=== PATIENT | male | born 1935 | race Caucasian/White ===

== ENCOUNTER 2016-08-05 16:21 | Emergency (ER) | payer MEDICARE ==
[2016-08-05 16:33] VITALS: BP 166/78; PULSE 92; RESP 16; TEMP 97.6
--- NOTE | 2016-08-05 17:41 | ED ---
Male Urogenital HPI - General Chief complaint: Urogenital Stated complaint: Catheter Problems Time Seen by Provider: 08/05/16 17:23 Source: patient, RN notes reviewed Mode of arrival: ambulatory Limitations: no limitations - History of Present Illness Initial comments: 81-year-old male presents emergency Department chief complaint Chi irritation. Patient states he had a place yesterday and has had irritation since then. Patient states this was replaced at the urologist office. Patient states that they checked her urine which showed no signs of infection. Patient states he had irritation as soon as a fluttering. Patient states it has been draining. Denies fever, chills. Denies any other complaints. - Related Data Home Medications Medication Instructions Recorded Confirmed No Known Home Medications [No 08/05/16 08/05/16 Known Home Medications] Allergies Allergy/AdvReac Type Severity Reaction Status Date / Time No Known Allergies Allergy Verified 08/05/16 17:09 Review of Systems ROS Statement: Those systems with pertinent positive or pertinent negative responses have been documented in the HPI. ROS Other: All systems not noted in ROS Statement are negative. Past Medical History Past Medical History: Cancer, COPD Additional Past Medical History / Comment(s): Prostate Cancer History of Any Multi-Drug Resistant Organisms: None Reported Past Surgical History: Prostate Surgery Past Psychological History: No Psychological Hx Reported Smoking Status: Never smoker Past Alcohol Use History: None Reported Past Drug Use History: None Reported General Exam Limitations: no limitations General appearance: alert, in no apparent distress Head exam: Present: atraumatic, normocephalic, normal inspection Respiratory exam: Present: normal lung sounds bilaterally. Absent: respiratory distress, wheezes, rales, rhonchi, stridor Cardiovascular Exam: Present: regular rate, normal rhythm, normal heart sounds. Absent: systolic murmur, diastolic murmur, rubs, gallop, clicks GI/Abdominal exam: Present: soft, normal bowel sounds. Absent: distended, tenderness, guarding, rebound, rigid exam: Present: other (Chi catheter in place there is no erythema there is no purulent drainage the Chi bag does have some bloody tinged urine in it.) Back exam: Absent: CVA tenderness (R), CVA tenderness (L) Course Vital Signs 08/05/16 16:30 Temperature 97.6 F Pulse Rate 92 Respiratory 16 Rate Blood Pressure 166/78 O2 Sat by Pulse 96 Oximetry Medical Decision Making - Medical Decision Making 9-year-old male presented for irritation was Chi catheter. Patient had a changed by urologist yesterday had his urine checked shortness infection. Patient is complaining that there is no secure attachment is in the past. Patient is fully was checked and secured. Patient will be discharged. Disposition Clinical Impression: Chi catheter problem Disposition: HOME SELF-CARE Condition: Stable Instructions: Chi Catheter Placement and Care (ED) Additional Instructions: Please return to the Emergency Department if symptoms worsen or any other concerns. Time of Disposition: 17:40
== END 2016-08-05 18:06 | disposition home or self-care (01) ==
LOC: EC 16:21
DX: T83.84XA Pain due to genitourinary prosthetic devices, implants and grafts, initial encounter (principal); Z85.46 Personal history of malignant neoplasm of prostate
CPT/HCPCS: 51798; 99283

== ENCOUNTER 2016-08-05 20:08 | Inpatient (IN) | payer MEDICARE ==
--- NOTE | 2016-08-05 21:23 | ED ---
Male Urogenital HPI - General Chief complaint: Urogenital Stated complaint: Recheck visit Time Seen by Provider: 08/05/16 21:04 Source: patient, RN notes reviewed Mode of arrival: ambulatory Limitations: no limitations - History of Present Illness Initial comments: Patient is a 81-year-old male presents to emergency room for evaluation wasserman catheter issues. Patient states he was here earlier today due to Wasserman catheter irritation. Patient states they sent him home without doing anything. Patient states he still having urethra irritation. Patient states he has not following up with his urologist until few weeks from now. Patient states he's had for a catheter in for the past 5 years due to prostate issues. Patient states last time his catheter was replaced was "a while ago". Patient states the catheter is still draining. Patient denies abdominal pain. Patient denies nausea vomiting. Patient denies flank pain. Patient denies any dizziness, chest pain. - Related Data Allergies Allergy/AdvReac Type Severity Reaction Status Date / Time No Known Allergies Allergy Verified 08/05/16 20:58 Review of Systems ROS Statement: Those systems with pertinent positive or pertinent negative responses have been documented in the HPI. ROS Other: All systems not noted in ROS Statement are negative. Past Medical History Past Medical History: Cancer, COPD Additional Past Medical History / Comment(s): Prostate Cancer History of Any Multi-Drug Resistant Organisms: None Reported Past Surgical History: Prostate Surgery Past Psychological History: No Psychological Hx Reported Smoking Status: Never smoker Past Alcohol Use History: None Reported Past Drug Use History: None Reported General Exam - General Exam Comments Initial Comments: Sitting in exam room, no acute distress. Limitations: no limitations General appearance: alert, in no apparent distress Head exam: Present: atraumatic, normocephalic, normal inspection Eye exam: Present: normal appearance ENT exam: Present: normal exam Neck exam: Present: normal inspection Respiratory exam: Present: normal lung sounds bilaterally. Absent: respiratory distress Cardiovascular Exam: Present: regular rate, normal rhythm, normal heart sounds exam: Present: other (wasserman catheter in place, draining. No penile swelling or discharge noted in the urethra. ) Course Vital Signs 08/05/16 08/05/16 08/05/16 20:32 21:57 22:37 Temperature 97.1 F L 98.4 F 97.0 F L Pulse Rate 100 95 94 Respiratory 18 16 18 Rate Blood Pressure 168/83 150/83 160/89 O2 Sat by Pulse 98 98 96 Oximetry 08/05/16 23:42 Temperature 98.0 F Pulse Rate 94 Respiratory 16 Rate Blood Pressure 128/89 O2 Sat by Pulse 97 Oximetry Medical Decision Making - Medical Decision Making Patient is an 81-year-old male presents emergency room for evaluation of Wasserman catheter irritation. Wasserman catheter was replaced. Apparently Wasserman catheter was very old and was due to be replaced. Large amounts of pus noted in urine. Patient's urinalysis suspicious for urinary tract infection. Due to significant amount of pus in urine will admit patient with IV antibiotics and further evaluation. Case discussed with Dr. Block. Dr. Block discussed case with Dr. Mcmahan who agreed to admit patient. - Lab Data Result diagrams: 08/05/16 23:43 08/05/16 23:43 Lab Results 08/05/16 Range/Units 21:57 Urine Color Yellow Urine Appearance Turbid (Clear) Urine pH 8.0 (5.0-8.0) Ur Specific [place] 1.013 (1.001-1.035) Urine Protein 3+ H (Negative) Urine Glucose (UA) Negative (Negative) Urine Ketones Negative (Negative) Urine Blood Small H (Negative) Urine Nitrate Negative (Negative) Urine Bilirubin Negative (Negative) Urine Urobilinogen <2.0 (<2.0) mg/dL Ur Leukocyte Esterase Large H (Negative) Urine RBC 141 H (0-5) /hpf Urine WBC 174 H (0-5) /hpf Urine WBC Clumps Many H (None) /hpf Amorphous Sediment Rare H (None) /hpf Urine Bacteria Rare H (None) /hpf Disposition Clinical Impression: Wasserman catheter problem, Urinary tract infection Disposition: ADMITTED IP TO THIS HOSP Decision Date: 08/05/16
[2016-08-05] MEDS ORDERED: LIDOCAINE URO-JET JELLY 2% 5 ML KIT URETHRAL ONE (21:54)
[2016-08-05 22:10] LABS: Amorphous Sediment,Urine Rare /hpf; Appearance,Urine Turbid (Clear); Bacteria,Urine Rare /hpf; Bilirubin,Urine Negative (Negative); Glucose,Urine (UA) Negative (Negative); Ketones,Urine Negative (Negative); Leukocyte Esterase,Urine Large (Negative); Nitrite,Urine Negative (Negative); Particle Count 215875; Protein,Urine 3+ (Negative); RBC,Urine 141 /hpf (0-5); Specific Gravity,Urine 1.013 (1.001-1.035); UA Billing (MACRO vs. MICRO) MICRO; Urobilinogen,Urine <2.0 mg/dL (<2.0); WBC,Urine 174 /hpf (0-5)
[2016-08-05] MEDS ORDERED: SULFAMETHOX-TMP 800-160MG 1 EACH TAB PO STA (22:16)
[2016-08-05] MEDS ORDERED: NALOXONE 0.4 MG/ML 1 ML VIAL IV PRN (22:53)
[2016-08-05] MEDS ORDERED: ACETAMINOPHEN TAB 325 MG TAB PO PRN (22:53)
[2016-08-05] MEDS ORDERED: LEVOFLOXACIN 500MG-D5W PMX 500 MG in DEXTROSE/WATER 1 100ML.BAG IVPB STA (22:57)
[2016-08-05 23:54] LABS: Basophils % (A) 0 %; CH 30.6; CHCM 33.6; Eosinophils # (A) 0.1 k/uL (0-0.7); Eosinophils % (A) 1 %; HCT 47.4 % (39.0-53.0); HDW 2.57; HGB 15.5 gm/dL (13.0-17.5); Luc # (Auto) 0.07; Luc % (Auto) 1; Lymphocytes # (A) 0.7 k/uL (1.0-4.8); Lymphocytes % (A) 7 %; MCH 29.8 pg (25.0-35.0); MCHC 32.6 g/dL (31.0-37.0); MCV 91.5 fL (80.0-100.0); Mean Platelet Volume 6.9; Monocytes # (A) 0.5 k/uL (0-1.0); Monocytes % (A) 6 %; Neutrophils # (A) 8.3 k/uL (1.3-7.7); Neutrophils % (A) 85 %; RBC 5.18 m/uL (4.30-5.90); RDW 13.4 % (11.5-15.5); WBC 9.7 k/uL (3.8-10.6); WBC (Perox) 9.88
[2016-08-05] MEDS: SODIUM CHLORIDE 0.9% 1,000 ML IV SCH (23:55)
[2016-08-06 00:04] LABS: ALT 27 U/L (21-72); AST 24 U/L (17-59); Alkaline Phosphatase 69 U/L (38-126); Anion Gap 10 mmol/L; Blood Urea Nitrogen 22 mg/dL (9-20); Calcium 9.4 mg/dL (8.4-10.2); Carbon Dioxide 29 mmol/L (22-30); Chloride 105 mmol/L (98-107); Glucose 130 mg/dL (74-99); Non-African American GFR(MDRD) >60 (>60 ml/min/1.73 sqM); Potassium 4.8 mmol/L (3.5-5.1); Sodium 144 mmol/L (137-145); Total Bilirubin 0.6 mg/dL (0.2-1.3); Total Protein 6.4 g/dL (6.3-8.2)
[2016-08-06] MEDS: SODIUM CHLORIDE 0.9% 1,000 ML IV SCH ×2 (09:18→20:23)
[2016-08-06] MEDS: PIPERACILLIN-TAZOBACTAM 3.375 GM in DEXTROSE/WATER 1 50ML.BAG IVPB SCH ×2 (14:09→20:23)
--- NOTE | 2016-08-06 14:23 | HP ---
DATE OF ADMISSION: Patient is an 81-year-old gentleman with a chronic Chi catheter because of possibility of prostate cancer which being managed as an outpatient by Urology. Much of the history is unavailable at this point of time. Patient is unable to provide any history for me. Patient has issues with urethral irritation apparently although he denies it to me. Patient's has issues with Chi catheter, which was replaced in ER with difficulty. During that replacement, patient was found to have significant amount of pus around the urethral area. Because of which patient was admitted for possibility of urinary tract infection, although patient does not have any leukocytosis. Denied any symptoms of suprapubic pain. Does not have any suprapubic tenderness although urine looks significantly abnormal with large leukocyte esterase and 141 RBC, 174 WBC with WBC clumps and urine bacteria. Urine cultures are pending and patient will be started on Zosyn empirically. Patient was given levofloxacin in ER. Patient denied any dizziness, lightheadedness. I am unable to obtain much of the history from the patient. Patient is alert and oriented x2. Appears to have moderate to severe dementia, but his functionality is pretty good and patient is ambulating very well and is strong enough to ambulate by himself. REVIEW OF SYSTEMS: I am unable to obtain due to above-mentioned reasons. The rest of the review of systems were already discussed in the HPI. The significant ones already discussed in the HPI. PAST MEDICAL HISTORY: Significant for prostate cancer, prostatic surgery. SOCIAL HISTORY: Denies smoking, alcohol abuse or any drug abuse. FAMILY HISTORY: Unable to obtain due to above-mentioned reasons. Family is unavailable at this point of time. CODE STATUS to be discussed because of that reason. PHYSICAL EXAMINATION: Temperature 99.1, pulse of 89, respiratory rate of 16, blood pressure is 124/60, saturating at 94% on room air. GENERAL: The patient is alert and oriented x2. HEENT: Pupils are round and equally reacting to light. EOMI. No scleral icterus. No conjunctival pallor. Normocephalic, atraumatic. No pharyngeal erythema. No thyromegaly. CARDIOVASCULAR: S1 and S2 present. No murmurs, rubs, or gallops. PULMONARY: Chest is clear to auscultation, no wheezing or crackles. ABDOMEN: Soft, nontender, nondistended, normoactive bowel sounds. No palpable organomegaly. MUSCULOSKELETAL: No joint swelling or deformity. EXTREMITIES: No cyanosis, clubbing, or pedal edema. NEUROLOGICAL: No focal neurological deficits. Alert and oriented x2. The patient appears to have moderate to severe dementia; either senile dementia or dementia of Alzheimer's type SKIN: No rashes. The rest of the laboratory data as mentioned above. ASSESSMENT AND PLAN: 1. Possibility of urinary tract infection probably related to Chi-related urinary tract infection. Patient will be on Zosyn. Infectious Disease will be consulted because of the pus around the urethral meatus area. Chi catheter was replaced. 2. History of prostate cancer as mentioned. Will need to follow up Urology as an outpatient. 3. Dementia. Patient has moderate dementia. I do not believe patient will benefit from Namenda or Aricept. 4. Patient's primary care physician is unknown at this point of time.
[2016-08-07] MEDS: PIPERACILLIN-TAZOBACTAM 3.375 GM in DEXTROSE/WATER 1 50ML.BAG IVPB SCH ×3 (03:03→19:18)
[2016-08-07] MEDS: SODIUM CHLORIDE 0.9% 1,000 ML IV SCH ×2 (05:51→15:33)
[2016-08-07 09:10] LABS: CH 30.2; CHCM 32.8; HCT 48.6 % (39.0-53.0); HDW 2.55; HGB 15.6 gm/dL (13.0-17.5); MCH 29.8 pg (25.0-35.0); MCHC 32.2 g/dL (31.0-37.0); MCV 92.5 fL (80.0-100.0); Mean Platelet Volume 6.4; RBC 5.25 m/uL (4.30-5.90); RDW 13.4 % (11.5-15.5); WBC 6.3 k/uL (3.8-10.6)
[2016-08-07 09:34] LABS: Anion Gap 11 mmol/L; Blood Urea Nitrogen 16 mg/dL (9-20); Calcium 9.2 mg/dL (8.4-10.2); Carbon Dioxide 27 mmol/L (22-30); Chloride 105 mmol/L (98-107); Glucose 93 mg/dL (74-99); Non-African American GFR(MDRD) 56 (>60 ml/min/1.73 sqM); Potassium 4.1 mmol/L (3.5-5.1); Sodium 143 mmol/L (137-145)
--- NOTE | 2016-08-07 10:11 | CONS ---
DATE OF CONSULTATION: 08/06/2015 REASON FOR CONSULTATION: Catheter associated urinary tract infection. HISTORY OF PRESENT ILLNESS: The patient is an 81-year-old male with a past medical history significant for urinary obstruction secondary to prostate disorder for which the patient did have Chi catheter. Patient came to the ER with chief complaints of irritation in his penile area from his Chi catheter. The patient was not sure exactly when was the last time Chi catheter has been changed. Subsequently, the catheter was changed down in the ER. He did have UA that was significantly positive. He was given one dose of Levaquin and subsequently admitted to the hospital for further work-up and antibiotic was adjusted to Zosyn. I was asked to see the patient for further recommendation. Patient is not a very good historian so most of the information has been extracted from review of the chart and talking to the nursing staff as the patient questions answered. Review of systems could not be reliably obtained. All the positive points have been mentioned in the HPI. PAST MEDICAL HISTORY: Significant for prostate cancer and COPD . PAST SURGICAL HISTORY: Prostatectomy. SOCIAL HISTORY: No history of smoking, drinking or drug use. FAMILY HISTORY: No pertinent findings noticed. ALLERGIES: No known drug allergies. Medications currently include the patient is on: 1. Tylenol. 2. Piptazobactam. 3. IV fluid. On examination, blood pressure is 117/72 with a pulse of 85, temperature 97.6. He is 95% on room air. General description is an elderly male, lying in bed in no distress. No tachypnea or accessory muscles of respiration use. HEENT examination showed no pallor or scleral icterus. Oral mucous membrane is dry. NECK: Trachea central. There is no thyromegaly. LUNGS: Unlabored breathing. Clear to auscultation anteriorly. HEART: S1, S2 with regular rate and rhythm. ABDOMEN: Soft. No tenderness. EXTREMITIES: No edema of the feet. SKIN: No rash or mass palpable. NEUROLOGICAL: The patient is awake, alert, orientation couldnot be determined. Mood and affect normal. LABS: Hemoglobin is 15.5, white count 9.7 with a BUN of 22, creatinine 1.0. electrolytes has been normal. Liver enzymes are normal. Urine has been positive with large leukocyte esterase and many bacteria. DIAGNOSTIC IMPRESSION AND PLAN: Patient with catheter associated urinary tract infection, in a patient who does have underlying prostate cancer status post prostatectomy and depending on chronic indwelling Chi. PLAN: 1. The patient will continue on Zosyn and that should cover broad spectrum for gram-negative pathogen. 2. Aggressive IV fluid. 3. Will follow with clinical condition and cultures to determine his discharge antibiotics. Thank you for this consultation. Will follow this patient along with you. ALVARO
[2016-08-07 15:59] VITALS: RESP 16
--- NOTE | 2016-08-07 17:55 | P.PN ---
Subjective Principal diagnosis: Urinary tract infection related to Chi catheter and irritation. This is a continue present on an 81-year-old white male essentially admitted for infected Chi catheter. The patient probably has superinfection. Infectious diseases consulted. No significant new complaints. However, he seems somewhat confused and agitated. We will try low-dose Ativan to see if this will help him. He had somewhat of a "rough" night. Objective - Vital Signs Vital signs: Vital Signs Temp 96.2 F L 08/07/16 15:00 Pulse 65 08/07/16 15:00 Resp 16 08/07/16 15:00 BP 110/62 08/07/16 15:00 Pulse Ox 96 08/07/16 15:00 Intake & Output 08/06/16 08/07/16 08/07/16 18:59 06:59 18:59 Intake Total 200 300 Output Total 1100 1200 700 Balance -900 -900 -700 Intake: Oral 200 300 Output: Urine 1100 1200 700 Other: Voiding Method Indwelling Catheter Indwelling Catheter Indwelling Catheter - Constitutional General appearance: Present: average body habitus - EENT Eyes: Absent: abnormal pupil - Cardiovascular Rhythm: regular Heart sounds: normal: S1, S2 - Gastrointestinal General gastrointestinal: Present: soft. Absent: tenderness - Integumentary Integumentary: Absent: rash - Labs CBC & Chem 7: 08/07/16 08:24 08/07/16 08:24 Assessment and Plan (1) Chi catheter problem Status: Acute (2) Urinary tract infection Status: Acute Plan: Continue current regimen of antibiotic treatment. Anticipate discharge once cleared by infectious disease and clinical stable. Ativan 0.5 mg IV when necessary for agitation. Dr. Jones will be covering for the weekend. Anticipate discharge in next 24-48 hours. Time with Patient: Less than 30
[2016-08-07] MEDS: LORazepam 2 MG/ML SYRINGE IV PRN (20:13)
[2016-08-08] MEDS: SODIUM CHLORIDE 0.9% 1,000 ML IV SCH ×2 (01:10→12:54)
[2016-08-08] MEDS: LORazepam 2 MG/ML SYRINGE IV PRN (01:13)
[2016-08-08] MEDS: PIPERACILLIN-TAZOBACTAM 3.375 GM in DEXTROSE/WATER 1 50ML.BAG IVPB SCH ×2 (03:44→12:54)
[2016-08-08 08:12] VITALS: BP 140/76; PULSE 81; TEMP 97.7
--- NOTE | 2016-08-08 08:16 | PN ---
DATE OF SERVICE: 08/07/2016 Reason for followup is catheter associated urinary tract infection. INTERVAL HISTORY: The patient is afebrile. He seems to be more awake, alert. He is breathing comfortably. Denies having any chest pain or shortness of breath or cough. No abdominal pain or any diarrhea. On examination, blood pressure is 110/62 with a pulse of 65, temperature 96.2. He is 96% on room air. General description is an elderly male, lying in bed in no distress. RESPIRATORY SYSTEM: Unlabored breathing. Clear to auscultation anteriorly. HEART: S1, S2 with regular rate and rhythm. ABDOMEN: Soft, no tenderness. LABS: Hemoglobin is 15.6, white count 6.3 with a BUN of 15, creatinine 1.24. Urine culture with gram-negative bacilli. DIAGNOSTIC IMPRESSION AND PLAN: Patient with gram-negative urinary tract infection, catheter associated. His Chi has been changed. We are awaiting for the urine culture to finalize to determine his discharge antibiotics. Continue the patient on Zosyn. Family present at the bedside. Their questions were answered.
[2016-08-08 09:27] LABS: CH 30.2; CHCM 32.7; HCT 45.7 % (39.0-53.0); HDW 2.59; HGB 14.9 gm/dL (13.0-17.5); MCH 30.3 pg (25.0-35.0); MCHC 32.7 g/dL (31.0-37.0); MCV 92.8 fL (80.0-100.0); Mean Platelet Volume 6.5; RBC 4.92 m/uL (4.30-5.90); RDW 13.4 % (11.5-15.5); WBC 4.7 k/uL (3.8-10.6)
[2016-08-08 09:40] LABS: ALT 30 U/L (21-72); AST 25 U/L (17-59); Alkaline Phosphatase 52 U/L (38-126); Anion Gap 8 mmol/L; Blood Urea Nitrogen 13 mg/dL (9-20); Calcium 9.1 mg/dL (8.4-10.2); Carbon Dioxide 32 mmol/L (22-30); Chloride 104 mmol/L (98-107); Glucose 128 mg/dL (74-99); Non-African American GFR(MDRD) 58 (>60 ml/min/1.73 sqM); Potassium 4.4 mmol/L (3.5-5.1); Sodium 144 mmol/L (137-145); Total Bilirubin 0.7 mg/dL (0.2-1.3); Total Protein 5.7 g/dL (6.3-8.2)
== END 2016-08-08 14:10 | disposition home or self-care (01) | DRG 700 ==
LOC: EC 20:08 → 4MS4W 22:53
PROVIDERS: ADMIT Family Medicine; ATTEND Family Medicine
DX: T83.511A Infection and inflammatory reaction due to indwelling urethral catheter, initial encounter (principal); C61 Malignant neoplasm of prostate; J44.9 Chronic obstructive pulmonary disease, unspecified; G30.9 Alzheimer's disease, unspecified; N31.9 Neuromuscular dysfunction of bladder, unspecified; B96.89 Other specified bacterial agents as the cause of diseases classified elsewhere; F02.80 Dementia in other diseases classified elsewhere, unspecified severity, without behavioral disturbance, psychotic disturbance, mood disturbance, and anxiety; N39.0 Urinary tract infection, site not specified; E78.5 Hyperlipidemia, unspecified; M19.90 Unspecified osteoarthritis, unspecified site; N35.9 Urethral stricture, unspecified; Z85.828 Personal history of other malignant neoplasm of skin; Z79.82 Long term (current) use of aspirin; Y84.6 Urinary catheterization as the cause of abnormal reaction of the patient, or of later complication, without mention of misadventure at the time of the procedure
CPT/HCPCS: 51798; 80048; 80053; 81001; 85025; 85027; 87077; 87086; 87186; 96365; 99283; 99284

== ENCOUNTER 2016-12-02 06:57 | Inpatient (IN) | payer MEDICARE ==
[2016-12-02] MEDS ORDERED: RX INFO: IV CONTRAST WAS GIVEN 1 EACH MISC MISCELLANE PRN (07:57)
[2016-12-02] MEDS ORDERED: SODIUM CHLORIDE 0.9% 1,000 ML IV STA (07:57)
[2016-12-02] MEDS ORDERED: MORPHINE SULFATE 4 MG/ML SYRINGE IV STA (07:57)
--- NOTE | 2016-12-02 08:03 | ED ---
General Adult HPI - General Chief complaint: Extremity Problem,Nontraumatic Stated complaint: Leg pain Time Seen by Provider: 12/02/16 07:33 Source: patient, RN notes reviewed Mode of arrival: wheelchair Limitations: no limitations - History of Present Illness Initial comments: Patient is a pleasant 81-year-old male presenting to the emergency department for leg pain. Patient is a very poor historian. No family is present. Patient states symptoms have been present for a couple of days. Patient believes symptoms may be getting better. Patient does admit however that he was unable to get out of bed because his legs hurt too much. Patient states this is with raising his legs. Patient states at rest there is no discomfort. Patient denies any weakness. Patient denies back pain. No headache or confusion. Both legs are equally uncomfortable. Patient states the area of discomfort is a suprapubic region upon exam. - Related Data Home Medications Medication Instructions Recorded Confirmed Ibuprofen [Advil] 200 mg PO Q8HR PRN 12/02/16 12/02/16 Allergies Allergy/AdvReac Type Severity Reaction Status Date / Time No Known Allergies Allergy Verified 12/02/16 07:14 Review of Systems ROS Statement: Those systems with pertinent positive or pertinent negative responses have been documented in the HPI. ROS Other: All systems not noted in ROS Statement are negative. Constitutional: Denies: fever Eyes: Denies: eye pain ENT: Denies: ear pain Respiratory: Denies: cough, dyspnea Cardiovascular: Denies: chest pain Endocrine: Denies: fatigue Gastrointestinal: Reports: abdominal pain (Patient admits to having some discomfort in the suprapubic region while lifting his legs) Genitourinary: Reports: other (Chi catheter) Musculoskeletal: Denies: back pain Skin: Denies: rash Neurological: Denies: weakness Past Medical History Past Medical History: Asthma, Cancer, COPD, Dementia, Hyperlipidemia Additional Past Medical History / Comment(s): Prostate Cancer, skin cancer removed from back, chronic urinary retention, urethral stricture, arthritis, History of Any Multi-Drug Resistant Organisms: None Reported Past Surgical History: Prostate Surgery Additional Past Surgical History / Comment(s): urethral stricture with Cystoscopy with DVIU x3 Past Anesthesia/Blood Transfusion Reactions: No Reported Reaction Past Psychological History: No Psychological Hx Reported Smoking Status: Never smoker Past Alcohol Use History: None Reported Past Drug Use History: None Reported General Exam Limitations: no limitations General appearance: alert, in no apparent distress Head exam: Present: atraumatic, other (Right facial lesion which patient is informed he needs to see a primary care physician for) Eye exam: Present: normal appearance, PERRL Neck exam: Present: normal inspection Respiratory exam: Present: normal lung sounds bilaterally Cardiovascular Exam: Present: regular rate, normal rhythm Expanded Peripheral pulses: 2+: Dorsalis Pedis (R), Dorsalis Pedis (L) GI/Abdominal exam: Present: soft, tenderness (Suprapubic tenderness), normal bowel sounds. Absent: distended, guarding, rebound, rigid, pulsatile mass exam: Present: normal inspection, other (Chi catheter in place). Absent: testicular tenderness, urethral discharge, scrotal swelling Extremities exam: Present: normal inspection, other (Patient has severe discomfort with attempt at flexing of the hip. Patient has limited ability to hold each leg off the bed secondary to discomfort). Absent: tenderness Back exam: Present: normal inspection. Absent: tenderness Neurological exam: Present: alert, CN II-XII intact. Absent: motor sensory deficit (Limited by pain) Expanded Speech: Present: fluid speech Cranial nerves: EOM's Intact: Normal, Facial Sensation: Normal Sensory exam: Upper Extremity Light Touch: Normal, Lower Extremity Light Touch: Normal Motor strength exam: RUE: 5, LUE: 5, RLE: 5 (Limited by pain), LLE: 5 (Limited by pain) Psychiatric exam: Present: normal affect, normal mood Skin exam: Absent: rash Course Vital Signs 12/02/16 12/02/16 12/02/16 07:10 10:06 10:38 Temperature 97.1 F L 98.4 F 98.2 F Pulse Rate 114 H 81 89 Respiratory 18 18 16 Rate Blood Pressure 145/75 123/58 131/68 O2 Sat by Pulse 97 94 L 96 Oximetry EKG Findings - EKG Comments: EKG Findings:: Normal sinus rhythm and 95. UT 180. QRS 84. QT 366. QTc 447. Normal axis. Normal QRS. Normal ST-T. Medical Decision Making - Medical Decision Making Patient resting comfortably in bed. Patient still is unable to get up out of bed or ambulate. Patient updated on results and plan. Case discussed with Dr. Huston, who will admit for hospital call. - Lab Data Result diagrams: 12/02/16 08:14 12/02/16 08:14 Lab Results 12/02/16 12/02/16 12/02/16 Range/Units 08:10 08:14 08:14 WBC 8.9 (3.8-10.6) k/uL RBC 4.59 (4.30-5.90) m/uL Hgb 14.0 (13.0-17.5) gm/dL Hct 41.1 (39.0-53.0) % MCV 89.6 (80.0-100.0) fL MCH 30.5 (25.0-35.0) pg MCHC 34.1 (31.0-37.0) g/dL RDW 12.8 (11.5-15.5) % Plt Count 396 (150-450) k/uL Neutrophils % 81 % Lymphocytes % 8 % Monocytes % 8 % Eosinophils % 2 % Basophils % 0 % Neutrophils # 7.2 (1.3-7.7) k/uL Lymphocytes # 0.7 L (1.0-4.8) k/uL Monocytes # 0.7 (0-1.0) k/uL Eosinophils # 0.1 (0-0.7) k/uL Basophils # 0.0 (0-0.2) k/uL PT (9.0-12.0) sec INR (<1.1) APTT (22.0-30.0) sec Sodium 143 (137-145) mmol/L Potassium 4.2 (3.5-5.1) mmol/L Chloride 104 (98-107) mmol/L Carbon Dioxide 28 (22-30) mmol/L Anion Gap 11 mmol/L BUN 17 (9-20) mg/dL Creatinine 0.87 (0.66-1.25) mg/dL Est GFR (MDRD) Af Amer >60 (>60 ml/min/1.73 sqM) Est GFR (MDRD) Non-Af >60 (>60 ml/min/1.73 sqM) Glucose 115 H (74-99) mg/dL Calcium 9.2 (8.4-10.2) mg/dL Total Bilirubin 0.7 (0.2-1.3) mg/dL AST 22 (17-59) U/L ALT 27 (21-72) U/L Alkaline Phosphatase 77 (38-126) U/L Total Creatine Kinase (55-170) U/L CK-MB (CK-2) (0.0-2.4) ng/mL CK-MB (CK-2) Rel Index Troponin I (0.000-0.034) ng/mL Total Protein 6.7 (6.3-8.2) g/dL Albumin 3.3 L (3.5-5.0) g/dL Amylase 73 (30-110) U/L Lipase 101 (23-300) U/L Urine Color Yellow Urine Appearance Turbid (Clear) Urine pH 6.0 (5.0-8.0) Ur Specific Mercer 1.017 (1.001-1.035) Urine Protein 1+ H (Negative) Urine Glucose (UA) Negative (Negative) Urine Ketones Trace H (Negative) Urine Blood Moderate H (Negative) Urine Nitrite Positive (Negative) Urine Bilirubin Negative (Negative) Urine Urobilinogen <2.0 (<2.0) mg/dL Ur Leukocyte Esterase Large H (Negative) Urine RBC 72 H (0-5) /hpf Urine WBC >182 H (0-5) /hpf Urine WBC Clumps Few H (None) /hpf Ur Squamous Epith Cells 2 (0-4) /hpf Urine Bacteria Many H (None) /hpf Hyaline Casts 15 H (0-2) /lpf Urine Mucus Moderate H (None) /hpf 12/02/16 12/02/16 Range/Units 08:14 08:14 WBC (3.8-10.6) k/uL RBC (4.30-5.90) m/uL Hgb (13.0-17.5) gm/dL Hct (39.0-53.0) % MCV (80.0-100.0) fL MCH (25.0-35.0) pg MCHC (31.0-37.0) g/dL RDW (11.5-15.5) % Plt Count (150-450) k/uL Neutrophils % % Lymphocytes % % Monocytes % % Eosinophils % % Basophils % % Neutrophils # (1.3-7.7) k/uL Lymphocytes # (1.0-4.8) k/uL Monocytes # (0-1.0) k/uL Eosinophils # (0-0.7) k/uL Basophils # (0-0.2) k/uL PT 11.3 (9.0-12.0) sec INR 1.1 (<1.1) APTT 22.8 (22.0-30.0) sec Sodium (137-145) mmol/L Potassium (3.5-5.1) mmol/L Chloride (98-107) mmol/L Carbon Dioxide (22-30) mmol/L Anion Gap mmol/L BUN (9-20) mg/dL Creatinine (0.66-1.25) mg/dL Est GFR (MDRD) Af Amer (>60 ml/min/1.73 sqM) Est GFR (MDRD) Non-Af (>60 ml/min/1.73 sqM) Glucose (74-99) mg/dL Calcium (8.4-10.2) mg/dL Total Bilirubin (0.2-1.3) mg/dL AST (17-59) U/L ALT (21-72) U/L Alkaline Phosphatase (38-126) U/L Total Creatine Kinase 33 L (55-170) U/L CK-MB (CK-2) 1.3 (0.0-2.4) ng/mL CK-MB (CK-2) Rel Index 3.9 Troponin I <0.012 (0.000-0.034) ng/mL Total Protein (6.3-8.2) g/dL Albumin (3.5-5.0) g/dL Amylase (30-110) U/L Lipase (23-300) U/L Urine Color Urine Appearance (Clear) Urine pH (5.0-8.0) Ur Specific Mercer (1.001-1.035) Urine Protein (Negative) Urine Glucose (UA) (Negative) Urine Ketones (Negative) Urine Blood (Negative) Urine Nitrite (Negative) Urine Bilirubin (Negative) Urine Urobilinogen (<2.0) mg/dL Ur Leukocyte Esterase (Negative) Urine RBC (0-5) /hpf Urine WBC (0-5) /hpf Urine WBC Clumps (None) /hpf Ur Squamous Epith Cells (0-4) /hpf Urine Bacteria (None) /hpf Hyaline Casts (0-2) /lpf Urine Mucus (None) /hpf - Radiology Data Radiology results: report reviewed (Bilateral lower extremity ultrasound shows no acute DVT. Computed tomography scan of the abdomen pelvis: Correlate for urinary bladder cystitis.), image reviewed (Lumbar x-ray shows grade 1 retrolisthesis L3/L4. Moderate multilevel degenerative changes.) Disposition Clinical Impression: Urinary tract infection, Leg pain Disposition: ADMITTED IP TO THIS HOSP
[2016-12-02 08:34] LABS: Appearance,Urine Turbid (Clear); Bacteria,Urine Many /hpf; Bilirubin,Urine Negative (Negative); Glucose,Urine (UA) Negative (Negative); Ketones,Urine Trace (Negative); Leukocyte Esterase,Urine Large (Negative); Mucus,Urine Moderate /hpf; Nitrite,Urine Positive (Negative); Particle Count 92636; Protein,Urine 1+ (Negative); RBC,Urine 72 /hpf (0-5); Specific Gravity,Urine 1.017 (1.001-1.035); Squamous Epithelial Cell,Urine 2 /hpf (0-4); UA Billing (MACRO vs. MICRO) MICRO; Urobilinogen,Urine <2.0 mg/dL (<2.0); WBC,Urine >182 /hpf (0-5)
[2016-12-02 08:37] LABS: Basophils % (A) 0 %; CH 29.5; CHCM 33.1; Eosinophils # (A) 0.1 k/uL (0-0.7); Eosinophils % (A) 2 %; HCT 41.1 % (39.0-53.0); HDW 2.78; Luc # (Auto) 0.15; Luc % (Auto) 2; Lymphocytes # (A) 0.7 k/uL (1.0-4.8); Lymphocytes % (A) 8 %; MCH 30.5 pg (25.0-35.0); MCHC 34.1 g/dL (31.0-37.0); MCV 89.6 fL (80.0-100.0); Mean Platelet Volume 6.1; Monocytes # (A) 0.7 k/uL (0-1.0); Monocytes % (A) 8 %; Neutrophils # (A) 7.2 k/uL (1.3-7.7); Neutrophils % (A) 81 %; RBC 4.59 m/uL (4.30-5.90); RDW 12.8 % (11.5-15.5); WBC 8.9 k/uL (3.8-10.6); WBC (Perox) 8.47
[2016-12-02 08:42] LABS: INR 1.1 (<1.1); Partial Thromboplastin Time 22.8 sec (22.0-30.0); Prothrombin Time 11.3 sec (9.0-12.0)
[2016-12-02 08:47] LABS: Amylase 73 U/L (30-110); Chloride 104 mmol/L (98-107); Glucose 115 mg/dL (74-99); Potassium 4.2 mmol/L (3.5-5.1); Sodium 143 mmol/L (137-145); Total Protein 6.7 g/dL (6.3-8.2)
[2016-12-02 08:48] LABS: ALT 27 U/L (21-72); AST 22 U/L (17-59); Alkaline Phosphatase 77 U/L (38-126); Anion Gap 11 mmol/L; Blood Urea Nitrogen 17 mg/dL (9-20); Calcium 9.2 mg/dL (8.4-10.2); Carbon Dioxide 28 mmol/L (22-30); Non-African American GFR(MDRD) >60 (>60 ml/min/1.73 sqM); Total Bilirubin 0.7 mg/dL (0.2-1.3)
[2016-12-02 08:53] LABS: Creatine Kinase 33 U/L (55-170)
[2016-12-02 09:06] LABS: Creatine Kinase MB 1.3 ng/mL (0.0-2.4); Troponin I <0.012 ng/mL (0.000-0.034)
--- NOTE | 2016-12-02 09:29 | XR ---
EXAMINATION TYPE: XR lumbar spine 2 or 3V DATE OF EXAM: 12/02/2016 8:56 AM COMPARISON: NONE HISTORY: 81-year-old male with lower pelvic pain and leg weakness. Leg pain. TECHNIQUE: 3 views FINDINGS: There is a degenerated levoconvex curvature of the lumbar spine. Hypertrophic facet arthropathy throu ghout with moderate degenerative disc disease characterized by disc space narrowing and endplate spon dylosis. There is grade 1 retrolisthesis at L3-L4. Vertebral body heights are preserved. IMPRESSION: 1. Marked hypertrophic facet arthropathy throughout with a degenerative grade 1 retrolisthesis at L3- L4. 2. Additional moderate multilevel disc/endplate degenerative changes especially in the mid to lower l umbar spine. 3. Degenerated levoconvex curvature. No vertebral compression collapse.
--- NOTE | 2016-12-02 09:47 | US ---
EXAMINATION TYPE: US venous doppler duplex LE BI DATE OF EXAM: 12/02/2016 9:32 AM COMPARISON: NONE CLINICAL HISTORY: 81-year-old male Pain. Bilateral leg pain and swelling x 3 days SIDE PERFORMED: Bilateral TECHNIQUE: The lower extremity deep venous system is examined utilizing real time linear array sonog jennifer with graded compression, doppler sonography and color-flow sonography. Findings VESSELS IMAGED: External Iliac Vein (EIV) Common Femoral Vein Deep Femoral Vein Greater Saphenous Vein * Femoral Vein Popliteal Vein Small Saphenous Vein * Proximal Calf Veins (* superficial vessels) Right Leg: Appears negative for DVT Left Leg: Appears negative for DVT IMPRESSION: No evidence for DVT within the bilateral lower extremities imaged from the groin to the upper calves.
--- NOTE | 2016-12-02 09:50 | CT ---
EXAMINATION TYPE: CT abdomen pelvis w con DATE OF EXAM: 12/02/2016 9:22 AM COMPARISON: NONE HISTORY: Abdominal pain CT DLP: 734.50 mGycm CONTRAST: CT scan of the abdomen and pelvis is performed without Oral Contrast and with IV Contrast, patient in jected with 100 ml mL of Omnipaque 300. FINDINGS: LUNG BASES-: No visible nodule. No infiltrate. There are coronary artery calcifications. LIVER/GB: No calcified gallstones. No space occupying hepatic lesion. Biliary tree is of normal ca liber. PANCREAS: No inflammation. No distinct mass. SPLEEN: No splenic enlargement. No lesion seen. Splenic granulomas identified. ADRENALS: 1.7 cm lipid rich left adrenal adenoma. KIDNEYS/BLADDER: No hydronephrosis. No nephrolithiasis. No disctinct renal mass. Limited evaluatio n of the urinary bladder given streak artifact from right hip prosthesis.. Urinary bladder does appea r to be of mildly thickened. Correlate clinically. Chi catheter is partially imaged. BOWEL: Normal appendix. Normal bowel caliber. No inflammation. Sigmoid diverticulosis without diver ticulitis. GENITAL ORGANS: No gross abnormality. LYMPH NODES: No greater than 1cm abdominal or pelvic lymph nodes are appreciated. AORTA: No significant abnormality. OSSEOUS STRUCTURES: No significant abnormality is seen. OTHER: No significant additional abnormality is seen. IMPRESSION: 1. Correlate for urinary bladder cystitis. 2. Sigmoid diverticulosis without diverticulitis. 3. Lipid rich left adrenal adenoma.
[2016-12-02] MEDS ORDERED: NALOXONE 0.4 MG/ML 1 ML VIAL IV PRN (11:12)
[2016-12-02] MEDS ORDERED: MORPHINE SULFATE 4 MG/ML SYRINGE IV PRN (11:12)
[2016-12-02] MEDS: SODIUM CHLORIDE 0.9% 1,000 ML IV SCH (12:24)
[2016-12-02] MEDS: HYDROcodone/APAP 5-325MG 1 EACH TAB PO PRN (17:00)
--- NOTE | 2016-12-03 07:05 | HP ---
DATE OF ADMISSION: CHIEF COMPLAINT: Pain in the lower abdomen and groin. HISTORY OF PRESENT ILLNESS: This is the first admission for this 81-year-old white male. He apparently lives with his son. There is nobody to give a history and it is believed that he has dementia. He presented to the emergency room with lower abdominal pain or pain in the groin and no obvious etiology was identified in the emergency room. He has an indwelling Chi and he has a history of cancer of the prostate. He is admitted for further work-up. It did not look like he had a UTI. REVIEW OF SYSTEMS: Unobtainable. Past medical history, family history, and personal and social histories are unobtainable. It is believed that he does not take any medications. Family history, personal and social histories are all unavailable or unknown. PHYSICAL EXAMINATION: VITAL SIGNS: Blood pressure 122/78 with a pulse 101, respirations of 30 and he is afebrile. GENERAL: He appeared to be slender, well-developed, well-nourished in no acute distress. SKIN: Skin color is normal. Skin is warm and dry. Lymph nodes are not enlarged. Head, ears, eyes, nose, mouth, and throat are normal. NECK: Neck veins not distended. Thyroid is not enlarged. CHEST: Clear. CARDIAC: Normal. ABDOMEN: Soft, nontender. No masses or visceromegaly. EXTREMITIES: Normal. ( ) but it was felt that he was confused. He is admitted to the hospital with diagnoses: 1. Lower abdominal and groin pain, etiology unknown. 2. History of coronary artery disease of the prostate. 3. Indwelling Chi catheter. 4. Dementia. PLAN: 1. Bed rest. 2. IV fluids. 3. Bone scan. 4. PSA. 5. CT of the abdomen and pelvis.
[2016-12-03] MEDS: HYDROcodone/APAP 5-325MG 1 EACH TAB PO PRN ×3 (07:34→20:25)
--- NOTE | 2016-12-03 08:25 | P.PN ---
Subjective Principal diagnosis: Leg pain with UTI. This is a continue present 81-year-old white male essentially admitted for UTI and leg pain. He has an underlying history of prostate cancer. We will go ahead and await bone scan results. Continue IV fluid hydration and antibiotics. He does complain of suprapubic pain intermittently. But he is tolerating diet appropriately. Objective - Vital Signs Vital signs: Vital Signs Temp 97.6 F 12/03/16 07:00 Pulse 94 12/03/16 07:00 Resp 16 12/03/16 07:00 BP 144/69 12/03/16 07:00 Pulse Ox 96 12/03/16 07:00 Intake & Output 12/02/16 12/03/16 12/03/16 18:59 06:59 18:59 Intake Total 480 Output Total 120 500 Balance -120 -20 Intake: Oral 480 Output: Urine 120 500 Other: Voiding Method Indwelling Catheter Indwelling Catheter - Constitutional General appearance: Present: average body habitus - EENT Eyes: Absent: abnormal pupil - Respiratory Respiratory: bilateral: CTA - Cardiovascular Heart sounds: normal: S1, S2 - Gastrointestinal General gastrointestinal: Present: soft. Absent: tenderness - Labs CBC & Chem 7: 12/02/16 08:14 12/02/16 08:14 Assessment and Plan (1) Leg pain Status: Acute (2) Urinary tract infection Status: Acute Plan: Continue IV antibiotics and fluid. Await bone scan results. We'll continue to follow. The patient clinically is improved. Anticipate discharge in the a.m. This is assuming his bone scan is normal. Time with Patient: Less than 30
[2016-12-03] MEDS: SODIUM CHLORIDE 0.9% 1,000 ML IV SCH ×2 (11:15→12:51)
--- NOTE | 2016-12-03 17:39 | NM ---
EXAMINATION TYPE: NM bone scan whole body DATE OF EXAM: 12/03/2016 4:56 PM COMPARISON: CT abdomen pelvis 02 Dec 2016 HISTORY: Prostate carcinoma Delayed whole-body scanning was performed following the injection of 25.8 mCi Tc 99m MDP. Images acq uired 3 hours post injection. FINDINGS: Uptake within the knees, wrists, hands, elbows, shoulders and sternoclavicular joints is likely degen erative. Photopenic area present right hip is due to hip prosthesis. Soft tissue uptake is thought to be normal. Uptake in the thoracic and lumbar spine thought to be degenerative. There may be extraren al pelvis involving the left kidney. IMPRESSION: Metastatic disease is not evident.
--- NOTE | 2016-12-03 22:48 | PN ---
CHIEF COMPLAINT: Lower abdominal groin pain with a history of CA of the prostate. HISTORY OF PRESENT ILLNESS: This patient apparently is a patient of Dr. Nicholson's. Dr. Nicholson is willing to take the patient on transfer and this has been arranged.
[2016-12-04] MEDS: HYDROcodone/APAP 5-325MG 1 EACH TAB PO PRN ×2 (04:24→08:04)
--- NOTE | 2016-12-04 07:44 | P.DS ---
Providers Date of admission: 12/02/16 11:12 Attending physician: Tomi Nicholson Primary care physician: Stated None - Discharge Diagnosis(es) (1) Leg pain Current Visit: Yes Status: Acute (2) Urinary tract infection Current Visit: Yes Status: Acute Hospital Course: This is an 81-year-old white male who is essentially admitted for urinary tract infection with significant pain. Because of his lack of mobility and history of prostate cancer, he had bone scan which was normal. He is not tolerating diet without fever. No fall element is noted. He has no previous history of fall in the last 3 months. I know his niece quite well and he has good family support. The patient will be discharged to follow-up in approximately 3 business days. Patient Condition at Discharge: Fair Plan - Discharge Summary New Discharge Prescriptions: Ciprofloxacin HCl [Cipro] 500 mg PO Q12HR #14 tablet Discharge Medication List Ibuprofen [Advil] 200 mg PO Q8HR PRN 12/02/16 [History] Ciprofloxacin HCl [Cipro] 500 mg PO Q12HR #14 tablet 12/04/16 [Rx] Follow up Appointment(s)/Referral(s): None,Stated [Primary Care Provider] - 3 Days Discharge Disposition: HOME SELF-CARE
[2016-12-04 07:46] VITALS: BP 142/74; PULSE 88; RESP 17; TEMP 98
== END 2016-12-04 10:03 | disposition home or self-care (01) | DRG 690 ==
LOC: EC 06:57 → 5MS5E 11:12
PROVIDERS: ADMIT Family Medicine; ATTEND Family Medicine
DX: N39.0 Urinary tract infection, site not specified (principal); J44.9 Chronic obstructive pulmonary disease, unspecified; F03.90 Unspecified dementia, unspecified severity, without behavioral disturbance, psychotic disturbance, mood disturbance, and anxiety; E78.5 Hyperlipidemia, unspecified; M19.90 Unspecified osteoarthritis, unspecified site; J45.909 Unspecified asthma, uncomplicated; M79.606 Pain in leg, unspecified; R33.9 Retention of urine, unspecified; Z85.46 Personal history of malignant neoplasm of prostate; Z85.828 Personal history of other malignant neoplasm of skin
CPT/HCPCS: 36415; 72100; 74177; 78306; 80053; 81001; 82150; 82550; 82553; 83690; 84484; 85025; 85610; 85730; 87077; 87086; 87186; 93005; 93970; 96361; 96374; 96376; 99285

== ENCOUNTER 2016-12-06 22:39 | Inpatient (IN) | payer MEDICARE ==
[2016-12-06] MEDS ORDERED: ACETAMINOPHEN TAB 325 MG TAB PO STA (23:10)
[2016-12-06] MEDS ORDERED: SODIUM CHLORIDE 0.9% 1,000 ML IV ONE (23:11)
[2016-12-06 23:30] LABS: Basophils % (A) 0 %; CHCM 33.5; Eosinophils % (A) 0 %; HCT 36.7 % (39.0-53.0); HDW 2.69; Luc # (Auto) 0.06; Luc % (Auto) 0; Lymphocytes # (A) 0.2 k/uL (1.0-4.8); Lymphocytes % (A) 1 %; MCH 29.2 pg (25.0-35.0); MCHC 32.5 g/dL (31.0-37.0); MCV 89.9 fL (80.0-100.0); Mean Platelet Volume 6.3; Monocytes # (A) 0.5 k/uL (0-1.0); Monocytes % (A) 4 %; Neutrophils # (A) 13.1 k/uL (1.3-7.7); Neutrophils % (A) 94 %; RBC 4.09 m/uL (4.30-5.90); RDW 12.8 % (11.5-15.5); WBC 13.9 k/uL (3.8-10.6); WBC (Perox) 14.39
--- NOTE | 2016-12-06 23:31 | ED ---
Fever HPI - General Chief Complaint: Fever Stated Complaint: fever Time Seen by Provider: 12/06/16 22:51 Source: patient, family, EMS Mode of arrival: EMS Limitations: altered mental status (Patient with history of dementia) - History of Present Illness Initial Comments: This patient is an 81-year-old man who is here to be evaluated for it sounds like generalized weakness and shaking. The patient has underlying dementia, and he is not able to state why he is here. He states that he currently does not have any complaints and wants to go home. The patient lives with his son who is here and states that a couple of hours ago, the patient developed shaking , and he was too weak to get up and walk at home. He also had one episode of vomiting. When things did not improve they decided to have him evaluated here. They state that he does look a little better than he was at home, and that the shaking has stopped. MD Complaint: weakness, other (Chills) -: hour(s) Temperature Source: subjective Associated Symptoms: chills, rigors Treatments Prior to Arrival: none - Related Data Previous Rx's Medication Instructions Recorded Ciprofloxacin HCl [Cipro] 500 mg PO Q12HR #14 tablet 12/04/16 Acetaminophen Tab [Tylenol] 650 mg PO Q6HR PRN #0 tab 12/10/16 Levofloxacin [Levaquin] 750 mg PO DAILY #5 tab 12/10/16 Metoprolol Tartrate [Lopressor] 50 mg PO DAILY tab 12/10/16 Allergies Allergy/AdvReac Type Severity Reaction Status Date / Time No Known Allergies Allergy Verified 12/07/16 08:33 Review of Systems ROS Statement: Those systems with pertinent positive or pertinent negative responses have been documented in the HPI. ROS Other: All systems not noted in ROS Statement are negative. Limitations: ROS unobtainable due to patients medical condition Constitutional: Reports: as per HPI, chills, weakness (Generalized weakness) Respiratory: Denies: cough, dyspnea, wheezes Cardiovascular: Denies: chest pain Gastrointestinal: Reports: vomiting. 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 Pt states he does not have a PCP anymore and is not on daily medications. History of Any Multi-Drug Resistant Organisms: None Reported Past Surgical History: Prostate Surgery Additional Past Surgical History / Comment(s): urethral stricture with Cystoscopy with DVIU x3, colonoscopy/polypectomy, skin cancer removals. Past Anesthesia/Blood Transfusion Reactions: No Reported Reaction Past Psychological History: No Psychological Hx Reported Additional Psychological History / Comment(s): Pt resides with his son. He states he uses no assistive device and is still driving. No home care. Smoking Status: Never smoker Past Alcohol Use History: None Reported Past Drug Use History: None Reported - Past Family History Mother Family Medical History: No Reported History Additional Family Medical History / Comment(s): Mother lived into her 80's. Father History Unknown: Yes Additional Family Medical History / Comment(s): Pt did not know his father. General Exam General appearance: alert, in no apparent distress Head exam: Present: atraumatic, normocephalic Eye exam: Present: normal appearance. Absent: scleral icterus, conjunctival injection ENT exam: Present: mucous membranes dry Neck exam: Present: normal inspection, full ROM. Absent: meningismus Respiratory exam: Present: rales (Right base). Absent: respiratory distress, wheezes, rhonchi, stridor, accessory muscle use, decreased breath sounds, prolonged expiratory Cardiovascular Exam: Present: normal rhythm, tachycardia, normal heart sounds. Absent: systolic murmur, diastolic murmur, rubs, gallop GI/Abdominal exam: Present: soft. Absent: distended, tenderness, guarding, rebound, mass, pulsatile mass, hernia Extremities exam: Present: normal inspection, normal capillary refill. Absent: pedal edema, calf tenderness Back exam: Present: normal inspection. Absent: CVA tenderness (R), CVA tenderness (L) Neurological exam: Present: alert, CN II-XII intact, other (Patient is alert, oriented 2. He is able to follow simple one step commands and does not appear to have any focal weakness or sensory deficit). Absent: oriented X3 (Patient is oriented to person and place does not know the date), motor sensory deficit Skin exam: Present: warm, dry, intact, normal color. Absent: rash Course Vital Signs 12/06/16 12/06/16 12/07/16 22:43 23:44 01:00 Temperature 102.0 F H 97.8 F Pulse Rate 124 H 112 H 100 Respiratory 18 18 18 Rate Blood Pressure 95/49 97/56 99/57 O2 Sat by Pulse 95 96 96 Oximetry 12/07/16 04:00 Temperature 97.7 F Pulse Rate 74 Respiratory 18 Rate Blood Pressure 95/58 O2 Sat by Pulse 96 Oximetry Medical Decision Making - Lab Data Result diagrams: 12/09/16 07:30 12/09/16 07:30 Lab Results 12/06/16 12/06/16 12/06/16 Range/Units 22:55 22:55 22:55 WBC 13.9 H (3.8-10.6) k/uL RBC 4.09 L (4.30-5.90) m/uL Hgb 12.0 L (13.0-17.5) gm/dL Hct 36.7 L (39.0-53.0) % MCV 89.9 (80.0-100.0) fL MCH 29.2 (25.0-35.0) pg MCHC 32.5 (31.0-37.0) g/dL RDW 12.8 (11.5-15.5) % Plt Count 350 (150-450) k/uL Neutrophils % 94 % Lymphocytes % 1 % Monocytes % 4 % Eosinophils % 0 % Basophils % 0 % Neutrophils # 13.1 H (1.3-7.7) k/uL Lymphocytes # 0.2 L (1.0-4.8) k/uL Monocytes # 0.5 (0-1.0) k/uL Eosinophils # 0.0 (0-0.7) k/uL Basophils # 0.0 (0-0.2) k/uL PT (9.0-12.0) sec INR (<1.1) APTT (22.0-30.0) sec Sodium 135 L (137-145) mmol/L Potassium 4.3 (3.5-5.1) mmol/L Chloride 101 (98-107) mmol/L Carbon Dioxide 24 (22-30) mmol/L Anion Gap 10 mmol/L BUN 21 H (9-20) mg/dL Creatinine 1.00 (0.66-1.25) mg/dL Est GFR (MDRD) Af Amer >60 (>60 ml/min/1.73 sqM) Est GFR (MDRD) Non-Af >60 (>60 ml/min/1.73 sqM) Glucose 123 H (74-99) mg/dL Plasma Lactic Acid Georges 2.0 (0.7-2.0) mmol/L Calcium 8.7 (8.4-10.2) mg/dL Total Bilirubin 0.5 (0.2-1.3) mg/dL AST 42 (17-59) U/L ALT 38 (21-72) U/L Alkaline Phosphatase 79 (38-126) U/L Troponin I (0.000-0.034) ng/mL Total Protein 5.8 L (6.3-8.2) g/dL Albumin 2.9 L (3.5-5.0) g/dL TSH (0.465-4.680) mIU/L Urine Color Urine Appearance (Clear) Urine pH (5.0-8.0) Ur Specific [place] (1.001-1.035) Urine Protein (Negative) Urine Glucose (UA) (Negative) Urine Ketones (Negative) Urine Blood (Negative) Urine Nitrite (Negative) Urine Bilirubin (Negative) Urine Urobilinogen (<2.0) mg/dL Ur Leukocyte Esterase (Negative) Urine RBC (0-5) /hpf Urine WBC (0-5) /hpf Ur Squamous Epith Cells (0-4) /hpf Granular Casts (0) /lpf Urine Mucus (None) /hpf 12/06/16 12/06/16 12/06/16 Range/Units 22:55 22:55 22:55 WBC (3.8-10.6) k/uL RBC (4.30-5.90) m/uL Hgb (13.0-17.5) gm/dL Hct (39.0-53.0) % MCV (80.0-100.0) fL MCH (25.0-35.0) pg MCHC (31.0-37.0) g/dL RDW (11.5-15.5) % Plt Count (150-450) k/uL Neutrophils % % Lymphocytes % % Monocytes % % Eosinophils % % Basophils % % Neutrophils # (1.3-7.7) k/uL Lymphocytes # (1.0-4.8) k/uL Monocytes # (0-1.0) k/uL Eosinophils # (0-0.7) k/uL Basophils # (0-0.2) k/uL PT 12.7 H (9.0-12.0) sec INR 1.3 (<1.1) APTT 23.8 (22.0-30.0) sec Sodium (137-145) mmol/L Potassium (3.5-5.1) mmol/L Chloride (98-107) mmol/L Carbon Dioxide (22-30) mmol/L Anion Gap mmol/L BUN (9-20) mg/dL Creatinine (0.66-1.25) mg/dL Est GFR (MDRD) Af Amer (>60 ml/min/1.73 sqM) Est GFR (MDRD) Non-Af (>60 ml/min/1.73 sqM) Glucose (74-99) mg/dL Plasma Lactic Acid Georges (0.7-2.0) mmol/L Calcium (8.4-10.2) mg/dL Total Bilirubin (0.2-1.3) mg/dL AST (17-59) U/L ALT (21-72) U/L Alkaline Phosphatase (38-126) U/L Troponin I 0.106 H* (0.000-0.034) ng/mL Total Protein (6.3-8.2) g/dL Albumin (3.5-5.0) g/dL TSH (0.465-4.680) mIU/L Urine Color Yellow Urine Appearance Cloudy (Clear) Urine pH 5.5 (5.0-8.0) Ur Specific [place] 1.019 (1.001-1.035) Urine Protein 1+ H (Negative) Urine Glucose (UA) Negative (Negative) Urine Ketones Negative (Negative) Urine Blood Moderate H (Negative) Urine Nitrite Negative (Negative) Urine Bilirubin Negative (Negative) Urine Urobilinogen <2.0 (<2.0) mg/dL Ur Leukocyte Esterase Large H (Negative) Urine RBC 23 H (0-5) /hpf Urine WBC >182 H (0-5) /hpf Ur Squamous Epith Cells 4 (0-4) /hpf Granular Casts 5 (0) /lpf Urine Mucus Many H (None) /hpf 12/06/16 Range/Units 23:13 WBC (3.8-10.6) k/uL RBC (4.30-5.90) m/uL Hgb (13.0-17.5) gm/dL Hct (39.0-53.0) % MCV (80.0-100.0) fL MCH (25.0-35.0) pg MCHC (31.0-37.0) g/dL RDW (11.5-15.5) % Plt Count (150-450) k/uL Neutrophils % % Lymphocytes % % Monocytes % % Eosinophils % % Basophils % % Neutrophils # (1.3-7.7) k/uL Lymphocytes # (1.0-4.8) k/uL Monocytes # (0-1.0) k/uL Eosinophils # (0-0.7) k/uL Basophils # (0-0.2) k/uL PT (9.0-12.0) sec INR (<1.1) APTT (22.0-30.0) sec Sodium (137-145) mmol/L Potassium (3.5-5.1) mmol/L Chloride (98-107) mmol/L Carbon Dioxide (22-30) mmol/L Anion Gap mmol/L BUN (9-20) mg/dL Creatinine (0.66-1.25) mg/dL Est GFR (MDRD) Af Amer (>60 ml/min/1.73 sqM) Est GFR (MDRD) Non-Af (>60 ml/min/1.73 sqM) Glucose (74-99) mg/dL Plasma Lactic Acid Georges (0.7-2.0) mmol/L Calcium (8.4-10.2) mg/dL Total Bilirubin (0.2-1.3) mg/dL AST (17-59) U/L ALT (21-72) U/L Alkaline Phosphatase (38-126) U/L Troponin I (0.000-0.034) ng/mL Total Protein (6.3-8.2) g/dL Albumin (3.5-5.0) g/dL TSH 1.330 (0.465-4.680) mIU/L Urine Color Urine Appearance (Clear) Urine pH (5.0-8.0) Ur Specific [place] (1.001-1.035) Urine Protein (Negative) Urine Glucose (UA) (Negative) Urine Ketones (Negative) Urine Blood (Negative) Urine Nitrite (Negative) Urine Bilirubin (Negative) Urine Urobilinogen (<2.0) mg/dL Ur Leukocyte Esterase (Negative) Urine RBC (0-5) /hpf Urine WBC (0-5) /hpf Ur Squamous Epith Cells (0-4) /hpf Granular Casts (0) /lpf Urine Mucus (None) /hpf - EKG Data -: EKG Interpreted by Me EKG shows normal: sinus rhythm, axis (Normal), intervals (Normal), QRS complexes (Normal), ST-T waves (Normal) Rate: tachycardia (Rate 115 bpm) Critical Care Time Critical Care Time: Yes (35 minutes) Disposition Clinical Impression: Urinary tract infection, Sepsis, Elevated troponin I level Disposition: ADMITTED IP TO THIS [facility] Condition: Poor
[2016-12-06 23:37] LABS: Appearance,Urine Cloudy (Clear); Bilirubin,Urine Negative (Negative); Glucose,Urine (UA) Negative (Negative); Granular Casts,Urine 5 /lpf (0); Ketones,Urine Negative (Negative); Leukocyte Esterase,Urine Large (Negative); Mucus,Urine Many /hpf; Nitrite,Urine Negative (Negative); PH, Urine 5.5 (5.0-8.0); Particle Count 18189; Protein,Urine 1+ (Negative); RBC,Urine 23 /hpf (0-5); Specific Gravity,Urine 1.019 (1.001-1.035); Squamous Epithelial Cell,Urine 4 /hpf (0-4); UA Billing (MACRO vs. MICRO) MICRO; Urobilinogen,Urine <2.0 mg/dL (<2.0); WBC,Urine >182 /hpf (0-5)
[2016-12-06 23:40] LABS: ALT 38 U/L (21-72); AST 42 U/L (17-59); Alkaline Phosphatase 79 U/L (38-126); Anion Gap 10 mmol/L; Blood Urea Nitrogen 21 mg/dL (9-20); Calcium 8.7 mg/dL (8.4-10.2); Carbon Dioxide 24 mmol/L (22-30); Chloride 101 mmol/L (98-107); Glucose 123 mg/dL (74-99); Non-African American GFR(MDRD) >60 (>60 ml/min/1.73 sqM); Potassium 4.3 mmol/L (3.5-5.1); Sodium 135 mmol/L (137-145); Total Bilirubin 0.5 mg/dL (0.2-1.3); Total Protein 5.8 g/dL (6.3-8.2)
[2016-12-06 23:41] LABS: INR 1.3 (<1.1); Partial Thromboplastin Time 23.8 sec (22.0-30.0); Prothrombin Time 12.7 sec (9.0-12.0)
--- NOTE | 2016-12-07 00:26 | XR ---
EXAM: XR Chest, 2 Views CLINICAL HISTORY: Reason: Fever TECHNIQUE: Frontal and lateral views of the chest. COMPARISON: No relevant prior studies available. FINDINGS: Lungs: No focal consolidation. Pleural space: Unremarkable. No pneumothorax. Heart: Unremarkable. No cardiomegaly. Mediastinum: Unremarkable. Bones/joints: No acute osseous abnormality. Tubes, lines and devices: Telemetry leads overlie the patient. IMPRESSION: No acute cardiopulmonary process.
[2016-12-07] MEDS ORDERED: NALOXONE 0.4 MG/ML 1 ML VIAL IV PRN (01:04)
[2016-12-07] MEDS ORDERED: ONDANSETRON 4 MG/2 ML VIAL IVP PRN (01:04)
[2016-12-07] MEDS: SODIUM CHLORIDE 0.9% 1,000 ML IV SCH ×2 (01:54→13:24)
[2016-12-07 04:43] VITALS: BMI 36.5
[2016-12-07 05:59] LABS: Glucose,Whole Blood 87 mg/dL (75-99)
[2016-12-07] MEDS: LEVOFLOXACIN 750 MG TAB PO SCH (07:56)
[2016-12-07] MEDS: FAMOTIDINE 20 MG TAB PO SCH ×2 (07:56→20:45)
[2016-12-07] MEDS ORDERED: METOPROLOL TARTRATE 25 MG TAB PO SCH (11:00)
--- NOTE | 2016-12-07 11:53 | ECHOF ---
Referral Reason:elevated troponins MEASUREMENTS -------- HEIGHT: 180.3 cm WEIGHT: 115.2 kg BP: 113/55 IVSd: 1.0 cm (0.6 - 1.1) LVIDd: 4.4 cm (3.9 - 5.3) LVPWd: 1.1 cm (0.6 - 1.1) IVSs: 1.9 cm LVIDs: 2.0 cm LVPWs: 2.1 cm EDV(Teich): 89 ml ESV(Teich): 13 ml EF(Teich): 86 % %FS: 55 % SV(Teich): 77 ml Ao Diam: 3.2 cm (2.0 - 3.7) AV Cusp: 0.9 cm (1.5 - 2.6) LA Diam: 3.6 cm (2.7 - 3.8) AV maxP.56 mmHg AV meanP.01 mmHg RAP: 5.00 mmHg RVSP: 15.50 mmHg FINDINGS -------- Sinus rhythm. This was a technically difficult study with suboptimal views. Very TDS. No apicals,views takin from subcoastals. Overall left ventricular systolic function is low-normal with, an EF between 50 - 55 %. The RV was not well visualized. The left atrium was not well visualized. The right atrium was not well visualized. 1.5mg of Definity was utilized for enhancement of images Aortic valve is trileaflet and is moderately thickened. There is mild aortic stenosis present. Peak/mean gradient across the Aortic Valve is 16.56mmHg / 12.01mmHg. There is trace mitral regurgitation. Trace tricuspid regurgitation present. The right ventricular systolic pressure, as measured by Doppler, is 15.50mmHg. The pulmonic valve was not well visualized. The pericardium is normal. CONCLUSIONS -------- 1. Sinus rhythm. 2. There is mild aortic stenosis present. 3. Peak/mean gradient across the Aortic Valve is 16.56mmHg / 12.01mmHg. 4. There is trace mitral regurgitation. 5. Trace tricuspid regurgitation present. 6. The right ventricular systolic pressure, as measured by Doppler, is 15.50mmHg. 7. The pulmonic valve was not well visualized. 8. The pericardium is normal. 9. This was a technically difficult study with suboptimal views. 10. Very TDS. No apicals,views takin from subcoastals. 11. Overall left ventricular systolic function is low-normal with, an EF between 50 - 55 %. 12. The RV was not well visualized. 13. The left atrium was not well visualized. 14. The right atrium was not well visualized. 15. 1.5mg of Definity was utilized for enhancement of images 16. Aortic valve is trileaflet and is moderately thickened. VICE PRESIDENT FOR PHILANTHROPY: Cindy Grigsby RDCS
[2016-12-07] MEDS: METOPROLOL TARTRATE 25 MG TAB PO SCH ×3 (12:22→20:41)
[2016-12-07] MEDS: ACETAMINOPHEN TAB 325 MG TAB PO PRN (12:32)
[2016-12-07 12:41] LABS: Glucose,Whole Blood 104 mg/dL (75-99)
--- NOTE | 2016-12-07 17:50 | CONS ---
DATE OF CONSULTATION: REASON FOR CONSULTATION: Elevated troponins. Mr. Eleazar Lizarraga is an 81-year-old gentleman who came into the hospital with complaints of not feeling well, tired, exhausted, pain in his legs, and also had some generalized weakness and lack of energy. Patient is not a very good historian, and I cannot pin him down to any specific complaint. He did not have any chest discomfort when he arrived and he has no symptoms of chest pain at this time. He apparently lives with his son, and according to the ER note, his son complained that he was having some shaking and just was feeling weak. No clear-cut specific complaints are voiced. However, after arrival he was found to have a UTI. Antibiotics were initiated. His lactic acid was elevated. Hydration was also performed. Initial troponin was 0.10 and subsequent one was 0.126. He is resting comfortably without symptoms. He is slightly tachycardic. Denies any chest pain. Has no shortness of breath. Appears in no distress. PAST MEDICAL HISTORY: Unable to obtain a meaningful history, but it appears that there is no evidence of any prior myocardial infarction or CVA, or hypertension for that matter. MEDICATIONS: 1. Ibuprofen p.r.n. 2. He apparently was on Cipro for a UTI that was started a couple of days ago. ALLERGIES: NONE. REVIEW OF SYSTEMS: Unable to obtain a meaningful history. Denies any chest pain. Has no palpitations, no syncope. No evidence of any hematemesis or melena or any genitourinary symptoms. On examination, blood pressure is 118/70. Pulse rate is about 104 per minute. HEENT: Unremarkable. Fundus was not examined by me. Neck is supple. There is JVD of maybe 1 cm. No carotid bruit. Heart exam reveals S1, S2. There is a short systolic murmur at the base. Lungs reveal diminished air entry. ABDOMEN: Soft and nontender. Lower extremities reveal palpable pulses. No edema. Central nervous system is normal. Laboratory data reveal that his troponins are equivocal, borderline and somewhat flat. Initial lactic acid was 2.0 at upper limits of normal. He was hydrated. It is 0.9. White count is elevated. There is also evidence of UTI on UA. IMPRESSION: 1. Elevated troponin; probably is not a reflection of myocardial injury or ischemia. Patient does not have any chest pain and the troponin profile does not suggest myocardial injury. 2. Probable urinary tract infection and sepsis. 3. May have some mild underlying dementia. RECOMMENDATIONS: Patient is tachycardic. Agree with hydration. I will increase IV fluids, perform an echocardiogram and also add Lopressor 25 mg t.i.d. and check thyroid function tests. Based on this, I will make further recommendations. No aggressive intervention is necessary. I discussed my thoughts in detail with the patient. Thank you very much for the consult.
[2016-12-08] MEDS: SODIUM CHLORIDE 0.9% 1,000 ML IV SCH ×3 (02:45→18:58)
--- NOTE | 2016-12-08 08:23 | P.HPIM ---
History of Present Illness H&P Date: 12/07/16 Chief Complaint: Fever. This is a history and physical an 81-year-old white male essentially readmitted for urinary tract infection. He has an underlying history dementia and was recently discharged for summer symptoms last week. He has an underlying history of prostate cancer. Bone scan at that time was negative. However, he was readmitted secondary to fever and weakness. I'm questioning whether he was taking his medication. But he is a poor historian secondary to his dementia. He is oriented to person but not to time. 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 Pt states he does not have a PCP anymore and is not on daily medications. History of Any Multi-Drug Resistant Organisms: None Reported Past Surgical History: Orthopedic Surgery, Prostate Surgery Additional Past Surgical History / Comment(s): urethral stricture with Cystoscopy with DVIU x3, colonoscopy/polypectomy, skin cancer removals. Past Anesthesia/Blood Transfusion Reactions: No Reported Reaction Past Psychological History: No Psychological Hx Reported Additional Psychological History / Comment(s): Pt resides with his son. No home care. Smoking Status: Never smoker Past Alcohol Use History: None Reported Past Drug Use History: None Reported - Past Family History Mother Family Medical History: No Reported History Additional Family Medical History / Comment(s): Mother lived into her 80's. Father History Unknown: Yes Family Medical History: Unable to Obtain Additional Family Medical History / Comment(s): Pt did not know his father. Medications and Allergies Home Medications Medication Instructions Recorded Confirmed Type Naproxen Sodium [Aleve] 220 mg PO Q8HR PRN 12/07/16 12/07/16 History Allergies Allergy/AdvReac Type Severity Reaction Status Date / Time No Known Allergies Allergy Verified 12/07/16 08:33 Physical Exam Vitals: Vital Signs Temp Pulse Resp BP Pulse Ox 12/08/16 07:00 98.0 F 87 16 120/62 96 12/07/16 23:00 99.0 F 113 H 18 109/55 91 L 12/07/16 16:00 110 H 20 12/07/16 15:00 97.1 F L 93 20 99/56 94 L 12/07/16 10:06 97.7 F Intake and Output 12/07/16 12/08/16 12/08/16 22:59 06:59 14:59 Intake Total 400 800 Output Total 2200 Balance 400 -1400 Intake: IV 400 800 Sodium Chloride 0.9% 1, 350 800 000 ml @ 100 mls/hr IV . Q10H SHARITA Rx#:[id number] cefTRIAXone 1,000 mg In 50 Sodium Chloride 0.9% 50 ml @ 100 mls/hr IVPB HS SHARITA Rx#:[id number] Output: Urine 2200 Other: Voiding Method Indwelling Catheter Indwelling Catheter # Voids 3 Weight 115.5 kg - Constitutional General appearance: no acute distress - EENT Eyes: EOMI - Neck Neck: no lymphadenopathy - Respiratory Respiratory: bilateral: CTA - Cardiovascular Rhythm: regular - Gastrointestinal General gastrointestinal: soft, tenderness - Integumentary Integumentary: no cellulitis - Neurologic Neurologic: CNII-XII intact - Psychiatric Psychiatric: no A&O x's 3, no intact judgment & insight Results CBC & Chem 7: 12/06/16 22:55 12/06/16 22:55 Labs: Abnormal Lab Results - Last 24 Hours (Table) 12/07/16 12/07/16 Range/Units 12:16 12:28 POC Glucose (mg/dL) 104 H (75-99) mg/dL Troponin I 0.105 H* (0.000-0.034) ng/mL Microbiology - Last 24 Hours (Table) 12/07/16 01:48 Blood Culture - Preliminary Blood No Growth after 24 hours Thrombosis Risk Factor Assmnt - Choose All That Apply Any of the Below Risk Factors Present?: Yes Each Factor Represents 1 point: Obesity (BMI >25) Other Risk Factors: Yes Each Risk Factor Represents 3 Points: Age 75 years or older Other congenital or acquired thrombophilia - If yes, enter type in comment: No Thrombosis Risk Factor Assessment Total Risk Factor Score: 4 Thrombosis Risk Factor Assessment Level: Moderate Risk Assessment and Plan (1) Elevated troponin I level Status: Acute (2) Sepsis Status: Acute (3) Urinary tract infection Status: Acute (4) Urinary retention Status: Acute Plan: Elevated elevated troponin level We'll go ahead and consult cardiology. Continue treatment for urinary tract infection. Question need for discharge planning/social media marketer for home health element upon discharge. Time with Patient: Greater than 30
[2016-12-08 08:38] LABS: Basophils % (A) 0 %; CH 29.6; CHCM 33.4; Eosinophils % (A) 0 %; HDW 2.96; HGB 11.3 gm/dL (13.0-17.5); Luc # (Auto) 0.32; Luc % (Auto) 3; Lymphocytes # (A) 0.5 k/uL (1.0-4.8); Lymphocytes % (A) 5 %; MCH 29.7 pg (25.0-35.0); MCHC 33.3 g/dL (31.0-37.0); MCV 89.1 fL (80.0-100.0); Mean Platelet Volume 6.3; Monocytes # (A) 0.7 k/uL (0-1.0); Monocytes % (A) 7 %; Neutrophils # (A) 7.8 k/uL (1.3-7.7); Neutrophils % (A) 84 %; RBC 3.82 m/uL (4.30-5.90); RDW 12.7 % (11.5-15.5); WBC 9.3 k/uL (3.8-10.6); WBC (Perox) 9.04
[2016-12-08] MEDS: METOPROLOL TARTRATE 25 MG TAB PO SCH ×2 (09:25→17:03)
[2016-12-08] MEDS: LEVOFLOXACIN 750 MG TAB PO SCH (09:31)
[2016-12-08] MEDS: FAMOTIDINE 20 MG TAB PO SCH ×2 (09:31→20:30)
[2016-12-08 09:52] LABS: Anion Gap 7 mmol/L; Blood Urea Nitrogen 21 mg/dL (9-20); Calcium 8.2 mg/dL (8.4-10.2); Carbon Dioxide 26 mmol/L (22-30); Chloride 105 mmol/L (98-107); Glucose 102 mg/dL (74-99); Non-African American GFR(MDRD) >60 (>60 ml/min/1.73 sqM); Potassium 3.6 mmol/L (3.5-5.1); Sodium 138 mmol/L (137-145)
--- NOTE | 2016-12-08 11:29 | PN ---
This is a gentleman admitted yesterday with what seems to be more or less a UTI-type picture. There was a borderline troponin elevation and upon my evaluation, I felt the troponin elevation did not suggest myocardial injury. The patient is not in heart failure. He actually feels very well. His heart rate and blood pressure are excellent. Beta keiry has slowed him down heart rate padilla. He denies chest pain. Has no shortness of breath, resting comfortably. Blood pressure today is 120/70, pulse rate is 86 per minute. There is JVD of 1 cm. No carotid bruit. S1, S2 heard normally. Short systolic murmur at the base. Lungs reveal decent air entry. Abdomen and lower extremity exam is unchanged. From a cardiac standpoint, I have no specific intervention. I recommend that we continue current medications and he can be discharged whenever it is okay with the primary care physician and I will see him as needed from a cardiac standpoint.
--- NOTE | 2016-12-08 23:08 | P.PN ---
Subjective Principal diagnosis: Continuing care. This is a containing impression an 81-year-old white male essentially admitted for UTI and worsening dementia. I had a long discussion with niece who stated that she is concerned that living alone, even though he lives with his son is somewhat suspect. Objective - Vital Signs Vital signs: Vital Signs Temp 98.7 F 12/08/16 15:00 Pulse 94 12/08/16 16:00 Resp 16 12/08/16 16:00 BP 119/65 12/08/16 15:00 Pulse Ox 95 12/08/16 15:00 Intake & Output 12/08/16 12/08/16 12/09/16 06:59 18:59 06:59 Intake Total 1200 700 400 Output Total 2200 3900 Balance -1000 -3200 400 Weight 115.5 kg Intake: IV 1200 700 400 Sodium Chloride 0.9% 1, 1150 600 350 000 ml @ 100 mls/hr IV . Q10H [facility] Rx#:[id number] cefTRIAXone 1,000 mg In 50 100 50 Sodium Chloride 0.9% 50 ml @ 100 mls/hr IVPB HS SHARITA Rx#:[id number] Output: Urine 2200 3900 Coude 900 Other: Voiding Method Indwelling Catheter Indwelling Catheter # Voids 3 - Constitutional General appearance: Present: average body habitus - Neck Thyroid: bilateral: normal size - Respiratory Respiratory: bilateral: CTA - Cardiovascular Rhythm: regular Heart sounds: normal: S1, S2 - Gastrointestinal General gastrointestinal: Present: soft. Absent: tenderness - Musculoskeletal Musculoskeletal: Present: generalized weakness - Psychiatric Psychiatric: Absent: A&O x's 3 - Labs CBC & Chem 7: 12/08/16 08:02 12/08/16 08:02 Labs: Abnormal Lab Results - Last 24 Hours (Table) 12/08/16 12/08/16 Range/Units 08:02 08:02 RBC 3.82 L (4.30-5.90) m/uL Hgb 11.3 L (13.0-17.5) gm/dL Hct 34.0 L (39.0-53.0) % Neutrophils # 7.8 H (1.3-7.7) k/uL Lymphocytes # 0.5 L (1.0-4.8) k/uL BUN 21 H (9-20) mg/dL Glucose 102 H (74-99) mg/dL Calcium 8.2 L (8.4-10.2) mg/dL Microbiology - Last 24 Hours (Table) 12/07/16 01:48 Blood Culture - Preliminary Blood No Growth after 24 hours Assessment and Plan (1) Elevated troponin I level Status: Acute (2) Sepsis Status: Acute (3) Urinary tract infection Status: Acute (4) Urinary retention Status: Acute Plan: Discharge planning for possible placement given worsening dementia. Continue current regimen of antibiotic treatment. See orders otherwise. Time with Patient: Less than 30
[2016-12-09] MEDS: SODIUM CHLORIDE 0.9% 1,000 ML IV SCH ×2 (03:46→17:48)
[2016-12-09 08:38] LABS: ALT 46 U/L (21-72); AST 62 U/L (17-59); Alkaline Phosphatase 77 U/L (38-126); Anion Gap 7 mmol/L; Blood Urea Nitrogen 15 mg/dL (9-20); Calcium 8.1 mg/dL (8.4-10.2); Carbon Dioxide 24 mmol/L (22-30); Chloride 105 mmol/L (98-107); Glucose 96 mg/dL (74-99); Non-African American GFR(MDRD) >60 (>60 ml/min/1.73 sqM); Potassium 3.4 mmol/L (3.5-5.1); Sodium 136 mmol/L (137-145); Total Bilirubin 0.4 mg/dL (0.2-1.3); Total Protein 5.2 g/dL (6.3-8.2)
[2016-12-09 08:39] LABS: CH 29.8; CHCM 33.2; HCT 33.9 % (39.0-53.0); HDW 2.93; HGB 11.2 gm/dL (13.0-17.5); MCH 29.7 pg (25.0-35.0); Mean Platelet Volume 6.3; RBC 3.77 m/uL (4.30-5.90); RDW 12.9 % (11.5-15.5)
[2016-12-09] MEDS: LEVOFLOXACIN 750 MG TAB PO SCH (09:06)
[2016-12-09] MEDS: FAMOTIDINE 20 MG TAB PO SCH ×2 (09:07→21:10)
[2016-12-09] MEDS: METOPROLOL TARTRATE 50 MG TAB PO SCH (09:07)
--- NOTE | 2016-12-09 12:56 | P.PN ---
Subjective Principal diagnosis: Continuing care. This is a continue prednisone 81-year-old white male essentially admitted for UTI but has significant element of dementia. I had a long discussion with the niece who states that the family is somewhat torn his where he should be living. Supposedly the son, who is the power of immigration attorney,, does not get along with his father but they still live together. The patient is somewhat disoriented to place and exact time. There is significant fall risk also. Objective - Vital Signs Vital signs: Vital Signs Temp 98.3 F 12/09/16 07:00 Pulse 87 12/09/16 07:00 Resp 16 12/09/16 07:00 BP 118/58 12/09/16 07:00 Pulse Ox 98 12/09/16 07:00 Intake & Output 12/08/16 12/09/16 12/09/16 18:59 06:59 18:59 Intake Total 700 1790 Output Total 3900 1900 Balance -3200 -110 Weight 115.5 kg Intake: IV 700 1200 Sodium Chloride 0.9% 1, 600 1150 000 ml @ 100 mls/hr IV . Q10H SH[facility] Rx#:[id number] cefTRIAXone 1,000 mg In 100 50 Sodium Chloride 0.9% 50 ml @ 100 mls/hr IVPB HS SHARITA Rx#:[id number] Oral 590 Output: Urine 3900 1900 Coude 900 Other: Voiding Method Indwelling Catheter Indwelling Catheter Indwelling Catheter # Voids 3 - Constitutional General appearance: Present: average body habitus - Respiratory Respiratory: bilateral: CTA - Cardiovascular Rhythm: regular Heart sounds: normal: S1, S2 - Gastrointestinal General gastrointestinal: Present: soft. Absent: tenderness - Neurologic Neurologic: Present: CNII-XII intact - Labs CBC & Chem 7: 12/09/16 07:30 12/09/16 07:30 Labs: Abnormal Lab Results - Last 24 Hours (Table) 12/09/16 12/09/16 Range/Units 07:30 07:30 WBC 11.0 H (3.8-10.6) k/uL RBC 3.77 L (4.30-5.90) m/uL Hgb 11.2 L (13.0-17.5) gm/dL Hct 33.9 L (39.0-53.0) % Sodium 136 L (137-145) mmol/L Potassium 3.4 L (3.5-5.1) mmol/L Calcium 8.1 L (8.4-10.2) mg/dL AST 62 H (17-59) U/L Total Protein 5.2 L (6.3-8.2) g/dL Albumin 2.3 L (3.5-5.0) g/dL Microbiology - Last 24 Hours (Table) 12/07/16 01:48 Blood Culture - Preliminary Blood No Growth after 48 hours Assessment and Plan (1) Elevated troponin I level Status: Acute (2) Sepsis Status: Acute (3) Urinary tract infection Status: Acute (4) Urinary retention Status: Acute Plan: UTI. Sepsis. Dementia. Fall risk element. ECF needs to be entertained as a discharge plan. Discharge planning the consult that. Elevated troponin-await cardiology input. Otherwise, see orders otherwise. Time with Patient: Less than 30
[2016-12-09] MEDS: METOPROLOL TARTRATE 25 MG TAB PO SCH (17:35)
[2016-12-09] MEDS: ACETAMINOPHEN TAB 325 MG TAB PO PRN (17:36)
[2016-12-10] MEDS: SODIUM CHLORIDE 0.9% 1,000 ML IV SCH ×3 (02:03→18:12)
[2016-12-10] MEDS: ACETAMINOPHEN TAB 325 MG TAB PO PRN ×3 (06:55→23:39)
--- NOTE | 2016-12-10 08:20 | P.DS ---
Providers Date of admission: 12/07/16 01:04 Attending physician: Tomi Nicholson Consults: 12/07/16 03:51 Consult Physician Routine Consulting Provider: Balta Brown Consult Reason/Comments: elevated troponin Do you want consulting provider notified?: Yes Primary care physician: Tomi Nicholson - Discharge Diagnosis(es) (1) Elevated troponin I level Current Visit: Yes Status: Acute (2) Sepsis Current Visit: Yes Status: Acute (3) Urinary tract infection Current Visit: Yes Status: Acute (4) Urinary retention Current Visit: No Status: Acute Hospital Course: This is a discharge/transfer summary an 81-year-old white male essentially admitted for recurrent UTI. There was suspicion whether he was given his medication and taking appropriately once discharged from his last hospital cessation last week. He has significant element of dementia which is slowly been progressing over the last 2 years. Because of this and the fact that he does not have complete support for the majority of his care at home, he will be transferred to ECF when bed available. Prognosis is guarded only because of his dementia. But the patient has been treated appropriately for UTI and will be transferred in stable but guarded condition. Patient Condition at Discharge: Poor Plan - Discharge Summary Discharge Medication List Ciprofloxacin HCl [Cipro] 500 mg PO Q12HR #14 tablet 12/04/16 [Rx] Acetaminophen Tab [Tylenol] 650 mg PO Q6HR PRN #0 tab 12/10/16 [Rx] Levofloxacin [Levaquin] 750 mg PO DAILY #5 tab 12/10/16 [Rx] Metoprolol Tartrate [Lopressor] 50 mg PO DAILY tab 12/10/16 [Rx] Follow up Appointment(s)/Referral(s): None,Stated [REFERRING] - 10 Days Tomi Nicholson MD [Primary Care Provider] - 1 Week Discharge Disposition: TRANSFER TO SNF/ECF
[2016-12-10] MEDS: FAMOTIDINE 20 MG TAB PO SCH ×2 (08:32→23:40)
[2016-12-10] MEDS: METOPROLOL TARTRATE 50 MG TAB PO SCH (08:32)
[2016-12-10] MEDS: LEVOFLOXACIN 750 MG TAB PO SCH (08:32)
[2016-12-10] MEDS: METOPROLOL TARTRATE 25 MG TAB PO SCH (18:14)
[2016-12-11] MEDS: SODIUM CHLORIDE 0.9% 1,000 ML IV SCH ×2 (07:08→15:17)
[2016-12-11 07:55] VITALS: RESP 16
[2016-12-11] MEDS: ACETAMINOPHEN TAB 325 MG TAB PO PRN (08:35)
[2016-12-11] MEDS: METOPROLOL TARTRATE 50 MG TAB PO SCH (08:36)
[2016-12-11] MEDS: LEVOFLOXACIN 750 MG TAB PO SCH (08:36)
[2016-12-11] MEDS: FAMOTIDINE 20 MG TAB PO SCH (08:37)
[2016-12-11] MEDS: METOPROLOL TARTRATE 25 MG TAB PO SCH (15:17)
[2016-12-11 17:27] VITALS: BP 145/76; PULSE 90; TEMP 98.2
== END 2016-12-11 18:16 | DRG 872 ==
LOC: EC 22:39 → 5MS5E 12-07 01:04 → UNDODISIN 12-10 15:12
PROVIDERS: ADMIT Family Medicine; ATTEND Family Medicine
DX: A41.9 Sepsis, unspecified organism (principal); N39.0 Urinary tract infection, site not specified; F03.90 Unspecified dementia, unspecified severity, without behavioral disturbance, psychotic disturbance, mood disturbance, and anxiety; J44.9 Chronic obstructive pulmonary disease, unspecified; E78.5 Hyperlipidemia, unspecified; R33.9 Retention of urine, unspecified; N35.9 Urethral stricture, unspecified; J45.909 Unspecified asthma, uncomplicated; M19.91 Primary osteoarthritis, unspecified site; Z91.81 History of falling; Z85.46 Personal history of malignant neoplasm of prostate; Z85.828 Personal history of other malignant neoplasm of skin; Z86.010 Personal history of colon polyps; Z87.440 Personal history of urinary (tract) infections
CPT/HCPCS: 36415; 71020; 80048; 80053; 81001; 83605; 84443; 84484; 85025; 85027; 85610; 85730; 87040; 87086; 93005; 93306; 96365; 99285

== ENCOUNTER 2017-04-05 22:56 | Inpatient (IN) | payer MEDICARE ==
[2017-04-05] MEDS ORDERED: VANCOMYCIN IV PER PHARMACY 1 EACH MISC MISCELLANE PRN (23:01)
[2017-04-05] MEDS ORDERED: ACETAMINOPHEN TAB 325 MG TAB PO STA (23:01)
[2017-04-05] MEDS ORDERED: CEFEPIME 2 GM in SODIUM CHLORIDE 0.9% 50 ML IVPB STA (23:02)
[2017-04-05] MEDS: SODIUM CHLORIDE 0.9% 500 ML IV SCH (23:12)
[2017-04-05 23:17] LABS: Basophils # (A) 0.1 k/uL (0-0.2); Basophils % (A) 0 %; CH 27.7; CHCM 32.2; Eosinophils # (A) 0.2 k/uL (0-0.7); Eosinophils % (A) 1 %; HCT 43.2 % (39.0-53.0); Luc # (Auto) 0.15; Luc % (Auto) 0; Lymphocytes # (A) 0.6 k/uL (1.0-4.8); Lymphocytes % (A) 2 %; MCH 28.4 pg (25.0-35.0); MCHC 32.9 g/dL (31.0-37.0); MCV 86.3 fL (80.0-100.0); Mean Platelet Volume 6.8; Monocytes # (A) 0.8 k/uL (0-1.0); Monocytes % (A) 2 %; Neutrophils # (A) 31.6 k/uL (1.3-7.7); Neutrophils % (A) 95 %; RBC 5.01 m/uL (4.30-5.90); RDW 15.6 % (11.5-15.5); WBC (Perox) 33.22
[2017-04-05 23:21] LABS: HGB 14.2 gm/dL (13.0-17.5)
[2017-04-05 23:29] LABS: Calcium 9.1 mg/dL (8.4-10.2); INR 1.3 (<1.2); Partial Thromboplastin Time 26.2 sec (22.0-30.0); Prothrombin Time 12.7 sec (9.0-12.0); Total Bilirubin 0.5 mg/dL (0.2-1.3); Total Protein 6.6 g/dL (6.3-8.2)
[2017-04-05 23:33] LABS: WBC 33.4 k/uL (3.8-10.6)
[2017-04-05 23:34] LABS: Potassium 6.4 mmol/L (3.5-5.1)
[2017-04-05] MEDS ORDERED: SODIUM CHLORIDE 0.9% 1,000 ML IV ONE (23:36)
[2017-04-05] MEDS ORDERED: SODIUM POLYSTYRENE SULFONATE 15 GM/60 ML BOTTLE PO STA (23:37)
[2017-04-05] MEDS ORDERED: CALCIUM GLUCONATE 1,000 MG in SODIUM CHLORIDE 0.9% 100 ML IVPB ONE (23:37)
[2017-04-05 23:43] LABS: Amorphous Sediment,Urine Occasional /hpf; Appearance,Urine Turbid (Clear); Bacteria,Urine Rare /hpf; Bilirubin,Urine Negative (Negative); Glucose,Urine (UA) Negative (Negative); Ketones,Urine Negative (Negative); Leukocyte Esterase,Urine Large (Negative); Nitrite,Urine Negative (Negative); PH, Urine 8.5 (5.0-8.0); Particle Count 296527; Protein,Urine 4+ (Negative); Specific Gravity,Urine 1.012 (1.001-1.035); UA Billing (MACRO vs. MICRO) MICRO; Urobilinogen,Urine <2.0 mg/dL (<2.0); WBC,Urine 145 /hpf (0-5)
--- NOTE | 2017-04-06 00:17 | ED ---
General Adult HPI - General Chief complaint: Recheck/Abnormal Lab/Rx Stated complaint: poss sepsis Time Seen by Provider: 04/05/17 23:01 Source: patient, EMS, RN notes reviewed, old records reviewed Mode of arrival: EMS Limitations: altered mental status - History of Present Illness Initial comments: 82-year-old male presents from the long term for evaluation of hypoxia and tachycardia. Patient was noted to be hypoxic in the 60s according long term staff. EMS reports and oxygen saturation 95% on room air at the time of their evaluation. Patient was febrile and tachycardic with a heart rate in the 130s. He does have a history of dementia and is alert and oriented 1. Patient is able to answer questions, denies any pain complaints. States he has having chills. No history nausea vomiting or diarrhea. Patient does have history of recurrent urinary tract infections. Patient has indwelling Wasserman catheter. There is no history of cough. No history of rash. Patient's only complaint is chills. - Related Data Home Medications Medication Instructions Recorded Confirmed Acetaminophen Tab [Tylenol] 650 mg PO Q6HR PRN 04/05/17 04/05/17 Bisacodyl [Dulcolax] 10 mg RECTAL DAILY PRN 04/05/17 04/05/17 LORazepam [Ativan] 0.5 mg PO Q8H PRN 04/05/17 04/05/17 Lactose-Reduced Food [Ensure Plus] 1 can PO TID@0800,1200,1700 04/05/17 04/05/17 Magnesium Hydroxide [Milk of 2,400 mg PO DAILY PRN 04/05/17 04/05/17 Magnesia] Na Phos,M-B/Na Phos,Di-Ba [Fleet 133 ml RECTAL ONCE PRN 04/05/17 04/05/17 Adult] traZODone HCL [Desyrel] 100 mg PO HS 04/05/17 04/05/17 Previous Rx's Medication Instructions Recorded Metoprolol Tartrate [Lopressor] 50 mg PO DAILY tab 12/10/16 Allergies Allergy/AdvReac Type Severity Reaction Status Date / Time No Known Allergies Allergy Verified 04/05/17 22:58 Review of Systems ROS Statement: Those systems with pertinent positive or pertinent negative responses have been documented in the HPI. ROS Other: All systems not noted in ROS Statement are negative. 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 Pt states he does not have a PCP anymore and is not on daily medications. History of Any Multi-Drug Resistant Organisms: None Reported Past Surgical History: Orthopedic Surgery, Prostate Surgery Additional Past Surgical History / Comment(s): urethral stricture with Cystoscopy with DVIU x3, colonoscopy/polypectomy, skin cancer removals. Past Anesthesia/Blood Transfusion Reactions: No Reported Reaction Past Psychological History: No Psychological Hx Reported Smoking Status: Never smoker Past Alcohol Use History: None Reported Past Drug Use History: None Reported - Past Family History Mother Family Medical History: No Reported History Additional Family Medical History / Comment(s): Mother lived into her 80's. Father History Unknown: Yes Family Medical History: Unable to Obtain Additional Family Medical History / Comment(s): Pt did not know his father. General Exam Limitations: altered mental status General appearance: alert, in no apparent distress Head exam: Present: atraumatic, normocephalic Eye exam: Present: normal appearance. Absent: conjunctival injection ENT exam: Present: mucous membranes dry Neck exam: Present: normal inspection. Absent: tenderness, meningismus Respiratory exam: Present: normal lung sounds bilaterally. Absent: respiratory distress, wheezes Cardiovascular Exam: Present: normal rhythm, tachycardia GI/Abdominal exam: Present: soft. Absent: distended, tenderness Extremities exam: Present: normal inspection, normal capillary refill, pedal edema. Absent: calf tenderness Neurological exam: Present: alert, other (Oriented 1) Psychiatric exam: Present: normal affect, normal mood Skin exam: Present: warm, dry, intact. Absent: cyanosis, diaphoretic Course Vital Signs 04/05/17 04/06/17 22:59 00:09 Temperature 100.0 F H Pulse Rate 124 H 94 Respiratory 16 16 Rate Blood Pressure 113/63 133/64 O2 Sat by Pulse 94 L 97 Oximetry - Reevaluation(s) Reevaluation #1: 04/06/17 00:14 Patient's pressure remained stable, heart rate improves with IV hydration EKG Findings - EKG Comments: EKG Findings:: EKG shows sinus tachycardia, ventricular rate 126, para 160, QRS duration 78, QTC 422, no signs of ST segment elevation or depression Medical Decision Making - Medical Decision Making 82-year-old male presenting with fever and tachycardia. Patient does have indwelling Wasserman catheter. Urinalysis shows signs of significant infection, and purulence within folic catheter bag. Laboratory studies reveal a blood cell count of 33, lactic acid of 5.8, creatinine of 2.6 with a baseline of 0.79. Patient's potassium is also elevated at 6.4, no current EKG changes. Patient receives 2 L bolus, heart rate improves, blood pressure remains stable. He'll be continued on IV fluids. He is started on vancomycin and cefepime. Previous urine cultures did show organisms susceptible to cefepime. Case is discussed with the admitting doctor as well as the pulmonary tub rider. Patient will be placed in the ICU for close monitoring. Chest x-ray does show some concern for bibasilar atelectasis versus infiltrate. Diagnosis: Severe sepsis, UTI, hyperkalemia, lactic acidosis, acute kidney injury. - Lab Data Result diagrams: 04/05/17 23:09 04/05/17 23:09 Lab Results 04/05/17 04/05/17 04/05/17 Range/Units 23:09 23:09 23:09 WBC 33.4 H* (3.8-10.6) k/uL RBC 5.01 (4.30-5.90) m/uL Hgb 14.2 D (13.0-17.5) gm/dL Hct 43.2 (39.0-53.0) % MCV 86.3 (80.0-100.0) fL MCH 28.4 (25.0-35.0) pg MCHC 32.9 (31.0-37.0) g/dL RDW 15.6 H (11.5-15.5) % Plt Count 436 (150-450) k/uL Neutrophils % 95 % Lymphocytes % 2 % Monocytes % 2 % Eosinophils % 1 % Basophils % 0 % Neutrophils # 31.6 H (1.3-7.7) k/uL Lymphocytes # 0.6 L (1.0-4.8) k/uL Monocytes # 0.8 (0-1.0) k/uL Eosinophils # 0.2 (0-0.7) k/uL Basophils # 0.1 (0-0.2) k/uL PT (9.0-12.0) sec INR (<1.2) APTT (22.0-30.0) sec Sodium 131 L (137-145) mmol/L Potassium 6.4 H* (3.5-5.1) mmol/L Chloride 95 L (98-107) mmol/L Carbon Dioxide 17 L (22-30) mmol/L Anion Gap 19 mmol/L BUN 47 H (9-20) mg/dL Creatinine 2.60 H (0.66-1.25) mg/dL Est GFR (MDRD) Af Amer 29 (>60 ml/min/1.73 sqM) Est GFR (MDRD) Non-Af 24 (>60 ml/min/1.73 sqM) Glucose 144 H (74-99) mg/dL Plasma Lactic Acid Georges 5.8 H* (0.7-2.0) mmol/L Calcium 9.1 (8.4-10.2) mg/dL Total Bilirubin 0.5 (0.2-1.3) mg/dL AST 26 (17-59) U/L ALT 25 (21-72) U/L Alkaline Phosphatase 78 (38-126) U/L Total Protein 6.6 (6.3-8.2) g/dL Albumin 3.2 L (3.5-5.0) g/dL Urine Color Urine Appearance (Clear) Urine pH (5.0-8.0) Ur Specific [place] (1.001-1.035) Urine Protein (Negative) Urine Glucose (UA) (Negative) Urine Ketones (Negative) Urine Blood (Negative) Urine Nitrite (Negative) Urine Bilirubin (Negative) Urine Urobilinogen (<2.0) mg/dL Ur Leukocyte Esterase (Negative) Urine WBC (0-5) /hpf Amorphous Sediment (None) /hpf Urine Bacteria (None) /hpf 04/05/17 04/05/17 Range/Units 23:09 23:29 WBC (3.8-10.6) k/uL RBC (4.30-5.90) m/uL Hgb (13.0-17.5) gm/dL Hct (39.0-53.0) % MCV (80.0-100.0) fL MCH (25.0-35.0) pg MCHC (31.0-37.0) g/dL RDW (11.5-15.5) % Plt Count (150-450) k/uL Neutrophils % % Lymphocytes % % Monocytes % % Eosinophils % % Basophils % % Neutrophils # (1.3-7.7) k/uL Lymphocytes # (1.0-4.8) k/uL Monocytes # (0-1.0) k/uL Eosinophils # (0-0.7) k/uL Basophils # (0-0.2) k/uL PT 12.7 H (9.0-12.0) sec INR 1.3 H (<1.2) APTT 26.2 (22.0-30.0) sec Sodium (137-145) mmol/L Potassium (3.5-5.1) mmol/L Chloride (98-107) mmol/L Carbon Dioxide (22-30) mmol/L Anion Gap mmol/L BUN (9-20) mg/dL Creatinine (0.66-1.25) mg/dL Est GFR (MDRD) Af Amer (>60 ml/min/1.73 sqM) Est GFR (MDRD) Non-Af (>60 ml/min/1.73 sqM) Glucose (74-99) mg/dL Plasma Lactic Acid [place] (0.7-2.0) mmol/L Calcium (8.4-10.2) mg/dL Total Bilirubin (0.2-1.3) mg/dL AST (17-59) U/L ALT (21-72) U/L Alkaline Phosphatase (38-126) U/L Total Protein (6.3-8.2) g/dL Albumin (3.5-5.0) g/dL Urine Color Light Red Urine Appearance Turbid (Clear) Urine pH 8.5 H (5.0-8.0) Ur Specific [place] 1.012 (1.001-1.035) Urine Protein 4+ H (Negative) Urine Glucose (UA) Negative (Negative) Urine Ketones Negative (Negative) Urine Blood Negative (Negative) Urine Nitrite Negative (Negative) Urine Bilirubin Negative (Negative) Urine Urobilinogen <2.0 (<2.0) mg/dL Ur Leukocyte Esterase Large H (Negative) Urine WBC 145 H (0-5) /hpf Amorphous Sediment Occasional H (None) /hpf Urine Bacteria Rare H (None) /hpf Critical Care Time Critical Care Time: Yes Total Critical Care Time: 35 Disposition Clinical Impression: Hyperkalemia, Lactic acidosis, UTI (urinary tract infection), Severe sepsis Disposition: ADMITTED IP TO THIS [facility] Condition: Serious Referrals: Balbina Bautista MD [Primary Care Provider] - 1-2 days Decision to Admit Reason: Admit from EC Decision Date: 04/06/17 Decision Time: 00:17
--- NOTE | 2017-04-06 00:24 | XR ---
EXAM: XR Chest, 2 Views CLINICAL HISTORY: Reason: Fever TECHNIQUE: Frontal and lateral views of the chest. COMPARISON: 12/06/2016 FINDINGS: Lungs: Bibasilar atelectatic changes and/or infiltrates, left greater than right, particularly in the retrocardiac region. Pleural space: Unremarkable. No pneumothorax. Heart: Unremarkable. No cardiomegaly. Mediastinum: Unchanged allowing for difference in technique. Bones/joints: Unchanged osseous degenerative changes. Vasculature: Atherosclerotic vascular calcification involving the aortic arch and descending aorta. IMPRESSION: Bibasilar atelectasis and/or infiltrates, left greater than right, particularly in the retrocardiac region.
[2017-04-06] MEDS ORDERED: INSULIN REGULAR 100 UNIT/ML VIAL IV ONE (00:36)
[2017-04-06] MEDS ORDERED: DEXTROSE 50%-WATER 50 ML SYRINGE IVP ONE (00:36)
[2017-04-06] MEDS ORDERED: ALBUTEROL NEB (CONC) 2.5 MG/0.5 ML INHALATION ONE (00:36)
[2017-04-06] MEDS ORDERED: NALOXONE 0.4 MG/ML 1 ML VIAL IV PRN (00:38)
[2017-04-06] MEDS: SODIUM CHLORIDE 0.9% 1,000 ML IV SCH ×3 (01:28→21:55)
[2017-04-06 01:57] LABS: Glucose,Whole Blood 174 mg/dL (75-99)
[2017-04-06] MEDS ORDERED: SODIUM CHLORIDE 0.9% 1,000 ML IV ONE ×4 (03:30→20:37)
[2017-04-06 04:08] LABS: Anisocytosis Slight; CH 28.6; CHCM 31.8; HCT 40.4 % (39.0-53.0); HDW 2.31; HGB 12.7 gm/dL (13.0-17.5); Immature Gran Flag Marked; MCH 28.4 pg (25.0-35.0); MCHC 31.5 g/dL (31.0-37.0); MCV 90.3 fL (80.0-100.0); Mean Platelet Volume 7.4; RBC 4.48 m/uL (4.30-5.90); RDW 16.5 % (11.5-15.5); WBC (Perox) 28.03
[2017-04-06 04:14] LABS: Calcium 8.4 mg/dL (8.4-10.2); Magnesium 1.9 mg/dL (1.6-2.3); Phosphorus 5.9 mg/dL (2.5-4.5)
[2017-04-06 04:25] LABS: WBC 26.6 k/uL (3.8-10.6)
[2017-04-06 04:48] LABS: Add Differential Manual Differential
[2017-04-06] MEDS: ACETAMINOPHEN TAB 325 MG TAB PO PRN ×2 (04:50→13:29)
[2017-04-06 04:51] LABS: Band Neutrophils % 10 %; Manual Review Performed; Nucleated Red Blood Cells 0 /100 WBC (0-0); Total Cells Counted 200; Toxic Vacuolation Present
--- NOTE | 2017-04-06 07:43 | XR ---
EXAMINATION TYPE: XR chest 1V DATE OF EXAM: 04/06/2017 COMPARISON: Prior chest x-ray 04/05/2017 HISTORY: Sepsis, abnormal chest x-ray TECHNIQUE: Single frontal view of the chest is obtained. FINDINGS: The patient is rotated. There are overlying cardiac leads. Lung volumes are low. Patchy ba silar density persists. No evident pneumothorax or pleural effusion. Cardiomediastinal silhouette, pu lmonary vascularity and johanna are stable. IMPRESSION: Expiratory rotated exam. There may be basilar atelectasis, correlate to exclude pneumoni a, follow-up is suggested.
[2017-04-06] MEDS: HEPARIN SODIUM,PORCINE 5,000 UNIT/ML 1 ML VIAL SQ SCH ×2 (08:01→15:51)
[2017-04-06] MEDS ORDERED: NOREPINEPHRIN 4 MG-0.9% NS PMX 4 MG/250 ML ML IV ONE (08:31)
[2017-04-06] MEDS: NOREPINEPHRIN 4 MG-0.9% NS PMX 4 MG/250 ML ML IV SCH (08:45)
[2017-04-06] MEDS: PANTOPRAZOLE 40 MG/10 ML VIAL IV SCH (09:00)
[2017-04-06] MEDS ORDERED: METOPROLOL TARTRATE 50 MG TAB PO SCH (09:00)
[2017-04-06 09:30] LABS: Glucose,Whole Blood 132 mg/dL (75-99)
[2017-04-06] MEDS: CEFEPIME 2 GM in SODIUM CHLORIDE 0.9% 50 ML IVPB SCH ×2 (10:06→15:52)
--- NOTE | 2017-04-06 12:18 | P.HPIM ---
History of Present Illness H&P Date: 04/06/17 Chief Complaint: Mental status This is a 82-year-old gentleman with complex past medical history who is a long- term resident at [facility] who presented to the hospital with altered mental status. Patient is known to have underlying history of prostate cancer with chronic obstructive uropathy and chronic indwelling Wasserman catheter. Patient has been having problems with recurrent UTIs with significant pus draining from around the catheter for several months. He has been treated with different courses of antibiotic both oral and IV. He had numerous resistant bacteria growing in the urine culture. He had a problem that each time antibiotic was discontinued patient started having cloudy urine all over again. He was seen by urology twice in the office previously with a concern about a possible anatomic problems or fistula causing his persistent pus draining at the evaluation was negative. Yesterday patient was found to be more lethargic at the group home. He was found to have a high-grade fever and was rushed to the emergency room and was found to be septic with septic shock and was treated with aggressive IV fluid hydration and broad-spectrum antibiotic And is currently admitted to the intensive care unit for further treatment Review of Systems Review of system: 14 points review of systems were obtained and were negative except to what were mentioned in the HPI. 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 Pt poor historian. History of Any Multi-Drug Resistant Organisms: None Reported Past Surgical History: Orthopedic Surgery, Prostate Surgery Additional Past Surgical History / Comment(s): urethral stricture with Cystoscopy with DVIU x3, colonoscopy/polypectomy, skin cancer removals. Past Anesthesia/Blood Transfusion Reactions: No Reported Reaction Past Psychological History: No Psychological Hx Reported Smoking Status: Never smoker Past Alcohol Use History: None Reported Past Drug Use History: None Reported - Past Family History Mother Family Medical History: No Reported History Additional Family Medical History / Comment(s): Mother lived into her 80's. Father History Unknown: Yes Family Medical History: Unable to Obtain Additional Family Medical History / Comment(s): Pt did not know his father. Medications and Allergies Home Medications Medication Instructions Recorded Confirmed Type Metoprolol Tartrate [Lopressor] 50 mg PO DAILY tab 12/10/16 04/05/17 Rx Acetaminophen Tab [Tylenol] 650 mg PO Q6HR PRN 04/05/17 04/05/17 History Bisacodyl [Dulcolax] 10 mg RECTAL DAILY PRN 04/05/17 04/05/17 History LORazepam [Ativan] 0.5 mg PO Q8H PRN 04/05/17 04/05/17 History Lactose-Reduced Food [Ensure Plus] 1 can PO TID@0800,1200,1700 04/05/17 History Magnesium Hydroxide [Milk of 2,400 mg PO DAILY PRN 04/05/17 04/05/17 History Magnesia] Na Phos,M-B/Na Phos,Di-Ba [Fleet 133 ml RECTAL ONCE PRN 04/05/17 04/05/17 History Adult] traZODone HCL [Desyrel] 100 mg PO HS 04/05/17 04/05/17 History Allergies Allergy/AdvReac Type Severity Reaction Status Date / Time No Known Allergies Allergy Verified 04/05/17 22:58 Physical Exam Vitals: Vital Signs Temp Pulse Resp BP Pulse Ox 04/06/17 12:00 98.5 F 122 H 34 H 114/60 97 04/06/17 11:30 118 H 35 H 89/55 96 04/06/17 11:00 118 H 40 H 94/49 94 L 04/06/17 10:30 116 H 28 H 103/53 95 04/06/17 10:00 97.8 F 112 H 28 H 101/55 95 04/06/17 09:30 116 H 30 H 91/50 95 04/06/17 09:00 117 H 30 H 85/53 95 04/06/17 08:30 123 H 32 H 80/50 95 04/06/17 08:00 98.5 F 119 H 29 H 94/52 95 04/06/17 07:30 122 H 32 H 94/61 95 04/06/17 07:00 123 H 32 H 94/56 96 04/06/17 06:30 127 H 30 H 85/55 95 04/06/17 06:00 98.5 F 124 H 33 H 95/48 96 04/06/17 05:30 124 H 32 H 97/55 94 L 04/06/17 05:00 124 H 28 H 105/61 95 04/06/17 04:30 100.6 F H 130 H 27 H 117/87 97 04/06/17 04:00 127 H 30 H 111/55 97 04/06/17 03:30 131 H 32 H 109/58 91 L 04/06/17 03:00 126 H 34 H 102/57 92 L 04/06/17 02:30 126 H 32 H 92/70 98 04/06/17 02:00 98.9 F 128 H 34 H 110/69 96 04/06/17 01:59 100.0 F H 115 H 16 136/60 98 04/06/17 01:56 131 H 32 H 04/06/17 01:35 125 H 04/06/17 01:29 123 H 04/06/17 01:07 100.8 F H 120 H 18 136/60 94 L 04/06/17 00:09 94 16 133/64 97 04/05/17 22:59 100.0 F H 124 H 16 113/63 94 L Intake and Output 04/05/17 04/06/17 04/06/17 22:59 06:59 14:59 Intake Total 1620 1700 Output Total 185 220 Balance 1435 1480 Intake: IV 1500 1700 Cefepime 2 gm In Sodium 0 100 Chloride 0.9% 50 ml @ 100 mls/hr IVPB Q8H [facility] Rx#: [id number] Sodium Chloride 0.9% 1, 500 600 000 ml @ 100 mls/hr IV . Q10H [facility] Rx#:[id number] Sodium Chloride 0.9% 1, 1000 1000 000 ml @ 999 mls/hr IV . Q1H1M ONE Rx#:[id number] Oral 120 Output: Urine 185 220 Other: Voiding Method Indwelling Catheter Indwelling Catheter Weight 90.718 kg 86.7 kg 89 kg Patient Weight 04/07/17 06:59 Weight 89 kg General: The patient is awake and alert, in no distress Eye: there is normal conjunctiva bilaterally. Neck: The neck is supple, there is no JVD. Cardiovascular: Normal S1-S2, no S3-S4, no murmurs. Respiratory: Lungs clear to auscultation bilaterally Gastrointestinal: Abdomen is soft, nontender Musculoskeletal: There is no pedal edema. Neurological:. Speech is normal. Skin: Skin is warm and dry Results CBC & Chem 7: 04/06/17 02:45 04/06/17 06:26 Labs: Abnormal Lab Results - Last 24 Hours (Table) 04/05/17 04/05/17 04/05/17 Range/Units 23:09 23:09 23:09 WBC 33.4 H* (3.8-10.6) k/uL Hgb (13.0-17.5) gm/dL RDW 15.6 H (11.5-15.5) % Neutrophils # 31.6 H (1.3-7.7) k/uL Neutrophils # (Manual) (1.3-7.7) k/uL Lymphocytes # 0.6 L (1.0-4.8) k/uL Lymphocytes # (Manual) (1.0-4.8) k/uL Monocytes # (Manual) (0-1.0) k/uL PT (9.0-12.0) sec INR (<1.2) Sodium 131 L (137-145) mmol/L Potassium 6.4 H* (3.5-5.1) mmol/L Chloride 95 L (98-107) mmol/L Carbon Dioxide 17 L (22-30) mmol/L BUN 47 H (9-20) mg/dL Creatinine 2.60 H (0.66-1.25) mg/dL Glucose 144 H (74-99) mg/dL POC Glucose (mg/dL) (75-99) mg/dL Plasma Lactic Acid Georges 5.8 H* (0.7-2.0) mmol/L Phosphorus (2.5-4.5) mg/dL Albumin 3.2 L (3.5-5.0) g/dL Urine pH (5.0-8.0) Urine Protein (Negative) Ur Leukocyte Esterase (Negative) Urine WBC (0-5) /hpf Amorphous Sediment (None) /hpf Urine Bacteria (None) /hpf 04/05/17 04/05/17 04/06/17 Range/Units 23:09 23:29 01:55 WBC (3.8-10.6) k/uL Hgb (13.0-17.5) gm/dL RDW (11.5-15.5) % Neutrophils # (1.3-7.7) k/uL Neutrophils # (Manual) (1.3-7.7) k/uL Lymphocytes # (1.0-4.8) k/uL Lymphocytes # (Manual) (1.0-4.8) k/uL Monocytes # (Manual) (0-1.0) k/uL PT 12.7 H (9.0-12.0) sec INR 1.3 H (<1.2) Sodium (137-145) mmol/L Potassium (3.5-5.1) mmol/L Chloride (98-107) mmol/L Carbon Dioxide (22-30) mmol/L BUN (9-20) mg/dL Creatinine (0.66-1.25) mg/dL Glucose (74-99) mg/dL POC Glucose (mg/dL) 174 H (75-99) mg/dL Plasma Lactic Acid Georges (0.7-2.0) mmol/L Phosphorus (2.5-4.5) mg/dL Albumin (3.5-5.0) g/dL Urine pH 8.5 H (5.0-8.0) Urine Protein 4+ H (Negative) Ur Leukocyte Esterase Large H (Negative) Urine WBC 145 H (0-5) /hpf Amorphous Sediment Occasional H (None) /hpf Urine Bacteria Rare H (None) /hpf 04/06/17 04/06/17 04/06/17 Range/Units 02:38 02:38 02:45 WBC 26.6 H* (3.8-10.6) k/uL Hgb 12.7 L (13.0-17.5) gm/dL RDW 16.5 H (11.5-15.5) % Neutrophils # (1.3-7.7) k/uL Neutrophils # (Manual) 24.70 H (1.3-7.7) k/uL Lymphocytes # (1.0-4.8) k/uL Lymphocytes # (Manual) 0.53 L (1.0-4.8) k/uL Monocytes # (Manual) 1.60 H (0-1.0) k/uL PT (9.0-12.0) sec INR (<1.2) Sodium 132 L (137-145) mmol/L Potassium (3.5-5.1) mmol/L Chloride (98-107) mmol/L Carbon Dioxide 15 L (22-30) mmol/L BUN 45 H (9-20) mg/dL Creatinine 2.40 H (0.66-1.25) mg/dL Glucose 130 H (74-99) mg/dL POC Glucose (mg/dL) (75-99) mg/dL Plasma Lactic Acid Georges 6.4 H* (0.7-2.0) mmol/L Phosphorus 5.9 H (2.5-4.5) mg/dL Albumin (3.5-5.0) g/dL Urine pH (5.0-8.0) Urine Protein (Negative) Ur Leukocyte Esterase (Negative) Urine WBC (0-5) /hpf Amorphous Sediment (None) /hpf Urine Bacteria (None) /hpf 04/06/17 04/06/17 04/06/17 Range/Units 06:26 06:26 09:28 WBC (3.8-10.6) k/uL Hgb (13.0-17.5) gm/dL RDW (11.5-15.5) % Neutrophils # (1.3-7.7) k/uL Neutrophils # (Manual) (1.3-7.7) k/uL Lymphocytes # (1.0-4.8) k/uL Lymphocytes # (Manual) (1.0-4.8) k/uL Monocytes # (Manual) (0-1.0) k/uL PT (9.0-12.0) sec INR (<1.2) Sodium (137-145) mmol/L Potassium 5.2 H (3.5-5.1) mmol/L Chloride (98-107) mmol/L Carbon Dioxide (22-30) mmol/L BUN (9-20) mg/dL Creatinine (0.66-1.25) mg/dL Glucose (74-99) mg/dL POC Glucose (mg/dL) 132 H (75-99) mg/dL Plasma Lactic Acid Georges 4.9 H* (0.7-2.0) mmol/L Phosphorus (2.5-4.5) mg/dL Albumin (3.5-5.0) g/dL Urine pH (5.0-8.0) Urine Protein (Negative) Ur Leukocyte Esterase (Negative) Urine WBC (0-5) /hpf Amorphous Sediment (None) /hpf Urine Bacteria (None) /hpf 04/06/17 Range/Units 10:15 WBC (3.8-10.6) k/uL Hgb (13.0-17.5) gm/dL RDW (11.5-15.5) % Neutrophils # (1.3-7.7) k/uL Neutrophils # (Manual) (1.3-7.7) k/uL Lymphocytes # (1.0-4.8) k/uL Lymphocytes # (Manual) (1.0-4.8) k/uL Monocytes # (Manual) (0-1.0) k/uL PT (9.0-12.0) sec INR (<1.2) Sodium (137-145) mmol/L Potassium (3.5-5.1) mmol/L Chloride (98-107) mmol/L Carbon Dioxide (22-30) mmol/L BUN (9-20) mg/dL Creatinine (0.66-1.25) mg/dL Glucose (74-99) mg/dL POC Glucose (mg/dL) (75-99) mg/dL Plasma Lactic Acid Georges 3.8 H* (0.7-2.0) mmol/L Phosphorus (2.5-4.5) mg/dL Albumin (3.5-5.0) g/dL Urine pH (5.0-8.0) Urine Protein (Negative) Ur Leukocyte Esterase (Negative) Urine WBC (0-5) /hpf Amorphous Sediment (None) /hpf Urine Bacteria (None) /hpf Microbiology - Last 24 Hours (Table) 04/05/17 23:29 Urine Culture - Preliminary Urine,Voided Thrombosis Risk Factor Assmnt - Choose All That Apply Any of the Below Risk Factors Present?: Yes Each Factor Represents 1 point: Abnormal pulmonary function (COPD), Sepsis (< 1month), Swollen legs (current) Other Risk Factors: Yes Each Risk Factor Represents 3 Points: Age 75 years or older Thrombosis Risk Factor Assessment Total Risk Factor Score: 6 Thrombosis Risk Factor Assessment Level: High Risk Assessment and Plan Plan: 1. Catheter associated urinary tract infection, present on admission, recurrent 2. Severe sepsis with septic shock requiring vasopressors 3. Chronic obstructive uropathy 4. History of prostate cancer with no evidence of metastasis on bone scan in December 04. Underlying cognitive impairment/dementia 6. Right lower extremity swelling Today, I reviewed his medication list and lab work results. Continue aggressive IV fluid hydration. Vasopressors to be weaned as tolerated for mean arterial pressure above 60. Appreciate call center consultant's recommendations. I will consult urology and infectious disease for further evaluation and this recurrent problem. We will await culture results. Continue ICU care. Repeat lab work in the morning. DVT prophylaxis with subcu heparin. No family members at bedside to be updated.
--- NOTE | 2017-04-06 12:18 | P.CNPUL ---
History of Present Illness Consult date: 04/06/17 Requesting physician: Balbina Bautista Chief complaint: Hypoxia and tachycardia as per prison staff. History of present illness: This is an 82-year-old white male who is a prison resident, has chronic indwelling Wasserman catheter, has history of chronic dementia, patient was noted by the prison staff to drop his O2 saturations, and he was also noted to be tachycardic. However when EMS arrived, his O2 saturation was 95% on room air. Patient was noted to be febrile and tachycardic with heart rate in the 130 range. Patient is not the greatest historian because of his underlying dementia. But workup in the ER pointed to urinary tract infection and possible sepsis. His urinalysis showed evidence of pyuria and bacteriuria. His lactic acid was elevated, and his blood pressure was marginal. Patient was also noted to have leukocytosis with WBC count of 26.6. There was also evidence of anion gap metabolic acidosis, hyperkalemia, renal failure with a BUN of 47 and creatinine of 2.60. Lactic acid on admission was 5.8. Repeat uric acid was 3.8 after fluid boluses. Patient received a total of 5 L of fluid boluses since admission. Considering his presentation of urinary tract infection and sepsis presentation, patient was admitted to the ICU, and we were asked to see him on consultation. Again the patient is a very poor historian. Chest x-ray showed mostly by basilar atelectasis, no clear-cut evidence of pneumonia or congestive heart failure. 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 Pt poor historian. History of Any Multi-Drug Resistant Organisms: None Reported Past Surgical History: Orthopedic Surgery, Prostate Surgery Additional Past Surgical History / Comment(s): urethral stricture with Cystoscopy with DVIU x3, colonoscopy/polypectomy, skin cancer removals. Past Anesthesia/Blood Transfusion Reactions: No Reported Reaction Past Psychological History: No Psychological Hx Reported Smoking Status: Never smoker Past Alcohol Use History: None Reported Past Drug Use History: None Reported - Past Family History Mother Family Medical History: No Reported History Additional Family Medical History / Comment(s): Mother lived into her 80's. Father History Unknown: Yes Family Medical History: Unable to Obtain Additional Family Medical History / Comment(s): Pt did not know his father. Medications and Allergies Home Medications Medication Instructions Recorded Confirmed Type Metoprolol Tartrate [Lopressor] 50 mg PO DAILY tab 12/10/16 04/05/17 Rx Acetaminophen Tab [Tylenol] 650 mg PO Q6HR PRN 04/05/17 04/05/17 History Bisacodyl [Dulcolax] 10 mg RECTAL DAILY PRN 04/05/17 04/05/17 History LORazepam [Ativan] 0.5 mg PO Q8H PRN 04/05/17 04/05/17 History Lactose-Reduced Food [Ensure Plus] 1 can PO TID@0800,1200,1700 04/05/17 History Magnesium Hydroxide [Milk of 2,400 mg PO DAILY PRN 04/05/17 04/05/17 History Magnesia] Na Phos,M-B/Na Phos,Di-Ba [Fleet 133 ml RECTAL ONCE PRN 04/05/17 04/05/17 History Adult] traZODone HCL [Desyrel] 100 mg PO HS 04/05/17 04/05/17 History Allergies Allergy/AdvReac Type Severity Reaction Status Date / Time No Known Allergies Allergy Verified 04/05/17 22:58 Physical Exam Vitals: Vital Signs Temp Pulse Resp BP Pulse Ox 04/06/17 12:00 98.5 F 122 H 34 H 114/60 97 04/06/17 11:30 118 H 35 H 89/55 96 04/06/17 11:00 118 H 40 H 94/49 94 L 04/06/17 10:30 116 H 28 H 103/53 95 04/06/17 10:00 97.8 F 112 H 28 H 101/55 95 04/06/17 09:30 116 H 30 H 91/50 95 04/06/17 09:00 117 H 30 H 85/53 95 04/06/17 08:30 123 H 32 H 80/50 95 04/06/17 08:00 98.5 F 119 H 29 H 94/52 95 04/06/17 07:30 122 H 32 H 94/61 95 04/06/17 07:00 123 H 32 H 94/56 96 04/06/17 06:30 127 H 30 H 85/55 95 04/06/17 06:00 98.5 F 124 H 33 H 95/48 96 04/06/17 05:30 124 H 32 H 97/55 94 L 04/06/17 05:00 124 H 28 H 105/61 95 04/06/17 04:30 100.6 F H 130 H 27 H 117/87 97 04/06/17 04:00 127 H 30 H 111/55 97 04/06/17 03:30 131 H 32 H 109/58 91 L 04/06/17 03:00 126 H 34 H 102/57 92 L 04/06/17 02:30 126 H 32 H 92/70 98 04/06/17 02:00 98.9 F 128 H 34 H 110/69 96 04/06/17 01:59 100.0 F H 115 H 16 136/60 98 04/06/17 01:56 131 H 32 H 04/06/17 01:35 125 H 04/06/17 01:29 123 H 04/06/17 01:07 100.8 F H 120 H 18 136/60 94 L 04/06/17 00:09 94 16 133/64 97 04/05/17 22:59 100.0 F H 124 H 16 113/63 94 L Intake and Output 04/05/17 04/06/17 04/06/17 22:59 06:59 14:59 Intake Total 1620 1700 Output Total 185 220 Balance 1435 1480 Intake: IV 1500 1700 Cefepime 2 gm In Sodium 0 100 Chloride 0.9% 50 ml @ 100 mls/hr IVPB Q8H [facility] Rx#: [id number] Sodium Chloride 0.9% 1, 500 600 000 ml @ 100 mls/hr IV . Q10H [facility] Rx#:[id number] Sodium Chloride 0.9% 1, 1000 1000 000 ml @ 999 mls/hr IV . Q1H1M [facility] Rx#:[id number] Oral 120 Output: Urine 185 220 Other: Voiding Method Indwelling Catheter Indwelling Catheter Weight 90.718 kg 86.7 kg 89 kg Patient Weight 04/07/17 06:59 Weight 89 kg Physical Exam: Revealed an 82-year-old, lethargic, in no form of respiratory distress. Tachycardic. HEENT:[Neck is supple.] [No neck masses.] [No thyromegaly.] [No JVD.] Chest: [Diminished breath sounds and crackles at the bases..] Cardiac Exam: [Tachycardic, Normal S1 and S2, no S3 gallop, no murmur.] Abdomen: [Soft, nontender, no megaly, no rebound, no guarding, normal bowel sounds.] Extremities: [No clubbing, 1+ bipedal edema, no cyanosis.] Neurological Exam: Confused, lethargic, otherwise no gross focal neurologic deficit. Results - Laboratory Findings CBC and BMP: 04/06/17 02:45 04/06/17 06:26 PT/INR, D-dimer PT 12.7 sec (9.0-12.0) H 04/05/17 23:09 INR 1.3 (<1.2) H 04/05/17 23:09 Abnormal lab findings: Abnormal Labs 04/05/17 04/05/17 04/05/17 23:09 23:09 23:09 WBC 33.4 H* Hgb RDW 15.6 H Neutrophils # 31.6 H Neutrophils # (Manual) Lymphocytes # 0.6 L Lymphocytes # (Manual) Monocytes # (Manual) PT INR Sodium 131 L Potassium 6.4 H* Chloride 95 L Carbon Dioxide 17 L BUN 47 H Creatinine 2.60 H Glucose 144 H POC Glucose (mg/dL) Plasma Lactic Acid Georges 5.8 H* Phosphorus Albumin 3.2 L Urine pH Urine Protein Ur Leukocyte Esterase Urine WBC Amorphous Sediment Urine Bacteria 04/05/17 04/05/17 04/06/17 23:09 23:29 01:55 WBC Hgb RDW Neutrophils # Neutrophils # (Manual) Lymphocytes # Lymphocytes # (Manual) Monocytes # (Manual) PT 12.7 H INR 1.3 H Sodium Potassium Chloride Carbon Dioxide BUN Creatinine Glucose POC Glucose (mg/dL) 174 H Plasma Lactic Acid Georges Phosphorus Albumin Urine pH 8.5 H Urine Protein 4+ H Ur Leukocyte Esterase Large H Urine WBC 145 H Amorphous Sediment Occasional H Urine Bacteria Rare H 04/06/17 04/06/17 04/06/17 02:38 02:38 02:45 WBC 26.6 H* Hgb 12.7 L RDW 16.5 H Neutrophils # Neutrophils # (Manual) 24.70 H Lymphocytes # Lymphocytes # (Manual) 0.53 L Monocytes # (Manual) 1.60 H PT INR Sodium 132 L Potassium Chloride Carbon Dioxide 15 L BUN 45 H Creatinine 2.40 H Glucose 130 H POC Glucose (mg/dL) Plasma Lactic Acid Georges 6.4 H* Phosphorus 5.9 H Albumin Urine pH Urine Protein Ur Leukocyte Esterase Urine WBC Amorphous Sediment Urine Bacteria 04/06/17 04/06/17 04/06/17 06:26 06:26 09:28 WBC Hgb RDW Neutrophils # Neutrophils # (Manual) Lymphocytes # Lymphocytes # (Manual) Monocytes # (Manual) PT INR Sodium Potassium 5.2 H Chloride Carbon Dioxide BUN Creatinine Glucose POC Glucose (mg/dL) 132 H Plasma Lactic Acid Georges 4.9 H* Phosphorus Albumin Urine pH Urine Protein Ur Leukocyte Esterase Urine WBC Amorphous Sediment Urine Bacteria 04/06/17 10:15 WBC Hgb RDW Neutrophils # Neutrophils # (Manual) Lymphocytes # Lymphocytes # (Manual) Monocytes # (Manual) PT INR Sodium Potassium Chloride Carbon Dioxide BUN Creatinine Glucose POC Glucose (mg/dL) Plasma Lactic Acid Georges 3.8 H* Phosphorus Albumin Urine pH Urine Protein Ur Leukocyte Esterase Urine WBC Amorphous Sediment Urine Bacteria Assessment and Plan Plan: Impression: 1 acute urinary tract infection and sepsis. Considering the patient is requiring norepinephrine in spite of multiple fluid boluses, patient received at least 5 L of fluid boluses, this is clearly a picture of septic shock. 2 history of multiple comorbidities including COPD, dementia, hyperlipidemia, osteoarthritis, history of chronic urinary retention and urethral strictures, history of prostate cancer with surgery and radiation, Recommendation: Continue present treatment plan including antibiotics, fluid boluses, norepinephrine and titrate to a mean arterial pressure of 65, monitor for possible fluid overload considering the fluid boluses venous Doppler of the lower extremities was ordered. Rule out DVT. Overall prognosis is definitely guarded, we'll continue to follow, patient is critically ill, and he will remain in the ICU. Time with Patient: Greater than 30
--- NOTE | 2017-04-06 12:47 | US ---
EXAMINATION TYPE: US venous doppler duplex LE DATE OF EXAM: 04/06/2017 11:44 AM COMPARISON: Prior in PACS CLINICAL HISTORY: LLE larger than right, bedridden. Exam done portable in the ICU. Extremely limited and difficult exam due to swelling and patient resistance- patient did not want pressure put on his l egs SIDE PERFORMED: Bilateral TECHNIQUE: The lower extremity deep venous system is examined utilizing real time linear array sonog jennifer with graded compression, doppler sonography and color-flow sonography. VESSELS IMAGED: External Iliac Vein (EIV) Common Femoral Vein Deep Femoral Vein Greater Saphenous Vein * Femoral Vein Popliteal Vein Small Saphenous Vein * Proximal Calf Veins (* superficial vessels) Right Leg: Spontaneous flow waveforms are visualized, however unable to fully compress mid- distal f emoral veins. Within the right groin, there is a hypoechoic area visualized measuring 5.5 x 2.9 x 4.5 cm, there is some vascularity within this area Left Leg: Unable to fully compress from the left EIV to the left distal femoral vein. Thready flow i s visualized within the left EIV to the left proximal femoral vein, and no flow is visualized in the distal femoral vein. Thready flow visualized in the left upper/mid popliteal vein, and no flow is vi sualized in the distal popliteal vein to the proximal calf vein. IMPRESSION: Exam is limited. Findings suggest deep venous thrombosis within the popliteal vein and p eripheral femoral vein on the left. Indeterminate focus in the right groin could possibly represent a denopathy
[2017-04-06 15:50] LABS: Glucose,Whole Blood 118 mg/dL (75-99)
--- NOTE | 2017-04-06 16:04 | US ---
EXAMINATION TYPE: US kidneys/renal and bladder DATE OF EXAM: 04/06/2017 COMPARISON: CT in PACS CLINICAL HISTORY: uti. Difficult and limited exam- exam is done portably in the ICU, patient cannot r oll or take a deep breath in and hold it EXAM MEASUREMENTS: Right Kidney: 10.7 x 6.0 x 5.9 cm Left Kidney: 10.7 x 6.6 x 6.4 cm Right Kidney: Mild hydronephrosis visualized Left Kidney: Mild/moderate hydronephrosis visualized Bladder: Debris visualized Bilateral Jets seen: Yes Cortical medullary differentiation is maintained on the right. No evident mass bilaterally. There is no pathologic calcification evident. Left kidney is not as well visualized. IMPRESSION: Bilateral hydronephrosis. Limited exam.
[2017-04-06] MEDS ORDERED: FUROSEMIDE 10 MG/ML 4 ML VIAL IV STA (17:30)
[2017-04-06] MEDS ORDERED: HEPARIN SODIUM,PORCINE 10,000 UNIT/ML 1 ML VIAL IV ONE (20:37)
[2017-04-06] MEDS ORDERED: VANCOMYCIN 1,500 MG in SODIUM CHLORIDE 0.9% 250 ML IVPB ONE ×3 (21:00)
[2017-04-06] MEDS ORDERED: METOPROLOL TARTRATE 25 MG TAB PO SCH (21:00)
[2017-04-06] MEDS ORDERED: QUEtiapine 25 MG TAB PO SCH (21:00)
--- NOTE | 2017-04-06 21:43 | P.GSCN ---
History of Present Illness Consult date: 04/06/17 Reason for Consult: UTI, chronic urinary retention Requesting physician: Balbina Bautista History of present illness: The patient is an 82 year-old WM followed by Dr. Gustafson since 2000. 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 He was diagnosed with prostate cancer in 2001 and treated with radiation therapy. His last PSA level was 0.3 in 2014. 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 He has been treated for recurrent UTI's and is now admitted with sepsis. Review of Systems - Constitutional Reports fever, Reports lethargy - Neurological Reports confusion Past Medical History Past Medical History: Asthma, Cancer, COPD, Dementia, Hyperlipidemia, Osteoarthritis (OA) Additional Past Medical History / Comment(s): Chronic urinary retention/ urethral stricture with chronic wasserman x 4 yrs, prostate cancer with surgery and radiation, skin cancer removed from back, R leg numbness, diverticular dx, benign colon polyp. Pt poor historian. History of Any Multi-Drug Resistant Organisms: None Reported Past Surgical History: Orthopedic Surgery, Prostate Surgery Additional Past Surgical History / Comment(s): urethral stricture with Cystoscopy with DVIU x3, colonoscopy/polypectomy, skin cancer removals. Past Anesthesia/Blood Transfusion Reactions: No Reported Reaction Past Psychological History: No Psychological Hx Reported Smoking Status: Never smoker Past Alcohol Use History: None Reported Past Drug Use History: None Reported - Past Family History Mother Family Medical History: No Reported History Additional Family Medical History / Comment(s): Mother lived into her 80's. Father History Unknown: Yes Family Medical History: Unable to Obtain Additional Family Medical History / Comment(s): Pt did not know his father. Medications and Allergies Home Medications Medication Instructions Recorded Confirmed Type Metoprolol Tartrate [Lopressor] 50 mg PO DAILY tab 12/10/16 04/05/17 Rx Acetaminophen Tab [Tylenol] 650 mg PO Q6HR PRN 04/05/17 04/05/17 History Bisacodyl [Dulcolax] 10 mg RECTAL DAILY PRN 04/05/17 04/05/17 History LORazepam [Ativan] 0.5 mg PO Q8H PRN 04/05/17 04/05/17 History Lactose-Reduced Food [Ensure Plus] 1 can PO TID@0800,1200,1700 04/05/17 History Magnesium Hydroxide [Milk of 2,400 mg PO DAILY PRN 04/05/17 04/05/17 History Magnesia] Na Phos,M-B/Na Phos,Di-Ba [Fleet 133 ml RECTAL ONCE PRN 04/05/17 04/05/17 History Adult] traZODone HCL [Desyrel] 100 mg PO HS 04/05/17 04/05/17 History Allergies Allergy/AdvReac Type Severity Reaction Status Date / Time No Known Allergies Allergy Verified 04/05/17 22:58 Surgical - Exam Vital Signs Temp Pulse Resp BP Pulse Ox 100.0 F H 124 H 16 113/63 94 L 04/05/17 22:59 04/05/17 22:59 04/05/17 22:59 04/05/17 22:59 04/05/17 22:59 - General well developed, well nourished, no distress - Abdomen Abdomen: soft, non tender, no distended - Genitourinary Uncircumcised phallus with paraphimosis. Significant scrotal edema. The testes are non-tender. A Wasserman catheter is in place, draining cloudy urine. Results - Labs 04/06/17 02:45 04/06/17 06:26 Abnormal Lab Results - Last 24 Hours (Table) 04/05/17 04/05/17 04/05/17 Range/Units 23:09 23:09 23:09 WBC 33.4 H* (3.8-10.6) k/uL Hgb (13.0-17.5) gm/dL RDW 15.6 H (11.5-15.5) % Neutrophils # 31.6 H (1.3-7.7) k/uL Neutrophils # (Manual) (1.3-7.7) k/uL Lymphocytes # 0.6 L (1.0-4.8) k/uL Lymphocytes # (Manual) (1.0-4.8) k/uL Monocytes # (Manual) (0-1.0) k/uL PT (9.0-12.0) sec INR (<1.2) Sodium 131 L (137-145) mmol/L Potassium 6.4 H* (3.5-5.1) mmol/L Chloride 95 L (98-107) mmol/L Carbon Dioxide 17 L (22-30) mmol/L BUN 47 H (9-20) mg/dL Creatinine 2.60 H (0.66-1.25) mg/dL Glucose 144 H (74-99) mg/dL POC Glucose (mg/dL) (75-99) mg/dL Plasma Lactic Acid Georges 5.8 H* (0.7-2.0) mmol/L Phosphorus (2.5-4.5) mg/dL Albumin 3.2 L (3.5-5.0) g/dL Urine pH (5.0-8.0) Urine Protein (Negative) Ur Leukocyte Esterase (Negative) Urine WBC (0-5) /hpf Amorphous Sediment (None) /hpf Urine Bacteria (None) /hpf 04/05/17 04/05/17 04/06/17 Range/Units 23:09 23:29 01:55 WBC (3.8-10.6) k/uL Hgb (13.0-17.5) gm/dL RDW (11.5-15.5) % Neutrophils # (1.3-7.7) k/uL Neutrophils # (Manual) (1.3-7.7) k/uL Lymphocytes # (1.0-4.8) k/uL Lymphocytes # (Manual) (1.0-4.8) k/uL Monocytes # (Manual) (0-1.0) k/uL PT 12.7 H (9.0-12.0) sec INR 1.3 H (<1.2) Sodium (137-145) mmol/L Potassium (3.5-5.1) mmol/L Chloride (98-107) mmol/L Carbon Dioxide (22-30) mmol/L BUN (9-20) mg/dL Creatinine (0.66-1.25) mg/dL Glucose (74-99) mg/dL POC Glucose (mg/dL) 174 H (75-99) mg/dL Plasma Lactic Acid Georges (0.7-2.0) mmol/L Phosphorus (2.5-4.5) mg/dL Albumin (3.5-5.0) g/dL Urine pH 8.5 H (5.0-8.0) Urine Protein 4+ H (Negative) Ur Leukocyte Esterase Large H (Negative) Urine WBC 145 H (0-5) /hpf Amorphous Sediment Occasional H (None) /hpf Urine Bacteria Rare H (None) /hpf 04/06/17 04/06/17 04/06/17 Range/Units 02:38 02:38 02:45 WBC 26.6 H* (3.8-10.6) k/uL Hgb 12.7 L (13.0-17.5) gm/dL RDW 16.5 H (11.5-15.5) % Neutrophils # (1.3-7.7) k/uL Neutrophils # (Manual) 24.70 H (1.3-7.7) k/uL Lymphocytes # (1.0-4.8) k/uL Lymphocytes # (Manual) 0.53 L (1.0-4.8) k/uL Monocytes # (Manual) 1.60 H (0-1.0) k/uL PT (9.0-12.0) sec INR (<1.2) Sodium 132 L (137-145) mmol/L Potassium (3.5-5.1) mmol/L Chloride (98-107) mmol/L Carbon Dioxide 15 L (22-30) mmol/L BUN 45 H (9-20) mg/dL Creatinine 2.40 H (0.66-1.25) mg/dL Glucose 130 H (74-99) mg/dL POC Glucose (mg/dL) (75-99) mg/dL Plasma Lactic Acid Georges 6.4 H* (0.7-2.0) mmol/L Phosphorus 5.9 H (2.5-4.5) mg/dL Albumin (3.5-5.0) g/dL Urine pH (5.0-8.0) Urine Protein (Negative) Ur Leukocyte Esterase (Negative) Urine WBC (0-5) /hpf Amorphous Sediment (None) /hpf Urine Bacteria (None) /hpf 04/06/17 04/06/17 04/06/17 Range/Units 06:26 06:26 09:28 WBC (3.8-10.6) k/uL Hgb (13.0-17.5) gm/dL RDW (11.5-15.5) % Neutrophils # (1.3-7.7) k/uL Neutrophils # (Manual) (1.3-7.7) k/uL Lymphocytes # (1.0-4.8) k/uL Lymphocytes # (Manual) (1.0-4.8) k/uL Monocytes # (Manual) (0-1.0) k/uL PT (9.0-12.0) sec INR (<1.2) Sodium (137-145) mmol/L Potassium 5.2 H (3.5-5.1) mmol/L Chloride (98-107) mmol/L Carbon Dioxide (22-30) mmol/L BUN (9-20) mg/dL Creatinine (0.66-1.25) mg/dL Glucose (74-99) mg/dL POC Glucose (mg/dL) 132 H (75-99) mg/dL Plasma Lactic Acid Georges 4.9 H* (0.7-2.0) mmol/L Phosphorus (2.5-4.5) mg/dL Albumin (3.5-5.0) g/dL Urine pH (5.0-8.0) Urine Protein (Negative) Ur Leukocyte Esterase (Negative) Urine WBC (0-5) /hpf Amorphous Sediment (None) /hpf Urine Bacteria (None) /hpf 04/06/17 04/06/17 04/06/17 Range/Units 10:15 14:49 15:48 WBC (3.8-10.6) k/uL Hgb (13.0-17.5) gm/dL RDW (11.5-15.5) % Neutrophils # (1.3-7.7) k/uL Neutrophils # (Manual) (1.3-7.7) k/uL Lymphocytes # (1.0-4.8) k/uL Lymphocytes # (Manual) (1.0-4.8) k/uL Monocytes # (Manual) (0-1.0) k/uL PT (9.0-12.0) sec INR (<1.2) Sodium (137-145) mmol/L Potassium (3.5-5.1) mmol/L Chloride (98-107) mmol/L Carbon Dioxide (22-30) mmol/L BUN (9-20) mg/dL Creatinine (0.66-1.25) mg/dL Glucose (74-99) mg/dL POC Glucose (mg/dL) 118 H (75-99) mg/dL Plasma Lactic Acid Georges 3.8 H* 3.8 H* (0.7-2.0) mmol/L Phosphorus (2.5-4.5) mg/dL Albumin (3.5-5.0) g/dL Urine pH (5.0-8.0) Urine Protein (Negative) Ur Leukocyte Esterase (Negative) Urine WBC (0-5) /hpf Amorphous Sediment (None) /hpf Urine Bacteria (None) /hpf Microbiology - Last 24 Hours (Table) 04/05/17 23:09 Blood Culture - Final Blood 04/05/17 23:29 Urine Culture - Preliminary Urine,Voided Diabetes panel 04/05/17 04/06/17 04/06/17 Range/Units 23:09 02:38 02:38 Sodium 131 L 132 L (137-145) mmol/L Potassium 6.4 H* 4.9 5.0 (3.5-5.1) mmol/L Chloride 95 L 101 (98-107) mmol/L Carbon Dioxide 17 L 15 L (22-30) mmol/L BUN 47 H 45 H (9-20) mg/dL Creatinine 2.60 H 2.40 H (0.66-1.25) mg/dL Glucose 144 H 130 H (74-99) mg/dL Calcium 9.1 8.4 (8.4-10.2) mg/dL AST 26 (17-59) U/L ALT 25 (21-72) U/L Alkaline Phosphatase 78 (38-126) U/L Total Protein 6.6 (6.3-8.2) g/dL Albumin 3.2 L (3.5-5.0) g/dL 04/06/17 Range/Units 06:26 Sodium (137-145) mmol/L Potassium 5.2 H (3.5-5.1) mmol/L Chloride (98-107) mmol/L Carbon Dioxide (22-30) mmol/L BUN (9-20) mg/dL Creatinine (0.66-1.25) mg/dL Glucose (74-99) mg/dL Calcium (8.4-10.2) mg/dL AST (17-59) U/L ALT (21-72) U/L Alkaline Phosphatase (38-126) U/L Total Protein (6.3-8.2) g/dL Albumin (3.5-5.0) g/dL Calcium panel 04/05/17 04/06/17 Range/Units 23: 02:38 Calcium 9.1 8.4 (8.4-10.2) mg/dL Phosphorus 5.9 H (2.5-4.5) mg/dL Albumin 3.2 L (3.5-5.0) g/dL Pituitary panel 04/05/17 04/06/17 04/06/17 Range/Units 23: 02:38 02:38 Sodium 131 L 132 L (137-145) mmol/L Potassium 6.4 H* 4.9 5.0 (3.5-5.1) mmol/L Chloride 95 L 101 (98-107) mmol/L Carbon Dioxide 17 L 15 L (22-30) mmol/L BUN 47 H 45 H (9-20) mg/dL Creatinine 2.60 H 2.40 H (0.66-1.25) mg/dL Glucose 144 H 130 H (74-99) mg/dL Calcium 9.1 8.4 (8.4-10.2) mg/dL 04/06/17 Range/Units 06:26 Sodium (137-145) mmol/L Potassium 5.2 H (3.5-5.1) mmol/L Chloride (98-107) mmol/L Carbon Dioxide (22-30) mmol/L BUN (9-20) mg/dL Creatinine (0.66-1.25) mg/dL Glucose (74-99) mg/dL Calcium (8.4-10.2) mg/dL Adrenal panel 04/05/17 04/06/17 04/06/17 Range/Units 23: 02:38 02:38 Sodium 131 L 132 L (137-145) mmol/L Potassium 6.4 H* 4.9 5.0 (3.5-5.1) mmol/L Chloride 95 L 101 (98-107) mmol/L Carbon Dioxide 17 L 15 L (22-30) mmol/L BUN 47 H 45 H (9-20) mg/dL Creatinine 2.60 H 2.40 H (0.66-1.25) mg/dL Glucose 144 H 130 H (74-99) mg/dL Calcium 9.1 8.4 (8.4-10.2) mg/dL Total Bilirubin 0.5 (0.2-1.3) mg/dL AST 26 (17-59) U/L ALT 25 (21-72) U/L Alkaline Phosphatase 78 (38-126) U/L Total Protein 6.6 (6.3-8.2) g/dL Albumin 3.2 L (3.5-5.0) g/dL 04/06/17 Range/Units 06:26 Sodium (137-145) mmol/L Potassium 5.2 H (3.5-5.1) mmol/L Chloride (98-107) mmol/L Carbon Dioxide (22-30) mmol/L BUN (9-20) mg/dL Creatinine (0.66-1.25) mg/dL Glucose (74-99) mg/dL Calcium (8.4-10.2) mg/dL Total Bilirubin (0.2-1.3) mg/dL AST (17-59) U/L ALT (21-72) U/L Alkaline Phosphatase (38-126) U/L Total Protein (6.3-8.2) g/dL Albumin (3.5-5.0) g/dL - Imaging US - kidney/bladder: report reviewed Assessment and Plan (1) UTI (urinary tract infection) Status: Acute Plan: The patient appears to have UTI with sepsis. He has had recurrent UTIs related to a chronic indwelling Wasserman catheter. Bladder scan earlier this evening showed a bladder volume of 1 L. The Wasserman catheter was removed, and the patient voided a large amount of urine. The catheter was replaced and is now draining well. Paraphimosis was reduced at the bedside. Blood cultures have shown gram-negative bacilli, and a urine culture is pending. A renal ultrasound shows evidence of bilateral hydronephrosis, perhaps due to bladder distention resulting from an occluded Wasserman catheter. I would recommend continued treatment with broad-spectrum IV antibiotics pending the final culture results. I will notify Dr. Gustafson of Mr. Lizarraga' admission. Time with Patient: Greater than 30
[2017-04-06] MEDS: HEPARIN SODIUM,PORCINE/D5W PMX 25,000 UNIT in DEXTROSE/WATER 1 500ML.BAG IV SCH (21:55)
[2017-04-06] MEDS: traZODone HCL 100 MG TAB PO SCH (21:57)
[2017-04-06] MEDS: METOPROLOL TARTRATE 50 MG TAB PO SCH (21:57)
--- NOTE | 2017-04-06 22:19 | P.CONS ---
History of Present Illness - Reason for Consult Consult date: 04/06/17 - Chief Complaint sepsis - History of Present Illness 82-year-old male presents to the emergency center from the extended care facility. Is limited that at his residence the patient was doing poorly. He had a drop in his pulse oximetry. Seemed to be not well. EMS was called. Upon their arrival his saturations were adequate. However the patient was tachycardic and hypotensive. They also believe that he was febrile. He was then transported to the Emergency Ctr[facility] where he was found to have evidence of hypotension. He was given fluid resuscitation. Despite that he remained hypotensive and required vasopressor therapy with Levophed. The patient was transferred to the intensive care unit received further resuscitation. With further fluids is little elevated lactic acid improved. Patient was continued to have somewhat of a poor mentation just part of his difficulties at transfer also known dementia. Because of his gram-negative sepsis the infectious diseases consultation was requested. The patient is a poor historian and most information is coming from the chart and the current nursing staff. The patient does seem to be a bit more uncomfortable he was earlier in the day as per the nursing staff. It is noted that urine output has been poor despite his extensive fluid resuscitation. Urine is very cloudy and thick. Renal ultrasound has been performed several hours ago. Evidence of bilateral hydronephrosis and sludge in his bladder. 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 Pt poor historian. History of Any Multi-Drug Resistant Organisms: None Reported Past Surgical History: Orthopedic Surgery, Prostate Surgery Additional Past Surgical History / Comment(s): urethral stricture with Cystoscopy with DVIU x3, colonoscopy/polypectomy, skin cancer removals. Past Anesthesia/Blood Transfusion Reactions: No Reported Reaction Past Psychological History: No Psychological Hx Reported Additional Psychological History / Comment(s): Resident of [facility]. Unknown what his work experience are. No current tobacco use Smoking Status: Never smoker Past Alcohol Use History: None Reported Past Drug Use History: None Reported - Past Family History Mother Family Medical History: No Reported History Additional Family Medical History / Comment(s): Mother lived into her 80's. Father History Unknown: Yes Family Medical History: Unable to Obtain Additional Family Medical History / Comment(s): Pt did not know his father. Medications and Allergies Home Medications and Allergies Comment(s): Current Medications Acetaminophen (Tylenol Tab) 650 mg PO Q4HR PRN PRN Reason: Fever and/or Mild Pain Last Admin: 04/06/17 13:29 Dose: 650 mg Heparin Sodium (Porcine) (Heparin) 0 unit IV PER PROTOCOL PRN; Protocol PRN Reason: Low PTT Sodium Chloride (Saline 0.9%) 1,000 mls @ 100 mls/hr IV .Q10H SHARITA Last Admin: 04/06/17 11:00 Dose: 100 mls/hr Norepinephrine Bitartrate (Levophed-0.9% Nacl 4 Mg/250ml Pmx) 4 mg in 250 mls @ 0 mls/hr IV .Q0M SHARITA; Titrate PRN Reason: Protocol Last Titration: 04/06/17 15:44 Dose: 0.53 mcg/min, 2 mls/hr Vancomycin HCl 1,500 mg/ (Sodium Chloride) 250 mls @ 125 mls/hr IVPB ONCE ONE Stop: 04/06/17 22:59 Cefepime HCl 1 gm/ Sodium (Chloride) 50 mls @ 100 mls/hr IVPB DAILY [facility] Heparin Sodium/Dextrose 25,000 (unit/ IV Solution) 500 mls @ 32.04 mls/hr IV .[id number] SHARITA; 18 UNITS/KG/HR PRN Reason: Protocol Lorazepam (Ativan) 0.5 mg PO Q8HR PRN PRN Reason: Agitation or Acute Anxiety Metoprolol Tartrate (Lopressor) 50 mg PO BID [facility] Miscellaneous Information (Pharmacy To Dose Iv Vancomycin) 1 each MISCELLANE DIRECTED PRN PRN Reason: Per Protocol Naloxone HCl (Narcan) 0.2 mg IV Q2M PRN PRN Reason: Opioid Reversal Pantoprazole Sodium (Protonix) 40 mg IV DAILY [facility] Last Admin: 04/06/17 09:00 Dose: 40 mg Quetiapine Fumarate (Seroquel) 25 mg PO BID PRN PRN Reason: Agitation Trazodone HCl (Desyrel) 100 mg PO HS [facility] Home Medications Medication Instructions Recorded Confirmed Type Metoprolol Tartrate [Lopressor] 50 mg PO DAILY tab 12/10/16 04/05/17 Rx Acetaminophen Tab [Tylenol] 650 mg PO Q6HR PRN 04/05/17 04/05/17 History Bisacodyl [Dulcolax] 10 mg RECTAL DAILY PRN 04/05/17 04/05/17 History LORazepam [Ativan] 0.5 mg PO Q8H PRN 04/05/17 04/05/17 History Lactose-Reduced Food [Ensure Plus] 1 can PO TID@0800,1200,1700 04/05/17 History Magnesium Hydroxide [Milk of 2,400 mg PO DAILY PRN 04/05/17 04/05/17 History Magnesia] Na Phos,M-B/Na Phos,Di-Ba [Fleet 133 ml RECTAL ONCE PRN 04/05/17 04/05/17 History Adult] traZODone HCL [Desyrel] 100 mg PO HS 04/05/17 04/05/17 History Allergies Allergy/AdvReac Type Severity Reaction Status Date / Time No Known Allergies Allergy Verified 04/05/17 22:58 Physical Exam Vitals: Vital Signs Temp Pulse Resp BP Pulse Ox 04/06/17 19:00 140 H 29 H 114/56 80 L 04/06/17 18:30 98.6 F 135 H 30 H 117/63 90 L 04/06/17 18:00 130 H 37 H 100/58 96 04/06/17 17:30 136 H 30 H 116/62 04/06/17 17:00 137 H 33 H 105/47 94 L 04/06/17 16:30 129 H 33 H 111/60 95 04/06/17 16:00 131 H 32 H 110/60 97 04/06/17 15:30 126 H 36 H 133/62 97 04/06/17 15:00 99.5 F 126 H 46 H 109/54 90 L 04/06/17 14:30 119 H 32 H 107/55 98 04/06/17 14:00 122 H 35 H 110/64 96 04/06/17 13:30 122 H 25 H 90/61 96 04/06/17 13:00 123 H 41 H 100/51 96 04/06/17 12:30 124 H 36 H 97/53 95 04/06/17 12:00 98.5 F 122 H 34 H 114/60 97 04/06/17 11:30 118 H 35 H 89/55 96 04/06/17 11:00 118 H 40 H 94/49 94 L 04/06/17 10:30 116 H 28 H 103/53 95 04/06/17 10:00 97.8 F 112 H 28 H 101/55 95 04/06/17 09:30 116 H 30 H 91/50 95 04/06/17 09:00 117 H 30 H 85/53 95 04/06/17 08:30 123 H 32 H 80/50 95 04/06/17 08:00 98.5 F 119 H 29 H 94/52 95 04/06/17 07:30 122 H 32 H 94/61 95 04/06/17 07:00 123 H 32 H 94/56 96 04/06/17 06:30 127 H 30 H 85/55 95 04/06/17 06:00 98.5 F 124 H 33 H 95/48 96 04/06/17 05:30 124 H 32 H 97/55 94 L 04/06/17 05:00 124 H 28 H 105/61 95 04/06/17 04:30 100.6 F H 130 H 27 H 117/87 97 04/06/17 04:00 127 H 30 H 111/55 97 04/06/17 03:30 131 H 32 H 109/58 91 L 04/06/17 03:00 126 H 34 H 102/57 92 L 04/06/17 02:30 126 H 32 H 92/70 98 04/06/17 02:00 98.9 F 128 H 34 H 110/69 96 04/06/17 01:59 100.0 F H 115 H 16 136/60 98 04/06/17 01:56 131 H 32 H 04/06/17 01:35 125 H 04/06/17 01:29 123 H 04/06/17 01:07 100.8 F H 120 H 18 136/60 94 L 04/06/17 00:09 94 16 133/64 97 04/05/17 22:59 100.0 F H 124 H 16 113/63 94 L Intake and Output 04/06/17 04/06/17 04/06/17 06:59 14:59 22:59 Intake Total 1620 3000 867.933 Output Total 185 280 935 Balance 1435 2720 -67.067 Intake: IV 1500 2900 500 Cefepime 2 gm In Sodium 0 100 Chloride 0.9% 50 ml @ 100 mls/hr IVPB Q8H [facility] Rx#: [id number] Sodium Chloride 0.9% 1, 500 800 400 000 ml @ 100 mls/hr IV . Q10H [facility] Rx#:[id number] Sodium Chloride 0.9% 1, 1000 2000 100 000 ml @ 999 mls/hr IV . Q1H1M [facility] Rx#:[id number] Intake, IV Titration 127.933 Amount Cefepime 1 gm In Sodium 100 Chloride 0.9% 50 ml @ 100 mls/hr IVPB DAILY [facility] Rx #:[id number] Norepinephrin 4 mg-0.9% 27.933 Ns Pmx 4 mg In 250 ml @ Titrate IV .Q0M [facility] Rx#: [id number] Oral 120 100 240 Output: Urine 185 280 935 Other: Voiding Method Indwelling Catheter Indwelling Catheter Indwelling Catheter Weight 86.7 kg 89 kg Patient Weight 04/07/17 06:59 Weight 89 kg HEENT: Anicteric conjunctiva are pink and moist nasal mucosa grossly intact without significant lesions, there is no thrush. Oral cavity is dry with generalized poor long-term hygiene Neck: The neck is supple without significant lymphadenopathy or thyromegaly. Lungs: Good bilateral air entry without significant crackles or wheezing. There is no significant bronchial sounds. There is no egophony or dullness. Heart: Regular rate and rhythm with an audible S1-S2, no S3 no S4. There is no significant murmur click or rub, PMI was nondisplaced. Abdomen: Positive bowel sounds soft and tender without palpable masses or organomegaly. Lower abdomen appears to be quite distended. Extremities: The upper extremities have excellent pulses they are symmetric, no significant petechiae or telangiectasia. No splinter hemorrhages were noted. The lower extremities are free from significant edema. The peripheral pulses were 2+ and symmetric. Neuro: Arousable did open eyes on command. Open his mouth a little on command. And then felt no further commands. Over spontaneously moves arms and legs while being examined. Skin: Minimal erythema to buttocks with no open ulcers being seen. No ulcers to heals. Results CBC & Chem 7: 04/06/17 02:45 04/06/17 06:26 Labs: Abnormal Lab Results - Last 24 Hours (Table) 04/05/17 04/05/17 04/05/17 Range/Units 23:09 23:09 23:09 WBC 33.4 H* (3.8-10.6) k/uL Hgb (13.0-17.5) gm/dL RDW 15.6 H (11.5-15.5) % Neutrophils # 31.6 H (1.3-7.7) k/uL Neutrophils # (Manual) (1.3-7.7) k/uL Lymphocytes # 0.6 L (1.0-4.8) k/uL Lymphocytes # (Manual) (1.0-4.8) k/uL Monocytes # (Manual) (0-1.0) k/uL PT (9.0-12.0) sec INR (<1.2) Sodium 131 L (137-145) mmol/L Potassium 6.4 H* (3.5-5.1) mmol/L Chloride 95 L (98-107) mmol/L Carbon Dioxide 17 L (22-30) mmol/L BUN 47 H (9-20) mg/dL Creatinine 2.60 H (0.66-1.25) mg/dL Glucose 144 H (74-99) mg/dL POC Glucose (mg/dL) (75-99) mg/dL Plasma Lactic Acid Georges 5.8 H* (0.7-2.0) mmol/L Phosphorus (2.5-4.5) mg/dL Albumin 3.2 L (3.5-5.0) g/dL Urine pH (5.0-8.0) Urine Protein (Negative) Ur Leukocyte Esterase (Negative) Urine WBC (0-5) /hpf Amorphous Sediment (None) /hpf Urine Bacteria (None) /hpf 04/05/17 04/05/17 04/06/17 Range/Units 23:09 23:29 01:55 WBC (3.8-10.6) k/uL Hgb (13.0-17.5) gm/dL RDW (11.5-15.5) % Neutrophils # (1.3-7.7) k/uL Neutrophils # (Manual) (1.3-7.7) k/uL Lymphocytes # (1.0-4.8) k/uL Lymphocytes # (Manual) (1.0-4.8) k/uL Monocytes # (Manual) (0-1.0) k/uL PT 12.7 H (9.0-12.0) sec INR 1.3 H (<1.2) Sodium (137-145) mmol/L Potassium (3.5-5.1) mmol/L Chloride (98-107) mmol/L Carbon Dioxide (22-30) mmol/L BUN (9-20) mg/dL Creatinine (0.66-1.25) mg/dL Glucose (74-99) mg/dL POC Glucose (mg/dL) 174 H (75-99) mg/dL Plasma Lactic Acid Georges (0.7-2.0) mmol/L Phosphorus (2.5-4.5) mg/dL Albumin (3.5-5.0) g/dL Urine pH 8.5 H (5.0-8.0) Urine Protein 4+ H (Negative) Ur Leukocyte Esterase Large H (Negative) Urine WBC 145 H (0-5) /hpf Amorphous Sediment Occasional H (None) /hpf Urine Bacteria Rare H (None) /hpf 04/06/17 04/06/17 04/06/17 Range/Units 02:38 02:38 02:45 WBC 26.6 H* (3.8-10.6) k/uL Hgb 12.7 L (13.0-17.5) gm/dL RDW 16.5 H (11.5-15.5) % Neutrophils # (1.3-7.7) k/uL Neutrophils # (Manual) 24.70 H (1.3-7.7) k/uL Lymphocytes # (1.0-4.8) k/uL Lymphocytes # (Manual) 0.53 L (1.0-4.8) k/uL Monocytes # (Manual) 1.60 H (0-1.0) k/uL PT (9.0-12.0) sec INR (<1.2) Sodium 132 L (137-145) mmol/L Potassium (3.5-5.1) mmol/L Chloride (98-107) mmol/L Carbon Dioxide 15 L (22-30) mmol/L BUN 45 H (9-20) mg/dL Creatinine 2.40 H (0.66-1.25) mg/dL Glucose 130 H (74-99) mg/dL POC Glucose (mg/dL) (75-99) mg/dL Plasma Lactic Acid Georges 6.4 H* (0.7-2.0) mmol/L Phosphorus 5.9 H (2.5-4.5) mg/dL Albumin (3.5-5.0) g/dL Urine pH (5.0-8.0) Urine Protein (Negative) Ur Leukocyte Esterase (Negative) Urine WBC (0-5) /hpf Amorphous Sediment (None) /hpf Urine Bacteria (None) /hpf 04/06/17 04/06/17 04/06/17 Range/Units 06:26 06:26 09:28 WBC (3.8-10.6) k/uL Hgb (13.0-17.5) gm/dL RDW (11.5-15.5) % Neutrophils # (1.3-7.7) k/uL Neutrophils # (Manual) (1.3-7.7) k/uL Lymphocytes # (1.0-4.8) k/uL Lymphocytes # (Manual) (1.0-4.8) k/uL Monocytes # (Manual) (0-1.0) k/uL PT (9.0-12.0) sec INR (<1.2) Sodium (137-145) mmol/L Potassium 5.2 H (3.5-5.1) mmol/L Chloride (98-107) mmol/L Carbon Dioxide (22-30) mmol/L BUN (9-20) mg/dL Creatinine (0.66-1.25) mg/dL Glucose (74-99) mg/dL POC Glucose (mg/dL) 132 H (75-99) mg/dL Plasma Lactic Acid Georges 4.9 H* (0.7-2.0) mmol/L Phosphorus (2.5-4.5) mg/dL Albumin (3.5-5.0) g/dL Urine pH (5.0-8.0) Urine Protein (Negative) Ur Leukocyte Esterase (Negative) Urine WBC (0-5) /hpf Amorphous Sediment (None) /hpf Urine Bacteria (None) /hpf 04/06/17 04/06/17 04/06/17 Range/Units 10:15 14:49 15:48 WBC (3.8-10.6) k/uL Hgb (13.0-17.5) gm/dL RDW (11.5-15.5) % Neutrophils # (1.3-7.7) k/uL Neutrophils # (Manual) (1.3-7.7) k/uL Lymphocytes # (1.0-4.8) k/uL Lymphocytes # (Manual) (1.0-4.8) k/uL Monocytes # (Manual) (0-1.0) k/uL PT (9.0-12.0) sec INR (<1.2) Sodium (137-145) mmol/L Potassium (3.5-5.1) mmol/L Chloride (98-107) mmol/L Carbon Dioxide (22-30) mmol/L BUN (9-20) mg/dL Creatinine (0.66-1.25) mg/dL Glucose (74-99) mg/dL POC Glucose (mg/dL) 118 H (75-99) mg/dL Plasma Lactic Acid Georges 3.8 H* 3.8 H* (0.7-2.0) mmol/L Phosphorus (2.5-4.5) mg/dL Albumin (3.5-5.0) g/dL Urine pH (5.0-8.0) Urine Protein (Negative) Ur Leukocyte Esterase (Negative) Urine WBC (0-5) /hpf Amorphous Sediment (None) /hpf Urine Bacteria (None) /hpf 04/06/17 Range/Units 19:06 WBC (3.8-10.6) k/uL Hgb (13.0-17.5) gm/dL RDW (11.5-15.5) % Neutrophils # (1.3-7.7) k/uL Neutrophils # (Manual) (1.3-7.7) k/uL Lymphocytes # (1.0-4.8) k/uL Lymphocytes # (Manual) (1.0-4.8) k/uL Monocytes # (Manual) (0-1.0) k/uL PT (9.0-12.0) sec INR (<1.2) Sodium (137-145) mmol/L Potassium (3.5-5.1) mmol/L Chloride (98-107) mmol/L Carbon Dioxide (22-30) mmol/L BUN (9-20) mg/dL Creatinine (0.66-1.25) mg/dL Glucose (74-99) mg/dL POC Glucose (mg/dL) (75-99) mg/dL Plasma Lactic Acid Georges 4.9 H* (0.7-2.0) mmol/L Phosphorus (2.5-4.5) mg/dL Albumin (3.5-5.0) g/dL Urine pH (5.0-8.0) Urine Protein (Negative) Ur Leukocyte Esterase (Negative) Urine WBC (0-5) /hpf Amorphous Sediment (None) /hpf Urine Bacteria (None) /hpf Microbiology - Last 24 Hours (Table) 04/05/17 23:09 Blood Culture Gram Stain - Preliminary Blood Blood Culture - Preliminary Gram Neg Bacilli 04/05/17 23:09 Blood Culture - Final Blood 04/05/17 23:29 Urine Culture - Preliminary Urine,Voided Laboratory Results WBC 26.6 k/uL (3.8-10.6) H* 04/06/17 02:45 RBC 4.48 m/uL (4.30-5.90) 04/06/17 02:45 Hgb 12.7 gm/dL (13.0-17.5) L 04/06/17 02:45 Hct 40.4 % (39.0-53.0) 04/06/17 02:45 MCV 90.3 fL (80.0-100.0) 04/06/17 02:45 MCH 28.4 pg (25.0-35.0) 04/06/17 02:45 MCHC 31.5 g/dL (31.0-37.0) 04/06/17 02:45 RDW 16.5 % (11.5-15.5) H 04/06/17 02:45 Plt Count 337 k/uL (150-450) 04/06/17 02:45 Neutrophils % 95 % 04/05/17 23:09 Neutrophils % (Manual) 83 % 04/06/17 02:45 Band Neutrophils % 10 % 04/06/17 02:45 Lymphocytes % 2 % 04/05/17 23:09 Lymphocytes % (Manual) 2 % 04/06/17 02:45 Monocytes % 2 % 04/05/17 23:09 Monocytes % (Manual) 6 % 04/06/17 02:45 Eosinophils % 1 % 04/05/17 23:09 Basophils % 0 % 04/05/17 23:09 Neutrophils # 31.6 k/uL (1.3-7.7) H 04/05/17 23:09 Neutrophils # (Manual) 24.70 k/uL (1.3-7.7) H 04/06/17 02:45 Lymphocytes # 0.6 k/uL (1.0-4.8) L 04/05/17 23:09 Lymphocytes # (Manual) 0.53 k/uL (1.0-4.8) L 04/06/17 02:45 Monocytes # 0.8 k/uL (0-1.0) 04/05/17 23:09 Monocytes # (Manual) 1.60 k/uL (0-1.0) H 04/06/17 02:45 Eosinophils # 0.2 k/uL (0-0.7) 04/05/17 23:09 Basophils # 0.1 k/uL (0-0.2) 04/05/17 23:09 Nucleated RBCs 0 /100 WBC (0-0) 04/06/17 02:45 Manual Slide Review Performed 04/06/17 02:45 Toxic Vacuolation Present 04/06/17 02:45 Anisocytosis Slight 04/06/17 02:45 PT 12.7 sec (9.0-12.0) H 04/05/17 23:09 INR 1.3 (<1.2) H 04/05/17 23:09 APTT 26.2 sec (22.0-30.0) 04/05/17 23:09 Sodium 132 mmol/L (137-145) L 04/06/17 02:38 Potassium 5.2 mmol/L (3.5-5.1) H 04/06/17 06:26 Chloride 101 mmol/L (98-107) 04/06/17 02:38 Carbon Dioxide 15 mmol/L (22-30) L 04/06/17 02:38 Anion Gap 16 mmol/L 04/06/17 02:38 BUN 45 mg/dL (9-20) H 04/06/17 02:38 Creatinine 2.40 mg/dL (0.66-1.25) H 04/06/17 02:38 Est GFR (MDRD) Af Amer 32 (>60 ml/min/1.73 sqM) 04/06/17 02:38 Est GFR (MDRD) Non-Af 26 (>60 ml/min/1.73 sqM) 04/06/17 02:38 Glucose 130 mg/dL (74-99) H 04/06/17 02:38 POC Glucose (mg/dL) 118 mg/dL (75-99) H 04/06/17 15:48 POC Glu Brand Activation Manager ID Jonny Almaraz, Carri 04/06/17 15:48 Lactic Ac Sepsis Rflx Y 04/06/17 15:19 Plasma Lactic Acid Georges 4.9 mmol/L (0.7-2.0) H* 04/06/17 19:06 Calcium 8.4 mg/dL (8.4-10.2) 04/06/17 02:38 Phosphorus 5.9 mg/dL (2.5-4.5) H 04/06/17 02:38 Magnesium 1.9 mg/dL (1.6-2.3) 04/06/17 02:38 Total Bilirubin 0.5 mg/dL (0.2-1.3) 04/05/17 23:09 AST 26 U/L (17-59) 04/05/17 23:09 ALT 25 U/L (21-72) 04/05/17 23:09 Alkaline Phosphatase 78 U/L (38-126) 04/05/17 23:09 Total Protein 6.6 g/dL (6.3-8.2) 04/05/17 23:09 Albumin 3.2 g/dL (3.5-5.0) L 04/05/17 23:09 Urine Color Light Red 04/05/17 23:29 Urine Appearance Turbid (Clear) 04/05/17 23:29 Urine pH 8.5 (5.0-8.0) H 04/05/17 23:29 Ur Specific [place] 1.012 (1.001-1.035) 04/05/17 23:29 Urine Protein 4+ (Negative) H 04/05/17 23:29 Urine Glucose (UA) Negative (Negative) 04/05/17 23:29 Urine Ketones Negative (Negative) 04/05/17 23: Urine Blood Negative (Negative) 04/05/17 23: Urine Nitrite Negative (Negative) 04/05/17 23:29 Urine Bilirubin Negative (Negative) 04/05/17 23: Urine Urobilinogen <2.0 mg/dL (<2.0) 04/05/17 23: Ur Leukocyte Esterase Large (Negative) H 04/05/17 23: Urine WBC 145 /hpf (0-5) H 04/05/17: Amorphous Sediment Occasional /hpf (None) H 04/05/17 23: Urine Bacteria Rare /hpf (None) H 04/05/17 23: Microbiology 04/05/17 23: Blood Blood Culture Gram Stain - Preliminary 04/05/17 23: Blood Blood Culture - Preliminary Gram Neg Bacilli 04/05/17 23: Blood Blood Culture - Final 04/05/17 23: Urine,Voided Urine Culture - Preliminary Assessment and Plan (1) Septic shock Narrative/Plan: 82-year-old male presents from the extended care facility with alteration of his status. Concerns to hypoxemia which corrected upon arrival of EMS. However the patient was hypotensive and tachycardic and febrile. Upon arrival the patient had evidence of sepsis and shock requiring fluid resuscitation and then vasopressor therapy. With adequate resuscitation he has now improved and is off vasopressor therapy. However continues to have a poor mental status. His fever is improved. On exam the patient had a poor urinary output had evidence of distention to his lower abdomen that was tender. Recent ultrasound showed evidence of bilateral hydronephrosis and sludge in his bladder. A bladder scan was requested and a liter of fluid was noted in his latter. The catheter was blocked and a new Wasserman was placed and the patient had resolution of his distention. He has been seen by urology in his phimosis was cared for at the bedside. His other the patient has gram-negative sepsis with the final cultures recent cultures have shown evidence of pseudomonas aeruginosa that is susceptible to cefepime. This will remain at this point in time pending further culture results. For the blood cultures are requested to ensure his bacteremia has cleared. He has a profound leukocytosis due to his current sepsis and obstructive process. Altered mentation on the basis of sepsis Acute failure on the basis of an obstructive process and hopefully will improve rapidly as his sepsis and obstruction have been improved Status: Acute (2) Gram-negative sepsis with organ dysfunction Status: Acute (3) UTI (urinary tract infection) Status: Acute (4) Leukocytosis Status: Acute
[2017-04-06 22:21] LABS: Basophils # (A) 0.1 k/uL (0-0.2); Basophils % (A) 0 %; CH 27.2; CHCM 30.4; Eosinophils # (A) 0.1 k/uL (0-0.7); Eosinophils % (A) 0 %; HDW 2.32; HGB 11.4 gm/dL (13.0-17.5); Hypochromasia Slight; Immature Gran Flag Marked; Luc # (Auto) 0.07; Luc % (Auto) 1; Lymphocytes # (A) 0.3 k/uL (1.0-4.8); Lymphocytes % (A) 2 %; MCH 28.5 pg (25.0-35.0); MCHC 31.7 g/dL (31.0-37.0); MCV 89.8 fL (80.0-100.0); Mean Platelet Volume 6.8; Monocytes # (A) 0.4 k/uL (0-1.0); Monocytes % (A) 2 %; Neutrophils # (A) 14.5 k/uL (1.3-7.7); Neutrophils % (A) 95 %; RBC 4.01 m/uL (4.30-5.90); RDW 15.6 % (11.5-15.5); WBC 15.3 k/uL (3.8-10.6); WBC (Perox) 16.54
[2017-04-06 22:24] LABS: INR 1.3 (<1.2); Partial Thromboplastin Time 27.8 sec (22.0-30.0); Prothrombin Time 13.1 sec (9.0-12.0)
[2017-04-07 02:54] LABS: Anisocytosis Slight; CH 27.8; CHCM 29.5; HCT 36.6 % (39.0-53.0); HDW 2.36; HGB 10.9 gm/dL (13.0-17.5); Hypochromasia Marked; Immature Gran Flag Marked; MCH 28.2 pg (25.0-35.0); MCHC 29.8 g/dL (31.0-37.0); MCV 94.6 fL (80.0-100.0); Mean Platelet Volume 7.5; RBC 3.87 m/uL (4.30-5.90); RDW 16.3 % (11.5-15.5); WBC 17.8 k/uL (3.8-10.6); WBC (Perox) 19.24
[2017-04-07 02:59] LABS: Calcium 7.3 mg/dL (8.4-10.2); Magnesium 1.8 mg/dL (1.6-2.3); Phosphorus 5.4 mg/dL (2.5-4.5); Potassium 4.2 mmol/L (3.5-5.1); Total Bilirubin 0.4 mg/dL (0.2-1.3); Total Protein 4.5 g/dL (6.3-8.2)
[2017-04-07 04:17] LABS: Add Differential Manual Differential
[2017-04-07 04:24] LABS: Band Neutrophils % 37 %; Nucleated Red Blood Cells 0 /100 WBC (0-0); Total Cells Counted 200
[2017-04-07 04:25] LABS: Crenated RBC Present; Polychromasia Present
[2017-04-07 04:26] LABS: Toxic Vacuolation Present
[2017-04-07] MEDS: SODIUM CHLORIDE 0.9% 1,000 ML IV SCH ×3 (08:22→21:23)
[2017-04-07] MEDS: METOPROLOL TARTRATE 50 MG TAB PO SCH (08:22)
[2017-04-07] MEDS: PANTOPRAZOLE 40 MG/10 ML VIAL IV SCH (08:22)
[2017-04-07] MEDS: CEFEPIME 1 GM in SODIUM CHLORIDE 0.9% 50 ML IVPB SCH (08:23)
--- NOTE | 2017-04-07 09:18 | XR ---
EXAMINATION TYPE: XR chest 1V DATE OF EXAM: 04/07/2017 COMPARISON: NONE INDICATION: Sepsis TECHNIQUE: Single frontal view of the chest is obtained. FINDINGS: The heart size is normal. The pulmonary vasculature is normal. Mild infiltrates in the right infrahilar region. Correlate for atelectasis or pneumonia. IMPRESSION: 1. Right infrahilar infiltrate may be present. Correlate for atelectasis or pneumonia.
[2017-04-07] MEDS ORDERED: SODIUM CHLORIDE 0.9% 1,000 ML IV ONE (09:46)
--- NOTE | 2017-04-07 10:31 | P.PN ---
Subjective Patient is resting comfortably. He is sitting on vasopressors. Lactate is still elevating and patient is currently getting another IV bolus of 0.9 normal saline. Objective - Vital Signs Vital signs: Vital Signs Temp 98.3 F 04/07/17 08:00 Pulse 120 H 04/07/17 09:30 Resp 44 H 04/07/17 09:30 BP 94/56 04/07/17 09:30 Pulse Ox 96 04/07/17 09:30 Intake & Output 04/06/17 04/07/17 04/07/17 18:59 06:59 18:59 Intake Total 3767.933 2360.483 300 Output Total 1015 1955 430 Balance 2752.933 405.483 -130 Weight 89 kg 92 kg 91.8 kg Intake: IV 3300 1200 300 Cefepime 2 gm In Sodium 100 Chloride 0.9% 50 ml @ 100 mls/hr IVPB Q8H [facility] Rx#: [id number] Sodium Chloride 0.9% 1, 1200 1100 300 000 ml @ 100 mls/hr IV . Q10H [facility] Rx#:[id number] Sodium Chloride 0.9% 1, 2000 100 000 ml @ 999 mls/hr IV . Q1H1M [facility] Rx#:[id number] Intake, IV Titration 660.168 9515.483 Amount Cefepime 1 gm In Sodium 100 Chloride 0.9% 50 ml @ 100 mls/hr IVPB DAILY [facility] Rx #:[id number] Heparin Sodium,Porcine/ 146.85 D5w Pmx 25,000 unit In Dextrose/Water 1 500ml. bag @ 18 UNITS/KG/HR 32. 04 mls/hr IV .[id number] [facility] Rx#:[id number] Norepinephrin 4 mg-0.9% 27.933 13.633 Ns Pmx 4 mg In 250 ml @ Titrate IV .Q0M [facility] Rx#: [id number] Sodium Chloride 0.9% 1, 1000 000 ml @ 999 mls/hr IV . Q1H1M [facility] Rx#:[id number] Oral 340 Output: Urine 1015 1955 430 Other: Voiding Method Indwelling Catheter Indwelling Catheter Indwelling Catheter - Exam General: The patient is sleepy but easily arousable Eye: there is normal conjunctiva bilaterally. Neck: The neck is supple, there is no JVD. Cardiovascular: Normal S1-S2, no S3-S4, no murmurs. Respiratory: Lungs clear to auscultation bilaterally Gastrointestinal: Abdomen is soft, nontender Musculoskeletal: There is no pedal edema. Neurological:. Speech is normal. Skin: Skin is warm and dry - Labs CBC & Chem 7: 04/07/17 02:06 04/07/17 02:06 Labs: Abnormal Lab Results - Last 24 Hours (Table) 04/06/17 04/06/17 04/06/17 Range/Units 10:15 14:49 15:48 WBC (3.8-10.6) k/uL RBC (4.30-5.90) m/uL Hgb (13.0-17.5) gm/dL Hct (39.0-53.0) % MCHC (31.0-37.0) g/dL RDW (11.5-15.5) % Neutrophils # (1.3-7.7) k/uL Neutrophils # (Manual) (1.3-7.7) k/uL Lymphocytes # (1.0-4.8) k/uL Lymphocytes # (Manual) (1.0-4.8) k/uL PT (9.0-12.0) sec INR (<1.2) APTT (22.0-30.0) sec Sodium (137-145) mmol/L Chloride (98-107) mmol/L Carbon Dioxide (22-30) mmol/L BUN (9-20) mg/dL Creatinine (0.66-1.25) mg/dL Glucose (74-99) mg/dL POC Glucose (mg/dL) 118 H (75-99) mg/dL Plasma Lactic Acid Georges 3.8 H* 3.8 H* (0.7-2.0) mmol/L Calcium (8.4-10.2) mg/dL Phosphorus (2.5-4.5) mg/dL Total Protein (6.3-8.2) g/dL Albumin (3.5-5.0) g/dL 04/06/17 04/06/17 04/06/17 Range/Units 19:06 21:54 21:54 WBC 15.3 H (3.8-10.6) k/uL RBC 4.01 L (4.30-5.90) m/uL Hgb 11.4 L (13.0-17.5) gm/dL Hct 36.0 L (39.0-53.0) % MCHC (31.0-37.0) g/dL RDW 15.6 H (11.5-15.5) % Neutrophils # 14.5 H (1.3-7.7) k/uL Neutrophils # (Manual) (1.3-7.7) k/uL Lymphocytes # 0.3 L (1.0-4.8) k/uL Lymphocytes # (Manual) (1.0-4.8) k/uL PT 13.1 H (9.0-12.0) sec INR 1.3 H (<1.2) APTT (22.0-30.0) sec Sodium (137-145) mmol/L Chloride (98-107) mmol/L Carbon Dioxide (22-30) mmol/L BUN (9-20) mg/dL Creatinine (0.66-1.25) mg/dL Glucose (74-99) mg/dL POC Glucose (mg/dL) (75-99) mg/dL Plasma Lactic Acid Georges 4.9 H* (0.7-2.0) mmol/L Calcium (8.4-10.2) mg/dL Phosphorus (2.5-4.5) mg/dL Total Protein (6.3-8.2) g/dL Albumin (3.5-5.0) g/dL 04/07/17 04/07/17 04/07/17 Range/Units 02:06 02:06 02:06 WBC 17.8 H (3.8-10.6) k/uL RBC 3.87 L (4.30-5.90) m/uL Hgb 10.9 L (13.0-17.5) gm/dL Hct 36.6 L (39.0-53.0) % MCHC 29.8 L (31.0-37.0) g/dL RDW 16.3 H (11.5-15.5) % Neutrophils # (1.3-7.7) k/uL Neutrophils # (Manual) 17.20 H (1.3-7.7) k/uL Lymphocytes # (1.0-4.8) k/uL Lymphocytes # (Manual) 0.36 L (1.0-4.8) k/uL PT (9.0-12.0) sec INR (<1.2) APTT 85.5 H (22.0-30.0) sec Sodium 133 L (137-145) mmol/L Chloride 110 H (98-107) mmol/L Carbon Dioxide 12 L (22-30) mmol/L BUN 49 H (9-20) mg/dL Creatinine 1.60 H (0.66-1.25) mg/dL Glucose 104 H (74-99) mg/dL POC Glucose (mg/dL) (75-99) mg/dL Plasma Lactic Acid Georges (0.7-2.0) mmol/L Calcium 7.3 L (8.4-10.2) mg/dL Phosphorus 5.4 H (2.5-4.5) mg/dL Total Protein 4.5 L (6.3-8.2) g/dL Albumin 2.0 L (3.5-5.0) g/dL 04/07/17 Range/Units 08:51 WBC (3.8-10.6) k/uL RBC (4.30-5.90) m/uL Hgb (13.0-17.5) gm/dL Hct (39.0-53.0) % MCHC (31.0-37.0) g/dL RDW (11.5-15.5) % Neutrophils # (1.3-7.7) k/uL Neutrophils # (Manual) (1.3-7.7) k/uL Lymphocytes # (1.0-4.8) k/uL Lymphocytes # (Manual) (1.0-4.8) k/uL PT (9.0-12.0) sec INR (<1.2) APTT 66.5 H (22.0-30.0) sec Sodium (137-145) mmol/L Chloride (98-107) mmol/L Carbon Dioxide (22-30) mmol/L BUN (9-20) mg/dL Creatinine (0.66-1.25) mg/dL Glucose (74-99) mg/dL POC Glucose (mg/dL) (75-99) mg/dL Plasma Lactic Acid Georges (0.7-2.0) mmol/L Calcium (8.4-10.2) mg/dL Phosphorus (2.5-4.5) mg/dL Total Protein (6.3-8.2) g/dL Albumin (3.5-5.0) g/dL Microbiology - Last 24 Hours (Table) 04/05/17 23:09 Blood Culture Gram Stain - Preliminary Blood Blood Culture - Preliminary Gram Neg Bacilli 04/05/17 23:09 Blood Culture - Final Blood 04/05/17 23:29 Urine Culture - Preliminary Urine,Voided Assessment and Plan Plan: 1. Catheter associated urinary tract infection, present on admission, recurrent 2. Severe sepsis with septic shock requiring vasopressors 3. Chronic obstructive uropathy, seen and evaluated by urology 4. History of prostate cancer with no evidence of metastasis on bone scan in November 5. Underlying cognitive impairment/dementia 6. Acute DVT of the left lower extremities on IV heparin 7. Right groin mass noted on ultrasound of unclear etiology would obtain computed tomography scan for further evaluation, may represent an abscess versus malignancy? 8. Bacteremia, repeat blood culture ordered today. Infectious disease following. Today, I reviewed his medication list and lab work results. Continue aggressive IV fluid hydration. Vasopressors to be weaned as tolerated for mean arterial pressure above 60. Appreciate diet consultant's recommendations. We will await culture results. Continue ICU care. Repeat lab work in the morning. DVT prophylaxis with subcu heparin. No family members at bedside to be updated. Nursing staff attempted calling his son multiple times with no answers.
--- NOTE | 2017-04-07 12:15 | P.PN ---
Subjective Principal diagnosis: Acute septic shock secondary to urinary tract infection This is an 82-year-old white male who is a correction resident, has chronic indwelling Chi catheter, has history of chronic dementia, patient was noted by the correction staff to drop his O2 saturations, and he was also noted to be tachycardic. However when EMS arrived, his O2 saturation was 95% on room air. Patient was noted to be febrile and tachycardic with heart rate in the 130 range. Patient is not the greatest historian because of his underlying dementia. But workup in the ER pointed to urinary tract infection and possible sepsis. His urinalysis showed evidence of pyuria and bacteriuria. His lactic acid was elevated, and his blood pressure was marginal. Patient was also noted to have leukocytosis with WBC count of 26.6. There was also evidence of anion gap metabolic acidosis, hyperkalemia, renal failure with a BUN of 47 and creatinine of 2.60. Lactic acid on admission was 5.8. Repeat uric acid was 3.8 after fluid boluses. Patient received a total of 5 L of fluid boluses since admission. Considering his presentation of urinary tract infection and sepsis presentation, patient was admitted to the ICU, and we were asked to see him on consultation. Again the patient is a very poor historian. Chest x-ray showed mostly by basilar atelectasis, no clear-cut evidence of pneumonia or congestive heart failure. Patient was reevaluated today on 04/07/2017, doing much better today compared to yesterday. However he remains on norepinephrine at 2 mcg/m, blood pressure is marginal. He remains tachycardic, remains acidotic with lactic acid is still elevated, hence I have recommended more fluid boluses today, and we'll continue with the same antibiotics for his positive cultures in the blood showing gram- negative bacilli. His antibiotics were not changed. Infectious disease on the case. Labs were reviewed, leukocytosis seems to be improving. Initial WBC count on presentation was 33.4, today it is 17.8. Hemoglobin is 10.9. Patient is on heparin for what seems to be a deep vein thromboses in the left popliteal vein. Renal profile is improving BUN is 49 creatinine is 1.60. Basic metabolic profile is relatively unremarkable otherwise. Bicarb remains low at 12, but this is mostly a picture of hyperchloremic non-anion gap metabolic acidosis. Patient seems to be in no form of distress at this point. Objective - Vital Signs Vital signs: Vital Signs Temp 98.3 F 04/07/17 08:00 Pulse 115 H 04/07/17 10:00 Resp 28 H 04/07/17 10:00 BP 108/59 04/07/17 10:30 Pulse Ox 91 L 04/07/17 10:30 Intake & Output 04/06/17 04/07/17 04/07/17 18:59 06:59 18:59 Intake Total 3767.933 2360.483 1400 Output Total 1015 1955 530 Balance 2752.933 405.483 870 Weight 89 kg 92 kg 91.8 kg Intake: IV 3300 1200 400 Cefepime 2 gm In Sodium 100 Chloride 0.9% 50 ml @ 100 mls/hr IVPB Q8H [facility] Rx#: [id number] Sodium Chloride 0.9% 1, 1200 1100 400 000 ml @ 100 mls/hr IV . Q10H [facility] Rx#:[id number] Sodium Chloride 0.9% 1, 2000 100 000 ml @ 999 mls/hr IV . Q1H1M [facility] Rx#:[id number] Intake, IV Titration 136.410 6962.483 1000 Amount Cefepime 1 gm In Sodium 100 Chloride 0.9% 50 ml @ 100 mls/hr IVPB DAILY [facility] Rx #:[id number] Heparin Sodium,Porcine/ 146.85 D5w Pmx 25,000 unit In Dextrose/Water 1 500ml. bag @ 18 UNITS/KG/HR 32. 04 mls/hr IV .[id number] [facility] Rx#:[id number] Norepinephrin 4 mg-0.9% 27.933 13.633 Ns Pmx 4 mg In 250 ml @ Titrate IV .Q0M [facility] Rx#: [id number] Sodium Chloride 0.9% 1, 1000 000 ml @ 100 mls/hr IV . Q10H [facility] Rx#:[id number] Sodium Chloride 0.9% 1, 1000 000 ml @ 999 mls/hr IV . Q1H1M [facility] Rx#:[id number] Oral 340 Output: Urine 1015 1955 530 Other: Voiding Method Indwelling Catheter Indwelling Catheter Indwelling Catheter - Exam Physical Exam: Revealed an 82-year-old, lethargic, in no form of respiratory distress. Tachycardic. HEENT:[Neck is supple.] [No neck masses.] [No thyromegaly.] [No JVD.] Chest: [Diminished breath sounds and crackles at the bases..] Cardiac Exam: [Tachycardic, Normal S1 and S2, no S3 gallop, no murmur.] Abdomen: [Soft, nontender, no megaly, no rebound, no guarding, normal bowel sounds.] Extremities: [No clubbing, 1+ bipedal edema, left lower extremity seems to be a bit more edematous than the right lower extremity. No cyanosis.] Neurological Exam: Confused, lethargic, otherwise no gross focal neurologic deficit. - Labs CBC & Chem 7: 04/07/17 02:06 04/07/17 02:06 Labs: Abnormal Lab Results - Last 24 Hours (Table) 04/06/17 04/06/17 04/06/17 Range/Units 14:49 15:48 19:06 WBC (3.8-10.6) k/uL RBC (4.30-5.90) m/uL Hgb (13.0-17.5) gm/dL Hct (39.0-53.0) % MCHC (31.0-37.0) g/dL RDW (11.5-15.5) % Neutrophils # (1.3-7.7) k/uL Neutrophils # (Manual) (1.3-7.7) k/uL Lymphocytes # (1.0-4.8) k/uL Lymphocytes # (Manual) (1.0-4.8) k/uL PT (9.0-12.0) sec INR (<1.2) APTT (22.0-30.0) sec Sodium (137-145) mmol/L Chloride (98-107) mmol/L Carbon Dioxide (22-30) mmol/L BUN (9-20) mg/dL Creatinine (0.66-1.25) mg/dL Glucose (74-99) mg/dL POC Glucose (mg/dL) 118 H (75-99) mg/dL Plasma Lactic Acid Georges 3.8 H* 4.9 H* (0.7-2.0) mmol/L Calcium (8.4-10.2) mg/dL Phosphorus (2.5-4.5) mg/dL Total Protein (6.3-8.2) g/dL Albumin (3.5-5.0) g/dL 04/06/17 04/06/17 04/07/17 Range/Units 21:54 21:54 02:06 WBC 15.3 H 17.8 H (3.8-10.6) k/uL RBC 4.01 L 3.87 L (4.30-5.90) m/uL Hgb 11.4 L 10.9 L (13.0-17.5) gm/dL Hct 36.0 L 36.6 L (39.0-53.0) % MCHC 29.8 L (31.0-37.0) g/dL RDW 15.6 H 16.3 H (11.5-15.5) % Neutrophils # 14.5 H (1.3-7.7) k/uL Neutrophils # (Manual) 17.20 H (1.3-7.7) k/uL Lymphocytes # 0.3 L (1.0-4.8) k/uL Lymphocytes # (Manual) 0.36 L (1.0-4.8) k/uL PT 13.1 H (9.0-12.0) sec INR 1.3 H (<1.2) APTT (22.0-30.0) sec Sodium (137-145) mmol/L Chloride (98-107) mmol/L Carbon Dioxide (22-30) mmol/L BUN (9-20) mg/dL Creatinine (0.66-1.25) mg/dL Glucose (74-99) mg/dL POC Glucose (mg/dL) (75-99) mg/dL Plasma Lactic Acid Georges (0.7-2.0) mmol/L Calcium (8.4-10.2) mg/dL Phosphorus (2.5-4.5) mg/dL Total Protein (6.3-8.2) g/dL Albumin (3.5-5.0) g/dL 04/07/17 04/07/17 04/07/17 Range/Units 02:06 02:06 08:51 WBC (3.8-10.6) k/uL RBC (4.30-5.90) m/uL Hgb (13.0-17.5) gm/dL Hct (39.0-53.0) % MCHC (31.0-37.0) g/dL RDW (11.5-15.5) % Neutrophils # (1.3-7.7) k/uL Neutrophils # (Manual) (1.3-7.7) k/uL Lymphocytes # (1.0-4.8) k/uL Lymphocytes # (Manual) (1.0-4.8) k/uL PT (9.0-12.0) sec INR (<1.2) APTT 85.5 H 66.5 H (22.0-30.0) sec Sodium 133 L (137-145) mmol/L Chloride 110 H (98-107) mmol/L Carbon Dioxide 12 L (22-30) mmol/L BUN 49 H (9-20) mg/dL Creatinine 1.60 H (0.66-1.25) mg/dL Glucose 104 H (74-99) mg/dL POC Glucose (mg/dL) (75-99) mg/dL Plasma Lactic Acid Georges (0.7-2.0) mmol/L Calcium 7.3 L (8.4-10.2) mg/dL Phosphorus 5.4 H (2.5-4.5) mg/dL Total Protein 4.5 L (6.3-8.2) g/dL Albumin 2.0 L (3.5-5.0) g/dL Microbiology - Last 24 Hours (Table) 04/05/17 23:09 Blood Culture Gram Stain - Preliminary Blood Blood Culture - Preliminary Gram Neg Bacilli 04/05/17 23:09 Blood Culture - Final Blood 04/05/17 23:29 Urine Culture - Preliminary Urine,Voided Assessment and Plan Plan: Impression: 1 acute urinary tract infection and septic shock. Considering the patient is requiring norepinephrine in spite of multiple fluid boluses, patient received at least 5 L of fluid boluses, this is clearly a picture of septic shock. 2 acute left lower extremity DVT, patient is presently on heparin. 3 history of multiple comorbidities including COPD, dementia, hyperlipidemia, osteoarthritis, history of chronic urinary retention and urethral strictures, history of prostate cancer with surgery and radiation, Recommendation: Continue present treatment plan including antibiotics, fluid boluses, norepinephrine and titrate to a mean arterial pressure of 65, monitor for possible fluid overload considering the fluid boluses venous Doppler of the lower extremities was audited for left popliteal deep vein thrombosis, hence heparin was started. Overall prognosis is definitely guarded, we'll continue to follow, patient is critically ill, and he will remain in the ICU. Critical care time is 34 minutes. Time with Patient: Greater than 30
--- NOTE | 2017-04-07 12:16 | CT ---
EXAMINATION TYPE: CT abdomen pelvis wo con DATE OF EXAM: 04/07/2017 COMPARISON: Prior CT abdomen pelvis 12/02/2016 HISTORY: Rt groin mass CT DLP: 1201.2 mGycm Automated exposure control for dose reduction was used. TECHNIQUE: Helical acquisition of images from the lung bases through the pelvis. FINDINGS: Lack of intravenous contrast may compromise sensitivity. LUNG BASES: There is a calcified granuloma in the left lower lobe. There are bilateral lower lobe ate lectatic changes, correlate to exclude pneumonia. May be minimal pleural fluid. Coronary artery calci fications are present. Minimal pericardial fluid. AORTA: Atheromatous changes are present without evident aneurysm. LIVER/GB: No evident mass. Gallbladder is not distended. PANCREAS: No significant abnormality is seen. SPLEEN: Calcifications are present within the spleen. Findings suggest old granulomatous disease. ADRENALS: Probable adrenal hyperplasia present similar to previous exam. KIDNEYS: Bilateral hydronephrosis is present. Hydroureter is also present, no definite stone although distal ureters are obscured within the pelvis. REPRODUCTIVE ORGANS: No significant abnormality is seen. URINARY BLADDER: Markedly distended. Surgical clips are suspected within the pelvis, some metallic d ensities may be present within the dependent portion of the bladder, some air suspected in the nondep endent portion of the bladder. Bladder wall is thickened. Fernandes catheter likely inflated within the u rethra. There may be urethral injury at the level of the pubic symphysis with tract extending into th e subcutaneous tissues anterior to the pubic symphysis. BOWEL: Extensive fluid-filled loops of small and large bowel are present.. FREE AIR: There is abnormal air collection anterior to the pubic symphysis level with associated sof t tissue density suggestive of a abscess measuring approximately 5 to 6 cm in transverse dimension by 2 cm in cephalad to caudal dimension by 3 to 4 cm AP. ASCITES: None visible. PELVIC ADENOPATHY: None visualized. RETROPERITONEAL ADENOPATHY: No Retroperitoneal Adenopathy visible. OSSEOUS STRUCTURES: Degenerative disc changes are present in the visualized spine. IMPRESSION: SOFT TISSUE ABSCESS OR POSSIBLY SINUS TRACT ANTERIOR TO THE PUBIC SYMPHYSIS IS SUSPECTED, FERNANDES JIM TER THOUGHT LIKELY WITHIN THE URETHRA, DIFFICULT TO EXCLUDE URETHRAL INJURY. THERE IS A DISTENDED URI NARY BLADDER, BILATERAL HYDRONEPHROSIS. NONCONTRAST EXAM. CORRELATE FOR POSSIBLE UNDERLYING ENTERITIS , COLITIS. ADDITIONAL FINDINGS ABOVE.
--- NOTE | 2017-04-07 12:49 | P.PN ---
Subjective This 82-year-old gentleman is well known to me for many years for prostate cancer, urethral stricture disease secondary to radiation therapy for his prostate cancer and a hypotonic neurogenic bladder. With the last several years patient has developed dementia now require penitentiary care. He used to self catheterizes but it became evident that he could no longer do that. He had a chronic indwelling catheter I suspect the catheter became occluded or dislodged and he went into retention and developed secondary urinary tract infection with sepsis. The catheter seems to be draining appropriately so from a urologic standpoint nothing further needs to be done. Objective - Vital Signs Vital signs: Vital Signs Temp 98.3 F 04/07/17 08:00 Pulse 115 H 04/07/17 10:00 Resp 28 H 04/07/17 10:00 BP 108/59 04/07/17 10:30 Pulse Ox 91 L 04/07/17 10:30 Intake & Output 04/06/17 04/07/17 04/07/17 18:59 06:59 18:59 Intake Total 3767.933 2360.483 1400 Output Total 1015 1955 530 Balance 2752.933 405.483 870 Weight 89 kg 92 kg 91.8 kg Intake: IV 3300 1200 400 Cefepime 2 gm In Sodium 100 Chloride 0.9% 50 ml @ 100 mls/hr IVPB Q8H [facility] Rx#: [id number] Sodium Chloride 0.9% 1, 1200 1100 400 000 ml @ 100 mls/hr IV . Q10H [facility] Rx#:[id number] Sodium Chloride 0.9% 1, 2000 100 000 ml @ 999 mls/hr IV . Q1H1M [facility] Rx#:[id number] Intake, IV Titration 876.929 8666.483 1000 Amount Cefepime 1 gm In Sodium 100 Chloride 0.9% 50 ml @ 100 mls/hr IVPB DAILY [facility] Rx #:[id number] Heparin Sodium,Porcine/ 146.85 D5w Pmx 25,000 unit In Dextrose/Water 1 500ml. bag @ 18 UNITS/KG/HR 32. 04 mls/hr IV .[id number] [facility] Rx#:[id number] Norepinephrin 4 mg-0.9% 27.933 13.633 Ns Pmx 4 mg In 250 ml @ Titrate IV .Q0M [facility] Rx#: [id number] Sodium Chloride 0.9% 1, 1000 000 ml @ 100 mls/hr IV . Q10H [facility] Rx#:[id number] Sodium Chloride 0.9% 1, 1000 000 ml @ 999 mls/hr IV . Q1H1M [facility] Rx#:[id number] Oral 340 Output: Urine 0323 6013 530 Other: Voiding Method Indwelling Catheter Indwelling Catheter Indwelling Catheter - Labs CBC & Chem 7: 04/07/17 02:06 04/07/17 02:06 Labs: Abnormal Lab Results - Last 24 Hours (Table) 04/06/17 04/06/17 04/06/17 Range/Units 14:49 15:48 19:06 WBC (3.8-10.6) k/uL RBC (4.30-5.90) m/uL Hgb (13.0-17.5) gm/dL Hct (39.0-53.0) % MCHC (31.0-37.0) g/dL RDW (11.5-15.5) % Neutrophils # (1.3-7.7) k/uL Neutrophils # (Manual) (1.3-7.7) k/uL Lymphocytes # (1.0-4.8) k/uL Lymphocytes # (Manual) (1.0-4.8) k/uL PT (9.0-12.0) sec INR (<1.2) APTT (22.0-30.0) sec Sodium (137-145) mmol/L Chloride (98-107) mmol/L Carbon Dioxide (22-30) mmol/L BUN (9-20) mg/dL Creatinine (0.66-1.25) mg/dL Glucose (74-99) mg/dL POC Glucose (mg/dL) 118 H (75-99) mg/dL Plasma Lactic Acid Georges 3.8 H* 4.9 H* (0.7-2.0) mmol/L Calcium (8.4-10.2) mg/dL Phosphorus (2.5-4.5) mg/dL Total Protein (6.3-8.2) g/dL Albumin (3.5-5.0) g/dL 04/06/17 04/06/17 04/07/17 Range/Units 21:54 21:54 02:06 WBC 15.3 H 17.8 H (3.8-10.6) k/uL RBC 4.01 L 3.87 L (4.30-5.90) m/uL Hgb 11.4 L 10.9 L (13.0-17.5) gm/dL Hct 36.0 L 36.6 L (39.0-53.0) % MCHC 29.8 L (31.0-37.0) g/dL RDW 15.6 H 16.3 H (11.5-15.5) % Neutrophils # 14.5 H (1.3-7.7) k/uL Neutrophils # (Manual) 17.20 H (1.3-7.7) k/uL Lymphocytes # 0.3 L (1.0-4.8) k/uL Lymphocytes # (Manual) 0.36 L (1.0-4.8) k/uL PT 13.1 H (9.0-12.0) sec INR 1.3 H (<1.2) APTT (22.0-30.0) sec Sodium (137-145) mmol/L Chloride (98-107) mmol/L Carbon Dioxide (22-30) mmol/L BUN (9-20) mg/dL Creatinine (0.66-1.25) mg/dL Glucose (74-99) mg/dL POC Glucose (mg/dL) (75-99) mg/dL Plasma Lactic Acid Georges (0.7-2.0) mmol/L Calcium (8.4-10.2) mg/dL Phosphorus (2.5-4.5) mg/dL Total Protein (6.3-8.2) g/dL Albumin (3.5-5.0) g/dL 04/07/17 04/07/17 04/07/17 Range/Units 02:06 02:06 08:51 WBC (3.8-10.6) k/uL RBC (4.30-5.90) m/uL Hgb (13.0-17.5) gm/dL Hct (39.0-53.0) % MCHC (31.0-37.0) g/dL RDW (11.5-15.5) % Neutrophils # (1.3-7.7) k/uL Neutrophils # (Manual) (1.3-7.7) k/uL Lymphocytes # (1.0-4.8) k/uL Lymphocytes # (Manual) (1.0-4.8) k/uL PT (9.0-12.0) sec INR (<1.2) APTT 85.5 H 66.5 H (22.0-30.0) sec Sodium 133 L (137-145) mmol/L Chloride 110 H (98-107) mmol/L Carbon Dioxide 12 L (22-30) mmol/L BUN 49 H (9-20) mg/dL Creatinine 1.60 H (0.66-1.25) mg/dL Glucose 104 H (74-99) mg/dL POC Glucose (mg/dL) (75-99) mg/dL Plasma Lactic Acid Georges (0.7-2.0) mmol/L Calcium 7.3 L (8.4-10.2) mg/dL Phosphorus 5.4 H (2.5-4.5) mg/dL Total Protein 4.5 L (6.3-8.2) g/dL Albumin 2.0 L (3.5-5.0) g/dL Microbiology - Last 24 Hours (Table) 04/05/17 23:09 Blood Culture Gram Stain - Preliminary Blood Blood Culture - Preliminary Gram Neg Bacilli 04/05/17 23:09 Blood Culture - Final Blood 04/05/17 23:29 Urine Culture - Preliminary Urine,Voided
--- NOTE | 2017-04-07 13:33 | P.PN ---
Subjective I was called that the catheter was not draining. On arrival the catheter appeared to be in the distal urethra. I attempted to replace the catheter but there is an obvious false passage. I created a coud-tip catheter but failed to advance it into the bladder. He required cystoscopy and placement of a wire through the catheter in order to place a catheter in the bladder. The catheter should not be removed unless instructed the nursing staff to do so. Objective - Vital Signs Vital signs: Vital Signs Temp 98.3 F 04/07/17 08:00 Pulse 115 H 04/07/17 10:00 Resp 28 H 04/07/17 10:00 BP 108/59 04/07/17 10:30 Pulse Ox 91 L 04/07/17 10:30 Intake & Output 04/06/17 04/07/17 04/07/17 18:59 06:59 18:59 Intake Total 3767.933 2360.483 1400 Output Total 1015 1955 530 Balance 2752.933 405.483 870 Weight 89 kg 92 kg 91.8 kg Intake: IV 3300 1200 400 Cefepime 2 gm In Sodium 100 Chloride 0.9% 50 ml @ 100 mls/hr IVPB Q8H [facility] Rx#: [id number] Sodium Chloride 0.9% 1, 1200 1100 400 000 ml @ 100 mls/hr IV . Q10H [facility] Rx#:[id number] Sodium Chloride 0.9% 1, 2000 100 000 ml @ 999 mls/hr IV . Q1H1M [facility] Rx#:[id number] Intake, IV Titration 934.303 0191.483 1000 Amount Cefepime 1 gm In Sodium 100 Chloride 0.9% 50 ml @ 100 mls/hr IVPB DAILY [facility] Rx #:[id number] Heparin Sodium,Porcine/ 146.85 D5w Pmx 25,000 unit In Dextrose/Water 1 500ml. bag @ 18 UNITS/KG/HR 32. 04 mls/hr IV .[id number] [facility] Rx#:[id number] Norepinephrin 4 mg-0.9% 27.933 13.633 Ns Pmx 4 mg In 250 ml @ Titrate IV .Q0M [facility] Rx#: [id number] Sodium Chloride 0.9% 1, 1000 000 ml @ 100 mls/hr IV . Q10H [facility] Rx#:[id number] Sodium Chloride 0.9% 1, 1000 000 ml @ 999 mls/hr IV . Q1H1M [facility] Rx#:[id number] Oral 340 Output: Urine 1015 1955 530 Other: Voiding Method Indwelling Catheter Indwelling Catheter Indwelling Catheter - Labs CBC & Chem 7: 04/07/17 02:06 04/07/17 02:06 Labs: Abnormal Lab Results - Last 24 Hours (Table) 04/06/17 04/06/17 04/06/17 Range/Units 14:49 15:48 19:06 WBC (3.8-10.6) k/uL RBC (4.30-5.90) m/uL Hgb (13.0-17.5) gm/dL Hct (39.0-53.0) % MCHC (31.0-37.0) g/dL RDW (11.5-15.5) % Neutrophils # (1.3-7.7) k/uL Neutrophils # (Manual) (1.3-7.7) k/uL Lymphocytes # (1.0-4.8) k/uL Lymphocytes # (Manual) (1.0-4.8) k/uL PT (9.0-12.0) sec INR (<1.2) APTT (22.0-30.0) sec Sodium (137-145) mmol/L Chloride (98-107) mmol/L Carbon Dioxide (22-30) mmol/L BUN (9-20) mg/dL Creatinine (0.66-1.25) mg/dL Glucose (74-99) mg/dL POC Glucose (mg/dL) 118 H (75-99) mg/dL Plasma Lactic Acid Georges 3.8 H* 4.9 H* (0.7-2.0) mmol/L Calcium (8.4-10.2) mg/dL Phosphorus (2.5-4.5) mg/dL Total Protein (6.3-8.2) g/dL Albumin (3.5-5.0) g/dL 04/06/17 04/06/17 04/07/17 Range/Units 21:54 21:54 02:06 WBC 15.3 H 17.8 H (3.8-10.6) k/uL RBC 4.01 L 3.87 L (4.30-5.90) m/uL Hgb 11.4 L 10.9 L (13.0-17.5) gm/dL Hct 36.0 L 36.6 L (39.0-53.0) % MCHC 29.8 L (31.0-37.0) g/dL RDW 15.6 H 16.3 H (11.5-15.5) % Neutrophils # 14.5 H (1.3-7.7) k/uL Neutrophils # (Manual) 17.20 H (1.3-7.7) k/uL Lymphocytes # 0.3 L (1.0-4.8) k/uL Lymphocytes # (Manual) 0.36 L (1.0-4.8) k/uL PT 13.1 H (9.0-12.0) sec INR 1.3 H (<1.2) APTT (22.0-30.0) sec Sodium (137-145) mmol/L Chloride (98-107) mmol/L Carbon Dioxide (22-30) mmol/L BUN (9-20) mg/dL Creatinine (0.66-1.25) mg/dL Glucose (74-99) mg/dL POC Glucose (mg/dL) (75-99) mg/dL Plasma Lactic Acid Georges (0.7-2.0) mmol/L Calcium (8.4-10.2) mg/dL Phosphorus (2.5-4.5) mg/dL Total Protein (6.3-8.2) g/dL Albumin (3.5-5.0) g/dL 04/07/17 04/07/17 04/07/17 Range/Units 02:06 02:06 08:51 WBC (3.8-10.6) k/uL RBC (4.30-5.90) m/uL Hgb (13.0-17.5) gm/dL Hct (39.0-53.0) % MCHC (31.0-37.0) g/dL RDW (11.5-15.5) % Neutrophils # (1.3-7.7) k/uL Neutrophils # (Manual) (1.3-7.7) k/uL Lymphocytes # (1.0-4.8) k/uL Lymphocytes # (Manual) (1.0-4.8) k/uL PT (9.0-12.0) sec INR (<1.2) APTT 85.5 H 66.5 H (22.0-30.0) sec Sodium 133 L (137-145) mmol/L Chloride 110 H (98-107) mmol/L Carbon Dioxide 12 L (22-30) mmol/L BUN 49 H (9-20) mg/dL Creatinine 1.60 H (0.66-1.25) mg/dL Glucose 104 H (74-99) mg/dL POC Glucose (mg/dL) (75-99) mg/dL Plasma Lactic Acid Georges (0.7-2.0) mmol/L Calcium 7.3 L (8.4-10.2) mg/dL Phosphorus 5.4 H (2.5-4.5) mg/dL Total Protein 4.5 L (6.3-8.2) g/dL Albumin 2.0 L (3.5-5.0) g/dL Microbiology - Last 24 Hours (Table) 04/05/17 23:29 Urine Culture - Preliminary Urine,Voided Gram Neg Bacilli 04/05/17 23:09 Blood Culture Gram Stain - Preliminary Blood Blood Culture - Preliminary Gram Neg Bacilli 04/05/17 23:09 Blood Culture - Final Blood
--- NOTE | 2017-04-07 13:37 | P.PCN ---
Date of Procedure: 04/07/17 Preoperative Diagnosis: Urine retention, urethral false passage Postoperative Diagnosis: Same Procedure(s) Performed: Cystoscopy with difficult catheter placement Implants: Anesthesia: local Surgeon: Junior Gustafson Pathology: none sent Condition: critical Disposition: ICU Indications for Procedure: Operative Findings: Description of Procedure: Patient is prepped and draped sterilely. The flexible ureteroscope was introduced in the urethra as there are no available cystoscope . With some difficulty the ureteroscope was advanced through the bulbar urethral false passage into the bladder. 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 I passed the ureteroscope and the the bladder. Through the ureteroscope and 035 wires passed into the bladder. I removed the ureteroscope. Over the wire I then pass a 16-Irish coud-tip catheter with the tip cut off into the bladder. Urine is drained. The balloon is insufflated and the catheter is properly positioned in the bladder. Hopefully this will aid in improvement of his urinary tract infection with sepsis. The catheter should not be removed unless we approve this.
[2017-04-07] MEDS: HEPARIN SODIUM,PORCINE/D5W PMX 25,000 UNIT in DEXTROSE/WATER 1 500ML.BAG IV SCH (14:20)
[2017-04-07 15:25] LABS: Glucose,Whole Blood 92 mg/dL (75-99)
[2017-04-07] MEDS: NOREPINEPHRIN 4 MG-0.9% NS PMX 4 MG/250 ML ML IV SCH (17:28)
[2017-04-07] MEDS ORDERED: VANCOMYCIN 1,500 MG in SODIUM CHLORIDE 0.9% 250 ML IVPB SCH (21:00)
[2017-04-07] MEDS: QUEtiapine 25 MG TAB PO PRN (21:18)
[2017-04-07] MEDS: traZODone HCL 100 MG TAB PO SCH (21:20)
--- NOTE | 2017-04-07 22:30 | P.PN ---
Subjective Principal diagnosis: septic shock 82-year-old male presents to the emergency center from the extended care facility. Is limited that at his residence the patient was doing poorly. He had a drop in his pulse oximetry. Seemed to be not well. EMS was called. Upon their arrival his saturations were adequate. However the patient was tachycardic and hypotensive. They also believe that he was febrile. He was then transported to the Emergency Ctr[facility] where he was found to have evidence of hypotension. He was given fluid resuscitation. Despite that he remained hypotensive and required vasopressor therapy with Levophed. The patient was transferred to the intensive care unit received further resuscitation. With further fluids is little elevated lactic acid improved. Patient was continued to have somewhat of a poor mentation just part of his difficulties at transfer also known dementia. Because of his gram-negative sepsis the infectious diseases consultation was requested. The patient is a poor historian and most information is coming from the chart and the current nursing staff. The patient does seem to be a bit more uncomfortable he was earlier in the day as per the nursing staff. It is noted that urine output has been poor despite his extensive fluid resuscitation. Urine is very cloudy and thick. Renal ultrasound has been performed several hours ago. Evidence of bilateral hydronephrosis and sludge in his bladder. Today the patient is showing some improvement. He is arousable. He seems to be comfortable. The patient has been seen by urology. It is now had a coud catheter placed with the ureteroscope, because of a difficulty with a false passage. Patient is draining adequate amounts of the ongoing purulent urine. However patient's fever, hypotension, leukocytosis or [place] show improvement. Objective - Vital Signs Vital signs: Vital Signs Temp 98.2 F 04/07/17 17:30 Pulse 108 H 04/07/17 19:00 Resp 26 H 04/07/17 19:00 BP 93/55 04/07/17 19:00 Pulse Ox 99 04/07/17 19:00 Intake & Output 04/07/17 04/07/17 04/08/17 06:59 18:59 06:59 Intake Total 2360.483 2814.846 Output Total 1955 3565 Balance 405.483 -750.154 Weight 92 kg 91.8 kg Intake: IV 1200 1200 Sodium Chloride 0.9% 1, 1100 1200 000 ml @ 100 mls/hr IV . Q10H [facility] Rx#:[id number] Sodium Chloride 0.9% 1, 100 000 ml @ 999 mls/hr IV . Q1H1M [facility] Rx#:[id number] Intake, IV Titration 4400.910 5338.846 Amount Heparin Sodium,Porcine/ 146.85 337.013 D5w Pmx 25,000 unit In Dextrose/Water 1 500ml. bag @ 18 UNITS/KG/HR 32. 04 mls/hr IV .[id number] [facility] Rx#:[id number] Norepinephrin 4 mg-0.9% 13.633 37.833 Ns Pmx 4 mg In 250 ml @ Titrate IV .Q0M [facility] Rx#: [id number] Sodium Chloride 0.9% 1, 1000 000 ml @ 100 mls/hr IV . Q10H [facility] Rx#:[id number] Sodium Chloride 0.9% 1, 1000 000 ml @ 999 mls/hr IV . Q1H1M [facility] Rx#:[id number] Oral 240 Output: Urine 1955 3565 Other: Voiding Method Indwelling Catheter Indwelling Catheter - Exam HEENT: Anicteric conjunctiva are pink and moist nasal mucosa grossly intact without significant lesions, there is no thrush. Oral cavity is dry with generalized poor long-term hygiene Neck: The neck is supple without significant lymphadenopathy or thyromegaly. Lungs: Good bilateral air entry without significant crackles or wheezing. There is no significant bronchial sounds. There is no egophony or dullness. Heart: Regular rate and rhythm with an audible S1-S2, no S3 no S4. There is no significant murmur click or rub, PMI was nondisplaced. Abdomen: Positive bowel sounds soft and tender without palpable masses or organomegaly. Lower abdomen appears to be quite distended. Extremities: The upper extremities have excellent pulses they are symmetric, no significant petechiae or telangiectasia. No splinter hemorrhages were noted. The lower extremities are free from significant edema. The peripheral pulses were 2+ and symmetric. Neuro: Arousable and follows a few commands today slightly brighter and affect Skin: Minimal erythema to buttocks with no open ulcers being seen. No ulcers to heals. - Labs CBC & Chem 7: 04/07/17 02:06 04/07/17 02:06 Labs: Abnormal Lab Results - Last 24 Hours (Table) 04/06/17 04/06/17 04/07/17 Range/Units 21:54 21:54 02:06 WBC 15.3 H 17.8 H (3.8-10.6) k/uL RBC 4.01 L 3.87 L (4.30-5.90) m/uL Hgb 11.4 L 10.9 L (13.0-17.5) gm/dL Hct 36.0 L 36.6 L (39.0-53.0) % MCHC 29.8 L (31.0-37.0) g/dL RDW 15.6 H 16.3 H (11.5-15.5) % Neutrophils # 14.5 H (1.3-7.7) k/uL Neutrophils # (Manual) 17.20 H (1.3-7.7) k/uL Lymphocytes # 0.3 L (1.0-4.8) k/uL Lymphocytes # (Manual) 0.36 L (1.0-4.8) k/uL PT 13.1 H (9.0-12.0) sec INR 1.3 H (<1.2) APTT (22.0-30.0) sec Sodium (137-145) mmol/L Chloride (98-107) mmol/L Carbon Dioxide (22-30) mmol/L BUN (9-20) mg/dL Creatinine (0.66-1.25) mg/dL Glucose (74-99) mg/dL Plasma Lactic Acid Georges (0.7-2.0) mmol/L Calcium (8.4-10.2) mg/dL Phosphorus (2.5-4.5) mg/dL Total Protein (6.3-8.2) g/dL Albumin (3.5-5.0) g/dL 04/07/17 04/07/17 04/07/17 Range/Units 02:06 02:06 08:51 WBC (3.8-10.6) k/uL RBC (4.30-5.90) m/uL Hgb (13.0-17.5) gm/dL Hct (39.0-53.0) % MCHC (31.0-37.0) g/dL RDW (11.5-15.5) % Neutrophils # (1.3-7.7) k/uL Neutrophils # (Manual) (1.3-7.7) k/uL Lymphocytes # (1.0-4.8) k/uL Lymphocytes # (Manual) (1.0-4.8) k/uL PT (9.0-12.0) sec INR (<1.2) APTT 85.5 H 66.5 H (22.0-30.0) sec Sodium 133 L (137-145) mmol/L Chloride 110 H (98-107) mmol/L Carbon Dioxide 12 L (22-30) mmol/L BUN 49 H (9-20) mg/dL Creatinine 1.60 H (0.66-1.25) mg/dL Glucose 104 H (74-99) mg/dL Plasma Lactic Acid Georges (0.7-2.0) mmol/L Calcium 7.3 L (8.4-10.2) mg/dL Phosphorus 5.4 H (2.5-4.5) mg/dL Total Protein 4.5 L (6.3-8.2) g/dL Albumin 2.0 L (3.5-5.0) g/dL 04/07/17 04/07/17 Range/Units 15:21 19:17 WBC (3.8-10.6) k/uL RBC (4.30-5.90) m/uL Hgb (13.0-17.5) gm/dL Hct (39.0-53.0) % MCHC (31.0-37.0) g/dL RDW (11.5-15.5) % Neutrophils # (1.3-7.7) k/uL Neutrophils # (Manual) (1.3-7.7) k/uL Lymphocytes # (1.0-4.8) k/uL Lymphocytes # (Manual) (1.0-4.8) k/uL PT (9.0-12.0) sec INR (<1.2) APTT (22.0-30.0) sec Sodium (137-145) mmol/L Chloride (98-107) mmol/L Carbon Dioxide (22-30) mmol/L BUN (9-20) mg/dL Creatinine (0.66-1.25) mg/dL Glucose (74-99) mg/dL Plasma Lactic Acid Georges 2.1 H* 2.9 H* (0.7-2.0) mmol/L Calcium (8.4-10.2) mg/dL Phosphorus (2.5-4.5) mg/dL Total Protein (6.3-8.2) g/dL Albumin (3.5-5.0) g/dL Microbiology - Last 24 Hours (Table) 04/05/17 23:29 Urine Culture - Preliminary Urine,Voided Gram Neg Bacilli 04/05/17 23:09 Blood Culture Gram Stain - Preliminary Blood Blood Culture - Preliminary Gram Neg Bacilli Laboratory Results WBC 17.8 k/uL (3.8-10.6) H 04/07/17 02:06 RBC 3.87 m/uL (4.30-5.90) L 04/07/17 02:06 Hgb 10.9 gm/dL (13.0-17.5) L 04/07/17 02:06 Hct 36.6 % (39.0-53.0) L 04/07/17 02:06 MCV 94.6 fL (80.0-100.0) 04/07/17 02:06 MCH 28.2 pg (25.0-35.0) 04/07/17 02:06 MCHC 29.8 g/dL (31.0-37.0) L 04/07/17 02:06 RDW 16.3 % (11.5-15.5) H 04/07/17 02:06 Plt Count 254 k/uL (150-450) 04/07/17 02:06 Neutrophils % 95 % 04/06/17 21:54 Neutrophils % (Manual) 60 % 04/07/17 02:06 Band Neutrophils % 37 % 04/07/17 02:06 Lymphocytes % 2 % 04/06/17 21:54 Lymphocytes % (Manual) 2 % 04/07/17 02:06 Monocytes % 2 % 04/06/17 21:54 Monocytes % (Manual) 2 % 04/07/17 02:06 Eosinophils % 0 % 04/06/17 21:54 Basophils % 0 % 04/06/17 21:54 Neutrophils # 14.5 k/uL (1.3-7.7) H 04/06/17 21:54 Neutrophils # (Manual) 17.20 k/uL (1.3-7.7) H 04/07/17 02:06 Lymphocytes # 0.3 k/uL (1.0-4.8) L 04/06/17 21:54 Lymphocytes # (Manual) 0.36 k/uL (1.0-4.8) L 04/07/17 02:06 Monocytes # 0.4 k/uL (0-1.0) 04/06/17 21:54 Monocytes # (Manual) 0.36 k/uL (0-1.0) 04/07/17 02:06 Eosinophils # 0.1 k/uL (0-0.7) 04/06/17 21:54 Basophils # 0.1 k/uL (0-0.2) 04/06/17 21:54 Nucleated RBCs 0 /100 WBC (0-0) 04/07/17 02:06 Manual Slide Review Performed 04/06/17 02:45 Toxic Vacuolation Present 04/07/17 02:06 Polychromasia Present 04/07/17 02:06 Hypochromasia Marked 04/07/17 02:06 Anisocytosis Slight 04/07/17 02:06 Crenated Cell Present 04/07/17 02:06 PT 13.1 sec (9.0-12.0) H 04/06/17 21:54 INR 1.3 (<1.2) H 04/06/17 21:54 APTT 66.5 sec (22.0-30.0) H 04/07/17 08:51 Sodium 133 mmol/L (137-145) L 04/07/17 02:06 Potassium 4.2 mmol/L (3.5-5.1) 04/07/17 02:06 Chloride 110 mmol/L (98-107) H 04/07/17 02:06 Carbon Dioxide 12 mmol/L (22-30) L 04/07/17 02:06 Anion Gap 11 mmol/L 04/07/17 02:06 BUN 49 mg/dL (9-20) H 04/07/17 02:06 Creatinine 1.60 mg/dL (0.66-1.25) H 04/07/17 02:06 Est GFR (MDRD) Af Amer 51 (>60 ml/min/1.73 sqM) 04/07/17 02:06 Est GFR (MDRD) Non-Af 42 (>60 ml/min/1.73 sqM) 04/07/17 02:06 Glucose 104 mg/dL (74-99) H 04/07/17 02:06 POC Glucose (mg/dL) 92 mg/dL (75-99) 04/07/17 15:23 POC Glu Leader Tier ID Jonny Almaraz A 04/07/17 15:23 Lactic Ac Sepsis Rflx Y 04/07/17 16:05 Plasma Lactic Acid Georges 2.9 mmol/L (0.7-2.0) H* 04/07/17 19:17 Calcium 7.3 mg/dL (8.4-10.2) L 04/07/17 02:06 Phosphorus 5.4 mg/dL (2.5-4.5) H 04/07/17 02:06 Magnesium 1.8 mg/dL (1.6-2.3) 04/07/17 02:06 Total Bilirubin 0.4 mg/dL (0.2-1.3) 04/07/17 02:06 AST 34 U/L (17-59) 04/07/17 02:06 ALT 37 U/L (21-72) 04/07/17 02:06 Alkaline Phosphatase 65 U/L (38-126) 04/07/17 02:06 Total Protein 4.5 g/dL (6.3-8.2) L 04/07/17 02:06 Albumin 2.0 g/dL (3.5-5.0) L 04/07/17 02:06 Urine Color Light Red 04/05/17 23:29 Urine Appearance Turbid (Clear) 04/05/17 23:29 Urine pH 8.5 (5.0-8.0) H 04/05/17 23:29 Ur Specific [place] 1.012 (1.001-1.035) 04/05/17 23:29 Urine Protein 4+ (Negative) H 04/05/17 23:29 Urine Glucose (UA) Negative (Negative) 04/05/17 23:29 Urine Ketones Negative (Negative) 04/05/17 23:29 Urine Blood Negative (Negative) 04/05/17 23:29 Urine Nitrite Negative (Negative) 04/05/17 23:29 Urine Bilirubin Negative (Negative) 04/05/17 23:29 Urine Urobilinogen <2.0 mg/dL (<2.0) 04/05/17 23:29 Ur Leukocyte Esterase Large (Negative) H 04/05/17 23:29 Urine WBC 145 /hpf (0-5) H 04/05/17 23:29 Amorphous Sediment Occasional /hpf (None) H 04/05/17 23:29 Urine Bacteria Rare /hpf (None) H 04/05/17 23:29 Random Vancomycin 13.1 ug/mL 04/07/17 08:51 Microbiology 04/05/17 23:29 Urine,Voided Urine Culture - Preliminary Gram Neg Bacilli 04/05/17 23:09 Blood Blood Culture Gram Stain - Preliminary 04/05/17 23:09 Blood Blood Culture - Preliminary Gram Neg Bacilli 04/05/17 23:09 Blood Blood Culture - Final Assessment and Plan (1) Septic shock Narrative/Plan: 82-year-old male presents from the extended care facility with alteration of his status. Concerns to hypoxemia which corrected upon arrival of EMS. However the patient was hypotensive and tachycardic and febrile. Upon arrival the patient had evidence of sepsis and shock requiring fluid resuscitation and then vasopressor therapy. With adequate resuscitation he has now improved and is off vasopressor therapy. However continues to have a poor mental status. His fever is improved. On exam the patient had a poor urinary output had evidence of distention to his lower abdomen that was tender. Recent ultrasound showed evidence of bilateral hydronephrosis and sludge in his bladder. A bladder scan was requested and a liter of fluid was noted in his latter. The catheter was blocked and a new Chi was placed and the patient had resolution of his distention. He has been seen by urology in his phimosis was cared for at the bedside. His other the patient has gram-negative sepsis with the final cultures recent cultures have shown evidence of pseudomonas aeruginosa that is susceptible to cefepime. This will remain at this point in time pending further culture results. Follow up blood cultures are requested to ensure his bacteremia has cleared. He has a profound leukocytosis due to his current sepsis and obstructive process. Altered mentation on the basis of sepsis Acute renal failure on the basis of an obstructive process and hopefully will improve rapidly as his sepsis and obstruction has been resolved by the urologist in the placement of the coud catheter. Status: Acute (2) Gram-negative sepsis with organ dysfunction Status: Acute (3) UTI (urinary tract infection) Status: Acute (4) Leukocytosis Status: Acute
[2017-04-08 05:06] LABS: Basophils % (A) 0 %; CH 27.3; CHCM 30.9; Eosinophils % (A) 0 %; HCT 30.9 % (39.0-53.0); HDW 2.53; HGB 9.7 gm/dL (13.0-17.5); Hypochromasia Slight; Luc # (Auto) 0.12; Luc % (Auto) 1; Lymphocytes # (A) 0.4 k/uL (1.0-4.8); Lymphocytes % (A) 4 %; MCH 27.9 pg (25.0-35.0); MCHC 31.4 g/dL (31.0-37.0); Mean Platelet Volume 6.6; Monocytes # (A) 0.3 k/uL (0-1.0); Monocytes % (A) 3 %; Neutrophils # (A) 9.8 k/uL (1.3-7.7); Neutrophils % (A) 93 %; RBC 3.47 m/uL (4.30-5.90); RDW 15.9 % (11.5-15.5); WBC 10.6 k/uL (3.8-10.6); WBC (Perox) 11.55
[2017-04-08 05:18] LABS: Anion Gap 8 mmol/L; Blood Urea Nitrogen 40 mg/dL (9-20); Calcium 7.1 mg/dL (8.4-10.2); Carbon Dioxide 16 mmol/L (22-30); Chloride 114 mmol/L (98-107); Glucose 89 mg/dL (74-99); Non-African American GFR(MDRD) 59 (>60 ml/min/1.73 sqM); Phosphorus 3.6 mg/dL (2.5-4.5); Sodium 138 mmol/L (137-145)
[2017-04-08 05:32] LABS: Potassium 2.8 mmol/L (3.5-5.1)
[2017-04-08 05:38] LABS: MCV 88.9 fL (80.0-100.0)
[2017-04-08] MEDS: HEPARIN SODIUM,PORCINE 5,000 UNIT/ML 1 ML VIAL IV PRN (06:03)
[2017-04-08] MEDS: HEPARIN SODIUM,PORCINE/D5W PMX 25,000 UNIT in DEXTROSE/WATER 1 500ML.BAG IV SCH ×2 (06:09→21:20)
--- NOTE | 2017-04-08 07:29 | XR ---
EXAMINATION TYPE: XR chest 1V DATE OF EXAM: 04/08/2017 HISTORY: Shortness of breath. COMPARISON: 04/07/2017 TECHNIQUE: Single view of the chest is submitted. FINDINGS: Demonstrated are scattered senescent parenchymal change. Improving aeration at the lung bases with mild residual infiltrate or atelectasis. The heart is stable. Hilar and mediastinal structures are within normal limits. Degenerative changes are seen of the dorsal spine. IMPRESSION: 1. Improving aeration at the lung bases with mild residual infiltrate or atelectasis.
[2017-04-08] MEDS ORDERED: Potassium Replacement Protocol 1 EACH MISC MISCELLANE PRN (07:55)
[2017-04-08] MEDS: PANTOPRAZOLE 40 MG TABLET PO SCH (08:46)
[2017-04-08] MEDS: POTASSIUM CHLORIDE ER 20 MEQ TAB.ER PO SCH ×2 (08:48→10:02)
[2017-04-08] MEDS: CEFEPIME 1 GM in SODIUM CHLORIDE 0.9% 50 ML IVPB SCH (08:49)
[2017-04-08] MEDS: SODIUM CHLORIDE 0.9% 1,000 ML IV SCH ×2 (09:02→21:20)
[2017-04-08] MEDS ORDERED: SODIUM CHLORIDE 0.9% 1,000 ML IV ONE (10:00)
--- NOTE | 2017-04-08 11:19 | P.PN ---
Subjective Principal diagnosis: Acute septic shock secondary to urinary tract infection This is an 82-year-old white male who is a senior living resident, has chronic indwelling Chi catheter, has history of chronic dementia, patient was noted by the senior living staff to drop his O2 saturations, and he was also noted to be tachycardic. However when EMS arrived, his O2 saturation was 95% on room air. Patient was noted to be febrile and tachycardic with heart rate in the 130 range. Patient is not the greatest historian because of his underlying dementia. But workup in the ER pointed to urinary tract infection and possible sepsis. His urinalysis showed evidence of pyuria and bacteriuria. His lactic acid was elevated, and his blood pressure was marginal. Patient was also noted to have leukocytosis with WBC count of 26.6. There was also evidence of anion gap metabolic acidosis, hyperkalemia, renal failure with a BUN of 47 and creatinine of 2.60. Lactic acid on admission was 5.8. Repeat uric acid was 3.8 after fluid boluses. Patient received a total of 5 L of fluid boluses since admission. Considering his presentation of urinary tract infection and sepsis presentation, patient was admitted to the ICU, and we were asked to see him on consultation. Again the patient is a very poor historian. Chest x-ray showed mostly by basilar atelectasis, no clear-cut evidence of pneumonia or congestive heart failure. Patient was reevaluated today on 04/07/2017, doing much better today compared to yesterday. However he remains on norepinephrine at 2 mcg/m, blood pressure is marginal. He remains tachycardic, remains acidotic with lactic acid is still elevated, hence I have recommended more fluid boluses today, and we'll continue with the same antibiotics for his positive cultures in the blood showing gram- negative bacilli. His antibiotics were not changed. Infectious disease on the case. Labs were reviewed, leukocytosis seems to be improving. Initial WBC count on presentation was 33.4, today it is 17.8. Hemoglobin is 10.9. Patient is on heparin for what seems to be a deep vein thromboses in the left popliteal vein. Renal profile is improving BUN is 49 creatinine is 1.60. Basic metabolic profile is relatively unremarkable otherwise. Bicarb remains low at 12, but this is mostly a picture of hyperchloremic non-anion gap metabolic acidosis. Patient seems to be in no form of distress at this point. Patient was reevaluated today on 04/08/2017, continues to do relatively well, but he remains on 2 g of levo fed. We plan to hopefully discontinue the norepinephrine today, and possibly transferred to a monitor bed in the next 12 hours. Assuming the patient couldn't tolerate coming off levo fed. His cultures including blood and urine came back positive for E. coli, sensitive to cefepime which is presently on. CBC was reviewed relatively unremarkable hemoglobin is 9.7 potassium is 3.0 being corrected as per protocol. Patient continues to have a hyperchloremic non-anion gap metabolic acidosis. Renal profile is significantly improved BUN is 40 and creatinine is 1.18. Chest x- ray no evidence of congestive heart failure. Actually his chest x-ray is showing improved aeration at the lung bases. Minimal atelectasis persists. Objective - Vital Signs Vital signs: Vital Signs Temp 98.1 F 04/08/17 04:00 Pulse 122 H 04/08/17 09:00 Resp 23 04/08/17 09:00 BP 111/48 04/08/17 09:00 Pulse Ox 97 04/08/17 09:00 Intake & Output 04/07/17 04/08/17 04/08/17 18:59 06:59 18:59 Intake Total 2814.846 1551.527 Output Total 3565 1320 264 Balance -750.154 231.527 -264 Weight 91.8 kg 86.6 kg Intake: IV 1200 1100 Sodium Chloride 0.9% 1, 1200 1100 000 ml @ 100 mls/hr IV . Q10H [facility] Rx#:[id number] Intake, IV Titration 1374.846 451.527 Amount Heparin Sodium,Porcine/ 337.013 451.527 D5w Pmx 25,000 unit In Dextrose/Water 1 500ml. bag @ 18 UNITS/KG/HR 32. 04 mls/hr IV .[id number] [facility] Rx#:[id number] Norepinephrin 4 mg-0.9% 37.833 Ns Pmx 4 mg In 250 ml @ Titrate IV .Q0M [facility] Rx#: [id number] Sodium Chloride 0.9% 1, 1000 000 ml @ 100 mls/hr IV . Q10H [facility] Rx#:[id number] Oral 240 Output: Urine 3565 1320 264 Other: Voiding Method Indwelling Catheter Indwelling Catheter - Exam Physical Exam: Revealed an 82-year-old, lethargic, in no form of respiratory distress. Tachycardic. HEENT:[Neck is supple.] [No neck masses.] [No thyromegaly.] [No JVD.] Chest: [Diminished breath no crackles, no rhonchi, no wheezes.] Cardiac Exam: [Tachycardic, Normal S1 and S2, no S3 gallop, no murmur.] Abdomen: [Soft, nontender, no megaly, no rebound, no guarding, normal bowel sounds.] Extremities: [No clubbing, 1+ bipedal edema, left lower extremity seems to be a bit more edematous than the right lower extremity. No cyanosis.] Neurological Exam: Confused, lethargic, otherwise no gross focal neurologic deficit. - Labs CBC & Chem 7: 04/08/17 04:26 04/08/17 07:22 Labs: Abnormal Lab Results - Last 24 Hours (Table) 04/07/17 04/07/17 04/08/17 Range/Units 15:21 19:17 04:26 RBC 3.47 L (4.30-5.90) m/uL Hgb 9.7 L (13.0-17.5) gm/dL Hct 30.9 L (39.0-53.0) % RDW 15.9 H (11.5-15.5) % Neutrophils # 9.8 H (1.3-7.7) k/uL Lymphocytes # 0.4 L (1.0-4.8) k/uL APTT (22.0-30.0) sec Potassium (3.5-5.1) mmol/L Chloride (98-107) mmol/L Carbon Dioxide (22-30) mmol/L BUN (9-20) mg/dL Plasma Lactic Acid Georges 2.1 H* 2.9 H* (0.7-2.0) mmol/L Calcium (8.4-10.2) mg/dL 04/08/17 04/08/17 04/08/17 Range/Units 04:26 04:26 07:22 RBC (4.30-5.90) m/uL Hgb (13.0-17.5) gm/dL Hct (39.0-53.0) % RDW (11.5-15.5) % Neutrophils # (1.3-7.7) k/uL Lymphocytes # (1.0-4.8) k/uL APTT 42.6 H (22.0-30.0) sec Potassium 2.8 L* 3.0 L* (3.5-5.1) mmol/L Chloride 114 H (98-107) mmol/L Carbon Dioxide 16 L (22-30) mmol/L BUN 40 H (9-20) mg/dL Plasma Lactic Acid Georges (0.7-2.0) mmol/L Calcium 7.1 L (8.4-10.2) mg/dL Microbiology - Last 24 Hours (Table) 04/05/17 23:09 Blood Culture Gram Stain - Final Blood Blood Culture - Final Escherichia coli 04/05/17 23:29 Urine Culture - Preliminary Urine,Voided Gram Neg Bacilli Assessment and Plan Plan: Impression: 1 acute urinary tract infection and gram-negative/E. coli septic shock. Patient seems to be on appropriate antibiotics for now, E. coli in the blood is sensitive to cefepime. I will leave it up to the infectious disease on the case to decide whether patient can be switched to Rocephin. 2 acute left lower extremity DVT, patient is presently on heparin. Continue to monitor coagulation profile. 3 history of multiple comorbidities including COPD, dementia, hyperlipidemia, osteoarthritis, history of chronic urinary retention and urethral strictures, history of prostate cancer with surgery and radiation, Recommendation: Continue present treatment plan including antibiotics, fluid boluses, norepinephrine and titrate to a mean arterial pressure of 65, monitor for possible fluid overload considering the fluid boluses venous Doppler of the lower extremities was positive for left popliteal deep vein thrombosis, hence heparin will be continued. Overall prognosis is definitely guarded, we'll continue to follow, if norepinephrine could be discontinued today, patient could be transferred to a monitor bed on selective. We'll continue to follow. Time with Patient: Less than 30
[2017-04-08] MEDS: cefTRIAXone 2,000 MG in SODIUM CHLORIDE 0.9% 100 ML IVPB SCH (15:54)
--- NOTE | 2017-04-08 17:58 | P.PN ---
Subjective This is a 82-year-old gentleman with complex past medical history who is a long- term resident at [facility] who presented to the hospital with altered mental status. Patient is known to have underlying history of prostate cancer with chronic obstructive uropathy and chronic indwelling Chi catheter. Patient has been having problems with recurrent UTIs with significant pus draining from around the catheter for several months. He has been treated with different courses of antibiotic both oral and IV. He had numerous resistant bacteria growing in the urine culture. He had a problem that each time antibiotic was discontinued patient started having cloudy urine all over again. He was seen by urology twice in the office previously with a concern about a possible anatomic problems or fistula causing his persistent pus draining at the evaluation was negative. On 04/08/2017 patient is alert and responsive in no apparent distress lungs pressure has a Kizzy eyes he has been off levophed for several hours he will be transferred out of intensive care unit today Objective - Vital Signs Vital signs: Vital Signs Temp 98.4 F 04/08/17 16:00 Pulse 112 H 04/08/17 16:00 Resp 22 04/08/17 16:00 BP 119/59 04/08/17 16:00 Pulse Ox 97 04/08/17 16:00 Intake & Output 04/07/17 04/08/17 04/08/17 18:59 06:59 18:59 Intake Total 2814.846 9174.579 3145 Output Total 3565 1320 1378 Balance -750.154 231.527 -78 Weight 91.8 kg 86.6 kg 90.3 kg Intake: IV 1200 1100 400 Sodium Chloride 0.9% 1, 1200 1100 300 000 ml @ 100 mls/hr IV . Q10H [facility] Rx#:[id number] cefTRIAXone 2,000 mg In 100 Sodium Chloride 0.9% 100 ml @ 100 mls/hr IVPB Q24H [facility] Rx#:[id number] Intake, IV Titration 1374.846 451.527 900 Amount Heparin Sodium,Porcine/ 337.013 451.527 D5w Pmx 25,000 unit In Dextrose/Water 1 500ml. bag @ 18 UNITS/KG/HR 32. 04 mls/hr IV .[id number] [facility] Rx#:[id number] Norepinephrin 4 mg-0.9% 37.833 Ns Pmx 4 mg In 250 ml @ Titrate IV .Q0M [facility] Rx#: [id number] Sodium Chloride 0.9% 1, 1000 900 000 ml @ 100 mls/hr IV . Q10H [facility] Rx#:[id number] Oral 240 Output: Urine 3565 1320 1378 Other: Voiding Method Indwelling Catheter Indwelling Catheter Indwelling Catheter - Exam General: The patient is awake and alert, in no distress Eye: there is normal conjunctiva bilaterally. Neck: The neck is supple, there is no JVD. Cardiovascular: Normal S1-S2, no S3-S4, no murmurs. Respiratory: Lungs clear to auscultation bilaterally Gastrointestinal: Abdomen is soft, nontender Musculoskeletal: There is no pedal edema. Neurological:. Speech is normal. - Labs CBC & Chem 7: 04/08/17 04:26 04/08/17 13:53 Labs: Abnormal Lab Results - Last 24 Hours (Table) 04/07/17 04/08/17 04/08/17 Range/Units 19:17 04:26 04:26 RBC 3.47 L (4.30-5.90) m/uL Hgb 9.7 L (13.0-17.5) gm/dL Hct 30.9 L (39.0-53.0) % RDW 15.9 H (11.5-15.5) % Neutrophils # 9.8 H (1.3-7.7) k/uL Lymphocytes # 0.4 L (1.0-4.8) k/uL APTT (22.0-30.0) sec Potassium 2.8 L* (3.5-5.1) mmol/L Chloride 114 H (98-107) mmol/L Carbon Dioxide 16 L (22-30) mmol/L BUN 40 H (9-20) mg/dL Plasma Lactic Acid Georges 2.9 H* (0.7-2.0) mmol/L Calcium 7.1 L (8.4-10.2) mg/dL 04/08/17 04/08/17 04/08/17 Range/Units 04:26 07:22 11:39 RBC (4.30-5.90) m/uL Hgb (13.0-17.5) gm/dL Hct (39.0-53.0) % RDW (11.5-15.5) % Neutrophils # (1.3-7.7) k/uL Lymphocytes # (1.0-4.8) k/uL APTT 42.6 H 63.5 H (22.0-30.0) sec Potassium 3.0 L* (3.5-5.1) mmol/L Chloride (98-107) mmol/L Carbon Dioxide (22-30) mmol/L BUN (9-20) mg/dL Plasma Lactic Acid Georges (0.7-2.0) mmol/L Calcium (8.4-10.2) mg/dL 04/08/17 Range/Units 13:53 RBC (4.30-5.90) m/uL Hgb (13.0-17.5) gm/dL Hct (39.0-53.0) % RDW (11.5-15.5) % Neutrophils # (1.3-7.7) k/uL Lymphocytes # (1.0-4.8) k/uL APTT (22.0-30.0) sec Potassium 3.1 L (3.5-5.1) mmol/L Chloride (98-107) mmol/L Carbon Dioxide (22-30) mmol/L BUN (9-20) mg/dL Plasma Lactic Acid Georges (0.7-2.0) mmol/L Calcium (8.4-10.2) mg/dL Microbiology - Last 24 Hours (Table) 04/07/17 10:44 Blood Culture - Preliminary Blood No Growth after 24 hours 04/05/17 23:29 Urine Culture - Final Urine,Voided Escherichia coli 04/05/17 23:09 Blood Culture Gram Stain - Final Blood Blood Culture - Final Escherichia coli Assessment and Plan Plan: 1. Catheter associated urinary tract infection, present on admission, recurrent 2. Severe sepsis with septic shock requiring vasopressors 3. Chronic obstructive uropathy 4. History of prostate cancer with no evidence of metastasis on bone scan in November 5. Underlying cognitive impairment/dementia 6. Right lower extremity swelling Today patient is improving he is being transferred out of intensive care unit he has been off levophed and is tolerating well Follow closely on telemetry
[2017-04-08] MEDS ORDERED: VANCOMYCIN TROUGH DUE 1 EACH MISC MISCELLANE ONE (20:00)
--- NOTE | 2017-04-08 20:12 | P.PN ---
Subjective Principal diagnosis: septic shock 82-year-old male presents to the emergency center from the extended care facility. Is limited that at his residence the patient was doing poorly. He had a drop in his pulse oximetry. Seemed to be not well. EMS was called. Upon their arrival his saturations were adequate. However the patient was tachycardic and hypotensive. They also believe that he was febrile. He was then transported to the Emergency Ctr[facility] where he was found to have evidence of hypotension. He was given fluid resuscitation. Despite that he remained hypotensive and required vasopressor therapy with Levophed. The patient was transferred to the intensive care unit received further resuscitation. With further fluids is little elevated lactic acid improved. Patient was continued to have somewhat of a poor mentation just part of his difficulties at transfer also known dementia. Because of his gram-negative sepsis the infectious diseases consultation was requested. The patient is a poor historian and most information is coming from the chart and the current nursing staff. The patient does seem to be a bit more uncomfortable he was earlier in the day as per the nursing staff. It is noted that urine output has been poor despite his extensive fluid resuscitation. Urine is very cloudy and thick. Renal ultrasound has been performed several hours ago. Evidence of bilateral hydronephrosis and sludge in his bladder. Today the patient is showing some improvement. He is arousable. He seems to be comfortable. The patient has been seen by urology. He had a coud catheter placed with the ureteroscope, because of a difficulty with a false passage. Patient is draining adequate amounts of the ongoing purulent urine. However patient's fever, hypotension, leukocytosis are all improved. Objective - Vital Signs Vital signs: Vital Signs Temp 98.4 F 04/08/17 16:00 Pulse 120 H 04/08/17 19:00 Resp 23 04/08/17 19:00 BP 102/70 04/08/17 19:00 Pulse Ox 98 04/08/17 19:00 Intake & Output 04/08/17 04/08/17 04/09/17 06:59 18:59 06:59 Intake Total 1974.195 2070 Output Total 1320 1378 Balance 231.527 922 Weight 86.6 kg 90.3 kg Intake: IV 1100 1400 Sodium Chloride 0.9% 1, 1100 1300 000 ml @ 100 mls/hr IV . Q10H [facility] Rx#:[id number] cefTRIAXone 2,000 mg In 100 Sodium Chloride 0.9% 100 ml @ 100 mls/hr IVPB Q24H [facility] Rx#:[id number] Intake, IV Titration 451.527 900 Amount Heparin Sodium,Porcine/ 451.527 D5w Pmx 25,000 unit In Dextrose/Water 1 500ml. bag @ 18 UNITS/KG/HR 32. 04 mls/hr IV .[id number] [facility] Rx#:[id number] Sodium Chloride 0.9% 1, 900 000 ml @ 100 mls/hr IV . Q10H [facility] Rx#:[id number] Output: Urine 1320 1378 Other: Voiding Method Indwelling Catheter Indwelling Catheter - Exam HEENT: Anicteric conjunctiva are pink and moist nasal mucosa grossly intact without significant lesions, there is no thrush. Oral cavity is dry with generalized poor long-term hygiene Neck: The neck is supple without significant lymphadenopathy or thyromegaly. Lungs: Good bilateral air entry without significant crackles or wheezing. There is no significant bronchial sounds. There is no egophony or dullness. Heart: Regular rate and rhythm with an audible S1-S2, no S3 no S4. There is no significant murmur click or rub, PMI was nondisplaced. Abdomen: Positive bowel sounds soft and tender without palpable masses or organomegaly. Lower abdomen appears to be quite distended. Extremities: The upper extremities have excellent pulses they are symmetric, no significant petechiae or telangiectasia. No splinter hemorrhages were noted. The lower extremities are free from significant edema. The peripheral pulses were 2+ and symmetric. Neuro: Arousable and follows a few commands today slightly brighter and affect Skin: Minimal erythema to buttocks with no open ulcers being seen. No ulcers to heals. - Labs CBC & Chem 7: 04/08/17 04:26 04/08/17 13:53 Labs: Abnormal Lab Results - Last 24 Hours (Table) 04/08/17 04/08/17 04/08/17 Range/Units 04:26 04:26 04:26 RBC 3.47 L (4.30-5.90) m/uL Hgb 9.7 L (13.0-17.5) gm/dL Hct 30.9 L (39.0-53.0) % RDW 15.9 H (11.5-15.5) % Neutrophils # 9.8 H (1.3-7.7) k/uL Lymphocytes # 0.4 L (1.0-4.8) k/uL APTT 42.6 H (22.0-30.0) sec Potassium 2.8 L* (3.5-5.1) mmol/L Chloride 114 H (98-107) mmol/L Carbon Dioxide 16 L (22-30) mmol/L BUN 40 H (9-20) mg/dL Calcium 7.1 L (8.4-10.2) mg/dL 04/08/17 04/08/17 04/08/17 Range/Units 07:22 11:39 13:53 RBC (4.30-5.90) m/uL Hgb (13.0-17.5) gm/dL Hct (39.0-53.0) % RDW (11.5-15.5) % Neutrophils # (1.3-7.7) k/uL Lymphocytes # (1.0-4.8) k/uL APTT 63.5 H (22.0-30.0) sec Potassium 3.0 L* 3.1 L (3.5-5.1) mmol/L Chloride (98-107) mmol/L Carbon Dioxide (22-30) mmol/L BUN (9-20) mg/dL Calcium (8.4-10.2) mg/dL Microbiology - Last 24 Hours (Table) 04/07/17 10:44 Blood Culture - Preliminary Blood No Growth after 24 hours 04/05/17 23:29 Urine Culture - Final Urine,Voided Escherichia coli 04/05/17 23:09 Blood Culture Gram Stain - Final Blood Blood Culture - Final Escherichia coli Laboratory Results WBC 10.6 k/uL (3.8-10.6) 04/08/17 04:26 RBC 3.47 m/uL (4.30-5.90) L 04/08/17 04:26 Hgb 9.7 gm/dL (13.0-17.5) L 04/08/17 04:26 Hct 30.9 % (39.0-53.0) L 04/08/17 04:26 MCV 88.9 fL (80.0-100.0) D 04/08/17 04:26 MCH 27.9 pg (25.0-35.0) 04/08/17 04:26 MCHC 31.4 g/dL (31.0-37.0) 04/08/17 04:26 RDW 15.9 % (11.5-15.5) H 04/08/17 04:26 Plt Count 209 k/uL (150-450) 04/08/17 04:26 Neutrophils % 93 % 04/08/17 04:26 Neutrophils % (Manual) 60 % 04/07/17 02:06 Band Neutrophils % 37 % 04/07/17 02:06 Lymphocytes % 4 % 04/08/17 04:26 Lymphocytes % (Manual) 2 % 04/07/17 02:06 Monocytes % 3 % 04/08/17 04:26 Monocytes % (Manual) 2 % 04/07/17 02:06 Eosinophils % 0 % 04/08/17 04:26 Basophils % 0 % 04/08/17 04:26 Neutrophils # 9.8 k/uL (1.3-7.7) H 04/08/17 04:26 Neutrophils # (Manual) 17.20 k/uL (1.3-7.7) H 04/07/17 02:06 Lymphocytes # 0.4 k/uL (1.0-4.8) L 04/08/17 04:26 Lymphocytes # (Manual) 0.36 k/uL (1.0-4.8) L 04/07/17 02:06 Monocytes # 0.3 k/uL (0-1.0) 04/08/17 04:26 Monocytes # (Manual) 0.36 k/uL (0-1.0) 04/07/17 02:06 Eosinophils # 0.0 k/uL (0-0.7) 04/08/17 04:26 Basophils # 0.0 k/uL (0-0.2) 04/08/17 04:26 Nucleated RBCs 0 /100 WBC (0-0) 04/07/17 02:06 Manual Slide Review Performed 04/06/17 02:45 Toxic Vacuolation Present 04/07/17 02:06 Polychromasia Present 04/07/17 02:06 Hypochromasia Slight 04/08/17 04:26 Anisocytosis Slight 04/07/17 02:06 Crenated Cell Present 04/07/17 02:06 PT 13.1 sec (9.0-12.0) H 04/06/17 21:54 INR 1.3 (<1.2) H 04/06/17 21:54 APTT 63.5 sec (22.0-30.0) H 04/08/17 11:39 Sodium 138 mmol/L (137-145) 04/08/17 04:26 Potassium 3.1 mmol/L (3.5-5.1) L 04/08/17 13:53 Chloride 114 mmol/L (98-107) H 04/08/17 04:26 Carbon Dioxide 16 mmol/L (22-30) L 04/08/17 04:26 Anion Gap 8 mmol/L 04/08/17 04:26 BUN 40 mg/dL (9-20) H 04/08/17 04:26 Creatinine 1.18 mg/dL (0.66-1.25) 04/08/17 04:26 Est GFR (MDRD) Af Amer >60 (>60 ml/min/1.73 sqM) 04/08/17 04:26 Est GFR (MDRD) Non-Af 59 (>60 ml/min/1.73 sqM) 04/08/17 04:26 Glucose 89 mg/dL (74-99) 04/08/17 04:26 POC Glucose (mg/dL) 92 mg/dL (75-99) 04/07/17 15:23 POC Glu [employer] Jonny Almaraz, Carri 04/07/17 15:23 Lactic Ac Sepsis Rflx Y 04/07/17 16:05 Plasma Lactic Acid Georges 2.9 mmol/L (0.7-2.0) H* 04/07/17 19:17 Calcium 7.1 mg/dL (8.4-10.2) L 04/08/17 04:26 Phosphorus 3.6 mg/dL (2.5-4.5) 04/08/17 04:26 Magnesium 2.0 mg/dL (1.6-2.3) 04/08/17 04:26 Total Bilirubin 0.4 mg/dL (0.2-1.3) 04/07/17 02:06 AST 34 U/L (17-59) 04/07/17 02:06 ALT 37 U/L (21-72) 04/07/17 02:06 Alkaline Phosphatase 65 U/L (38-126) 04/07/17 02:06 Total Protein 4.5 g/dL (6.3-8.2) L 04/07/17 02:06 Albumin 2.0 g/dL (3.5-5.0) L 04/07/17 02:06 Urine Color Light Red 04/05/17 23:29 Urine Appearance Turbid (Clear) 04/05/17 23:29 Urine pH 8.5 (5.0-8.0) H 04/05/17 23:29 Ur Specific [place] 1.012 (1.001-1.035) 04/05/17 23:29 Urine Protein 4+ (Negative) H 04/05/17 23:29 Urine Glucose (UA) Negative (Negative) 04/05/17 23:29 Urine Ketones Negative (Negative) 04/05/17 23:29 Urine Blood Negative (Negative) 04/05/17 23:29 Urine Nitrite Negative (Negative) 04/05/17 23:29 Urine Bilirubin Negative (Negative) 04/05/17 23:29 Urine Urobilinogen <2.0 mg/dL (<2.0) 04/05/17 23:29 Ur Leukocyte Esterase Large (Negative) H 04/05/17 23:29 Urine WBC 145 /hpf (0-5) H 04/05/17 23:29 Amorphous Sediment Occasional /hpf (None) H 04/05/17 23:29 Urine Bacteria Rare /hpf (None) H 04/05/17 23:29 Random Vancomycin 13.1 ug/mL 04/07/17 08:51 Microbiology 04/07/17 10:44 Blood Blood Culture - Preliminary No Growth after 24 hours 04/05/17 23:29 Urine,Voided Urine Culture - Final Escherichia coli 04/05/17 23:09 Blood Blood Culture Gram Stain - Final 04/05/17 23:09 Blood Blood Culture - Final Escherichia coli 04/05/17 23:09 Blood Blood Culture - Final Assessment and Plan (1) Septic shock Narrative/Plan: 82-year-old male presents from the extended care facility with alteration of his status. Concerns to hypoxemia which corrected upon arrival of EMS. However the patient was hypotensive and tachycardic and febrile. Upon arrival the patient had evidence of sepsis and shock requiring fluid resuscitation and then vasopressor therapy. With adequate resuscitation he has now improved and is off vasopressor therapy. However continues to have a poor mental status. His fever is improved. On exam the patient had a poor urinary output had evidence of distention to his lower abdomen that was tender. Recent ultrasound showed evidence of bilateral hydronephrosis and sludge in his bladder. A bladder scan was requested and a liter of fluid was noted in his latter. The catheter was blocked and a new Chi was placed and the patient had resolution of his distention. He has been seen by urology in his phimosis was cared for at the bedside. His other the patient has gram-negative sepsis with the final cultures recent cultures have shown evidence of pseudomonas aeruginosa that is susceptible to cefepime. This will remain at this point in time pending further culture results. Follow up blood cultures are requested to ensure his bacteremia has cleared. He has a profound leukocytosis due to his current sepsis and obstructive process. Altered mentation on the basis of sepsis Acute renal failure on the basis of an obstructive process and is resolved as his sepsis and obstruction has been resolved by the urologist in the placement of the coud catheter. Hypokalemia is occurring on the basis of his postobstructive diuresis. Is being supplemented. Patient is improving will likely be moved out of the intensive care unit today. Status: Acute (2) Gram-negative sepsis with organ dysfunction Status: Acute (3) UTI (urinary tract infection) Status: Acute (4) Leukocytosis Status: Acute
[2017-04-08] MEDS: traZODone HCL 100 MG TAB PO SCH (21:20)
[2017-04-09] MEDS: PANTOPRAZOLE 40 MG TABLET PO SCH (06:35)
[2017-04-09] MEDS: SODIUM CHLORIDE 0.9% 1,000 ML IV SCH ×3 (06:35→21:15)
[2017-04-09] MEDS: HEPARIN SODIUM,PORCINE 5,000 UNIT/ML 1 ML VIAL IV PRN (07:17)
[2017-04-09 07:18] LABS: Anion Gap 6 mmol/L; Blood Urea Nitrogen 31 mg/dL (9-20); Calcium 7.1 mg/dL (8.4-10.2); Carbon Dioxide 17 mmol/L (22-30); Chloride 115 mmol/L (98-107); Glucose 88 mg/dL (74-99); Non-African American GFR(MDRD) >60 (>60 ml/min/1.73 sqM); Phosphorus 2.6 mg/dL (2.5-4.5); Sodium 138 mmol/L (137-145)
[2017-04-09 07:25] LABS: Potassium 2.7 mmol/L (3.5-5.1)
[2017-04-09 07:29] LABS: Basophils % (A) 0 %; CH 27.1; CHCM 30.8; Eosinophils # (A) 0.1 k/uL (0-0.7); Eosinophils % (A) 1 %; HCT 29.1 % (39.0-53.0); HDW 2.63; HGB 9.2 gm/dL (13.0-17.5); Hypochromasia Slight; Luc # (Auto) 0.17; Luc % (Auto) 2; Lymphocytes # (A) 0.5 k/uL (1.0-4.8); Lymphocytes % (A) 5 %; MCH 27.9 pg (25.0-35.0); MCHC 31.6 g/dL (31.0-37.0); MCV 88.4 fL (80.0-100.0); Monocytes # (A) 0.3 k/uL (0-1.0); Monocytes % (A) 3 %; Neutrophils # (A) 9.3 k/uL (1.3-7.7); Neutrophils % (A) 89 %; RBC 3.29 m/uL (4.30-5.90); RDW 15.7 % (11.5-15.5); WBC 10.4 k/uL (3.8-10.6); WBC (Perox) 10.91
--- NOTE | 2017-04-09 07:49 | XR ---
EXAMINATION TYPE: XR chest 1V DATE OF EXAM: 04/09/2017 CLINICAL HISTORY: Difficulty breathing progress study. UTI and sepsis. TECHNIQUE: Single AP portable upright view of the chest is obtained. COMPARISON: Chest x-ray from one day earlier FINDINGS: There is worsening medial bibasilar opacities on current study. Low lung volumes are redem onstrated. No large pleural effusion or pneumothorax is seen bilaterally. Cardiac silhouette size is stable and within normal limits with atherosclerotic thoracic aorta. Degenerative change left glenohu meral joint is redemonstrated. IMPRESSION: Low lung volumes redemonstrated, there is slight worsening in medial bibasilar infiltrate s and/or atelectasis.
[2017-04-09] MEDS ORDERED: Potassium Replacement Protocol 1 EACH MISC MISCELLANE PRN (07:52)
[2017-04-09] MEDS: POTASSIUM CHLORIDE 10 MEQ, LIDOCAINE 2% INJ 10 MG in SODIUM CHLORIDE 0.9% 100 ML IV SCH ×3 (09:15→11:57)
[2017-04-09] MEDS: LORazepam 1 MG TAB PO PRN ×2 (09:16→15:59)
[2017-04-09] MEDS ORDERED: POTASSIUM CHLORIDE ORAL LIQUID 40 MEQ/30 ML CUP PO ONE (10:45)
[2017-04-09] MEDS ORDERED: FUROSEMIDE 10 MG/ML 2 ML VIAL IV ONE (11:00)
--- NOTE | 2017-04-09 13:38 | P.PN ---
Subjective this is a 82-year-old gentleman with complex past medical history who is a long- term resident at [facility] who presented to the hospital with altered mental status. Patient is known to have underlying history of prostate cancer with chronic obstructive uropathy and chronic indwelling Chi catheter. Patient has been having problems with recurrent UTIs with significant pus draining from around the catheter for several months. He has been treated with different courses of antibiotic both oral and IV. He had numerous resistant bacteria growing in the urine culture. He had a problem that each time antibiotic was discontinued patient started having cloudy urine all over again. He was seen by urology twice in the office previously with a concern about a possible anatomic problems or fistula causing his persistent pus draining at the evaluation was negative. 04/09/2017 patient was transferred out of the ICU yesterday. Currently on the sixth floor. Patient did receive Ativan is currently sleeping. Per nursing staff patient was getting restless and agitated. Patient appears comfortable sleeping no evidence of distress. Patient was given extra dose of IV Lasix today by pulmonary service Objective - Vital Signs Vital signs: Vital Signs Temp 99.9 F H 04/09/17 03:38 Pulse 118 H 04/09/17 08:00 Resp 18 04/09/17 08:00 BP 121/61 04/09/17 03:38 Pulse Ox 96 04/09/17 03:38 Intake & Output 04/08/17 04/09/17 04/09/17 18:59 06:59 18:59 Intake Total 2300 2848.474 319.332 Output Total 1378 1725 Balance 922 1123.474 319.332 Weight 90.3 kg 95 kg Intake: IV 1400 2112 Heparin Sodium,Porcine/ 512 D5w Pmx 25,000 unit In Dextrose/Water 1 500ml. bag @ 18 UNITS/KG/HR 32. 04 mls/hr IV .[id number] [facility] Rx#:[id number] Sodium Chloride 0.9% 1, 1300 1600 000 ml @ 100 mls/hr IV . Q10H [facility] Rx#:[id number] cefTRIAXone 2,000 mg In 100 Sodium Chloride 0.9% 100 ml @ 100 mls/hr IVPB Q24H [facility] Rx#:[id number] Intake, IV Titration 900 736.474 319.332 Amount Heparin Sodium,Porcine/ 486.474 319.332 D5w Pmx 25,000 unit In Dextrose/Water 1 500ml. bag @ 18 UNITS/KG/HR 32. 04 mls/hr IV .[id number] [facility] Rx#:[id number] Sodium Chloride 0.9% 1, 900 000 ml @ 100 mls/hr IV . Q10H [facility] Rx#:[id number] Vancomycin 1,500 mg In 250 Sodium Chloride 0.9% 250 ml @ 125 mls/hr IVPB Q24H [facility] Rx#:[id number] Oral 0 Output: Urine 1378 1725 Other: Voiding Method Indwelling Catheter Indwelling Catheter Indwelling Catheter - Exam Head normocephalic Neck supple Lungs clear to auscultation bilaterally no wheezing or crackles Heart regular rate and rhythm S1-S2, no rub or gallop Abdomen is soft nontender nondistended positive bowel sounds no hepatosplenomegaly Extremities edema of bilateral lower extremities with evidence of scrotal edema Neuro resting comfortably - Labs CBC & Chem 7: 04/09/17 06:25 04/09/17 06:25 Labs: Abnormal Lab Results - Last 24 Hours (Table) 04/08/17 04/09/17 04/09/17 Range/Units 13:53 06:25 06:25 RBC 3.29 L (4.30-5.90) m/uL Hgb 9.2 L (13.0-17.5) gm/dL Hct 29.1 L (39.0-53.0) % RDW 15.7 H (11.5-15.5) % Neutrophils # 9.3 H (1.3-7.7) k/uL Lymphocytes # 0.5 L (1.0-4.8) k/uL APTT (22.0-30.0) sec Potassium 3.1 L 2.7 L* (3.5-5.1) mmol/L Chloride 115 H (98-107) mmol/L Carbon Dioxide 17 L (22-30) mmol/L BUN 31 H (9-20) mg/dL Calcium 7.1 L (8.4-10.2) mg/dL 04/09/17 04/09/17 Range/Units 06:25 11:55 RBC (4.30-5.90) m/uL Hgb (13.0-17.5) gm/dL Hct (39.0-53.0) % RDW (11.5-15.5) % Neutrophils # (1.3-7.7) k/uL Lymphocytes # (1.0-4.8) k/uL APTT 42.8 H 57.1 H (22.0-30.0) sec Potassium (3.5-5.1) mmol/L Chloride (98-107) mmol/L Carbon Dioxide (22-30) mmol/L BUN (9-20) mg/dL Calcium (8.4-10.2) mg/dL Microbiology - Last 24 Hours (Table) 04/07/17 10:44 Blood Culture - Preliminary Blood No Growth after 48 hours 04/05/17 23:29 Urine Culture - Final Urine,Voided Escherichia coli Assessment and Plan Plan: 1. Catheter associated urinary tract infection, present on admission, recurrent. Urine culture growing E. coli. Currently on Rocephin 2. Severe sepsis with septic shock requiring vasopressors 3. Chronic obstructive uropathy with chronic urinary retention: Patient underwent cystoscopy with catheter placement by urology 4. History of prostate cancer with no evidence of metastasis on bone scan in November 5. Underlying cognitive impairment/dementia 6. Acute left lower extremity DVT currently on IV heparin 7. Hypokalemia. Patient receiving potassium supplement. Repeat labs in a.m. I performed an examination of the patient and discussed their management with the physician Door Frame Assembler Machine. I have reviewed the Physician Door Frame Assembler Machine's notes and agree with the documented findings and plan of care
--- NOTE | 2017-04-09 13:54 | P.PN ---
Subjective Principal diagnosis: Acute septic shock secondary to urinary tract infection This is an 82-year-old white male who is a alf resident, has chronic indwelling Chi catheter, has history of chronic dementia, patient was noted by the alf staff to drop his O2 saturations, and he was also noted to be tachycardic. However when EMS arrived, his O2 saturation was 95% on room air. Patient was noted to be febrile and tachycardic with heart rate in the 130 range. Patient is not the greatest historian because of his underlying dementia. But workup in the ER pointed to urinary tract infection and possible sepsis. His urinalysis showed evidence of pyuria and bacteriuria. His lactic acid was elevated, and his blood pressure was marginal. Patient was also noted to have leukocytosis with WBC count of 26.6. There was also evidence of anion gap metabolic acidosis, hyperkalemia, renal failure with a BUN of 47 and creatinine of 2.60. Lactic acid on admission was 5.8. Repeat uric acid was 3.8 after fluid boluses. Patient received a total of 5 L of fluid boluses since admission. Considering his presentation of urinary tract infection and sepsis presentation, patient was admitted to the ICU, and we were asked to see him on consultation. Again the patient is a very poor historian. Chest x-ray showed mostly by basilar atelectasis, no clear-cut evidence of pneumonia or congestive heart failure. Patient was reevaluated today on 04/07/2017, doing much better today compared to yesterday. However he remains on norepinephrine at 2 mcg/m, blood pressure is marginal. He remains tachycardic, remains acidotic with lactic acid is still elevated, hence I have recommended more fluid boluses today, and we'll continue with the same antibiotics for his positive cultures in the blood showing gram- negative bacilli. His antibiotics were not changed. Infectious disease on the case. Labs were reviewed, leukocytosis seems to be improving. Initial WBC count on presentation was 33.4, today it is 17.8. Hemoglobin is 10.9. Patient is on heparin for what seems to be a deep vein thromboses in the left popliteal vein. Renal profile is improving BUN is 49 creatinine is 1.60. Basic metabolic profile is relatively unremarkable otherwise. Bicarb remains low at 12, but this is mostly a picture of hyperchloremic non-anion gap metabolic acidosis. Patient seems to be in no form of distress at this point. Patient was reevaluated today on 04/08/2017, continues to do relatively well, but he remains on 2 g of levo fed. We plan to hopefully discontinue the norepinephrine today, and possibly transferred to a monitor bed in the next 12 hours. Assuming the patient couldn't tolerate coming off levo fed. His cultures including blood and urine came back positive for E. coli, sensitive to cefepime which is presently on. CBC was reviewed relatively unremarkable hemoglobin is 9.7 potassium is 3.0 being corrected as per protocol. Patient continues to have a hyperchloremic non-anion gap metabolic acidosis. Renal profile is significantly improved BUN is 40 and creatinine is 1.18. Chest x- ray no evidence of congestive heart failure. Actually his chest x-ray is showing improved aeration at the lung bases. Minimal atelectasis persists. Patient was reevaluated today on 04/09/2017, remains hemodynamically stable, off levo fed, lethargic but arousable this is basically his baseline not verbal, I believe he has underlying dementia. Seems to be draining good amount of urine, his leukocytosis fever and hypotension have resolved. WBC count is 10.4 today, hemoglobin is 9.2, potassium is low hence I will give him 40 mEq of potassium orally, patient remains significantly swollen and edematous especially in the left lower extremity. And I recommended giving him 1 dose of Lasix today. Patient was switched to Rocephin from cefepime. Objective - Vital Signs Vital signs: Vital Signs Temp 99.9 F H 04/09/17 03:38 Pulse 118 H 04/09/17 08:00 Resp 18 04/09/17 08:00 BP 121/61 04/09/17 03:38 Pulse Ox 96 04/09/17 03:38 Intake & Output 04/08/17 04/09/17 04/09/17 18:59 06:59 18:59 Intake Total 2300 2848.474 319.332 Output Total 1378 1725 Balance 922 1123.474 319.332 Weight 90.3 kg 95 kg Intake: IV 1400 2112 Heparin Sodium,Porcine/ 512 D5w Pmx 25,000 unit In Dextrose/Water 1 500ml. bag @ 18 UNITS/KG/HR 32. 04 mls/hr IV .[id number] [facility] Rx#:[id number] Sodium Chloride 0.9% 1, 1300 1600 000 ml @ 100 mls/hr IV . Q10H [facility] Rx#:[id number] cefTRIAXone 2,000 mg In 100 Sodium Chloride 0.9% 100 ml @ 100 mls/hr IVPB Q24H [facility] Rx#:[id number] Intake, IV Titration 900 736.474 319.332 Amount Heparin Sodium,Porcine/ 486.474 319.332 D5w Pmx 25,000 unit In Dextrose/Water 1 500ml. bag @ 18 UNITS/KG/HR 32. 04 mls/hr IV .[id number] [facility] Rx#:[id number] Sodium Chloride 0.9% 1, 900 000 ml @ 100 mls/hr IV . Q10H [facility] Rx#:[id number] Vancomycin 1,500 mg In 250 Sodium Chloride 0.9% 250 ml @ 125 mls/hr IVPB Q24H [facility] Rx#:[id number] Oral 0 Output: Urine 1378 1725 Other: Voiding Method Indwelling Catheter Indwelling Catheter Indwelling Catheter - Exam Physical Exam: Revealed an 82-year-old, lethargic, in no form of respiratory distress. Lethargic but arousable HEENT:[Neck is supple.] [No neck masses.] [No thyromegaly.] [No JVD.] Chest: [Diminished breath no crackles, no rhonchi, no wheezes.] Cardiac Exam: [Tachycardic, Normal S1 and S2, no S3 gallop, no murmur.] Abdomen: [Soft, nontender, no megaly, no rebound, no guarding, normal bowel sounds.] Extremities: [No clubbing, 2+ bipedal edema, left lower extremity seems to be a bit more edematous than the right lower extremity. No cyanosis.] Neurological Exam: Confused, lethargic, arousable, but not verbal, otherwise no gross focal neurologic deficit. - Labs CBC & Chem 7: 04/09/17 06:25 04/09/17 06:25 Labs: Abnormal Lab Results - Last 24 Hours (Table) 04/08/17 04/09/17 04/09/17 Range/Units 13:53 06:25 06:25 RBC 3.29 L (4.30-5.90) m/uL Hgb 9.2 L (13.0-17.5) gm/dL Hct 29.1 L (39.0-53.0) % RDW 15.7 H (11.5-15.5) % Neutrophils # 9.3 H (1.3-7.7) k/uL Lymphocytes # 0.5 L (1.0-4.8) k/uL APTT (22.0-30.0) sec Potassium 3.1 L 2.7 L* (3.5-5.1) mmol/L Chloride 115 H (98-107) mmol/L Carbon Dioxide 17 L (22-30) mmol/L BUN 31 H (9-20) mg/dL Calcium 7.1 L (8.4-10.2) mg/dL 04/09/17 04/09/17 Range/Units 06:25 11:55 RBC (4.30-5.90) m/uL Hgb (13.0-17.5) gm/dL Hct (39.0-53.0) % RDW (11.5-15.5) % Neutrophils # (1.3-7.7) k/uL Lymphocytes # (1.0-4.8) k/uL APTT 42.8 H 57.1 H (22.0-30.0) sec Potassium (3.5-5.1) mmol/L Chloride (98-107) mmol/L Carbon Dioxide (22-30) mmol/L BUN (9-20) mg/dL Calcium (8.4-10.2) mg/dL Microbiology - Last 24 Hours (Table) 04/07/17 10:44 Blood Culture - Preliminary Blood No Growth after 48 hours 04/05/17 23:29 Urine Culture - Final Urine,Voided Escherichia coli Assessment and Plan Plan: Impression: 1 acute urinary tract infection and gram-negative/E. coli septic shock. Patient seems to be on appropriate antibiotics for now, E. coli in the blood is sensitive to cefepime. Patient is now on ceftriaxone 2 acute left lower extremity DVT, patient is presently on heparin. Continue to monitor coagulation profile. 3 history of multiple comorbidities including COPD, dementia, hyperlipidemia, osteoarthritis, history of chronic urinary retention and urethral strictures, history of prostate cancer with surgery and radiation, Recommendation: Continue present treatment plan including antibiotics, will be given a dose of Lasix today for his eye pedal edema, continue to monitor potassium and correct as per protocol. Oral potassium was ordered 1 dose only and we'll continue the protocol. Not quite ready for quitting discharge planning Time with Patient: Less than 30
[2017-04-09] MEDS: HEPARIN SODIUM,PORCINE/D5W PMX 25,000 UNIT in DEXTROSE/WATER 1 500ML.BAG IV SCH (14:28)
[2017-04-09] MEDS: cefTRIAXone 2,000 MG in SODIUM CHLORIDE 0.9% 100 ML IVPB SCH (15:54)
--- NOTE | 2017-04-09 17:57 | P.PN ---
Subjective Principal diagnosis: septic shock 82-year-old male presents to the emergency center from the extended care facility. Is limited that at his residence the patient was doing poorly. He had a drop in his pulse oximetry. Seemed to be not well. EMS was called. Upon their arrival his saturations were adequate. However the patient was tachycardic and hypotensive. They also believe that he was febrile. He was then transported to the Emergency Ctr[facility] where he was found to have evidence of hypotension. He was given fluid resuscitation. Despite that he remained hypotensive and required vasopressor therapy with Levophed. The patient was transferred to the intensive care unit received further resuscitation. With further fluids is little elevated lactic acid improved. Patient was continued to have somewhat of a poor mentation just part of his difficulties at transfer also known dementia. Because of his gram-negative sepsis the infectious diseases consultation was requested. The patient is a poor historian and most information is coming from the chart and the current nursing staff. The patient does seem to be a bit more uncomfortable he was earlier in the day as per the nursing staff. It is noted that urine output has been poor despite his extensive fluid resuscitation. Urine is very cloudy and thick. Renal ultrasound has been performed several hours ago. Evidence of bilateral hydronephrosis and sludge in his bladder. Today the patient is showing some improvement. He is arousable. He seems to be comfortable. The patient has been seen by urology. He had a coud catheter placed with the ureteroscope, because of a difficulty with a false passage. Patient is draining adequate amounts of urine. However patient's fever, hypotension, leukocytosis are all improved. Objective - Vital Signs Vital signs: Vital Signs Temp 97.0 F L 04/09/17 16:00 Pulse 118 H 04/09/17 16:00 Resp 18 04/09/17 16:00 BP 119/60 04/09/17 16:00 Pulse Ox 98 04/09/17 16:00 Intake & Output 04/08/17 04/09/17 04/09/17 18:59 06:59 18:59 Intake Total 2300 2848.474 600.000 Output Total 1378 1725 2600 Balance 922 1123.474 -2000.000 Weight 90.3 kg 95 kg Intake: IV 1400 2112 Heparin Sodium,Porcine/ 512 D5w Pmx 25,000 unit In Dextrose/Water 1 500ml. bag @ 18 UNITS/KG/HR 32. 04 mls/hr IV .[id number] [facility] Rx#:[id number] Sodium Chloride 0.9% 1, 1300 1600 000 ml @ 30 mls/hr IV . Q24H [facility] Rx#:[id number] cefTRIAXone 2,000 mg In 100 Sodium Chloride 0.9% 100 ml @ 100 mls/hr IVPB Q24H [facility] Rx#:[id number] Intake, IV Titration 900 736.474 500.000 Amount Heparin Sodium,Porcine/ 486.474 500.000 D5w Pmx 25,000 unit In Dextrose/Water 1 500ml. bag @ 18 UNITS/KG/HR 32. 04 mls/hr IV .[id number] [facility] Rx#:[id number] Sodium Chloride 0.9% 1, 900 000 ml @ 30 mls/hr IV . Q24H [facility] Rx#:[id number] Vancomycin 1,500 mg In 250 Sodium Chloride 0.9% 250 ml @ 125 mls/hr IVPB Q24H [facility] Rx#:[id number] Oral 100 Output: Urine 1378 1725 2600 Other: Voiding Method Indwelling Catheter Indwelling Catheter Indwelling Catheter - Exam HEENT: Anicteric conjunctiva are pink and moist nasal mucosa grossly intact without significant lesions, there is no thrush. Oral cavity is dry with generalized poor long-term hygiene Neck: The neck is supple without significant lymphadenopathy or thyromegaly. Lungs: Good bilateral air entry without significant crackles or wheezing. There is no significant bronchial sounds. There is no egophony or dullness. Heart: Regular rate and rhythm with an audible S1-S2, no S3 no S4. There is no significant murmur click or rub, PMI was nondisplaced. Abdomen: Positive bowel sounds soft and tender without palpable masses or organomegaly. Lower abdomen appears to be quite distended. Extremities: The upper extremities have excellent pulses they are symmetric, no significant petechiae or telangiectasia. No splinter hemorrhages were noted. The lower extremities are free from significant edema. The peripheral pulses were 2+ and symmetric. Neuro: Arousable and follows a few commands today slightly brighter and affect Skin: Minimal erythema to buttocks with no open ulcers being seen. No ulcers to heals. - Labs CBC & Chem 7: 04/09/17 06:25 04/09/17 06:25 Labs: Abnormal Lab Results - Last 24 Hours (Table) 04/09/17 04/09/17 04/09/17 Range/Units 06:25 06:25 06:25 RBC 3.29 L (4.30-5.90) m/uL Hgb 9.2 L (13.0-17.5) gm/dL Hct 29.1 L (39.0-53.0) % RDW 15.7 H (11.5-15.5) % Neutrophils # 9.3 H (1.3-7.7) k/uL Lymphocytes # 0.5 L (1.0-4.8) k/uL APTT 42.8 H (22.0-30.0) sec Potassium 2.7 L* (3.5-5.1) mmol/L Chloride 115 H (98-107) mmol/L Carbon Dioxide 17 L (22-30) mmol/L BUN 31 H (9-20) mg/dL Calcium 7.1 L (8.4-10.2) mg/dL 04/09/17 Range/Units 11:55 RBC (4.30-5.90) m/uL Hgb (13.0-17.5) gm/dL Hct (39.0-53.0) % RDW (11.5-15.5) % Neutrophils # (1.3-7.7) k/uL Lymphocytes # (1.0-4.8) k/uL APTT 57.1 H (22.0-30.0) sec Potassium (3.5-5.1) mmol/L Chloride (98-107) mmol/L Carbon Dioxide (22-30) mmol/L BUN (9-20) mg/dL Calcium (8.4-10.2) mg/dL Microbiology - Last 24 Hours (Table) 04/07/17 10:44 Blood Culture - Preliminary Blood No Growth after 48 hours Laboratory Results WBC 10.4 k/uL (3.8-10.6) 04/09/17 06:25 RBC 3.29 m/uL (4.30-5.90) L 04/09/17 06:25 Hgb 9.2 gm/dL (13.0-17.5) L 04/09/17 06:25 Hct 29.1 % (39.0-53.0) L 04/09/17 06:25 MCV 88.4 fL (80.0-100.0) 04/09/17 06:25 MCH 27.9 pg (25.0-35.0) 04/09/17 06:25 MCHC 31.6 g/dL (31.0-37.0) 04/09/17 06:25 RDW 15.7 % (11.5-15.5) H 04/09/17 06:25 Plt Count 213 k/uL (150-450) 04/09/17 06:25 Neutrophils % 89 % 04/09/17 06:25 Neutrophils % (Manual) 60 % 04/07/17 02:06 Band Neutrophils % 37 % 04/07/17 02:06 Lymphocytes % 5 % 04/09/17 06:25 Lymphocytes % (Manual) 2 % 04/07/17 02:06 Monocytes % 3 % 04/09/17 06:25 Monocytes % (Manual) 2 % 04/07/17 02:06 Eosinophils % 1 % 04/09/17 06:25 Basophils % 0 % 04/09/17 06:25 Neutrophils # 9.3 k/uL (1.3-7.7) H 04/09/17 06:25 Neutrophils # (Manual) 17.20 k/uL (1.3-7.7) H 04/07/17 02:06 Lymphocytes # 0.5 k/uL (1.0-4.8) L 04/09/17 06:25 Lymphocytes # (Manual) 0.36 k/uL (1.0-4.8) L 04/07/17 02:06 Monocytes # 0.3 k/uL (0-1.0) 04/09/17 06:25 Monocytes # (Manual) 0.36 k/uL (0-1.0) 04/07/17 02:06 Eosinophils # 0.1 k/uL (0-0.7) 04/09/17 06:25 Basophils # 0.0 k/uL (0-0.2) 04/09/17 06:25 Nucleated RBCs 0 /100 WBC (0-0) 04/07/17 02:06 Manual Slide Review Performed 04/06/17 02:45 Toxic Vacuolation Present 04/07/17 02:06 Polychromasia Present 04/07/17 02:06 Hypochromasia Slight 04/09/17 06:25 Anisocytosis Slight 04/07/17 02:06 Crenated Cell Present 04/07/17 02:06 PT 13.1 sec (9.0-12.0) H 04/06/17 21:54 INR 1.3 (<1.2) H 04/06/17 21:54 APTT 57.1 sec (22.0-30.0) H 04/09/17 11:55 Sodium 138 mmol/L (137-145) 04/09/17 06:25 Potassium 2.7 mmol/L (3.5-5.1) L* 04/09/17 06:25 Chloride 115 mmol/L (98-107) H 04/09/17 06:25 Carbon Dioxide 17 mmol/L (22-30) L 04/09/17 06:25 Anion Gap 6 mmol/L 04/09/17 06:25 BUN 31 mg/dL (9-20) H 04/09/17 06:25 Creatinine 0.95 mg/dL (0.66-1.25) 04/09/17 06:25 Est GFR (MDRD) Af Amer >60 (>60 ml/min/1.73 sqM) 04/09/17 06:25 Est GFR (MDRD) Non-Af >60 (>60 ml/min/1.73 sqM) 04/09/17 06:25 Glucose 88 mg/dL (74-99) 04/09/17 06:25 POC Glucose (mg/dL) 92 mg/dL (75-99) 04/07/17 15:23 POC Glu Newspaper Delivery Driver ID Jonny Almaraz Carri 04/07/17 15:23 Lactic Ac Sepsis Rflx Y 04/07/17 16:05 Plasma Lactic Acid Georges 2.9 mmol/L (0.7-2.0) H* 04/07/17 19:17 Calcium 7.1 mg/dL (8.4-10.2) L 04/09/17 06:25 Phosphorus 2.6 mg/dL (2.5-4.5) 04/09/17 06:25 Magnesium 2.0 mg/dL (1.6-2.3) 04/09/17 06:25 Total Bilirubin 0.4 mg/dL (0.2-1.3) 04/07/17 02:06 AST 34 U/L (17-59) 04/07/17 02:06 ALT 37 U/L (21-72) 04/07/17 02:06 Alkaline Phosphatase 65 U/L (38-126) 04/07/17 02:06 Total Protein 4.5 g/dL (6.3-8.2) L 04/07/17 02:06 Albumin 2.0 g/dL (3.5-5.0) L 04/07/17 02:06 Urine Color Light Red 04/05/17 23:29 Urine Appearance Turbid (Clear) 04/05/17 23:29 Urine pH 8.5 (5.0-8.0) H 04/05/17 23:29 Ur Specific Nicholls 1.012 (1.001-1.035) 04/05/17 23:29 Urine Protein 4+ (Negative) H 04/05/17 23:29 Urine Glucose (UA) Negative (Negative) 04/05/17 23:29 Urine Ketones Negative (Negative) 04/05/17 23:29 Urine Blood Negative (Negative) 04/05/17 23:29 Urine Nitrite Negative (Negative) 04/05/17 23:29 Urine Bilirubin Negative (Negative) 04/05/17 23:29 Urine Urobilinogen <2.0 mg/dL (<2.0) 04/05/17 23:29 Ur Leukocyte Esterase Large (Negative) H 04/05/17 23:29 Urine WBC 145 /hpf (0-5) H 04/05/17 23:29 Amorphous Sediment Occasional /hpf (None) H 04/05/17 23:29 Urine Bacteria Rare /hpf (None) H 04/05/17 23:29 Vancomycin Trough 11.7 ug/mL 04/08/17 20:33 Random Vancomycin 13.1 ug/mL 04/07/17 08:51 Microbiology 04/07/17 10:44 Blood Blood Culture - Preliminary No Growth after 48 hours 04/05/17 23:29 Urine,Voided Urine Culture - Final Escherichia coli 04/05/17 23:09 Blood Blood Culture Gram Stain - Final 04/05/17 23:09 Blood Blood Culture - Final Escherichia coli 04/05/17 23:09 Blood Blood Culture - Final Assessment and Plan (1) Septic shock Narrative/Plan: 82-year-old male presents from the extended care facility with alteration of his status. Concerns to hypoxemia which corrected upon arrival of EMS. However the patient was hypotensive and tachycardic and febrile. Upon arrival the patient had evidence of sepsis and shock requiring fluid resuscitation and then vasopressor therapy. With adequate resuscitation he has now improved and is off vasopressor therapy. However continues to have a poor mental status. His fever is improved. On exam the patient had a poor urinary output had evidence of distention to his lower abdomen that was tender. Recent ultrasound showed evidence of bilateral hydronephrosis and sludge in his bladder. A bladder scan was requested and a liter of fluid was noted in his latter. The catheter was blocked and a new Chi was placed and the patient had resolution of his distention. He has been seen by urology in his phimosis was cared for at the bedside. His other the patient has gram-negative sepsis with the final cultures recent cultures have shown evidence of pseudomonas aeruginosa that is susceptible to cefepime. This will remain at this point in time pending further culture results. Follow up blood cultures are requested to ensure his bacteremia has cleared. He has a profound leukocytosis due to his current sepsis and obstructive process. Altered mentation on the basis of sepsis Acute renal failure on the basis of an obstructive process and is resolved as his sepsis and obstruction has been resolved by the urologist in the placement of the coud catheter. Hypokalemia has resolved. Patient is improving will likely be moved out of the intensive care unit today. Status: Acute (2) Gram-negative sepsis with organ dysfunction Status: Acute (3) UTI (urinary tract infection) Status: Acute (4) Leukocytosis Status: Acute
[2017-04-09] MEDS: QUEtiapine 25 MG TAB PO PRN (21:14)
[2017-04-09] MEDS: traZODone HCL 100 MG TAB PO SCH (21:15)
[2017-04-09] MEDS: ACETAMINOPHEN TAB 325 MG TAB PO PRN (23:33)
[2017-04-10] MEDS: HEPARIN SODIUM,PORCINE/D5W PMX 25,000 UNIT in DEXTROSE/WATER 1 500ML.BAG IV SCH ×2 (03:40→17:00)
[2017-04-10] MEDS: PANTOPRAZOLE 40 MG TABLET PO SCH (06:25)
[2017-04-10 06:31] LABS: Basophils % (A) 0 %; CH 26.9; CHCM 29.3; Eosinophils # (A) 0.1 k/uL (0-0.7); Eosinophils % (A) 2 %; HCT 29.3 % (39.0-53.0); HDW 2.52; HGB 8.9 gm/dL (13.0-17.5); Hypochromasia Marked; Luc % (Auto) 4; Lymphocytes # (A) 0.6 k/uL (1.0-4.8); Lymphocytes % (A) 8 %; MCHC 30.4 g/dL (31.0-37.0); MCV 92.1 fL (80.0-100.0); Mean Platelet Volume 6.5; Monocytes # (A) 0.3 k/uL (0-1.0); Monocytes % (A) 4 %; Neutrophils # (A) 6.7 k/uL (1.3-7.7); Neutrophils % (A) 83 %; RBC 3.18 m/uL (4.30-5.90); RDW 15.6 % (11.5-15.5); WBC 8.1 k/uL (3.8-10.6); WBC (Perox) 8.46
[2017-04-10 06:51] LABS: ALT 31 U/L (21-72); AST 22 U/L (17-59); Alkaline Phosphatase 114 U/L (38-126); Anion Gap 8 mmol/L; Blood Urea Nitrogen 29 mg/dL (9-20); Calcium 7.3 mg/dL (8.4-10.2); Carbon Dioxide 17 mmol/L (22-30); Chloride 116 mmol/L (98-107); Glucose 115 mg/dL (74-99); Non-African American GFR(MDRD) >60 (>60 ml/min/1.73 sqM); Sodium 141 mmol/L (137-145); Total Bilirubin 0.3 mg/dL (0.2-1.3); Total Protein 4.3 g/dL (6.3-8.2)
[2017-04-10 06:58] LABS: Potassium 2.8 mmol/L (3.5-5.1)
[2017-04-10] MEDS ORDERED: POTASSIUM CHLORIDE ER 20 MEQ TAB.ER PO SCH (08:00)
[2017-04-10] MEDS: SODIUM CHLORIDE 0.9% 1,000 ML IV SCH ×3 (08:04→23:34)
[2017-04-10] MEDS: POTASSIUM CHLORIDE 10 MEQ, LIDOCAINE 2% INJ 10 MG in SODIUM CHLORIDE 0.9% 100 ML IV SCH ×2 (08:36→09:40)
[2017-04-10] MEDS ORDERED: Potassium Replacement Protocol 1 EACH MISC MISCELLANE PRN (09:44)
--- NOTE | 2017-04-10 09:51 | P.PN ---
Subjective This is a 82-year-old gentleman with complex past medical history who is a long- term resident at [facility] who presented to the hospital with altered mental status. Patient is known to have underlying history of prostate cancer with chronic obstructive uropathy and chronic indwelling Chi catheter. Patient has been having problems with recurrent UTIs with significant pus draining from around the catheter for several months. He has been treated with different courses of antibiotic both oral and IV. He had numerous resistant bacteria growing in the urine culture. He had a problem that each time antibiotic was discontinued patient started having cloudy urine all over again. He was seen by urology twice in the office previously with a concern about a possible anatomic problems or fistula causing his persistent pus draining at the evaluation was negative. On 04/09/17 patient is somnolent and confused otherwise in no apparent distress Denies any pain or discomfort at this time denies any shortness of breath Objective - Vital Signs Vital signs: Vital Signs Temp 96.3 F L 04/10/17 08:00 Pulse 109 H 04/10/17 08:00 Resp 19 04/10/17 08:00 BP 130/72 04/10/17 08:00 Pulse Ox 95 04/10/17 08:00 Intake & Output 04/09/17 04/10/17 04/10/17 18:59 06:59 18:59 Intake Total 600.000 469.92 0 Output Total 2600 1500 Balance -2000.000 469.92 -1500 Weight 94.5 kg Intake: Intake, IV Titration 500.000 469.92 Amount Heparin Sodium,Porcine/ 500.000 469.92 D5w Pmx 25,000 unit In Dextrose/Water 1 500ml. bag @ 18 UNITS/KG/HR 32. 04 mls/hr IV .[id number] [facility] Rx#:[id number] Oral 100 0 Output: Urine 2600 1500 Other: Voiding Method Indwelling Catheter Indwelling Catheter Indwelling Catheter - Exam General: The patient is awake and alert, in no distress Eye: there is normal conjunctiva bilaterally. Neck: The neck is supple, there is no JVD. Cardiovascular: Normal S1-S2, no S3-S4, no murmurs. Respiratory: Lungs clear to auscultation bilaterally Gastrointestinal: Abdomen is soft, nontender Musculoskeletal: There is no pedal edema. Neurological:. Speech is normal. - Labs CBC & Chem 7: 09/09/17 06:09 04/10/17 06:09 Labs: Abnormal Lab Results - Last 24 Hours (Table) 04/09/17 04/10/17 04/10/17 Range/Units 11:55 06:09 06:09 RBC 3.18 L (4.30-5.90) m/uL Hgb 8.9 L (13.0-17.5) gm/dL Hct 29.3 L (39.0-53.0) % MCHC 30.4 L (31.0-37.0) g/dL RDW 15.6 H (11.5-15.5) % Lymphocytes # 0.6 L (1.0-4.8) k/uL APTT 57.1 H (22.0-30.0) sec Potassium 2.8 L* (3.5-5.1) mmol/L Chloride 116 H (98-107) mmol/L Carbon Dioxide 17 L (22-30) mmol/L BUN 29 H (9-20) mg/dL Glucose 115 H (74-99) mg/dL Calcium 7.3 L (8.4-10.2) mg/dL Total Protein 4.3 L (6.3-8.2) g/dL Albumin 1.9 L (3.5-5.0) g/dL 04/10/17 Range/Units 06:09 RBC (4.30-5.90) m/uL Hgb (13.0-17.5) gm/dL Hct (39.0-53.0) % MCHC (31.0-37.0) g/dL RDW (11.5-15.5) % Lymphocytes # (1.0-4.8) k/uL APTT 49.5 H (22.0-30.0) sec Potassium (3.5-5.1) mmol/L Chloride (98-107) mmol/L Carbon Dioxide (22-30) mmol/L BUN (9-20) mg/dL Glucose (74-99) mg/dL Calcium (8.4-10.2) mg/dL Total Protein (6.3-8.2) g/dL Albumin (3.5-5.0) g/dL Microbiology - Last 24 Hours (Table) 04/07/17 10:44 Blood Culture - Preliminary Blood No Growth after 48 hours Assessment and Plan Plan: 1. Catheter associated urinary tract infection, present on admission, recurrent 2. Severe sepsis with septic shock requiring vasopressors 3. Chronic obstructive uropathy 4. History of prostate cancer with no evidence of metastasis on bone scan in November 5. Underlying cognitive impairment/dementia 6. Right lower extremity swelling 7. Severe hypokalemia correcting per protocol 8. Acute left lower extremity DVT maintained on IV heparin Today patient remains on telemetry floor, blood pressure stable mental status changes without any improvement Maintained on IV Rocephin 2 g every [address] Sanders following Follow closely on telemetry
[2017-04-10] MEDS: POTASSIUM CHLORIDE ORAL LIQUID 40 MEQ/30 ML CUP PO SCH ×3 (11:19→20:57)
[2017-04-10 11:38] LABS: % Iron Saturation 13.3 % (20-50)
--- NOTE | 2017-04-10 11:42 | P.PN ---
Subjective Principal diagnosis: Acute septic shock secondary to urinary tract infection This is an 82-year-old white male who is a [facility] resident, has chronic indwelling Chi catheter, has history of chronic dementia, patient was noted by the [facility] staff to drop his O2 saturations, and he was also noted to be tachycardic. However when EMS arrived, his O2 saturation was 95% on room air. Patient was noted to be febrile and tachycardic with heart rate in the 130 range. Patient is not the greatest historian because of his underlying dementia. But workup in the ER pointed to urinary tract infection and possible sepsis. His urinalysis showed evidence of pyuria and bacteriuria. His lactic acid was elevated, and his blood pressure was marginal. Patient was also noted to have leukocytosis with WBC count of 26.6. There was also evidence of anion gap metabolic acidosis, hyperkalemia, renal failure with a BUN of 47 and creatinine of 2.60. Lactic acid on admission was 5.8. Repeat uric acid was 3.8 after fluid boluses. Patient received a total of 5 L of fluid boluses since admission. Considering his presentation of urinary tract infection and sepsis presentation, patient was admitted to the ICU, and we were asked to see him on consultation. Again the patient is a very poor historian. Chest x-ray showed mostly by basilar atelectasis, no clear-cut evidence of pneumonia or congestive heart failure. Patient was reevaluated today on 04/07/2017, doing much better today compared to yesterday. However he remains on norepinephrine at 2 mcg/m, blood pressure is marginal. He remains tachycardic, remains acidotic with lactic acid is still elevated, hence I have recommended more fluid boluses today, and we'll continue with the same antibiotics for his positive cultures in the blood showing gram- negative bacilli. His antibiotics were not changed. Infectious disease on the case. Labs were reviewed, leukocytosis seems to be improving. Initial WBC count on presentation was 33.4, today it is 17.8. Hemoglobin is 10.9. Patient is on heparin for what seems to be a deep vein thromboses in the left popliteal vein. Renal profile is improving BUN is 49 creatinine is 1.60. Basic metabolic profile is relatively unremarkable otherwise. Bicarb remains low at 12, but this is mostly a picture of hyperchloremic non-anion gap metabolic acidosis. Patient seems to be in no form of distress at this point. Patient was reevaluated today on 04/08/2017, continues to do relatively well, but he remains on 2 g of levo fed. We plan to hopefully discontinue the norepinephrine today, and possibly transferred to a monitor bed in the next 12 hours. Assuming the patient couldn't tolerate coming off levo fed. His cultures including blood and urine came back positive for E. coli, sensitive to cefepime which is presently on. CBC was reviewed relatively unremarkable hemoglobin is 9.7 potassium is 3.0 being corrected as per protocol. Patient continues to have a hyperchloremic non-anion gap metabolic acidosis. Renal profile is significantly improved BUN is 40 and creatinine is 1.18. Chest x- ray no evidence of congestive heart failure. Actually his chest x-ray is showing improved aeration at the lung bases. Minimal atelectasis persists. Patient was reevaluated today on 04/09/2017, remains hemodynamically stable, off levo fed, lethargic but arousable this is basically his baseline not verbal, I believe he has underlying dementia. Seems to be draining good amount of urine, his leukocytosis fever and hypotension have resolved. WBC count is 10.4 today, hemoglobin is 9.2, potassium is low hence I will give him 40 mEq of potassium orally, patient remains significantly swollen and edematous especially in the left lower extremity. And I recommended giving him 1 dose of Lasix today. Patient was switched to Rocephin from cefepime. Patient was reevaluated today on 04/10/2017, continues to do relatively well, patient remains confused, his potassium remains quite low hence I recommended a maintenance dose of oral potassium for the next 24 hours and that will be 20 mEq 4 times a day. Potassium will be readdressed tomorrow and the dose will be readdressed after 24 hours. Patient remains puffy and swollen, I am planning more Lasix to be given but I would like to have the potassium corrected at least to above 3.5 before Lasix could be given. Patient remains on heparin for DVT of the left popliteal vein. His labs from today were reviewed, PTT is therapeutic, CBC is relatively unremarkable WBC count of 8.1 hemoglobin is 8.9 potassium is 2.8 BUN is down to 29 creatinine is 0.94. Both were improved. Objective - Vital Signs Vital signs: Vital Signs Temp 96.3 F L 09/09/17 08:00 Pulse 109 H 04/10/17 08:00 Resp 19 04/10/17 08:00 BP 130/72 04/10/17 08:00 Pulse Ox 95 04/10/17 08:00 Intake & Output 04/09/17 04/10/17 04/10/17 18:59 06:59 18:59 Intake Total 600.000 469.92 0 Output Total 2600 1500 Balance -2000.000 469.92 -1500 Weight 94.5 kg Intake: Intake, IV Titration 500.000 469.92 Amount Heparin Sodium,Porcine/ 500.000 469.92 D5w Pmx 25,000 unit In Dextrose/Water 1 500ml. bag @ 18 UNITS/KG/HR 32. 04 mls/hr IV .[id number] [facility] Rx#:[id number] Oral 100 0 Output: Urine 2600 1500 Other: Voiding Method Indwelling Catheter Indwelling Catheter Indwelling Catheter - Exam Physical Exam: Revealed an 82-year-old, lethargic, in no form of respiratory distress. Lethargic but arousable HEENT:[Neck is supple.] [No neck masses.] [No thyromegaly.] [No JVD.] Chest: [Diminished breath no crackles, no rhonchi, no wheezes.] Cardiac Exam: [Tachycardic, Normal S1 and S2, no S3 gallop, no murmur.] Abdomen: [Soft, nontender, no megaly, no rebound, no guarding, normal bowel sounds.] Extremities: [No clubbing, 2+ bipedal edema, left lower extremity seems to be a bit more edematous than the right lower extremity. No cyanosis.] Right upper extremity seems to be also a bit swollen. Neurological Exam: Confused, lethargic, arousable, but not verbal, otherwise no gross focal neurologic deficit. - Labs CBC & Chem 7: 04/10/17 06:09 04/10/17 06:09 Labs: Abnormal Lab Results - Last 24 Hours (Table) 04/09/17 04/10/17 04/10/17 Range/Units 11:55 06:09 06:09 RBC 3.18 L (4.30-5.90) m/uL Hgb 8.9 L (13.0-17.5) gm/dL Hct 29.3 L (39.0-53.0) % MCHC 30.4 L (31.0-37.0) g/dL RDW 15.6 H (11.5-15.5) % Lymphocytes # 0.6 L (1.0-4.8) k/uL APTT 57.1 H (22.0-30.0) sec Potassium 2.8 L* (3.5-5.1) mmol/L Chloride 116 H (98-107) mmol/L Carbon Dioxide 17 L (22-30) mmol/L BUN 29 H (9-20) mg/dL Glucose 115 H (74-99) mg/dL Calcium 7.3 L (8.4-10.2) mg/dL Total Protein 4.3 L (6.3-8.2) g/dL Albumin 1.9 L (3.5-5.0) g/dL 04/10/17 Range/Units 06:09 RBC (4.30-5.90) m/uL Hgb (13.0-17.5) gm/dL Hct (39.0-53.0) % MCHC (31.0-37.0) g/dL RDW (11.5-15.5) % Lymphocytes # (1.0-4.8) k/uL APTT 49.5 H (22.0-30.0) sec Potassium (3.5-5.1) mmol/L Chloride (98-107) mmol/L Carbon Dioxide (22-30) mmol/L BUN (9-20) mg/dL Glucose (74-99) mg/dL Calcium (8.4-10.2) mg/dL Total Protein (6.3-8.2) g/dL Albumin (3.5-5.0) g/dL Microbiology - Last 24 Hours (Table) 04/07/17 10:44 Blood Culture - Preliminary Blood No Growth after 48 hours Assessment and Plan Plan: Impression: 1 acute urinary tract infection and gram-negative/E. coli septic shock. Patient seems to be on appropriate antibiotics for now, E. coli in the blood is sensitive to cefepime. Patient is now on ceftriaxone, also sensitive to ceftriaxone. 2 acute left lower extremity DVT, patient is presently on heparin. Continue to monitor coagulation profile. Eventually the patient will likely need to be switched to Xarelto when time comes close to discharge planning. 3 history of multiple comorbidities including COPD, dementia, hyperlipidemia, osteoarthritis, history of chronic urinary retention and urethral strictures, history of prostate cancer with surgery and radiation, Recommendation: Continue present treatment plan including antibiotics, monitor potassium and correct accordingly. Consider gentle diuresis once the potassium is corrected. We'll continue to follow. Time with Patient: Less than 30
[2017-04-10] MEDS: cefTRIAXone 2,000 MG in SODIUM CHLORIDE 0.9% 100 ML IVPB SCH (14:03)
--- NOTE | 2017-04-10 19:41 | P.PN ---
Subjective Principal diagnosis: septic shock 82-year-old male presents to the emergency center from the extended care facility. Is limited that at his residence the patient was doing poorly. He had a drop in his pulse oximetry. Seemed to be not well. EMS was called. Upon their arrival his saturations were adequate. However the patient was tachycardic and hypotensive. They also believe that he was febrile. He was then transported to the Emergency Ctr[facility] where he was found to have evidence of hypotension. He was given fluid resuscitation. Despite that he remained hypotensive and required vasopressor therapy with Levophed. The patient was transferred to the intensive care unit received further resuscitation. With further fluids is little elevated lactic acid improved. Patient was continued to have somewhat of a poor mentation just part of his difficulties at transfer also known dementia. Because of his gram-negative sepsis the infectious diseases consultation was requested. The patient is a poor historian and most information is coming from the chart and the current nursing staff. The patient does seem to be a bit more uncomfortable he was earlier in the day as per the nursing staff. It is noted that urine output has been poor despite his extensive fluid resuscitation. Urine is very cloudy and thick. Renal ultrasound has been performed several hours ago. Evidence of bilateral hydronephrosis and sludge in his bladder. Today the patient is showing some improvement. He is arousable. He seems to be comfortable. The patient has been seen by urology. He had a coud catheter placed with the ureteroscope, because of a difficulty with a false passage. Patient is draining adequate amounts of urine. However patient's fever, hypotension, leukocytosis are all improved. Objective - Vital Signs Vital signs: Vital Signs Temp 98.7 F 04/10/17 15:25 Pulse 117 H 04/10/17 15:25 Resp 19 04/10/17 15:25 BP 110/75 04/10/17 15:25 Pulse Ox 95 04/10/17 15:25 Intake & Output 04/10/17 04/10/17 04/11/17 06:59 18:59 06:59 Intake Total 469.92 824.667 Output Total 1500 Balance 469.92 -675.333 Weight 94.5 kg Intake: Intake, IV Titration 469.92 474.667 Amount Heparin Sodium,Porcine/ 469.92 474.667 D5w Pmx 25,000 unit In Dextrose/Water 1 500ml. bag @ 18 UNITS/KG/HR 32. 04 mls/hr IV .[id number] [facility] Rx#:[id number] Oral 350 Output: Urine 1500 Other: Voiding Method Indwelling Catheter Indwelling Catheter - Exam HEENT: Anicteric conjunctiva are pink and moist nasal mucosa grossly intact without significant lesions, there is no thrush. Oral cavity is dry with generalized poor long-term hygiene Neck: The neck is supple without significant lymphadenopathy or thyromegaly. Lungs: Good bilateral air entry without significant crackles or wheezing. There is no significant bronchial sounds. There is no egophony or dullness. Heart: Regular rate and rhythm with an audible S1-S2, no S3 no S4. There is no significant murmur click or rub, PMI was nondisplaced. Abdomen: Positive bowel sounds soft and tender without palpable masses or organomegaly. Lower abdomen appears to be quite distended. Extremities: The upper extremities have excellent pulses they are symmetric, no significant petechiae or telangiectasia. No splinter hemorrhages were noted. The lower extremities are free from significant edema. The peripheral pulses were 2+ and symmetric. Neuro: Arousable and follows a few commands today slightly brighter and affect Skin: Minimal erythema to buttocks with no open ulcers being seen. No ulcers to heals. - Labs CBC & Chem 7: 04/10/17 06:09 04/10/17 06:09 Labs: Abnormal Lab Results - Last 24 Hours (Table) 04/10/17 04/10/17 04/10/17 Range/Units 06:09 06:09 06:09 RBC 3.18 L (4.30-5.90) m/uL Hgb 8.9 L (13.0-17.5) gm/dL Hct 29.3 L (39.0-53.0) % MCHC 30.4 L (31.0-37.0) g/dL RDW 15.6 H (11.5-15.5) % Lymphocytes # 0.6 L (1.0-4.8) k/uL APTT 49.5 H (22.0-30.0) sec Potassium 2.8 L* (3.5-5.1) mmol/L Chloride 116 H (98-107) mmol/L Carbon Dioxide 17 L (22-30) mmol/L BUN 29 H (9-20) mg/dL Glucose 115 H (74-99) mg/dL Calcium 7.3 L (8.4-10.2) mg/dL Iron (49-181) ug/dL TIBC (261-462) ug/dL % Saturation (20-50) % Total Protein 4.3 L (6.3-8.2) g/dL Albumin 1.9 L (3.5-5.0) g/dL 04/10/17 Range/Units 06:09 RBC (4.30-5.90) m/uL Hgb (13.0-17.5) gm/dL Hct (39.0-53.0) % MCHC (31.0-37.0) g/dL RDW (11.5-15.5) % Lymphocytes # (1.0-4.8) k/uL APTT (22.0-30.0) sec Potassium (3.5-5.1) mmol/L Chloride (98-107) mmol/L Carbon Dioxide (22-30) mmol/L BUN (9-20) mg/dL Glucose (74-99) mg/dL Calcium (8.4-10.2) mg/dL Iron 20 L (49-181) ug/dL TIBC 150 L (261-462) ug/dL % Saturation 13.3 L (20-50) % Total Protein (6.3-8.2) g/dL Albumin (3.5-5.0) g/dL Microbiology - Last 24 Hours (Table) 04/07/17 10:44 Blood Culture - Preliminary Blood No Growth after 72 hours Laboratory Results WBC 8.1 k/uL (3.8-10.6) 04/10/17 06:09 RBC 3.18 m/uL (4.30-5.90) L 04/10/17 06:09 Hgb 8.9 gm/dL (13.0-17.5) L 04/10/17 06:09 Hct 29.3 % (39.0-53.0) L 04/10/17 06:09 MCV 92.1 fL (80.0-100.0) 04/10/17 06:09 MCH 28.0 pg (25.0-35.0) 04/10/17 06:09 MCHC 30.4 g/dL (31.0-37.0) L 04/10/17 06:09 RDW 15.6 % (11.5-15.5) H 04/10/17 06:09 Plt Count 236 k/uL (150-450) 04/10/17 06:09 Neutrophils % 83 % 04/10/17 06:09 Neutrophils % (Manual) 60 % 04/07/17 02:06 Band Neutrophils % 37 % 04/07/17 02:06 Lymphocytes % 8 % 04/10/17 06:09 Lymphocytes % (Manual) 2 % 04/07/17 02:06 Monocytes % 4 % 04/10/17 06:09 Monocytes % (Manual) 2 % 04/07/17 02:06 Eosinophils % 2 % 04/10/17 06:09 Basophils % 0 % 04/10/17 06:09 Neutrophils # 6.7 k/uL (1.3-7.7) 04/10/17 06:09 Neutrophils # (Manual) 17.20 k/uL (1.3-7.7) H 04/07/17 02:06 Lymphocytes # 0.6 k/uL (1.0-4.8) L 04/10/17 06:09 Lymphocytes # (Manual) 0.36 k/uL (1.0-4.8) L 04/07/17 02:06 Monocytes # 0.3 k/uL (0-1.0) 04/10/17 06:09 Monocytes # (Manual) 0.36 k/uL (0-1.0) 04/07/17 02:06 Eosinophils # 0.1 k/uL (0-0.7) 04/10/17 06:09 Basophils # 0.0 k/uL (0-0.2) 04/10/17 06:09 Nucleated RBCs 0 /100 WBC (0-0) 04/07/17 02:06 Manual Slide Review Performed 04/06/17 02:45 Toxic Vacuolation Present 04/07/17 02:06 Polychromasia Present 04/07/17 02:06 Hypochromasia Marked 04/10/17 06:09 Anisocytosis Slight 04/07/17 02:06 Crenated Cell Present 04/07/17 02:06 PT 13.1 sec (9.0-12.0) H 04/06/17 21:54 INR 1.3 (<1.2) H 04/06/17 21:54 APTT 49.5 sec (22.0-30.0) H 04/10/17 06:09 Sodium 141 mmol/L (137-145) 04/10/17 06:09 Potassium 2.8 mmol/L (3.5-5.1) L* 04/10/17 06:09 Chloride 116 mmol/L (98-107) H 04/10/17 06:09 Carbon Dioxide 17 mmol/L (22-30) L 04/10/17 06:09 Anion Gap 8 mmol/L 04/10/17 06:09 BUN 29 mg/dL (9-20) H 04/10/17 06:09 Creatinine 0.94 mg/dL (0.66-1.25) 04/10/17 06:09 Est GFR (MDRD) Af Amer >60 (>60 ml/min/1.73 sqM) 04/10/17 06:09 Est GFR (MDRD) Non-Af >60 (>60 ml/min/1.73 sqM) 04/10/17 06:09 Glucose 115 mg/dL (74-99) H 04/10/17 06:09 POC Glucose (mg/dL) 92 mg/dL (75-99) 04/07/17 15:23 POC Glu Refinery Operator Reforming Unit ID Sung [email or web address] 04/07/17 15:23 Lactic Ac Sepsis Rflx Y 04/07/17 16:05 Plasma Lactic Acid Georges 2.9 mmol/L (0.7-2.0) H* 04/07/17 19:17 Calcium 7.3 mg/dL (8.4-10.2) L 04/10/17 06:09 Phosphorus 2.6 mg/dL (2.5-4.5) 04/09/17 06:25 Magnesium 2.0 mg/dL (1.6-2.3) 04/09/17 06:25 Iron 20 ug/dL (49-181) L 04/10/17 06:09 TIBC 150 ug/dL (261-462) L 04/10/17 06:09 % Saturation 13.3 % (20-50) L 04/10/17 06:09 Total Bilirubin 0.3 mg/dL (0.2-1.3) 04/10/17 06:09 AST 22 U/L (17-59) 04/10/17 06:09 ALT 31 U/L (21-72) 04/10/17 06:09 Alkaline Phosphatase 114 U/L (38-126) 04/10/17 06:09 Total Protein 4.3 g/dL (6.3-8.2) L 04/10/17 06:09 Albumin 1.9 g/dL (3.5-5.0) L 04/10/17 06:09 Vitamin B12 971 pg/mL 04/10/17 06:09 Urine Color Light Red 04/05/17 23:29 Urine Appearance Turbid (Clear) 04/05/17 23:29 Urine pH 8.5 (5.0-8.0) H 04/05/17 23:29 Ur Specific [place] 1.012 (1.001-1.035) 04/05/17 23:29 Urine Protein 4+ (Negative) H 04/05/17 23:29 Urine Glucose (UA) Negative (Negative) 04/05/17 23:29 Urine Ketones Negative (Negative) 04/05/17 23:29 Urine Blood Negative (Negative) 04/05/17 23:29 Urine Nitrite Negative (Negative) 04/05/17 23:29 Urine Bilirubin Negative (Negative) 04/05/17 23:29 Urine Urobilinogen <2.0 mg/dL (<2.0) 04/05/17 23:29 Ur Leukocyte Esterase Large (Negative) H 04/05/17 23:29 Urine WBC 145 /hpf (0-5) H 04/05/17 23:29 Amorphous Sediment Occasional /hpf (None) H 04/05/17 23:29 Urine Bacteria Rare /hpf (None) H 04/05/17 23:29 Vancomycin Trough 11.7 ug/mL 04/08/17 20:33 Random Vancomycin 13.1 ug/mL 04/07/17 08:51 Microbiology 04/07/17 10:44 Blood Blood Culture - Preliminary No Growth after 72 hours 04/05/17 23:29 Urine,Voided Urine Culture - Final Escherichia coli 04/05/17 23:09 Blood Blood Culture Gram Stain - Final 04/05/17 23:09 Blood Blood Culture - Final Escherichia coli 04/05/17 23:09 Blood Blood Culture - Final Assessment and Plan (1) Septic shock Narrative/Plan: 82-year-old male presents from the extended care facility with alteration of his status. Concerns to hypoxemia which corrected upon arrival of EMS. However the patient was hypotensive and tachycardic and febrile. Upon arrival the patient had evidence of sepsis and shock requiring fluid resuscitation and then vasopressor therapy. With adequate resuscitation he has now improved and is off vasopressor therapy. However continues to have a poor mental status. His fever is improved. On exam the patient had a poor urinary output had evidence of distention to his lower abdomen that was tender. Recent ultrasound showed evidence of bilateral hydronephrosis and sludge in his bladder. A bladder scan was requested and a liter of fluid was noted in his latter. The catheter was blocked and a new Chi was placed and the patient had resolution of his distention. He has been seen by urology in his phimosis was cared for at the bedside. His other the patient has gram-negative sepsis with the final cultures recent cultures have shown evidence of Escherichia coli that is susceptible to cefepime as well as ceftriaxone. Antibiotic therapy was descalated to ceftriaxone and will require completion of a 2 week course This will remain at this point in time pending further culture results. Follow up blood cultures are requested to ensure his bacteremia has cleared. He has a profound leukocytosis due to his current sepsis and obstructive process. Altered mentation on the basis of sepsis Acute renal failure on the basis of an obstructive process and is resolved as his sepsis and obstruction has been resolved by the urologist in the placement of the coud catheter. Hypokalemia has resolved. Patient is in the medical floor showing improvement. Status: Acute (2) Gram-negative sepsis with organ dysfunction Status: Acute (3) UTI (urinary tract infection) Status: Acute (4) Leukocytosis Status: Acute
[2017-04-10] MEDS: traZODone HCL 100 MG TAB PO SCH (20:57)
[2017-04-10] MEDS: QUEtiapine 25 MG TAB PO PRN (23:48)
[2017-04-11] MEDS: HEPARIN SODIUM,PORCINE/D5W PMX 25,000 UNIT in DEXTROSE/WATER 1 500ML.BAG IV SCH (04:32)
[2017-04-11 06:22] LABS: Anisocytosis Slight; Basophils % (A) 0 %; CH 27.9; CHCM 31.5; Eosinophils # (A) 0.2 k/uL (0-0.7); Eosinophils % (A) 2 %; HCT 30.1 % (39.0-53.0); HDW 2.59; HGB 9.2 gm/dL (13.0-17.5); Luc # (Auto) 0.26; Luc % (Auto) 3; Lymphocytes # (A) 0.7 k/uL (1.0-4.8); Lymphocytes % (A) 7 %; MCH 27.2 pg (25.0-35.0); MCHC 30.6 g/dL (31.0-37.0); MCV 88.9 fL (80.0-100.0); Mean Platelet Volume 6.9; Monocytes # (A) 0.3 k/uL (0-1.0); Monocytes % (A) 4 %; Neutrophils # (A) 7.7 k/uL (1.3-7.7); Neutrophils % (A) 84 %; RBC 3.39 m/uL (4.30-5.90); RDW 16.3 % (11.5-15.5); WBC 9.1 k/uL (3.8-10.6); WBC (Perox) 9.68
[2017-04-11] MEDS: PANTOPRAZOLE 40 MG TABLET PO SCH (06:35)
[2017-04-11 06:39] LABS: ALT 28 U/L (21-72); AST 13 U/L (17-59); Alkaline Phosphatase 113 U/L (38-126); Anion Gap 5 mmol/L; Blood Urea Nitrogen 25 mg/dL (9-20); Calcium 7.4 mg/dL (8.4-10.2); Carbon Dioxide 19 mmol/L (22-30); Chloride 114 mmol/L (98-107); Glucose 110 mg/dL (74-99); Non-African American GFR(MDRD) >60 (>60 ml/min/1.73 sqM); Potassium 3.1 mmol/L (3.5-5.1); Sodium 138 mmol/L (137-145); Total Bilirubin 0.3 mg/dL (0.2-1.3); Total Protein 4.3 g/dL (6.3-8.2)
[2017-04-11] MEDS: POTASSIUM CHLORIDE ORAL LIQUID 40 MEQ/30 ML CUP PO SCH ×4 (08:28→21:54)
--- NOTE | 2017-04-11 12:08 | P.PN ---
Subjective Principal diagnosis: Acute septic shock secondary to urinary tract infection This is an 82-year-old white male who is a [facility] resident, has chronic indwelling Chi catheter, has history of chronic dementia, patient was noted by the [facility] staff to drop his O2 saturations, and he was also noted to be tachycardic. However when EMS arrived, his O2 saturation was 95% on room air. Patient was noted to be febrile and tachycardic with heart rate in the 130 range. Patient is not the greatest historian because of his underlying dementia. But workup in the ER pointed to urinary tract infection and possible sepsis. His urinalysis showed evidence of pyuria and bacteriuria. His lactic acid was elevated, and his blood pressure was marginal. Patient was also noted to have leukocytosis with WBC count of 26.6. There was also evidence of anion gap metabolic acidosis, hyperkalemia, renal failure with a BUN of 47 and creatinine of 2.60. Lactic acid on admission was 5.8. Repeat uric acid was 3.8 after fluid boluses. Patient received a total of 5 L of fluid boluses since admission. Considering his presentation of urinary tract infection and sepsis presentation, patient was admitted to the ICU, and we were asked to see him on consultation. Again the patient is a very poor historian. Chest x-ray showed mostly by basilar atelectasis, no clear-cut evidence of pneumonia or congestive heart failure. Patient was reevaluated today on 04/07/2017, doing much better today compared to yesterday. However he remains on norepinephrine at 2 mcg/m, blood pressure is marginal. He remains tachycardic, remains acidotic with lactic acid is still elevated, hence I have recommended more fluid boluses today, and we'll continue with the same antibiotics for his positive cultures in the blood showing gram- negative bacilli. His antibiotics were not changed. Infectious disease on the case. Labs were reviewed, leukocytosis seems to be improving. Initial WBC count on presentation was 33.4, today it is 17.8. Hemoglobin is 10.9. Patient is on heparin for what seems to be a deep vein thromboses in the left popliteal vein. Renal profile is improving BUN is 49 creatinine is 1.60. Basic metabolic profile is relatively unremarkable otherwise. Bicarb remains low at 12, but this is mostly a picture of hyperchloremic non-anion gap metabolic acidosis. Patient seems to be in no form of distress at this point. Patient was reevaluated today on 04/08/2017, continues to do relatively well, but he remains on 2 g of levo fed. We plan to hopefully discontinue the norepinephrine today, and possibly transferred to a monitor bed in the next 12 hours. Assuming the patient couldn't tolerate coming off levo fed. His cultures including blood and urine came back positive for E. coli, sensitive to cefepime which is presently on. CBC was reviewed relatively unremarkable hemoglobin is 9.7 potassium is 3.0 being corrected as per protocol. Patient continues to have a hyperchloremic non-anion gap metabolic acidosis. Renal profile is significantly improved BUN is 40 and creatinine is 1.18. Chest x- ray no evidence of congestive heart failure. Actually his chest x-ray is showing improved aeration at the lung bases. Minimal atelectasis persists. Patient was reevaluated today on 04/09/2017, remains hemodynamically stable, off levo fed, lethargic but arousable this is basically his baseline not verbal, I believe he has underlying dementia. Seems to be draining good amount of urine, his leukocytosis fever and hypotension have resolved. WBC count is 10.4 today, hemoglobin is 9.2, potassium is low hence I will give him 40 mEq of potassium orally, patient remains significantly swollen and edematous especially in the left lower extremity. And I recommended giving him 1 dose of Lasix today. Patient was switched to Rocephin from cefepime. Patient was reevaluated today on 04/10/2017, continues to do relatively well, patient remains confused, his potassium remains quite low hence I recommended a maintenance dose of oral potassium for the next 24 hours and that will be 20 mEq 4 times a day. Potassium will be readdressed tomorrow and the dose will be readdressed after 24 hours. Patient remains puffy and swollen, I am planning more Lasix to be given but I would like to have the potassium corrected at least to above 3.5 before Lasix could be given. Patient remains on heparin for DVT of the left popliteal vein. His labs from today were reviewed, PTT is therapeutic, CBC is relatively unremarkable WBC count of 8.1 hemoglobin is 8.9 potassium is 2.8 BUN is down to 29 creatinine is 0.94. Both were improved. Reevaluated today on 04/11/2017, patient seems to be a bit more arousable today compared to the last few days. Continues to have good urine output, today I recommended adding Lasix 20 mg by mouth twice a day. Potassium seems to be improving with maintenance dose of potassium given orally. PTT is remains therapeutic at 45.6. Hemoglobin is 9.2 WBC count is 9.1. Potassium is 3.1 today. Still receiving potassium orally 20 mEq 4 times a day. Objective - Vital Signs Vital signs: Vital Signs Temp 97.2 F L 04/11/17 11:18 Pulse 102 H 04/11/17 11:18 Resp 17 04/11/17 11:18 BP 143/84 04/11/17 11:18 Pulse Ox 95 04/11/17 11:18 Intake & Output 04/10/17 04/11/17 04/11/17 18:59 06:59 18:59 Intake Total 824.667 410.587 259.213 Output Total 1500 2024 Balance -675.333 -1614.413 259.213 Weight 94 kg Intake: Intake, IV Titration 474.667 410.587 141.213 Amount Heparin Sodium,Porcine/ 474.667 410.587 141.213 D5w Pmx 25,000 unit In Dextrose/Water 1 500ml. bag @ 18 UNITS/KG/HR 32. 04 mls/hr IV .[id number] [facility] Rx#:[id number] Oral 350 118 Output: Urine 1500 2024 Other: Voiding Method Indwelling Catheter Indwelling Catheter Indwelling Catheter # Bowel Movements 1 - Exam Physical Exam: Revealed an 82-year-old, lethargic, in no form of respiratory distress. Lethargic but arousable HEENT:[Neck is supple.] [No neck masses.] [No thyromegaly.] [No JVD.] Chest: [Diminished breath no crackles, no rhonchi, no wheezes.] Cardiac Exam: [ Normal S1 and S2, no S3 gallop, no murmur.] Abdomen: [Soft, nontender, no megaly, no rebound, no guarding, normal bowel sounds.] Extremities: [No clubbing, 2+ bipedal edema, left lower extremity seems to be a bit more edematous than the right lower extremity. No cyanosis.] Right upper extremity seems to be also a bit swollen. Neurological Exam: Confused, lethargic, arousable, but not verbal, otherwise no gross focal neurologic deficit. - Labs CBC & Chem 7: 04/11/17 05:46 04/11/17 05:43 Labs: Abnormal Lab Results - Last 24 Hours (Table) 04/10/17 04/11/17 04/11/17 Range/Units 06:09 05:43 05:46 RBC 3.39 L (4.30-5.90) m/uL Hgb 9.2 L (13.0-17.5) gm/dL Hct 30.1 L (39.0-53.0) % MCHC 30.6 L (31.0-37.0) g/dL RDW 16.3 H (11.5-15.5) % Lymphocytes # 0.7 L (1.0-4.8) k/uL APTT (22.0-30.0) sec Potassium 3.1 L (3.5-5.1) mmol/L Chloride 114 H (98-107) mmol/L Carbon Dioxide 19 L (22-30) mmol/L BUN 25 H (9-20) mg/dL Glucose 110 H (74-99) mg/dL Calcium 7.4 L (8.4-10.2) mg/dL Iron 20 L (49-181) ug/dL TIBC 150 L (261-462) ug/dL % Saturation 13.3 L (20-50) % AST 13 L (17-59) U/L Total Protein 4.3 L (6.3-8.2) g/dL Albumin 1.8 L (3.5-5.0) g/dL 04/11/17 Range/Units 07:17 RBC (4.30-5.90) m/uL Hgb (13.0-17.5) gm/dL Hct (39.0-53.0) % MCHC (31.0-37.0) g/dL RDW (11.5-15.5) % Lymphocytes # (1.0-4.8) k/uL APTT 45.6 H (22.0-30.0) sec Potassium (3.5-5.1) mmol/L Chloride (98-107) mmol/L Carbon Dioxide (22-30) mmol/L BUN (9-20) mg/dL Glucose (74-99) mg/dL Calcium (8.4-10.2) mg/dL Iron (49-181) ug/dL TIBC (261-462) ug/dL % Saturation (20-50) % AST (17-59) U/L Total Protein (6.3-8.2) g/dL Albumin (3.5-5.0) g/dL Microbiology - Last 24 Hours (Table) 04/07/17 10:44 Blood Culture - Preliminary Blood No Growth after 72 hours Assessment and Plan Plan: Impression: 1 acute urinary tract infection and gram-negative/E. coli septic shock. Patient seems to be on appropriate antibiotics for now, E. coli in the blood is sensitive to cefepime. Patient is now on ceftriaxone, also sensitive to ceftriaxone. 2 acute left lower extremity DVT, patient is presently on heparin. Continue to monitor coagulation profile. Eventually the patient will likely need to be switched to Xarelto when time comes close to discharge planning. 3 history of multiple comorbidities including COPD, dementia, hyperlipidemia, osteoarthritis, history of chronic urinary retention and urethral strictures, history of prostate cancer with surgery and radiation, Recommendation: Continue present treatment plan including antibiotics, monitor potassium and correct accordingly. Lasix 20 mg by mouth twice a day was added today. We'll continue to follow. Discharge planning likely early next week. Time with Patient: Less than 30
--- NOTE | 2017-04-11 14:05 | P.PN ---
Subjective This is a 82-year-old gentleman with complex past medical history who is a long- term resident at [facility] who presented to the hospital with altered mental status. Patient is known to have underlying history of prostate cancer with chronic obstructive uropathy and chronic indwelling Chi catheter. Patient has been having problems with recurrent UTIs with significant pus draining from around the catheter for several months. He has been treated with different courses of antibiotic both oral and IV. He had numerous resistant bacteria growing in the urine culture. He had a problem that each time antibiotic was discontinued patient started having cloudy urine all over again. He was seen by urology twice in the office previously with a concern about a possible anatomic problems or fistula causing his persistent pus draining at the evaluation was negative. On 04/09/17 patient is somnolent and confused otherwise in no apparent distress Denies any pain or discomfort at this time denies any shortness of breath Objective - Vital Signs Vital signs: Vital Signs Temp 97.2 F L 04/11/17 11:18 Pulse 102 H 04/11/17 11:18 Resp 17 04/11/17 11:18 BP 143/84 04/11/17 11:18 Pulse Ox 95 04/11/17 11:18 Intake & Output 04/10/17 04/11/17 04/11/17 18:59 06:59 18:59 Intake Total 824.667 410.587 259.213 Output Total 1500 2025 Balance -675.333 -1614.413 259.213 Weight 94 kg Intake: Intake, IV Titration 474.667 410.587 141.213 Amount Heparin Sodium,Porcine/ 474.667 410.587 141.213 D5w Pmx 25,000 unit In Dextrose/Water 1 500ml. bag @ 18 UNITS/KG/HR 32. 04 mls/hr IV .[id number] [facility] Rx#:[id number] Oral 350 118 Output: Urine 1500 2024 Other: Voiding Method Indwelling Catheter Indwelling Catheter Indwelling Catheter # Bowel Movements 1 - Exam General: The patient is awake and alert, in no distress Eye: there is normal conjunctiva bilaterally. Neck: The neck is supple, there is no JVD. Cardiovascular: Normal S1-S2, no S3-S4, no murmurs. Respiratory: Lungs clear to auscultation bilaterally Gastrointestinal: Abdomen is soft, nontender Musculoskeletal: There is no pedal edema. Neurological:. Speech is normal. - Labs CBC & Chem 7: 04/11/17 05:46 04/11/17 05:43 Labs: Abnormal Lab Results - Last 24 Hours (Table) 04/11/17 04/11/17 04/11/17 Range/Units 05:43 05:46 07:17 RBC 3.39 L (4.30-5.90) m/uL Hgb 9.2 L (13.0-17.5) gm/dL Hct 30.1 L (39.0-53.0) % MCHC 30.6 L (31.0-37.0) g/dL RDW 16.3 H (11.5-15.5) % Lymphocytes # 0.7 L (1.0-4.8) k/uL APTT 45.6 H (22.0-30.0) sec Potassium 3.1 L (3.5-5.1) mmol/L Chloride 114 H (98-107) mmol/L Carbon Dioxide 19 L (22-30) mmol/L BUN 25 H (9-20) mg/dL Glucose 110 H (74-99) mg/dL Calcium 7.4 L (8.4-10.2) mg/dL AST 13 L (17-59) U/L Total Protein 4.3 L (6.3-8.2) g/dL Albumin 1.8 L (3.5-5.0) g/dL C. difficile (EIA) Intrp (Negative) 04/11/17 Range/Units 09:52 RBC (4.30-5.90) m/uL Hgb (13.0-17.5) gm/dL Hct (39.0-53.0) % MCHC (31.0-37.0) g/dL RDW (11.5-15.5) % Lymphocytes # (1.0-4.8) k/uL APTT (22.0-30.0) sec Potassium (3.5-5.1) mmol/L Chloride (98-107) mmol/L Carbon Dioxide (22-30) mmol/L BUN (9-20) mg/dL Glucose (74-99) mg/dL Calcium (8.4-10.2) mg/dL AST (17-59) U/L Total Protein (6.3-8.2) g/dL Albumin (3.5-5.0) g/dL C. difficile (EIA) Intrp Positive A (Negative) Microbiology - Last 24 Hours (Table) 04/07/17 10:44 Blood Culture - Preliminary Blood No Growth after 96 hours Assessment and Plan Plan: 1. Catheter associated urinary tract infection, present on admission, recurrent 2. Severe sepsis with septic shock requiring vasopressors 3. Chronic obstructive uropathy 4. History of prostate cancer with no evidence of metastasis on bone scan in November 5. Underlying cognitive impairment/dementia 6. Right lower extremity swelling 7. Severe hypokalemia correcting per protocol 8. Acute left lower extremity DVT maintained on IV heparin 9. Today patient has positive stools for C. diff will start vancomycin 250 mg oral every 6 hours, notify Dr. Sanders Today patient remains on telemetry floor, blood pressure stable mental status changes without any improvement Maintained on IV Rocephin 2 g every [address] Sanders following Follow closely on telemetry
[2017-04-11] MEDS: VANCOMYCIN ORAL SOLUTION 250 MG/5 ML BOTTLE PO SCH ×3 (15:32→23:00)
[2017-04-11] MEDS: FUROSEMIDE 20 MG TAB PO SCH (15:32)
[2017-04-11] MEDS: cefTRIAXone 2,000 MG in SODIUM CHLORIDE 0.9% 100 ML IVPB SCH (15:36)
[2017-04-11] MEDS: traZODone HCL 100 MG TAB PO SCH (20:01)
[2017-04-11] MEDS: LORazepam 1 MG TAB PO PRN (22:04)
[2017-04-11] MEDS: CHERRY FLAVOR 60 ML BOTTLE PO PRN (23:00)
[2017-04-11] MEDS: SODIUM CHLORIDE 0.9% 1,000 ML IV SCH (23:00)
[2017-04-12] MEDS: HEPARIN SODIUM,PORCINE/D5W PMX 25,000 UNIT in DEXTROSE/WATER 1 500ML.BAG IV SCH ×2 (04:11→21:20)
[2017-04-12 05:55] LABS: Anisocytosis Slight; Basophils % (A) 0 %; CHCM 31.6; Eosinophils # (A) 0.2 k/uL (0-0.7); Eosinophils % (A) 2 %; HCT 30.5 % (39.0-53.0); HGB 9.5 gm/dL (13.0-17.5); Luc % (Auto) 3; Lymphocytes # (A) 0.8 k/uL (1.0-4.8); Lymphocytes % (A) 8 %; MCH 27.7 pg (25.0-35.0); MCHC 31.2 g/dL (31.0-37.0); MCV 88.9 fL (80.0-100.0); Mean Platelet Volume 7.2; Monocytes # (A) 0.4 k/uL (0-1.0); Monocytes % (A) 4 %; Neutrophils # (A) 8.8 k/uL (1.3-7.7); Neutrophils % (A) 83 %; RBC 3.43 m/uL (4.30-5.90); RDW 16.4 % (11.5-15.5); WBC 10.6 k/uL (3.8-10.6); WBC (Perox) 10.65
[2017-04-12 06:27] LABS: ALT 24 U/L (21-72); AST 13 U/L (17-59); Alkaline Phosphatase 101 U/L (38-126); Anion Gap 6 mmol/L; Blood Urea Nitrogen 20 mg/dL (9-20); Calcium 7.4 mg/dL (8.4-10.2); Carbon Dioxide 21 mmol/L (22-30); Chloride 111 mmol/L (98-107); Glucose 113 mg/dL (74-99); Non-African American GFR(MDRD) >60 (>60 ml/min/1.73 sqM); Potassium 3.5 mmol/L (3.5-5.1); Sodium 138 mmol/L (137-145); Total Bilirubin 0.2 mg/dL (0.2-1.3); Total Protein 4.4 g/dL (6.3-8.2)
[2017-04-12] MEDS: VANCOMYCIN ORAL SOLUTION 250 MG/5 ML BOTTLE PO SCH ×4 (06:48→22:59)
[2017-04-12] MEDS: PANTOPRAZOLE 40 MG TABLET PO SCH (06:48)
[2017-04-12] MEDS: POTASSIUM CHLORIDE ORAL LIQUID 40 MEQ/30 ML CUP PO SCH (08:18)
[2017-04-12] MEDS: FUROSEMIDE 20 MG TAB PO SCH ×2 (08:18→15:29)
[2017-04-12] MEDS: ACETAMINOPHEN TAB 325 MG TAB PO PRN (10:10)
[2017-04-12] MEDS: LORazepam 1 MG TAB PO PRN (10:10)
[2017-04-12] MEDS: CHERRY FLAVOR 60 ML BOTTLE PO PRN ×2 (11:18→17:01)
--- NOTE | 2017-04-12 12:15 | P.PN ---
Subjective Progress note dated 04/12/2017 This is an 82-year-old male with a history of acute urinary tract infection secondary to gram-negative bacteria, E. coli, with septic shock. The patient seemed be doing relatively well. A bit more awake and alert. Has a history of acute left lower extremity DVT. The patient also has history of multiple medical problems including COPD dementia hyperlipidemia DJD chronic urinary retention urethral stricture prostate cancer status post surgery with radiation. Again the patient seemed be doing relatively well and is being readied for discharge. The patient is still a little bit lethargic. Does arouse. Seem to be much for awake and alert. Respiratory status and hemodynamic status seemed to be stable. Objective - Vital Signs Vital signs: Vital Signs Temp 98.1 F 04/12/17 08:00 Pulse 102 H 04/12/17 08:00 Resp 18 04/12/17 08:00 BP 129/59 04/12/17 08:00 Pulse Ox 93 L 04/12/17 08:00 Intake & Output 04/11/17 04/12/17 04/12/17 18:59 06:59 18:59 Intake Total 1491.291 480 118 Output Total 3800 800 Balance 1491.291 -3320 -682 Weight 96 kg Intake: IV 720 380 Heparin Sodium,Porcine/ 320 320 D5w Pmx 25,000 unit In Dextrose/Water 1 500ml. bag @ 18 UNITS/KG/HR 32. 04 mls/hr IV .[id number] [facility] Rx#:[id number] Sodium Chloride 0.9% 1, 300 60 000 ml @ 30 mls/hr IV . Q24H [facility] Rx#:[id number] cefTRIAXone 2,000 mg In 100 Sodium Chloride 0.9% 100 ml @ 100 mls/hr IVPB Q24H [facility] Rx#:[id number] Intake, IV Titration 417.291 Amount Heparin Sodium,Porcine/ 417.291 D5w Pmx 25,000 unit In Dextrose/Water 1 500ml. bag @ 18 UNITS/KG/HR 32. 04 mls/hr IV .[id number] [facility] Rx#:[id number] Oral 354 100 118 Output: Urine 3800 800 Coude 600 Other: Voiding Method Indwelling Catheter Indwelling Catheter Indwelling Catheter - Exam No acute distress, oriented 3. HEENT examination is grossly unremarkable. Mucous membranes are moist. No oral lesions. Neck supple. Full range of motion. No adenopathy or thyromegaly. Cardiovascular examination reveals regular rhythm rate. S1-S2 normal. No S3- S4 or murmur. Lungs reveal few scattered rhonchi. No wheezes. No crackles. Breath sounds are equal. Abdomen soft bowel sounds are heard. No masses or tenderness. Extremities are intact. No cyanosis clubbing or edema. Skin without rash. Neurologic examination is nonfocal. - Labs CBC & Chem 7: 04/12/17 05:16 04/12/17 05:16 Labs: Abnormal Lab Results - Last 24 Hours (Table) 04/11/17 04/11/17 04/11/17 Range/Units 09:52 14:29 21:32 RBC (4.30-5.90) m/uL Hgb (13.0-17.5) gm/dL Hct (39.0-53.0) % RDW (11.5-15.5) % Neutrophils # (1.3-7.7) k/uL Lymphocytes # (1.0-4.8) k/uL APTT 44.7 H 48.3 H (22.0-30.0) sec Chloride (98-107) mmol/L Carbon Dioxide (22-30) mmol/L Glucose (74-99) mg/dL Calcium (8.4-10.2) mg/dL AST (17-59) U/L Total Protein (6.3-8.2) g/dL Albumin (3.5-5.0) g/dL C. difficile (EIA) Intrp Positive A (Negative) 04/12/17 04/12/17 04/12/17 Range/Units 05:16 05:16 08:49 RBC 3.43 L (4.30-5.90) m/uL Hgb 9.5 L (13.0-17.5) gm/dL Hct 30.5 L (39.0-53.0) % RDW 16.4 H (11.5-15.5) % Neutrophils # 8.8 H (1.3-7.7) k/uL Lymphocytes # 0.8 L (1.0-4.8) k/uL APTT 71.6 H (22.0-30.0) sec Chloride 111 H (98-107) mmol/L Carbon Dioxide 21 L (22-30) mmol/L Glucose 113 H (74-99) mg/dL Calcium 7.4 L (8.4-10.2) mg/dL AST 13 L (17-59) U/L Total Protein 4.4 L (6.3-8.2) g/dL Albumin 1.7 L (3.5-5.0) g/dL C. difficile (EIA) Intrp (Negative) Microbiology - Last 24 Hours (Table) 04/07/17 10:44 Blood Culture - Preliminary Blood No Growth after 96 hours Assessment and Plan (1) Gram-negative sepsis with organ dysfunction Status: Acute (2) Lactic acidosis Status: Acute (3) Septic shock Status: Acute (4) Severe sepsis Status: Acute (5) UTI (urinary tract infection) Status: Acute (6) Elevated troponin I level Status: Acute (7) Sepsis Status: Acute (8) Urinary retention Status: Acute (9) Urinary tract infection Status: Acute Plan: Plan dated 04/12/2017 The patient seemed be doing relatively well. We'll continue to follow. Labs x- rays a medications are all reviewed. The patient seemed a bit more awake today compared to yesterday based on 's note. We'll continue to follow. Discharge planning underway. Time with Patient: Less than 30
[2017-04-12] MEDS ORDERED: FUROSEMIDE 10 MG/ML 2 ML VIAL IV ONE (12:34)
--- NOTE | 2017-04-12 12:40 | P.PN ---
Subjective Patient is lethargic today but easily arousable. His urine remains dark with sediment. No acute events overnight. Objective - Vital Signs Vital signs: Vital Signs Temp 98.1 F 04/12/17 08:00 Pulse 102 H 04/12/17 08:00 Resp 18 04/12/17 08:00 BP 129/59 04/12/17 08:00 Pulse Ox 93 L 04/12/17 08:00 Intake & Output 04/11/17 04/12/17 04/12/17 18:59 06:59 18:59 Intake Total 1491.291 480 118 Output Total 3800 800 Balance 1491.291 -3320 -682 Weight 96 kg Intake: IV 720 380 Heparin Sodium,Porcine/ 320 320 D5w Pmx 25,000 unit In Dextrose/Water 1 500ml. bag @ 18 UNITS/KG/HR 32. 04 mls/hr IV .[id number] [facility] Rx#:[id number] Sodium Chloride 0.9% 1, 300 60 000 ml @ 30 mls/hr IV . Q24H [facility] Rx#:[id number] cefTRIAXone 2,000 mg In 100 Sodium Chloride 0.9% 100 ml @ 100 mls/hr IVPB Q24H [facility] Rx#:[id number] Intake, IV Titration 417.291 Amount Heparin Sodium,Porcine/ 417.291 D5w Pmx 25,000 unit In Dextrose/Water 1 500ml. bag @ 18 UNITS/KG/HR 32. 04 mls/hr IV .[id number] [facility] Rx#:[id number] Oral 354 100 118 Output: Urine 3800 800 Coude 600 Other: Voiding Method Indwelling Catheter Indwelling Catheter Indwelling Catheter - Exam General: The patient is sleepy but easily arousable Eye: there is normal conjunctiva bilaterally. Neck: The neck is supple, there is no JVD. Cardiovascular: Normal S1-S2, no S3-S4, no murmurs. Respiratory: Lungs with scattered rhonchi Gastrointestinal: Abdomen is soft, nontender Musculoskeletal: There is +2-3 pedal edema. Neurological:. Speech is normal. Skin: Skin is warm and dry - Labs CBC & Chem 7: 04/12/17 05:16 04/12/17 05:16 Labs: Abnormal Lab Results - Last 24 Hours (Table) 04/11/17 04/11/17 04/12/17 Range/Units 14:29 21:32 05:16 RBC 3.43 L (4.30-5.90) m/uL Hgb 9.5 L (13.0-17.5) gm/dL Hct 30.5 L (39.0-53.0) % RDW 16.4 H (11.5-15.5) % Neutrophils # 8.8 H (1.3-7.7) k/uL Lymphocytes # 0.8 L (1.0-4.8) k/uL APTT 44.7 H 48.3 H (22.0-30.0) sec Chloride (98-107) mmol/L Carbon Dioxide (22-30) mmol/L Glucose (74-99) mg/dL Calcium (8.4-10.2) mg/dL AST (17-59) U/L Total Protein (6.3-8.2) g/dL Albumin (3.5-5.0) g/dL 04/12/17 04/12/17 Range/Units 05:16 08:49 RBC (4.30-5.90) m/uL Hgb (13.0-17.5) gm/dL Hct (39.0-53.0) % RDW (11.5-15.5) % Neutrophils # (1.3-7.7) k/uL Lymphocytes # (1.0-4.8) k/uL APTT 71.6 H (22.0-30.0) sec Chloride 111 H (98-107) mmol/L Carbon Dioxide 21 L (22-30) mmol/L Glucose 113 H (74-99) mg/dL Calcium 7.4 L (8.4-10.2) mg/dL AST 13 L (17-59) U/L Total Protein 4.4 L (6.3-8.2) g/dL Albumin 1.7 L (3.5-5.0) g/dL Microbiology - Last 24 Hours (Table) 04/07/17 10:44 Blood Culture - Preliminary Blood No Growth after 96 hours Assessment and Plan Plan: 1. Catheter associated urinary tract infection, present on admission, recurrent 2. Severe sepsis with septic shock requiring vasopressors presentation now resolved 3. Chronic obstructive uropathy, seen and evaluated by urology 4. History of prostate cancer with no evidence of metastasis on bone scan in November 5. Underlying cognitive impairment/dementia 6. Acute DVT of the left lower extremities on IV heparin 7. Right groin mass noted on ultrasound of unclear etiology would obtain computed tomography scan for further evaluation, may represent an abscess versus malignancy? 8. Bacteremia, repeat blood culture negative on 04/07 9. Acute C. diff colitis on oral vancomycin 10. Severe protein/calorie malnutrition: I did ensure 3 times a day. Dietitian consultation requested Today, I reviewed his medication list and lab work results. Appreciate managing consultant clinical professor's recommendations. Repeat lab work in the morning. No family members at bedside to be updated.
[2017-04-12] MEDS: cefTRIAXone 2,000 MG in SODIUM CHLORIDE 0.9% 100 ML IVPB SCH (15:28)
--- NOTE | 2017-04-12 20:40 | P.PN ---
Subjective Principal diagnosis: septic shock 82-year-old male presents to the emergency center from the extended care facility. Is limited that at his residence the patient was doing poorly. He had a drop in his pulse oximetry. Seemed to be not well. EMS was called. Upon their arrival his saturations were adequate. However the patient was tachycardic and hypotensive. They also believe that he was febrile. He was then transported to the Emergency Ctr[facility] where he was found to have evidence of hypotension. He was given fluid resuscitation. Despite that he remained hypotensive and required vasopressor therapy with Levophed. The patient was transferred to the intensive care unit received further resuscitation. With further fluids is little elevated lactic acid improved. Patient was continued to have somewhat of a poor mentation just part of his difficulties at transfer also known dementia. Because of his gram-negative sepsis the infectious diseases consultation was requested. The patient is a poor historian and most information is coming from the chart and the current nursing staff. The patient does seem to be a bit more uncomfortable he was earlier in the day as per the nursing staff. It is noted that urine output has been poor despite his extensive fluid resuscitation. Urine is very cloudy and thick. Renal ultrasound has been performed several hours ago. Evidence of bilateral hydronephrosis and sludge in his bladder. Today the patient is showing some improvement. He is arousable. He seems to be comfortable. The patient has been seen by urology. He had a coud catheter placed with the ureteroscope, because of a difficulty with a false passage. Patient is draining adequate amounts of urine. However patient's fever, hypotension, leukocytosis are all improved. Objective - Vital Signs Vital signs: Vital Signs Temp 97.7 F 04/12/17 20:00 Pulse 118 H 04/12/17 20:00 Resp 18 04/12/17 20:00 BP 131/70 04/12/17 20:00 Pulse Ox 96 04/12/17 20:00 Intake & Output 04/12/17 04/12/17 04/13/17 06:59 18:59 06:59 Intake Total 480 440.709 52 Output Total 3800 1600 Balance -3320 -1159.291 52 Weight 96 kg 96 kg Intake: IV 380 150 52 Heparin Sodium,Porcine/ 320 150 42 D5w Pmx 25,000 unit In Dextrose/Water 1 500ml. bag @ 18 UNITS/KG/HR 32. 04 mls/hr IV .[id number] [facility] Rx#:[id number] Sodium Chloride 0.9% 1, 60 10 000 ml @ 30 mls/hr IV . Q24H [facility] Rx#:[id number] Intake, IV Titration 172.709 Amount Heparin Sodium,Porcine/ 82.709 D5w Pmx 25,000 unit In Dextrose/Water 1 500ml. bag @ 18 UNITS/KG/HR 32. 04 mls/hr IV .[id number] [facility] Rx#:[id number] Sodium Chloride 0.9% 1, 90 000 ml @ 30 mls/hr IV . Q24H [facility] Rx#:[id number] Oral 100 118 Output: Urine 3800 1600 Coude 600 Other: Voiding Method Indwelling Catheter Indwelling Catheter Indwelling Catheter # Bowel Movements 1 - Exam HEENT: Anicteric conjunctiva are pink and moist nasal mucosa grossly intact without significant lesions, there is no thrush. Oral cavity is dry with generalized poor long-term hygiene Neck: The neck is supple without significant lymphadenopathy or thyromegaly. Lungs: Good bilateral air entry without significant crackles or wheezing. There is no significant bronchial sounds. There is no egophony or dullness. Heart: Regular rate and rhythm with an audible S1-S2, no S3 no S4. There is no significant murmur click or rub, PMI was nondisplaced. Abdomen: Positive bowel sounds soft and tender without palpable masses or organomegaly. Lower abdomen appears to be quite distended. Extremities: The upper extremities have excellent pulses they are symmetric, no significant petechiae or telangiectasia. No splinter hemorrhages were noted. The lower extremities are free from significant edema. The peripheral pulses were 2+ and symmetric. Neuro: Arousable and follows a few commands today slightly brighter affect Skin: Minimal erythema to buttocks with no open ulcers being seen. No ulcers to heals. - Labs CBC & Chem 7: 04/12/17 05:16 04/12/17 05:16 Labs: Abnormal Lab Results - Last 24 Hours (Table) 04/11/17 04/12/17 04/12/17 Range/Units 21:32 05:16 05:16 RBC 3.43 L (4.30-5.90) m/uL Hgb 9.5 L (13.0-17.5) gm/dL Hct 30.5 L (39.0-53.0) % RDW 16.4 H (11.5-15.5) % Neutrophils # 8.8 H (1.3-7.7) k/uL Lymphocytes # 0.8 L (1.0-4.8) k/uL APTT 48.3 H (22.0-30.0) sec Chloride 111 H (98-107) mmol/L Carbon Dioxide 21 L (22-30) mmol/L Glucose 113 H (74-99) mg/dL Calcium 7.4 L (8.4-10.2) mg/dL AST 13 L (17-59) U/L Total Protein 4.4 L (6.3-8.2) g/dL Albumin 1.7 L (3.5-5.0) g/dL 04/12/17 Range/Units 08:49 RBC (4.30-5.90) m/uL Hgb (13.0-17.5) gm/dL Hct (39.0-53.0) % RDW (11.5-15.5) % Neutrophils # (1.3-7.7) k/uL Lymphocytes # (1.0-4.8) k/uL APTT 71.6 H (22.0-30.0) sec Chloride (98-107) mmol/L Carbon Dioxide (22-30) mmol/L Glucose (74-99) mg/dL Calcium (8.4-10.2) mg/dL AST (17-59) U/L Total Protein (6.3-8.2) g/dL Albumin (3.5-5.0) g/dL Microbiology - Last 24 Hours (Table) 04/07/17 10:44 Blood Culture - Preliminary Blood No Growth after 120 hours Laboratory Results WBC 10.6 k/uL (3.8-10.6) 04/12/17 05:16 RBC 3.43 m/uL (4.30-5.90) L 04/12/17 05:16 Hgb 9.5 gm/dL (13.0-17.5) L 04/12/17 05:16 Hct 30.5 % (39.0-53.0) L 04/12/17 05:16 MCV 88.9 fL (80.0-100.0) 04/12/17 05:16 MCH 27.7 pg (25.0-35.0) 04/12/17 05:16 MCHC 31.2 g/dL (31.0-37.0) 04/12/17 05:16 RDW 16.4 % (11.5-15.5) H 04/12/17 05:16 Plt Count 365 k/uL (150-450) 04/12/17 05:16 Neutrophils % 83 % 04/12/17 05:16 Neutrophils % (Manual) 60 % 04/07/17 02:06 Band Neutrophils % 37 % 04/07/17 02:06 Lymphocytes % 8 % 04/12/17 05:16 Lymphocytes % (Manual) 2 % 04/07/17 02:06 Monocytes % 4 % 04/12/17 05:16 Monocytes % (Manual) 2 % 04/07/17 02:06 Eosinophils % 2 % 04/12/17 05:16 Basophils % 0 % 04/12/17 05:16 Neutrophils # 8.8 k/uL (1.3-7.7) H 04/12/17 05:16 Neutrophils # (Manual) 17.20 k/uL (1.3-7.7) H 04/07/17 02:06 Lymphocytes # 0.8 k/uL (1.0-4.8) L 04/12/17 05:16 Lymphocytes # (Manual) 0.36 k/uL (1.0-4.8) L 04/07/17 02:06 Monocytes # 0.4 k/uL (0-1.0) 04/12/17 05:16 Monocytes # (Manual) 0.36 k/uL (0-1.0) 04/07/17 02:06 Eosinophils # 0.2 k/uL (0-0.7) 04/12/17 05:16 Basophils # 0.0 k/uL (0-0.2) 04/12/17 05:16 Nucleated RBCs 0 /100 WBC (0-0) 04/07/17 02:06 Manual Slide Review Performed 04/06/17 02:45 Toxic Vacuolation Present 04/07/17 02:06 Polychromasia Present 04/07/17 02:06 Hypochromasia Marked 04/10/17 06:09 Anisocytosis Slight 04/12/17 05:16 Crenated Cell Present 04/07/17 02:06 PT 13.1 sec (9.0-12.0) H 04/06/17 21:54 INR 1.3 (<1.2) H 04/06/17 21:54 APTT 71.6 sec (22.0-30.0) H 04/12/17 08:49 Sodium 138 mmol/L (137-145) 04/12/17 05:16 Potassium 3.5 mmol/L (3.5-5.1) 04/12/17 05:16 Chloride 111 mmol/L (98-107) H 04/12/17 05:16 Carbon Dioxide 21 mmol/L (22-30) L 04/12/17 05:16 Anion Gap 6 mmol/L 04/12/17 05:16 BUN 20 mg/dL (9-20) 04/12/17 05:16 Creatinine 1.00 mg/dL (0.66-1.25) 04/12/17 05:16 Est GFR (MDRD) Af Amer >60 (>60 ml/min/1.73 sqM) 04/12/17 05:16 Est GFR (MDRD) Non-Af >60 (>60 ml/min/1.73 sqM) 04/12/17 05:16 Glucose 113 mg/dL (74-99) H 04/12/17 05:16 POC Glucose (mg/dL) 92 mg/dL (75-99) 04/07/17 15:23 POC Glu Wardrobe Coordinator ID Jonny AlmarazCarri 04/07/17 15:23 Lactic Ac Sepsis Rflx Y 04/07/17 16:05 Plasma Lactic Acid Georges 2.9 mmol/L (0.7-2.0) H* 04/07/17 19:17 Calcium 7.4 mg/dL (8.4-10.2) L 04/12/17 05:16 Phosphorus 2.6 mg/dL (2.5-4.5) 04/09/17 06:25 Magnesium 2.0 mg/dL (1.6-2.3) 04/09/17 06:25 Iron 20 ug/dL (49-181) L 04/10/17 06:09 TIBC 150 ug/dL (261-462) L 04/10/17 06:09 % Saturation 13.3 % (20-50) L 04/10/17 06:09 Total Bilirubin 0.2 mg/dL (0.2-1.3) 04/12/17 05:16 AST 13 U/L (17-59) L 04/12/17 05:16 ALT 24 U/L (21-72) 04/12/17 05:16 Alkaline Phosphatase 101 U/L (38-126) 04/12/17 05:16 Total Protein 4.4 g/dL (6.3-8.2) L 04/12/17 05:16 Albumin 1.7 g/dL (3.5-5.0) L 04/12/17 05:16 Vitamin B12 971 pg/mL 04/10/17 06:09 Folate 9.7 ng/mL 04/10/17 06:09 Urine Color Light Red 04/05/17 23:29 Urine Appearance Turbid (Clear) 04/05/17 23:29 Urine pH 8.5 (5.0-8.0) H 04/05/17 23:29 Ur Specific [place] 1.012 (1.001-1.035) 04/05/17 23:29 Urine Protein 4+ (Negative) H 04/05/17 23:29 Urine Glucose (UA) Negative (Negative) 04/05/17 23:29 Urine Ketones Negative (Negative) 04/05/17 23:29 Urine Blood Negative (Negative) 04/05/17 23:29 Urine Nitrite Negative (Negative) 04/05/17 23:29 Urine Bilirubin Negative (Negative) 04/05/17 23:29 Urine Urobilinogen <2.0 mg/dL (<2.0) 04/05/17 23:29 Ur Leukocyte Esterase Large (Negative) H 04/05/17 23:29 Urine WBC 145 /hpf (0-5) H 04/05/17 23:29 Amorphous Sediment Occasional /hpf (None) H 04/05/17 23:29 Urine Bacteria Rare /hpf (None) H 04/05/17 23:29 Vancomycin Trough 11.7 ug/mL 04/08/17 20:33 Random Vancomycin 13.1 ug/mL 04/07/17 08:51 C. difficile (EIA) Intrp Positive (Negative) A 04/11/17 09:52 Microbiology 04/07/17 10:44 Blood Blood Culture - Preliminary No Growth after 120 hours 04/05/17 23:29 Urine,Voided Urine Culture - Final Escherichia coli 04/05/17 23:09 Blood Blood Culture Gram Stain - Final 04/05/17 23:09 Blood Blood Culture - Final Escherichia coli 04/05/17 23:09 Blood Blood Culture - Final Assessment and Plan (1) Septic shock Narrative/Plan: 82-year-old male presents from the extended care facility with alteration of his status. Concerns to hypoxemia which corrected upon arrival of EMS. However the patient was hypotensive and tachycardic and febrile. Upon arrival the patient had evidence of sepsis and shock requiring fluid resuscitation and then vasopressor therapy. With adequate resuscitation he has now improved and is off vasopressor therapy. However continues to have a poor mental status. His fever is improved. On exam the patient had a poor urinary output had evidence of distention to his lower abdomen that was tender. Recent ultrasound showed evidence of bilateral hydronephrosis and sludge in his bladder. A bladder scan was requested and a liter of fluid was noted in his latter. The catheter was blocked and a new Chi was placed and the patient had resolution of his distention. He has been seen by urology in his phimosis was cared for at the bedside. His other the patient has gram-negative sepsis with the final cultures recent cultures have shown evidence of Escherichia coli that is susceptible to cefepime as well as ceftriaxone. Antibiotic therapy was descalated to ceftriaxone and will require completion of a 2 week course This will remain at this point in time pending further culture results. Follow up blood cultures are requested to ensure his bacteremia has cleared. He had a profound leukocytosis due to his sepsis and obstructive process which is now improved. Altered mentation on the basis of sepsis Acute renal failure on the basis of an obstructive process and is resolved as his sepsis and obstruction has been resolved by the urologist in the placement of the coud catheter. Hypokalemia has resolved. Patient is in the medical floor showing improvement. Patient developed diarrhea. Stool testing for C. diff has come back as positive. Oral vancomycin 250 mg per every 6 hours as requested. He will need longer than 10 days of therapy because he is currently in the midst of his 2 week course of antibiotic therapy for his gram-negative sepsis. Status: Acute (2) Gram-negative sepsis with organ dysfunction Status: Acute (3) UTI (urinary tract infection) Status: Acute (4) Leukocytosis Status: Acute
[2017-04-12] MEDS: traZODone HCL 100 MG TAB PO SCH (22:59)
[2017-04-13] MEDS: SODIUM CHLORIDE 0.9% 1,000 ML IV SCH (02:06)
[2017-04-13] MEDS: VANCOMYCIN ORAL SOLUTION 250 MG/5 ML BOTTLE PO SCH ×3 (05:46→18:18)
[2017-04-13] MEDS: CHERRY FLAVOR 60 ML BOTTLE PO PRN ×3 (05:46→18:18)
[2017-04-13 08:07] LABS: Anisocytosis Slight; Basophils % (A) 0 %; CHCM 31.5; Eosinophils # (A) 0.2 k/uL (0-0.7); Eosinophils % (A) 2 %; HCT 29.5 % (39.0-53.0); HGB 9.4 gm/dL (13.0-17.5); Luc % (Auto) 3; Lymphocytes % (A) 9 %; MCH 28.4 pg (25.0-35.0); MCHC 31.8 g/dL (31.0-37.0); MCV 89.2 fL (80.0-100.0); Mean Platelet Volume 7.1; Monocytes # (A) 0.4 k/uL (0-1.0); Monocytes % (A) 4 %; Neutrophils # (A) 9.1 k/uL (1.3-7.7); Neutrophils % (A) 83 %; RBC 3.31 m/uL (4.30-5.90); RDW 16.4 % (11.5-15.5); WBC 10.9 k/uL (3.8-10.6); WBC (Perox) 12.01
[2017-04-13] MEDS: PANTOPRAZOLE 40 MG TABLET PO SCH (08:09)
[2017-04-13] MEDS: FUROSEMIDE 20 MG TAB PO SCH ×2 (08:09→18:18)
[2017-04-13 08:39] LABS: ALT 23 U/L (21-72); AST 12 U/L (17-59); Alkaline Phosphatase 89 U/L (38-126); Anion Gap 9 mmol/L; Blood Urea Nitrogen 16 mg/dL (9-20); Calcium 7.3 mg/dL (8.4-10.2); Carbon Dioxide 20 mmol/L (22-30); Chloride 111 mmol/L (98-107); Glucose 133 mg/dL (74-99); Non-African American GFR(MDRD) >60 (>60 ml/min/1.73 sqM); Potassium 3.1 mmol/L (3.5-5.1); Sodium 140 mmol/L (137-145); Total Bilirubin 0.1 mg/dL (0.2-1.3); Total Protein 4.6 g/dL (6.3-8.2)
[2017-04-13] MEDS: HEPARIN SODIUM,PORCINE/D5W PMX 25,000 UNIT in DEXTROSE/WATER 1 500ML.BAG IV SCH ×2 (08:50→20:16)
--- NOTE | 2017-04-13 14:19 | PN ---
PROGRESS NOTE An 82-year-old male with a history of acute urinary tract infection. The infection was secondary to gram-negative bacteria, E coli with septic shock. The patient seems to be doing about the same. Still sleepy and lethargic. Has history of acute left lower extremity DVT. Also has history of multiple medical problems including, but not limited to, COPD, dementia, hyperlipidemia, DJD, chronic urinary retention, urethral stricture, prostate cancer status post surgery with radiation. The patient again is about the same as he was yesterday. Respiratory status is reasonable. Hemodynamic status is reasonable. Temperature 91, heart rate 90, respiratory rate 18, blood pressure 117/67, mean 83, room air saturation is 94%. Appears in no acute distress. HEENT examination is grossly unremarkable. Mucous membranes are moist. No oral lesions. NECK: Supple. Full range of motion. No adenopathy or thyromegaly. Neck veins are flat. Cardiovascular examination reveals regular rhythm and rate. Heart sounds are distant. S1, S2 normal. No murmur. Lungs reveal a few scattered rhonchi. No wheezes or crackles. Breath sounds equal. Abdomen is soft. Bowel sounds are heard. Extremities are intact. No cyanosis or clubbing. Mild edema. Skin without rash. A few areas of ecchymoses. Neurologic examination is nonfocal. LABS: Labs are reviewed. White count 10.9, hemoglobin 9.4, hematocrit 29.5, platelet count 422,000. PTT 72.8. Sodium 140, potassium 3.1, chloride 111, CO2 is 20. BUN and creatinine were 16 and 0.9. Glucose 133. The rest of the labs are reviewed. No new x-rays to review. ASSESSMENT: 1. Gram-negative sepsis secondary to Escherichia coli with organ dysfunction. 2. Lactic acidosis. 3. Septic shock. 4. Severe sepsis. 5. Urinary tract infection. 6. Elevated troponin level. 7. Urinary retention. 8. Urinary tract infection. 9. Degenerative joint disease. 10.Hyperlipidemia. 11.Dementia. 12.Chronic obstructive pulmonary disease. 13.Prostate cancer, status post surgery and radiation. PLAN: We will continue to follow. No additional recommendations are made. Prognosis is guarded. Respiratory and hemodynamic status are stable at this time. MMODL / IJN: [id number] /
[2017-04-13] MEDS ORDERED: RX INFO: IV CONTRAST WAS GIVEN 1 EACH MISC MISCELLANE PRN (14:37)
--- NOTE | 2017-04-13 15:37 | P.PN ---
Subjective Patient continues to have michael pus through the Chi catheter. Objective - Vital Signs Vital signs: Vital Signs Temp 97.1 F L 04/13/17 15:00 Pulse 116 H 04/13/17 15:00 Resp 16 04/13/17 15:00 BP 123/66 04/13/17 15:00 Pulse Ox 97 04/13/17 15:00 Intake & Output 04/12/17 04/13/17 04/13/17 18:59 06:59 18:59 Intake Total 440.709 434 720 Output Total 1600 750 400 Balance -1159.291 -316 320 Weight 96 kg 93 kg Intake: IV 150 434 Heparin Sodium,Porcine/ 150 384 D5w Pmx 25,000 unit In Dextrose/Water 1 500ml. bag @ 18 UNITS/KG/HR 32. 04 mls/hr IV .[id number] [facility] Rx#:[id number] Sodium Chloride 0.9% 1, 50 000 ml @ 30 mls/hr IV . Q24H [facility] Rx#:[id number] Intake, IV Titration 172.709 Amount Heparin Sodium,Porcine/ 82.709 D5w Pmx 25,000 unit In Dextrose/Water 1 500ml. bag @ 18 UNITS/KG/HR 32. 04 mls/hr IV .[id number] [facility] Rx#:[id number] Sodium Chloride 0.9% 1, 90 000 ml @ 30 mls/hr IV . Q24H [facility] Rx#:[id number] Oral 118 720 Output: Urine 1600 750 400 Other: Voiding Method Indwelling Catheter Indwelling Catheter Indwelling Catheter # Bowel Movements 1 2 - Exam General: The patient is awake and alert Eye: there is normal conjunctiva bilaterally. Neck: The neck is supple, there is no JVD. Cardiovascular: Normal S1-S2, no S3-S4, no murmurs. Respiratory: Lungs with scattered rhonchi Gastrointestinal: Abdomen is soft, nontender Musculoskeletal: There is +2-3 pedal edema. Neurological:. Speech is normal. Skin: Skin is warm and dry - Labs CBC & Chem 7: 04/13/17 07:41 04/13/17 07:41 Labs: Abnormal Lab Results - Last 24 Hours (Table) 04/13/17 04/13/17 04/13/17 Range/Units 07:41 07:41 07:41 WBC 10.9 H (3.8-10.6) k/uL RBC 3.31 L (4.30-5.90) m/uL Hgb 9.4 L (13.0-17.5) gm/dL Hct 29.5 L (39.0-53.0) % RDW 16.4 H (11.5-15.5) % Neutrophils # 9.1 H (1.3-7.7) k/uL APTT 72.8 H (22.0-30.0) sec Potassium 3.1 L (3.5-5.1) mmol/L Chloride 111 H (98-107) mmol/L Carbon Dioxide 20 L (22-30) mmol/L Glucose 133 H (74-99) mg/dL Calcium 7.3 L (8.4-10.2) mg/dL Total Bilirubin 0.1 L (0.2-1.3) mg/dL AST 12 L (17-59) U/L Total Protein 4.6 L (6.3-8.2) g/dL Albumin 1.8 L (3.5-5.0) g/dL Microbiology - Last 24 Hours (Table) 04/07/17 10:44 Blood Culture - Final Blood No Growth after 144 hours Assessment and Plan Plan: 1. Catheter associated urinary tract infection, present on admission, recurrent 2. Severe sepsis with septic shock requiring vasopressors presentation now resolved 3. Chronic obstructive uropathy, seen and evaluated by urology 4. History of prostate cancer with no evidence of metastasis on bone scan in November 5. Underlying cognitive impairment/dementia 6. Acute DVT of the left lower extremities on IV heparin 7. Right groin mass noted on ultrasound of unclear etiology would obtain computed tomography scan for further evaluation, may represent an abscess versus malignancy? 8. Bacteremia, repeat blood culture negative on 04/07 9. Acute C. diff colitis on oral vancomycin 10. Severe protein/calorie malnutrition: I did ensure 3 times a day. Dietitian consultation requested Today, I reviewed his medication list and lab work results. I would order a computed tomography scan of the abdomen and pelvis with IV contrast for further evaluation of possible underlying abscess. I will request a follow-up evaluation from urology. Appreciate cognos consultant's recommendations. Repeat lab work in the morning. No family members at bedside to be updated.
[2017-04-13] MEDS: cefTRIAXone 2,000 MG in SODIUM CHLORIDE 0.9% 100 ML IVPB SCH (17:30)
[2017-04-13] MEDS: POTASSIUM CHLORIDE ER 20 MEQ TAB.ER PO SCH (17:30)
--- NOTE | 2017-04-13 18:10 | CT ---
EXAMINATION TYPE: CT abdomen pelvis w con DATE OF EXAM: 04/13/2017 COMPARISON: 04/07/2017 HISTORY: Abdominal pain, diarrhea, and possible abscess. CT DLP: 2485 mGycm Automated exposure control for dose reduction was used. TECHNIQUE: Helical acquisition of images was performed from the lung bases through the pelvis. CONTRAST: Performed without Oral Contrast and with IV Contrast, patient injected with 100 mL of Omnipaque 300. FINDINGS: LUNG there are bilateral pleural effusions with basilar pulmonary infiltrates and atelectasis. There is atherosclerotic vascular calcification. Liver shows no focal defect. Bile ducts are not dilated. Spleen and pancreas appear normal. There is no adrenal mass. There is slight decreased cortical enhancement in the lower pole left kidne y that measures 2 cm. There is left-sided hydronephrosis. There is metal artifact from right hip pros thesis. There is dilated left ureter. There is fluid level in the urinary bladder. There is soft tiss ue air and fluid in the suprapubic region. There is soft tissue air and fluid I see no definite focal bone destruction. There is a catheter in the urinary bladder. There is a small amount of free fluid in the pelvis. There are fluid levels in the large bowel. At the floor of the pelvis bilaterally invo lving the left and right ischium. IMPRESSION: THERE IS EXTENSIVE AIR AND FLUID IN THE SOFT TISSUES IN THE SUPRAPUBIC REGION WELL THE FLOOR OF THE PELVIS BILATERALLY ADJACENT TO THE ISCHIUM CONSISTENT WITH MULTIPLE ABSCESSES. THIS SHOWS SIGNIF ICANT PROGRESSION COMPARED TO LAST CT SCAN OF 04/07/2017. THERE IS LEFT-SIDED HYDRONEPHROSIS AND HYDROURETER CONSISTENT WITH DISTAL LEFT URETERAL OBSTRUCTION. LEFT URETER APPEARS MORE DILATED THAN LAST EXAM. EXAM IS LIMITED BY METAL ARTIFACT FROM THE RIGHT HIP PROSTHESIS. LARGE BOWEL FLUID LEVELS CONSISTENT WITH ILEUS AND DIARRHEA. MINIMAL FLUID IN THE PELVIS. THE MULTIPL E BILATERAL PELVIC APPARENT ABSCESSES MEASURE UP TO 5 CM IN DIAMETER. THERE IS INCREASED BILATERAL PLEURAL EFFUSION AND INFILTRATE AND ATELECTASIS AT THE LUNG BASES COMPAR ED TO OLD EXAM.
[2017-04-13] MEDS: traZODone HCL 100 MG TAB PO SCH (20:19)
--- NOTE | 2017-04-13 21:13 | P.PN ---
Subjective Principal diagnosis: septic shock 82-year-old male presents to the emergency center from the extended care facility. Is limited that at his residence the patient was doing poorly. He had a drop in his pulse oximetry. Seemed to be not well. EMS was called. Upon their arrival his saturations were adequate. However the patient was tachycardic and hypotensive. They also believe that he was febrile. He was then transported to the Emergency Ctr[facility] where he was found to have evidence of hypotension. He was given fluid resuscitation. Despite that he remained hypotensive and required vasopressor therapy with Levophed. The patient was transferred to the intensive care unit received further resuscitation. With further fluids is little elevated lactic acid improved. Patient was continued to have somewhat of a poor mentation just part of his difficulties at transfer also known dementia. Because of his gram-negative sepsis the infectious diseases consultation was requested. The patient is a poor historian and most information is coming from the chart and the current nursing staff. The patient does seem to be a bit more uncomfortable he was earlier in the day as per the nursing staff. It is noted that urine output has been poor despite his extensive fluid resuscitation. Urine is very cloudy and thick. Renal ultrasound has been performed several hours ago. Evidence of bilateral hydronephrosis and sludge in his bladder. Today the patient is showing some improvement. He is arousable. He seems to be comfortable. The patient has been seen by urology. He had a coud catheter placed with the ureteroscope, because of a difficulty with a false passage. Patient is draining adequate amounts of urine. However patient's fever, hypotension, leukocytosis are all improved. Objective - Vital Signs Vital signs: Vital Signs Temp 97.1 F L 04/13/17 15:00 Pulse 116 H 04/13/17 15:00 Resp 16 04/13/17 15:00 BP 123/66 04/13/17 15:00 Pulse Ox 97 04/13/17 15:00 Intake & Output 04/13/17 04/13/17 04/14/17 06:59 18:59 06:59 Intake Total 434 720 488.203 Output Total 750 400 Balance -316 320 488.203 Weight 93 kg Intake: IV 434 Heparin Sodium,Porcine/ 384 D5w Pmx 25,000 unit In Dextrose/Water 1 500ml. bag @ 18 UNITS/KG/HR 32. 04 mls/hr IV .[id number] [facility] Rx#:[id number] Sodium Chloride 0.9% 1, 50 000 ml @ 30 mls/hr IV . Q24H [facility] Rx#:[id number] Intake, IV Titration 488.203 Amount Heparin Sodium,Porcine/ 488.203 D5w Pmx 25,000 unit In Dextrose/Water 1 500ml. bag @ 18 UNITS/KG/HR 32. 04 mls/hr IV .[id number] [facility] Rx#:[id number] Oral 720 Output: Urine 750 400 Other: Voiding Method Indwelling Catheter Indwelling Catheter # Bowel Movements 1 2 - Exam HEENT: Anicteric conjunctiva are pink and moist nasal mucosa grossly intact without significant lesions, there is no thrush. Oral cavity is dry with generalized poor long-term hygiene Neck: The neck is supple without significant lymphadenopathy or thyromegaly. Lungs: Good bilateral air entry without significant crackles or wheezing. There is no significant bronchial sounds. There is no egophony or dullness. Heart: Regular rate and rhythm with an audible S1-S2, no S3 no S4. There is no significant murmur click or rub, PMI was nondisplaced. Abdomen: Positive bowel sounds soft and tender without palpable masses or organomegaly. Lower abdomen appears to be quite distended. Extremities: The upper extremities have excellent pulses they are symmetric, no significant petechiae or telangiectasia. No splinter hemorrhages were noted. The lower extremities are free from significant edema. The peripheral pulses were 2+ and symmetric. Neuro: Arousable and follows a few commands today slightly brighter affect Skin: Minimal erythema to buttocks with no open ulcers being seen. No ulcers to heals. - Labs CBC & Chem 7: 04/13/17 07:41 04/13/17 07:41 Labs: Abnormal Lab Results - Last 24 Hours (Table) 04/13/17 04/13/17 04/13/17 Range/Units 07:41 07:41 07:41 WBC 10.9 H (3.8-10.6) k/uL RBC 3.31 L (4.30-5.90) m/uL Hgb 9.4 L (13.0-17.5) gm/dL Hct 29.5 L (39.0-53.0) % RDW 16.4 H (11.5-15.5) % Neutrophils # 9.1 H (1.3-7.7) k/uL APTT 72.8 H (22.0-30.0) sec Potassium 3.1 L (3.5-5.1) mmol/L Chloride 111 H (98-107) mmol/L Carbon Dioxide 20 L (22-30) mmol/L Glucose 133 H (74-99) mg/dL Calcium 7.3 L (8.4-10.2) mg/dL Total Bilirubin 0.1 L (0.2-1.3) mg/dL AST 12 L (17-59) U/L Total Protein 4.6 L (6.3-8.2) g/dL Albumin 1.8 L (3.5-5.0) g/dL Microbiology - Last 24 Hours (Table) 04/07/17 10:44 Blood Culture - Final Blood No Growth after 144 hours Laboratory Results WBC 10.9 k/uL (3.8-10.6) H 04/13/17 07:41 RBC 3.31 m/uL (4.30-5.90) L 04/13/17 07:41 Hgb 9.4 gm/dL (13.0-17.5) L 04/13/17 07:41 Hct 29.5 % (39.0-53.0) L 04/13/17 07:41 MCV 89.2 fL (80.0-100.0) 04/13/17 07:41 MCH 28.4 pg (25.0-35.0) 04/13/17 07:41 MCHC 31.8 g/dL (31.0-37.0) 04/13/17 07:41 RDW 16.4 % (11.5-15.5) H 04/13/17 07:41 Plt Count 422 k/uL (150-450) 04/13/17 07:41 Neutrophils % 83 % 04/13/17 07:41 Neutrophils % (Manual) 60 % 04/07/17 02:06 Band Neutrophils % 37 % 04/07/17 02:06 Lymphocytes % 9 % 04/13/17 07:41 Lymphocytes % (Manual) 2 % 04/07/17 02:06 Monocytes % 4 % 04/13/17 07:41 Monocytes % (Manual) 2 % 04/07/17 02:06 Eosinophils % 2 % 04/13/17 07:41 Basophils % 0 % 04/13/17 07:41 Neutrophils # 9.1 k/uL (1.3-7.7) H 04/13/17 07:41 Neutrophils # (Manual) 17.20 k/uL (1.3-7.7) H 04/07/17 02:06 Lymphocytes # 1.0 k/uL (1.0-4.8) 04/13/17 07:41 Lymphocytes # (Manual) 0.36 k/uL (1.0-4.8) L 04/07/17 02:06 Monocytes # 0.4 k/uL (0-1.0) 04/13/17 07:41 Monocytes # (Manual) 0.36 k/uL (0-1.0) 04/07/17 02:06 Eosinophils # 0.2 k/uL (0-0.7) 04/13/17 07:41 Basophils # 0.0 k/uL (0-0.2) 04/13/17 07:41 Nucleated RBCs 0 /100 WBC (0-0) 04/07/17 02:06 Manual Slide Review Performed 04/06/17 02:45 Toxic Vacuolation Present 04/07/17 02:06 Polychromasia Present 04/07/17 02:06 Hypochromasia Marked 04/10/17 06:09 Anisocytosis Slight 04/13/17 07:41 Crenated Cell Present 04/07/17 02:06 PT 13.1 sec (9.0-12.0) H 04/06/17 21:54 INR 1.3 (<1.2) H 04/06/17 21:54 APTT 72.8 sec (22.0-30.0) H 04/13/17 07:41 Sodium 140 mmol/L (137-145) 04/13/17 07:41 Potassium 3.1 mmol/L (3.5-5.1) L 04/13/17 07:41 Chloride 111 mmol/L (98-107) H 04/13/17 07:41 Carbon Dioxide 20 mmol/L (22-30) L 04/13/17 07:41 Anion Gap 9 mmol/L 04/13/17 07:41 BUN 16 mg/dL (9-20) 04/13/17 07:41 Creatinine 0.90 mg/dL (0.66-1.25) 04/13/17 07:41 Est GFR (MDRD) Af Amer >60 (>60 ml/min/1.73 sqM) 04/13/17 07:41 Est GFR (MDRD) Non-Af >60 (>60 ml/min/1.73 sqM) 04/13/17 07:41 Glucose 133 mg/dL (74-99) H 04/13/17 07:41 POC Glucose (mg/dL) 92 mg/dL (75-99) 04/07/17 15:23 POC Glu Fitter Up ID Jonny Almaraz, Carri 04/07/17 15:23 Lactic Ac Sepsis Rflx Y 04/07/17 16:05 Plasma Lactic Acid Georges 2.9 mmol/L (0.7-2.0) H* 04/07/17 19:17 Calcium 7.3 mg/dL (8.4-10.2) L 04/13/17 07:41 Phosphorus 2.6 mg/dL (2.5-4.5) 04/09/17 06:25 Magnesium 2.0 mg/dL (1.6-2.3) 04/09/17 06:25 Iron 20 ug/dL (49-181) L 04/10/17 06:09 TIBC 150 ug/dL (261-462) L 04/10/17 06:09 % Saturation 13.3 % (20-50) L 04/10/17 06:09 Total Bilirubin 0.1 mg/dL (0.2-1.3) L 04/13/17 07:41 AST 12 U/L (17-59) L 04/13/17 07:41 ALT 23 U/L (21-72) 04/13/17 07:41 Alkaline Phosphatase 89 U/L (38-126) 04/13/17 07:41 Total Protein 4.6 g/dL (6.3-8.2) L 04/13/17 07:41 Albumin 1.8 g/dL (3.5-5.0) L 04/13/17 07:41 Vitamin B12 971 pg/mL 04/10/17 06:09 Folate 9.7 ng/mL 04/10/17 06:09 Urine Color Light Red 04/05/17 23:29 Urine Appearance Turbid (Clear) 04/05/17 23:29 Urine pH 8.5 (5.0-8.0) H 04/05/17 23:29 Ur Specific [place] 1.012 (1.001-1.035) 04/05/17 23:29 Urine Protein 4+ (Negative) H 04/05/17 23:29 Urine Glucose (UA) Negative (Negative) 04/05/17 23:29 Urine Ketones Negative (Negative) 04/05/17 23: Urine Blood Negative (Negative) 04/05/17 23: Urine Nitrite Negative (Negative) 04/05/17 23: Urine Bilirubin Negative (Negative) 04/05/17 23: Urine Urobilinogen <2.0 mg/dL (<2.0) 04/05/17 23:29 Ur Leukocyte Esterase Large (Negative) H 04/05/17 23:29 Urine WBC 145 /hpf (0-5) H 04/05/17 23:29 Amorphous Sediment Occasional /hpf (None) H 04/05/17 23:29 Urine Bacteria Rare /hpf (None) H 04/05/17 23:29 Vancomycin Trough 11.7 ug/mL 04/08/17 20:33 Random Vancomycin 13.1 ug/mL 04/07/17 08:51 C. difficile (EIA) Intrp Positive (Negative) A 04/11/17 09:52 Microbiology 04/07/17 10:44 Blood Blood Culture - Final No Growth after 144 hours 04/05/17 23:29 Urine,Voided Urine Culture - Final Escherichia coli 04/05/17 23:09 Blood Blood Culture Gram Stain - Final 04/05/17 23:09 Blood Blood Culture - Final Escherichia coli 04/05/17 23:09 Blood Blood Culture - Final Assessment and Plan (1) Septic shock Narrative/Plan: 82-year-old male presents from the extended care facility with alteration of his status. Concerns to hypoxemia which corrected upon arrival of EMS. However the patient was hypotensive and tachycardic and febrile. Upon arrival the patient had evidence of sepsis and shock requiring fluid resuscitation and then vasopressor therapy. With adequate resuscitation he has now improved and is off vasopressor therapy. However continues to have a poor mental status. His fever is improved. On exam the patient had a poor urinary output had evidence of distention to his lower abdomen that was tender. Recent ultrasound showed evidence of bilateral hydronephrosis and sludge in his bladder. A bladder scan was requested and a liter of fluid was noted in his latter. The catheter was blocked and a new Chi was placed and the patient had resolution of his distention. He has been seen by urology in his phimosis was cared for at the bedside. His other the patient has gram-negative sepsis with the final cultures recent cultures have shown evidence of Escherichia coli that is susceptible to cefepime as well as ceftriaxone. Antibiotic therapy was descalated to ceftriaxone and will require completion of a 2 week course This will remain at this point in time pending further culture results. Follow up blood cultures are requested to ensure his bacteremia has cleared. He had a profound leukocytosis due to his sepsis and obstructive process which is now improved. Altered mentation on the basis of sepsis Acute renal failure on the basis of an obstructive process and is resolved as his sepsis and obstruction has been resolved by the urologist in the placement of the coud catheter. Hypokalemia has resolved. Patient is in the medical floor showing improvement. Patient developed diarrhea. Stool testing for C. diff has come back as positive. Oral vancomycin 250 mg per every 6 hours with evidence of improvement of his diarrhea. He will need longer than 10 days of therapy because he is currently in the midst of his 2 week course of antibiotic therapy for his gram-negative sepsis. Status: Acute (2) Gram-negative sepsis with organ dysfunction Status: Acute (3) UTI (urinary tract infection) Status: Acute (4) Leukocytosis Status: Acute
[2017-04-14] MEDS: CHERRY FLAVOR 60 ML BOTTLE PO PRN ×3 (00:59→17:58)
[2017-04-14] MEDS: VANCOMYCIN ORAL SOLUTION 250 MG/5 ML BOTTLE PO SCH ×4 (00:59→17:58)
[2017-04-14] MEDS: PANTOPRAZOLE 40 MG TABLET PO SCH (07:37)
[2017-04-14] MEDS: FUROSEMIDE 20 MG TAB PO SCH ×2 (07:37→16:47)
[2017-04-14] MEDS: POTASSIUM CHLORIDE ER 20 MEQ TAB.ER PO SCH (07:37)
[2017-04-14] MEDS: SODIUM CHLORIDE 0.9% 1,000 ML IV SCH ×2 (08:16→16:24)
[2017-04-14] MEDS ORDERED: POTASSIUM CHLORIDE 20 MEQ in WATER FOR INJECTION 1 100ML.BAG IVPB STA (11:02)
[2017-04-14] MEDS ORDERED: DEXAMETHASONE SOD PHOSPHATE 10 MG/ML 1 ML VIAL IV ONE (11:25)
[2017-04-14] MEDS ORDERED: LACTATED RINGERS 1,000 ML IV ONE (11:26)
[2017-04-14] MEDS ORDERED: ONDANSETRON 4 MG/2 ML VIAL IVP ONE (11:27)
--- NOTE | 2017-04-14 12:41 | P.PN ---
Subjective No events overnight. Patient is scheduled for OR today. Computed tomography scan report reviewed. Objective - Vital Signs Vital signs: Vital Signs Temp 98.3 F 04/14/17 10:59 Pulse 108 H 04/14/17 10:59 Resp 18 04/14/17 10:59 BP 118/67 04/14/17 10:59 Pulse Ox 93 L 04/14/17 10:59 Intake & Output 04/13/17 04/14/17 04/14/17 18:59 06:59 18:59 Intake Total 720 1228.203 482.51 Output Total 400 2200 925 Balance 320 -971.797 -442.49 Weight 93 kg Intake: IV 740 Heparin Sodium,Porcine/ 500 D5w Pmx 25,000 unit In Dextrose/Water 1 500ml. bag @ 18 UNITS/KG/HR 32. 04 mls/hr IV .[id number] [facility] Rx#:[id number] Sodium Chloride 0.9% 1, 240 000 ml @ 30 mls/hr IV . Q24H [facility] Rx#:[id number] Intake, IV Titration 488.203 482.51 Amount Heparin Sodium,Porcine/ 488.203 482.51 D5w Pmx 25,000 unit In Dextrose/Water 1 500ml. bag @ 18 UNITS/KG/HR 32. 04 mls/hr IV .[id number] [facility] Rx#:[id number] Oral 720 Output: Urine 400 2200 925 Coude 1000 Other: Voiding Method Indwelling Catheter Indwelling Catheter Indwelling Catheter # Bowel Movements 2 - Exam General: The patient is awake and alert Eye: there is normal conjunctiva bilaterally. Neck: The neck is supple, there is no JVD. Cardiovascular: Normal S1-S2, no S3-S4, no murmurs. Respiratory: Lungs with scattered rhonchi Gastrointestinal: Abdomen is soft, nontender Musculoskeletal: There is +2-3 pedal edema. Neurological:. Speech is normal. Skin: Skin is warm and dry - Labs CBC & Chem 7: 04/13/17 07:41 04/14/17 10:26 Labs: Abnormal Lab Results - Last 24 Hours (Table) 04/14/17 04/14/17 Range/Units 06:13 10:26 APTT 68.0 H (22.0-30.0) sec Potassium 3.0 L* (3.5-5.1) mmol/L Microbiology - Last 24 Hours (Table) 04/07/17 10:44 Blood Culture - Final Blood No Growth after 144 hours Assessment and Plan Plan: 1. Catheter associated urinary tract infection, present on admission, recurrent 2. Pelvic abscess scheduled for today by urology 3. Chronic obstructive uropathy, seen and evaluated by urology 4. History of prostate cancer with no evidence of metastasis on bone scan in November 5. Underlying cognitive impairment/dementia 6. Acute DVT of the left lower extremities on IV heparin 7. Right groin mass noted on ultrasound of unclear etiology would obtain computed tomography scan for further evaluation, may represent an abscess versus malignancy? 8. Bacteremia, repeat blood culture negative on 04/07 9. Acute C. diff colitis on oral vancomycin 10. Severe protein/calorie malnutrition: I added Ensure 3 times a day. Dietitian consultation requested Today, I reviewed his medication list and lab work results. Repeat computed tomography scan report reviewed today. Awaiting OR later on today. Appreciate care consultant's recommendations. Repeat lab work in the morning. No family members at bedside to be updated. 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
[2017-04-14] MEDS ORDERED: LIDOCAINE 1% INJ 10MG/ML (20 ML MDV) ONE (12:47)
[2017-04-14] MEDS ORDERED: ePHEDrine SULFATE/0.9% NACL/PF 50 MG/5 ML SYRINGE IV ONE (12:47)
[2017-04-14] MEDS ORDERED: fentaNYL (PF) 50 MCG/ML 2 ML AMP ONE (12:47)
[2017-04-14] MEDS ORDERED: PROPOFOL 10 MG/ML 20 ML VIAL IV ONE (12:47)
[2017-04-14] MEDS ORDERED: BISACODYL 10 MG SUPP RECTAL PRN (14:01)
--- NOTE | 2017-04-14 14:08 | P.OP ---
Date of Procedure: 04/14/17 Preoperative Diagnosis: Scrotal, pelvic abscess Postoperative Diagnosis: Same Procedure(s) Performed: Pelvic exploration with drainage of multiple abscess cavities, debridement of necrotic tissue, placement of suprapubic tube with open cystotomy Anesthesia: JUDAH Surgeon: Junior Gustafson Estimated Blood Loss (ml): 50 Pathology: other (Abscess culture) Condition: other (guarded) Disposition: ICU Indications for Procedure: Patient is an 82-year-old gentleman brought in from the correction last week with urinary tract infection with sepsis. He had a misplaced urethral Chi. It required a cystoscopy at the bedside for placement. Unfortunately it appears as if the balloon had been blown up in the urethra and torn the urethra with subsequent extravasation of infected urine into the periurethral space, scrotum, pelvis. A computed tomography scan was obtained yesterday identifying multiple abscess cavities in this region. He comes for exploration and placement of a suprapubic cystostomy. Description of Procedure: The patient is brought to the operating suite and given a general endotracheal anesthesia. He is prepped and draped sterilely. The Chi catheter is removed. A midline him for the suprapubic incision is made. Dissect infrapubic lesion into the scrotum and drain out edema and urine out of the scrotum. I move infrapubic down to the pubis and the pubis into the deep scrotum, perineum and thigh and rectus muscle and drained out multiple abscess cavities and debride a large amount of necrotic tissue. I then open the rectus fascia. I dissect down to the bladder and do a cystotomy. I bring through separate stab incision a 20-[place] Chi through the skin rectus fascia and into the bladder. Close the bladder in 2 layers of interrupted 2-0 PDS. A irrigate thoroughly and debride more tissue. Shirin drain is placed in the scrotal wound. A Philippe-Rocha drain is placed in the deep peroneal and pelvis wounds. The rectus fascias closed with interrupted 1 Vicryl. Skin is left open and packed with 89-soaked gauze. The patient's is returned recovery room in guarded condition, 50 mL blood loss
[2017-04-14 15:23] LABS: Glucose,Whole Blood 128 mg/dL (75-99)
[2017-04-14] MEDS ORDERED: Potassium Replacement Protocol 1 EACH MISC MISCELLANE PRN ×2 (15:40→22:07)
[2017-04-14] MEDS ORDERED: Magnesium Replacement Protocol 1 EACH MISC MISCELLANE PRN (15:40)
[2017-04-14] MEDS: cefTRIAXone 2,000 MG in SODIUM CHLORIDE 0.9% 100 ML IVPB SCH (16:47)
[2017-04-14] MEDS ORDERED: ENOXAPARIN 40 MG/0.4 ML SYRINGE SQ STA (17:11)
[2017-04-14] MEDS: ACETAMINOPHEN TAB 325 MG TAB PO PRN (17:27)
[2017-04-14 18:41] LABS: Basophils % (A) 0 %; CH 27.4; CHCM 32.1; Eosinophils % (A) 0 %; HCT 29.7 % (39.0-53.0); HDW 2.56; HGB 9.8 gm/dL (13.0-17.5); Luc # (Auto) 0.11; Luc % (Auto) 1; Lymphocytes # (A) 0.4 k/uL (1.0-4.8); Lymphocytes % (A) 3 %; MCH 28.3 pg (25.0-35.0); MCV 85.8 fL (80.0-100.0); Mean Platelet Volume 7.8; Monocytes # (A) 0.4 k/uL (0-1.0); Monocytes % (A) 3 %; Neutrophils # (A) 12.9 k/uL (1.3-7.7); Neutrophils % (A) 93 %; RBC 3.46 m/uL (4.30-5.90); RDW 15.4 % (11.5-15.5); WBC 13.9 k/uL (3.8-10.6)
[2017-04-14 18:50] LABS: ALT 24 U/L (21-72); AST 15 U/L (17-59); Alkaline Phosphatase 94 U/L (38-126); Anion Gap 8 mmol/L; Blood Urea Nitrogen 15 mg/dL (9-20); Calcium 7.5 mg/dL (8.4-10.2); Carbon Dioxide 21 mmol/L (22-30); Chloride 106 mmol/L (98-107); Glucose 136 mg/dL (74-99); Non-African American GFR(MDRD) >60 (>60 ml/min/1.73 sqM); Potassium 3.8 mmol/L (3.5-5.1); Sodium 135 mmol/L (137-145); Total Bilirubin 0.3 mg/dL (0.2-1.3)
[2017-04-14] MEDS: traZODone HCL 100 MG TAB PO SCH (20:21)
--- NOTE | 2017-04-14 20:34 | P.PN ---
Subjective Principal diagnosis: septic shock 82-year-old male presents to the emergency center from the extended care facility. Is limited that at his residence the patient was doing poorly. He had a drop in his pulse oximetry. Seemed to be not well. EMS was called. Upon their arrival his saturations were adequate. However the patient was tachycardic and hypotensive. They also believe that he was febrile. He was then transported to the Emergency [facility]tr[facility] where he was found to have evidence of hypotension. He was given fluid resuscitation. Despite that he remained hypotensive and required vasopressor therapy with Levophed. The patient was transferred to the intensive care unit received further resuscitation. With further fluids is little elevated lactic acid improved. Patient was continued to have somewhat of a poor mentation just part of his difficulties at transfer also known dementia. Because of his gram-negative sepsis the infectious diseases consultation was requested. The patient is a poor historian and most information is coming from the chart and the current nursing staff. The patient does seem to be a bit more uncomfortable he was earlier in the day as per the nursing staff. It is noted that urine output has been poor despite his extensive fluid resuscitation. Urine is very cloudy and thick. Renal ultrasound has been performed several hours ago. Evidence of bilateral hydronephrosis and sludge in his bladder. Today the patient is showing some improvement. He is arousable. He seems to be comfortable. The patient has been seen by urology. He had a coud catheter placed with the ureteroscope, because of a difficulty with a false passage. Patient is draining adequate amounts of urine. With his remained purulent However patient's fever, hypotension, leukocytosis are all improved. The patient has been quite slow to improve. Objective - Vital Signs Vital signs: Vital Signs Temp 97.7 F 04/14/17 16:00 Pulse 94 04/14/17 20:00 Resp 20 04/14/17 20:00 BP 110/63 04/14/17 20:00 Pulse Ox 96 04/14/17 20:00 Intake & Output 04/14/17 04/14/17 04/15/17 06:59 18:59 06:59 Intake Total 5347.381 9638.51 450 Output Total 2200 1805 170 Balance -971.797 142.51 280 Weight 94.1 kg Intake: IV 740 1225 200 Heparin Sodium,Porcine/ 500 D5w Pmx 25,000 unit In Dextrose/Water 1 500ml. bag @ 18 UNITS/KG/HR 32. 04 mls/hr IV .[id number] [facility] Rx#:[id number] Sodium Chloride 0.9% 1, 225 200 000 ml @ 100 mls/hr IV . Q10H [facility] Rx#:[id number] Sodium Chloride 0.9% 1, 240 000 ml @ 30 mls/hr IV . Q24H [facility] Rx#:[id number] cefTRIAXone 2,000 mg In 200 Sodium Chloride 0.9% 100 ml @ 100 mls/hr IVPB Q24H [facility] Rx#:[id number] Intake, IV Titration 488.203 482.51 Amount Heparin Sodium,Porcine/ 488.203 482.51 D5w Pmx 25,000 unit In Dextrose/Water 1 500ml. bag @ 18 UNITS/KG/HR 32. 04 mls/hr IV .[id number] [facility] Rx#:[id number] Oral 240 250 Output: Drainage 120 perineum 120 Urine 2200 1635 170 Coude 1000 Uretheral (Chi) 275 Estimated Blood Loss 50 Other: Voiding Method Indwelling Catheter Indwelling Catheter # Voids 3 - Exam Patient had some worsening today. There is evidence of further purulence within his urine. Computed tomography scan was performed. Evidence of abscess deep in the pelvis and has been taking to the operating room for an incision and drainage and placement of a suprapubic catheter. HEENT: Anicteric conjunctiva are pink and moist nasal mucosa grossly intact without significant lesions, there is no thrush. Oral cavity is dry with generalized poor long-term hygiene Neck: The neck is supple without significant lymphadenopathy or thyromegaly. Lungs: Good bilateral air entry without significant crackles or wheezing. There is no significant bronchial sounds. There is no egophony or dullness. Heart: Regular rate and rhythm with an audible S1-S2, no S3 no S4. There is no significant murmur click or rub, PMI was nondisplaced. Abdomen: Positive bowel sounds soft and tender without palpable masses or organomegaly. Lower abdomen appears to be quite distended. Extremities: The upper extremities have excellent pulses they are symmetric, no significant petechiae or telangiectasia. No splinter hemorrhages were noted. The lower extremities are free from significant edema. The peripheral pulses were 2+ and symmetric. Neuro: Arousable he is sitting upright and is more communicative than his been in the last 48 hours Skin: Scrotum is evidence of 2 incisions with Shirin drains in place there is some serosanguineous drainage. The scrotum is somewhat edematous it is not necrotic. Abdominal wall is with less tenderness than prior. - Labs CBC & Chem 7: 04/14/17 18:15 04/14/17 18:15 Labs: Abnormal Lab Results - Last 24 Hours (Table) 04/14/17 04/14/17 04/14/17 Range/Units 06:13 10:26 15:21 WBC (3.8-10.6) k/uL RBC (4.30-5.90) m/uL Hgb (13.0-17.5) gm/dL Hct (39.0-53.0) % Neutrophils # (1.3-7.7) k/uL Lymphocytes # (1.0-4.8) k/uL APTT 68.0 H (22.0-30.0) sec Sodium (137-145) mmol/L Potassium 3.0 L* (3.5-5.1) mmol/L Carbon Dioxide (22-30) mmol/L Glucose (74-99) mg/dL POC Glucose (mg/dL) 128 H (75-99) mg/dL Calcium (8.4-10.2) mg/dL AST (17-59) U/L Total Protein (6.3-8.2) g/dL Albumin (3.5-5.0) g/dL 04/14/17 04/14/17 Range/Units 18:15 18:15 WBC 13.9 H (3.8-10.6) k/uL RBC 3.46 L (4.30-5.90) m/uL Hgb 9.8 L (13.0-17.5) gm/dL Hct 29.7 L (39.0-53.0) % Neutrophils # 12.9 H (1.3-7.7) k/uL Lymphocytes # 0.4 L (1.0-4.8) k/uL APTT (22.0-30.0) sec Sodium 135 L (137-145) mmol/L Potassium (3.5-5.1) mmol/L Carbon Dioxide 21 L (22-30) mmol/L Glucose 136 H (74-99) mg/dL POC Glucose (mg/dL) (75-99) mg/dL Calcium 7.5 L (8.4-10.2) mg/dL AST 15 L (17-59) U/L Total Protein 5.0 L (6.3-8.2) g/dL Albumin 2.0 L (3.5-5.0) g/dL Microbiology - Last 24 Hours (Table) 04/14/17 13:20 Anaerobic Culture - Preliminary Scrotum 04/14/17 13:20 Wound Culture - Preliminary Scrotum 04/14/17 13:20 Wound Culture - Preliminary Scrotum 04/14/17 13:20 Anaerobic Culture - Preliminary Scrotum Laboratory Results WBC 13.9 k/uL (3.8-10.6) H 04/14/17 18:15 RBC 3.46 m/uL (4.30-5.90) L 04/14/17 18:15 Hgb 9.8 gm/dL (13.0-17.5) L 04/14/17 18:15 Hct 29.7 % (39.0-53.0) L 04/14/17 18:15 MCV 85.8 fL (80.0-100.0) 04/14/17 18:15 MCH 28.3 pg (25.0-35.0) 04/14/17 18:15 MCHC 33.0 g/dL (31.0-37.0) 04/14/17 18:15 RDW 15.4 % (11.5-15.5) 04/14/17 18:15 Plt Count 399 k/uL (150-450) 04/14/17 18:15 Neutrophils % 93 % 04/14/17 18:15 Neutrophils % (Manual) 60 % 04/07/17 02:06 Band Neutrophils % 37 % 04/07/17 02:06 Lymphocytes % 3 % 04/14/17 18:15 Lymphocytes % (Manual) 2 % 04/07/17 02:06 Monocytes % 3 % 04/14/17 18:15 Monocytes % (Manual) 2 % 04/07/17 02:06 Eosinophils % 0 % 04/14/17 18:15 Basophils % 0 % 04/14/17 18:15 Neutrophils # 12.9 k/uL (1.3-7.7) H 04/14/17 18:15 Neutrophils # (Manual) 17.20 k/uL (1.3-7.7) H 04/07/17 02:06 Lymphocytes # 0.4 k/uL (1.0-4.8) L 04/14/17 18:15 Lymphocytes # (Manual) 0.36 k/uL (1.0-4.8) L 04/07/17 02:06 Monocytes # 0.4 k/uL (0-1.0) 04/14/17 18:15 Monocytes # (Manual) 0.36 k/uL (0-1.0) 04/07/17 02:06 Eosinophils # 0.0 k/uL (0-0.7) 04/14/17 18:15 Basophils # 0.0 k/uL (0-0.2) 04/14/17 18:15 Nucleated RBCs 0 /100 WBC (0-0) 04/07/17 02:06 Manual Slide Review Performed 04/06/17 02:45 Toxic Vacuolation Present 04/07/17 02:06 Polychromasia Present 04/07/17 02:06 Hypochromasia Marked 04/10/17 06:09 Anisocytosis Slight 04/13/17 07:41 Crenated Cell Present 04/07/17 02:06 PT 13.1 sec (9.0-12.0) H 04/06/17 21:54 INR 1.3 (<1.2) H 04/06/17 21:54 APTT 68.0 sec (22.0-30.0) H 04/14/17 06:13 Sodium 135 mmol/L (137-145) L 04/14/17 18:15 Potassium 3.8 mmol/L (3.5-5.1) 04/14/17 18:15 Chloride 106 mmol/L (98-107) 04/14/17 18:15 Carbon Dioxide 21 mmol/L (22-30) L 04/14/17 18:15 Anion Gap 8 mmol/L 04/14/17 18:15 BUN 15 mg/dL (9-20) 04/14/17 18:15 Creatinine 0.80 mg/dL (0.66-1.25) 04/14/17 18:15 Est GFR (MDRD) Af Amer >60 (>60 ml/min/1.73 sqM) 04/14/17 18:15 Est GFR (MDRD) Non-Af >60 (>60 ml/min/1.73 sqM) 04/14/17 18:15 Glucose 136 mg/dL (74-99) H 04/14/17 18:15 POC Glucose (mg/dL) 128 mg/dL (75-99) H 04/14/17 15:21 POC Glu Agile Scrum Master ID Zhane Nelson 04/14/17 15:21 Lactic Ac Sepsis Rflx Y 04/07/17 16:05 Plasma Lactic Acid Georges 2.9 mmol/L (0.7-2.0) H* 04/07/17 19:17 Calcium 7.5 mg/dL (8.4-10.2) L 04/14/17 18:15 Phosphorus 2.6 mg/dL (2.5-4.5) 04/09/17 06:25 Magnesium 2.0 mg/dL (1.6-2.3) 04/09/17 06:25 Iron 20 ug/dL (49-181) L 04/10/17 06:09 TIBC 150 ug/dL (261-462) L 04/10/17 06:09 % Saturation 13.3 % (20-50) L 04/10/17 06:09 Total Bilirubin 0.3 mg/dL (0.2-1.3) 04/14/17 18:15 AST 15 U/L (17-59) L 04/14/17 18:15 ALT 24 U/L (21-72) 04/14/17 18:15 Alkaline Phosphatase 94 U/L (38-126) 04/14/17 18:15 Total Protein 5.0 g/dL (6.3-8.2) L 04/14/17 18:15 Albumin 2.0 g/dL (3.5-5.0) L 04/14/17 18:15 Vitamin B12 971 pg/mL 04/10/17 06:09 Folate 9.7 ng/mL 04/10/17 06:09 Urine Color Light Red 04/05/17 23:29 Urine Appearance Turbid (Clear) 04/05/17 23:29 Urine pH 8.5 (5.0-8.0) H 04/05/17 23:29 Ur Specific [place] 1.012 (1.001-1.035) 04/05/17 23:29 Urine Protein 4+ (Negative) H 04/05/17 23:29 Urine Glucose (UA) Negative (Negative) 04/05/17 23:29 Urine Ketones Negative (Negative) 04/05/17 23:29 Urine Blood Negative (Negative) 04/05/17 23:29 Urine Nitrite Negative (Negative) 04/05/17 23:29 Urine Bilirubin Negative (Negative) 04/05/17 23:29 Urine Urobilinogen <2.0 mg/dL (<2.0) 04/05/17 23:29 Ur Leukocyte Esterase Large (Negative) H 04/05/17 23:29 Urine WBC 145 /hpf (0-5) H 04/05/17 23:29 Amorphous Sediment Occasional /hpf (None) H 04/05/17 23:29 Urine Bacteria Rare /hpf (None) H 04/05/17 23:29 Vancomycin Trough 11.7 ug/mL 04/08/17 20:33 Random Vancomycin 13.1 ug/mL 04/07/17 08:51 C. difficile (EIA) Intrp Positive (Negative) A 04/11/17 09:52 Microbiology 04/14/17 13:20 Scrotum Anaerobic Culture - Preliminary 04/14/17 13:20 Scrotum Wound Culture - Preliminary 04/14/17 13:20 Scrotum Wound Culture - Preliminary 04/14/17 13:20 Scrotum Anaerobic Culture - Preliminary 04/07/17 10:44 Blood Blood Culture - Final No Growth after 144 hours 04/05/17 23:29 Urine,Voided Urine Culture - Final Escherichia coli 04/05/17 23:09 Blood Blood Culture Gram Stain - Final 04/05/17 23:09 Blood Blood Culture - Final Escherichia coli 04/05/17 23:09 Blood Blood Culture - Final Assessment and Plan (1) Septic shock Narrative/Plan: 82-year-old male presents from the extended care facility with alteration of his status. Concerns to hypoxemia which corrected upon arrival of EMS. However the patient was hypotensive and tachycardic and febrile. Upon arrival the patient had evidence of sepsis and shock requiring fluid resuscitation and then vasopressor therapy. With adequate resuscitation he has now improved and is off vasopressor therapy. However continues to have a poor mental status. His fever is improved. On exam the patient had a poor urinary output had evidence of distention to his lower abdomen that was tender. Recent ultrasound showed evidence of bilateral hydronephrosis and sludge in his bladder. A bladder scan was requested and a liter of fluid was noted in his latter. The catheter was blocked and a new Chi was placed and the patient had resolution of his distention. He has been seen by urology in his phimosis was cared for at the bedside. His other the patient has gram-negative sepsis with the final cultures recent cultures have shown evidence of Escherichia coli that is susceptible to cefepime as well as ceftriaxone. Antibiotic therapy was descalated to ceftriaxone and will require completion of a 2 week course This will remain at this point in time pending further culture results. Follow up blood cultures are requested to ensure his bacteremia has cleared. He had a profound leukocytosis due to his sepsis and obstructive process which is now improved. Altered mentation on the basis of sepsis Acute renal failure on the basis of an obstructive process and is resolved as his sepsis and obstruction has been resolved by the urologist in the placement of the coud catheter. Hypokalemia has resolved. Patient is in the medical floor showing improvement. Patient developed diarrhea. Stool testing for C. diff has come back as positive. Oral vancomycin 250 mg per every 6 hours with evidence of improvement of his diarrhea. The patient was having some worsening to his urine. He constantly computed tomography scan was performed. There is evidence of multiple abscess. He's not been seen by the urologist and taken back to the operating room for drainage of the deep pelvic abscess. A suprapubic catheter is now been placed to avoid the track through the urethra resulting in further infection. Despite antibiotic therapy the patient is having steady improvement at this time it is somewhat malodorous. There is concerned as he has C. diff about escalating antimicrobial therapy. However anaerobic coverage as required and with the prior isolated Escherichia coli meropenem will be utilized until we have further data. Status: Acute (2) Gram-negative sepsis with organ dysfunction Status: Acute (3) UTI (urinary tract infection) Status: Acute (4) Leukocytosis Status: Acute
[2017-04-14] MEDS: POTASSIUM CHLORIDE 10 MEQ, LIDOCAINE 2% INJ 10 MG in SODIUM CHLORIDE 0.9% 100 ML IV SCH (22:38)
[2017-04-15] MEDS: VANCOMYCIN ORAL SOLUTION 250 MG/5 ML BOTTLE PO SCH ×5 (00:05→23:29)
[2017-04-15] MEDS: CHERRY FLAVOR 60 ML BOTTLE PO PRN ×5 (00:05→23:29)
[2017-04-15] MEDS: POTASSIUM CHLORIDE 10 MEQ, LIDOCAINE 2% INJ 10 MG in SODIUM CHLORIDE 0.9% 100 ML IV SCH (00:06)
[2017-04-15] MEDS: MEROPENEM 1 GM in SODIUM CHLORIDE 0.9% 100 ML IVPB SCH ×4 (00:06→23:35)
[2017-04-15] MEDS: SODIUM CHLORIDE 0.9% 1,000 ML IV SCH ×3 (03:44→23:30)
[2017-04-15 05:19] LABS: Basophils % (A) 0 %; CH 27.3; CHCM 29.3; Eosinophils % (A) 0 %; HCT 33.2 % (39.0-53.0); HDW 2.42; HGB 9.6 gm/dL (13.0-17.5); Hypochromasia Marked; Luc # (Auto) 0.22; Luc % (Auto) 2; Lymphocytes # (A) 0.6 k/uL (1.0-4.8); Lymphocytes % (A) 4 %; MCH 27.2 pg (25.0-35.0); MCHC 29.1 g/dL (31.0-37.0); Mean Platelet Volume 7.3; Monocytes # (A) 0.5 k/uL (0-1.0); Monocytes % (A) 3 %; Neutrophils # (A) 12.9 k/uL (1.3-7.7); Neutrophils % (A) 90 %; RBC 3.54 m/uL (4.30-5.90); RDW 15.9 % (11.5-15.5); WBC 14.3 k/uL (3.8-10.6)
[2017-04-15 05:25] LABS: INR 1.2 (<1.2); Prothrombin Time 12.2 sec (9.0-12.0)
[2017-04-15 05:26] LABS: MCV 93.7 fL (80.0-100.0)
[2017-04-15 05:27] LABS: ALT 28 U/L (21-72); AST 13 U/L (17-59); Alkaline Phosphatase 90 U/L (38-126); Anion Gap 8 mmol/L; Blood Urea Nitrogen 15 mg/dL (9-20); Calcium 7.5 mg/dL (8.4-10.2); Carbon Dioxide 19 mmol/L (22-30); Chloride 109 mmol/L (98-107); Glucose 138 mg/dL (74-99); Magnesium 1.7 mg/dL (1.6-2.3); Non-African American GFR(MDRD) >60 (>60 ml/min/1.73 sqM); Phosphorus 4.4 mg/dL (2.5-4.5); Potassium 3.7 mmol/L (3.5-5.1); Sodium 136 mmol/L (137-145); Total Bilirubin 0.2 mg/dL (0.2-1.3)
[2017-04-15] MEDS ORDERED: Magnesium Replacement Protocol 1 EACH MISC MISCELLANE PRN (05:51)
[2017-04-15] MEDS: MAGNESIUM SULFATE-D5W PMX 1 GM in DEXTROSE/WATER 1 100ML.BAG IVPB SCH ×2 (06:41→08:13)
[2017-04-15] MEDS: HEPARIN SODIUM,PORCINE/D5W PMX 25,000 UNIT in DEXTROSE/WATER 1 500ML.BAG IV SCH ×2 (06:42→18:42)
[2017-04-15] MEDS ORDERED: HEPARIN SODIUM,PORCINE 5,000 UNIT/ML 1 ML VIAL IV PRN (07:30)
[2017-04-15] MEDS: POTASSIUM CHLORIDE ER 20 MEQ TAB.ER PO SCH ×3 (08:14→16:39)
[2017-04-15] MEDS: PANTOPRAZOLE 40 MG TABLET PO SCH (08:14)
[2017-04-15] MEDS: ACETAMINOPHEN TAB 325 MG TAB PO PRN (09:16)
[2017-04-15] MEDS: FUROSEMIDE 20 MG TAB PO SCH ×2 (09:17→15:32)
[2017-04-15 10:16] VITALS: BMI 29.7
--- NOTE | 2017-04-15 10:45 | P.PN ---
Subjective This is an 82-year-old male with a history of acute urinary tract infection secondary to gram-negative bacteria, E. coli, with septic shock. The patient seemed be doing relatively well. A bit more awake and alert. Has a history of acute left lower extremity DVT. The patient also has history of multiple medical problems including COPD dementia hyperlipidemia DJD chronic urinary retention urethral stricture prostate cancer status post surgery with radiation. Again the patient seemed be doing relatively well and is being readied for discharge. The patient is still a little bit lethargic. Does arouse. Seem to be much for awake and alert. Respiratory status and hemodynamic status seemed to be stable. The patient is seen again today 04/15/2017 in follow-up. He is status post pelvic exploration with drainage of multiple abscess cavities, debridement of necrotic tissue, placement of suprapubic tube and open cystoscopy. LUIS FELIPE drain remains in place as well. This is postoperative day #1. He is awake and alert. He is disoriented to place and time. He has been stable from the critical care standpoint. He has not required any pressors. Hemoglobin 9.6. He remains on heparin drip for a left lower extremity DVT. He is maintaining good O2 saturations in the 90s on 2 L/m per nasal cannula. He remains at 0.9 normal saline at 100 MLS per hour. He is maintaining good urine output. Objective - Vital Signs Vital signs: Vital Signs Temp 96.9 F L 04/15/17 08:00 Pulse 107 H 04/15/17 08:00 Resp 20 04/15/17 08:00 BP 125/75 04/15/17 08:00 Pulse Ox 94 L 04/15/17 08:00 Intake & Output 04/14/17 04/15/17 04/15/17 18:59 06:59 18:59 Intake Total 1947.51 1650 575 Output Total 1805 1265 80 Balance 142.51 385 495 Weight 94.1 kg Intake: IV 1225 1400 325 Magnesium Sulfate-D5w Pmx 200 1 gm In Dextrose/Water 1 100ml.bag @ 100 mls/hr IVPB Q1H [facility] Rx#: [id number] Meropenem 1 gm In Sodium 100 100 Chloride 0.9% 100 ml @ 100 mls/hr IVPB Q8HR [facility] Rx#:[id number] Potassium Chloride 20 meq 200 In Water For Injection 1 100ml.bag @ 50 mls/hr IVPB [facility] Rx#: [id number] Sodium Chloride 0.9% 1, 225 1100 25 000 ml @ 100 mls/hr IV . Q10H [facility] Rx#:[id number] cefTRIAXone 2,000 mg In 200 Sodium Chloride 0.9% 100 ml @ 100 mls/hr IVPB Q24H [facility] Rx#:[id number] Intake, IV Titration 482.51 Amount Heparin Sodium,Porcine/ 482.51 D5w Pmx 25,000 unit In Dextrose/Water 1 500ml. bag @ 18 UNITS/KG/HR 32. 04 mls/hr IV .[id number] [facility] Rx#:[id number] Oral 240 250 250 Output: Drainage 120 180 20 perineum 120 180 20 Urine 1635 1085 60 Uretheral (Chi) 275 Estimated Blood Loss 50 Other: Voiding Method Indwelling Catheter Indwelling Catheter # Voids 3 - Exam GENERAL EXAM: Alert, fairly comfortable in no apparent distress. HEAD: Normocephalic. EYES: Normal reaction of pupils, equal size. NOSE: Clear with pink turbinates. THROAT: No erythema or exudates. NECK: No masses, no JVD. CHEST: No chest wall deformity. LUNGS: Equal air entry with no crackles, wheeze, rhonchi or dullness. CVS: S1 and S2 normal with no audible murmurs, regular rhythm. ABDOMEN: Dressing to the lower abdomen is dry and intact. LUIS FELIPE drain remains in place. SPINE: No scoliosis or deformity SKIN: No rashes CENTRAL NERVOUS SYSTEM: No focal deficits, tone is normal in all 4 extremities. Extremities: There is trace peripheral edema. No clubbing, no cyanosis. Peripheral pulses are intact. - Labs CBC & Chem 7: 04/15/17 04:48 04/15/17 04:48 Labs: Abnormal Lab Results - Last 24 Hours (Table) 04/14/17 04/14/17 04/14/17 Range/Units 10:26 15:21 18:15 WBC 13.9 H (3.8-10.6) k/uL RBC 3.46 L (4.30-5.90) m/uL Hgb 9.8 L (13.0-17.5) gm/dL Hct 29.7 L (39.0-53.0) % MCHC (31.0-37.0) g/dL RDW (11.5-15.5) % Neutrophils # 12.9 H (1.3-7.7) k/uL Lymphocytes # 0.4 L (1.0-4.8) k/uL PT (9.0-12.0) sec INR (<1.2) Sodium (137-145) mmol/L Potassium 3.0 L* (3.5-5.1) mmol/L Chloride (98-107) mmol/L Carbon Dioxide (22-30) mmol/L Glucose (74-99) mg/dL POC Glucose (mg/dL) 128 H (75-99) mg/dL Calcium (8.4-10.2) mg/dL AST (17-59) U/L Total Protein (6.3-8.2) g/dL Albumin (3.5-5.0) g/dL 04/14/17 04/15/17 04/15/17 Range/Units 18:15 04:48 04:48 WBC 14.3 H (3.8-10.6) k/uL RBC 3.54 L (4.30-5.90) m/uL Hgb 9.6 L (13.0-17.5) gm/dL Hct 33.2 L (39.0-53.0) % MCHC 29.1 L (31.0-37.0) g/dL RDW 15.9 H (11.5-15.5) % Neutrophils # 12.9 H (1.3-7.7) k/uL Lymphocytes # 0.6 L (1.0-4.8) k/uL PT (9.0-12.0) sec INR (<1.2) Sodium 135 L 136 L (137-145) mmol/L Potassium (3.5-5.1) mmol/L Chloride 109 H (98-107) mmol/L Carbon Dioxide 21 L 19 L (22-30) mmol/L Glucose 136 H 138 H (74-99) mg/dL POC Glucose (mg/dL) (75-99) mg/dL Calcium 7.5 L 7.5 L (8.4-10.2) mg/dL AST 15 L 13 L (17-59) U/L Total Protein 5.0 L 5.0 L (6.3-8.2) g/dL Albumin 2.0 L 2.0 L (3.5-5.0) g/dL 04/15/17 Range/Units 04:48 WBC (3.8-10.6) k/uL RBC (4.30-5.90) m/uL Hgb (13.0-17.5) gm/dL Hct (39.0-53.0) % MCHC (31.0-37.0) g/dL RDW (11.5-15.5) % Neutrophils # (1.3-7.7) k/uL Lymphocytes # (1.0-4.8) k/uL PT 12.2 H (9.0-12.0) sec INR 1.2 H (<1.2) Sodium (137-145) mmol/L Potassium (3.5-5.1) mmol/L Chloride (98-107) mmol/L Carbon Dioxide (22-30) mmol/L Glucose (74-99) mg/dL POC Glucose (mg/dL) (75-99) mg/dL Calcium (8.4-10.2) mg/dL AST (17-59) U/L Total Protein (6.3-8.2) g/dL Albumin (3.5-5.0) g/dL Microbiology - Last 24 Hours (Table) 04/14/17 13:20 Gram Stain - Preliminary Scrotum Wound Culture - Preliminary 04/14/17 13:20 Gram Stain - Preliminary Scrotum Wound Culture - Preliminary 04/14/17 13:20 Anaerobic Culture - Preliminary Scrotum 04/14/17 13:20 Anaerobic Culture - Preliminary Scrotum Assessment and Plan Plan: Impression: #1 Scrotal, pelvic abscess. Status post pelvic exploration with drainage of multiple abscess cavities, debridement of necrotic tissue, placement of suprapubic catheter and open cystoscopy. This is postoperative day #1. #2 Acute sepsis secondary to above as well as acute urinary tract infection. #3 Acute urinary tract infection secondary to E. coli. #4 Bacteremia secondary to acute E. coli from urinary tract infection. 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 #6 History of prostate cancer. #7 Dementia. #8 Acute DVT of the left lower extremity, currently on heparin. #9 Acute C. difficile colitis on oral vancomycin. Plan: The patient was seen and evaluated by Dr. Moser. He is currently stable from the pulmonary and critical care standpoint and could be transferred out of the intensive care unit later today. He has not required any pressors. He remains on meropenem and oral vancomycin. We will continue to follow and make further recommendations based on his clinical status.
--- NOTE | 2017-04-15 11:31 | P.PN ---
Subjective Patient is awake and alert today. He was monitored in the ICU overnight. His mentation is significantly better compared to yesterday. No events overnight. Objective - Vital Signs Vital signs: Vital Signs Temp 96.9 F L 04/15/17 08:00 Pulse 95 04/15/17 10:00 Resp 20 04/15/17 10:00 BP 96/61 04/15/17 10:00 Pulse Ox 99 04/15/17 10:00 Intake & Output 04/14/17 04/15/17 04/15/17 18:59 06:59 18:59 Intake Total 1947.51 1650 1025 Output Total 1805 1265 215 Balance 142.51 385 810 Weight 94.1 kg 94.1 kg Intake: IV 1225 1400 525 Magnesium Sulfate-D5w Pmx 200 1 gm In Dextrose/Water 1 100ml.bag @ 100 mls/hr IVPB Q1H [facility] Rx#: [id number] Meropenem 1 gm In Sodium 100 100 Chloride 0.9% 100 ml @ 100 mls/hr IVPB Q8HR [facility] Rx#:[id number] Potassium Chloride 20 meq 200 In Water For Injection 1 100ml.bag @ 50 mls/hr IVPB ONCE [facility] [place] Rx#: [id number] Sodium Chloride 0.9% 1, 225 1100 225 000 ml @ 100 mls/hr IV . Q10H [facility] Rx#:[id number] cefTRIAXone 2,000 mg In 200 Sodium Chloride 0.9% 100 ml @ 100 mls/hr IVPB Q24H [facility] Rx#:[id number] Intake, IV Titration 482.51 Amount Heparin Sodium,Porcine/ 482.51 D5w Pmx 25,000 unit In Dextrose/Water 1 500ml. bag @ 18 UNITS/KG/HR 32. 04 mls/hr IV .[id number] [facility] Rx#:[id number] Oral 240 250 500 Output: Drainage 120 180 20 perineum 120 180 20 Urine 1635 1085 195 Uretheral (Chi) 275 Estimated Blood Loss 50 Other: Voiding Method Indwelling Catheter Indwelling Catheter Indwelling Catheter # Voids 3 - Exam General: The patient is awake and alert, in no distress Eye: there is normal conjunctiva bilaterally. Neck: The neck is supple, there is no JVD. Cardiovascular: Normal S1-S2, no S3-S4, no murmurs. Respiratory: Lungs clear to auscultation bilaterally Gastrointestinal: Abdomen is soft, nontender Musculoskeletal: There is +2 pedal edema. Neurological:. Speech is normal. Skin: Skin is warm and dry - Labs CBC & Chem 7: 04/15/17 04:48 04/15/17 04:48 Labs: Abnormal Lab Results - Last 24 Hours (Table) 04/14/17 04/14/17 04/14/17 Range/Units 15:21 18:15 18:15 WBC 13.9 H (3.8-10.6) k/uL RBC 3.46 L (4.30-5.90) m/uL Hgb 9.8 L (13.0-17.5) gm/dL Hct 29.7 L (39.0-53.0) % MCHC (31.0-37.0) g/dL RDW (11.5-15.5) % Neutrophils # 12.9 H (1.3-7.7) k/uL Lymphocytes # 0.4 L (1.0-4.8) k/uL PT (9.0-12.0) sec INR (<1.2) Sodium 135 L (137-145) mmol/L Chloride (98-107) mmol/L Carbon Dioxide 21 L (22-30) mmol/L Glucose 136 H (74-99) mg/dL POC Glucose (mg/dL) 128 H (75-99) mg/dL Calcium 7.5 L (8.4-10.2) mg/dL AST 15 L (17-59) U/L Total Protein 5.0 L (6.3-8.2) g/dL Albumin 2.0 L (3.5-5.0) g/dL 04/15/17 04/15/17 04/15/17 Range/Units 04:48 04:48 04:48 WBC 14.3 H (3.8-10.6) k/uL RBC 3.54 L (4.30-5.90) m/uL Hgb 9.6 L (13.0-17.5) gm/dL Hct 33.2 L (39.0-53.0) % MCHC 29.1 L (31.0-37.0) g/dL RDW 15.9 H (11.5-15.5) % Neutrophils # 12.9 H (1.3-7.7) k/uL Lymphocytes # 0.6 L (1.0-4.8) k/uL PT 12.2 H (9.0-12.0) sec INR 1.2 H (<1.2) Sodium 136 L (137-145) mmol/L Chloride 109 H (98-107) mmol/L Carbon Dioxide 19 L (22-30) mmol/L Glucose 138 H (74-99) mg/dL POC Glucose (mg/dL) (75-99) mg/dL Calcium 7.5 L (8.4-10.2) mg/dL AST 13 L (17-59) U/L Total Protein 5.0 L (6.3-8.2) g/dL Albumin 2.0 L (3.5-5.0) g/dL Microbiology - Last 24 Hours (Table) 04/14/17 13:20 Gram Stain - Preliminary Scrotum Wound Culture - Preliminary 04/14/17 13:20 Gram Stain - Preliminary Scrotum Wound Culture - Preliminary 04/14/17 13:20 Anaerobic Culture - Preliminary Scrotum 04/14/17 13:20 Anaerobic Culture - Preliminary Scrotum Assessment and Plan Plan: 1. Catheter associated urinary tract infection, present on admission, recurrent 2. Status post pelvic exploration with drainage of multiple abscess cavities/ debridement of necrotic tissue and placement of suprapubic catheter on 04/14/17 3. Chronic obstructive uropathy, seen and evaluated by urology 4. History of prostate cancer with no evidence of metastasis on bone scan in November 5. Underlying cognitive impairment/dementia 6. Acute DVT of the left lower extremities on IV heparin 8. Bacteremia, repeat blood culture negative on 04/07 9. Acute C. diff colitis on oral vancomycin 10. Severe protein/calorie malnutrition: I added Ensure 3 times a day. Dietitian consultation requested Today, I reviewed his medication list and lab work results. Continue current regimen. Antibiotic management infectious disease. May transfer outside to the intensive care unit to a general farmworker unit. Appreciate consultants intern's recommendations. Repeat lab work in the morning. No family members at bedside to be updated. sewage disposal worker is involved to obtain legal guardianship given no family support.
--- NOTE | 2017-04-15 11:42 | P.PN ---
Subjective The patient is in his first day postop from his suprapubic cystostomy exploration and drainage of perineal and pelvic abscess. He feels better. He has a fair amount of edema as expected. The drain is draining a moderate amount of purulent material as expected. His vital signs are stable he is ready to go to the floor. He is alert this morning and feels better. We will continue with supportive care. Objective - Vital Signs Vital signs: Vital Signs Temp 96.9 F L 04/15/17 08:00 Pulse 76 04/15/17 11:00 Resp 14 04/15/17 11:00 BP 99/47 04/15/17 11:00 Pulse Ox 99 04/15/17 11:00 Intake & Output 04/14/17 04/15/17 04/15/17 18:59 06:59 18:59 Intake Total 1947.51 1650 1025 Output Total 1805 1265 215 Balance 142.51 385 810 Weight 94.1 kg 94.1 kg Intake: IV 1225 1400 525 Magnesium Sulfate-D5w Pmx 200 1 gm In Dextrose/Water 1 100ml.bag @ 100 mls/hr IVPB Q1H [facility] Rx#: [id number] Meropenem 1 gm In Sodium 100 100 Chloride 0.9% 100 ml @ 100 mls/hr IVPB Q8HR [facility] Rx#:[id number] Potassium Chloride 20 meq 200 In Water For Injection 1 100ml.bag @ 50 mls/hr IVPB ONCE [facility] Rx#: [id number] Sodium Chloride 0.9% 1, 225 1100 225 000 ml @ 100 mls/hr IV . Q10H [facility] Rx#:[id number] cefTRIAXone 2,000 mg In 200 Sodium Chloride 0.9% 100 ml @ 100 mls/hr IVPB Q24H [facility] Rx#:[id number] Intake, IV Titration 482.51 Amount Heparin Sodium,Porcine/ 482.51 D5w Pmx 25,000 unit In Dextrose/Water 1 500ml. bag @ 18 UNITS/KG/HR 32. 04 mls/hr IV .[id number] [facility] Rx#:[id number] Oral 240 250 500 Output: Drainage 120 180 20 perineum 120 180 20 Urine 1635 1085 195 Uretheral (Chi) 275 Estimated Blood Loss 50 Other: Voiding Method Indwelling Catheter Indwelling Catheter Indwelling Catheter # Voids 3 - Labs CBC & Chem 7: 04/15/17 04:48 04/15/17 04:48 Labs: Abnormal Lab Results - Last 24 Hours (Table) 04/14/17 04/14/17 04/14/17 Range/Units 15:21 18:15 18:15 WBC 13.9 H (3.8-10.6) k/uL RBC 3.46 L (4.30-5.90) m/uL Hgb 9.8 L (13.0-17.5) gm/dL Hct 29.7 L (39.0-53.0) % MCHC (31.0-37.0) g/dL RDW (11.5-15.5) % Neutrophils # 12.9 H (1.3-7.7) k/uL Lymphocytes # 0.4 L (1.0-4.8) k/uL PT (9.0-12.0) sec INR (<1.2) Sodium 135 L (137-145) mmol/L Chloride (98-107) mmol/L Carbon Dioxide 21 L (22-30) mmol/L Glucose 136 H (74-99) mg/dL POC Glucose (mg/dL) 128 H (75-99) mg/dL Calcium 7.5 L (8.4-10.2) mg/dL AST 15 L (17-59) U/L Total Protein 5.0 L (6.3-8.2) g/dL Albumin 2.0 L (3.5-5.0) g/dL 04/15/17 04/15/17 04/15/17 Range/Units 04:48 04:48 04:48 WBC 14.3 H (3.8-10.6) k/uL RBC 3.54 L (4.30-5.90) m/uL Hgb 9.6 L (13.0-17.5) gm/dL Hct 33.2 L (39.0-53.0) % MCHC 29.1 L (31.0-37.0) g/dL RDW 15.9 H (11.5-15.5) % Neutrophils # 12.9 H (1.3-7.7) k/uL Lymphocytes # 0.6 L (1.0-4.8) k/uL PT 12.2 H (9.0-12.0) sec INR 1.2 H (<1.2) Sodium 136 L (137-145) mmol/L Chloride 109 H (98-107) mmol/L Carbon Dioxide 19 L (22-30) mmol/L Glucose 138 H (74-99) mg/dL POC Glucose (mg/dL) (75-99) mg/dL Calcium 7.5 L (8.4-10.2) mg/dL AST 13 L (17-59) U/L Total Protein 5.0 L (6.3-8.2) g/dL Albumin 2.0 L (3.5-5.0) g/dL Microbiology - Last 24 Hours (Table) 04/14/17 13:20 Gram Stain - Preliminary Scrotum Wound Culture - Preliminary 04/14/17 13:20 Gram Stain - Preliminary Scrotum Wound Culture - Preliminary 04/14/17 13:20 Anaerobic Culture - Preliminary Scrotum 04/14/17 13:20 Anaerobic Culture - Preliminary Scrotum
[2017-04-15] MEDS: traZODone HCL 100 MG TAB PO SCH (20:41)
--- NOTE | 2017-04-15 22:19 | P.PN ---
Subjective Principal diagnosis: septic shock 82-year-old male presents to the emergency center from the extended care facility. Is limited that at his residence the patient was doing poorly. He had a drop in his pulse oximetry. Seemed to be not well. EMS was called. Upon their arrival his saturations were adequate. However the patient was tachycardic and hypotensive. They also believe that he was febrile. He was then transported to the Emergency Ctr[facility] where he was found to have evidence of hypotension. He was given fluid resuscitation. Despite that he remained hypotensive and required vasopressor therapy with Levophed. The patient was transferred to the intensive care unit received further resuscitation. With further fluids is little elevated lactic acid improved. Patient was continued to have somewhat of a poor mentation just part of his difficulties at transfer also known dementia. Because of his gram-negative sepsis the infectious diseases consultation was requested. The patient is a poor historian and most information is coming from the chart and the current nursing staff. The patient does seem to be a bit more uncomfortable he was earlier in the day as per the nursing staff. It is noted that urine output has been poor despite his extensive fluid resuscitation. Urine is very cloudy and thick. Renal ultrasound has been performed several hours ago. Evidence of bilateral hydronephrosis and sludge in his bladder. Today the patient is showing some improvement. He is arousable. He seems to be comfortable. The patient has been seen by urology. He had a coud catheter placed with the ureteroscope, because of a difficulty with a false passage. Patient is draining adequate amounts of urine whhich had remained purulent, improved today form suprapubic However patient's fever, hypotension, leukocytosis are all improved. The patient has been slow to improve. Objective - Vital Signs Vital signs: Vital Signs Temp 96.8 F L 04/15/17 14:59 Pulse 92 04/15/17 14:59 Resp 20 04/15/17 19:40 BP 115/54 04/15/17 14:59 Pulse Ox 98 04/15/17 14:59 Intake & Output 04/15/17 04/15/17 04/16/17 06:59 18:59 06:59 Intake Total 1650 1567.208 93.15 Output Total 1265 545 Balance 385 1022.208 93.15 Weight 94.1 kg Intake: IV 1400 625 Magnesium Sulfate-D5w Pmx 200 1 gm In Dextrose/Water 1 100ml.bag @ 100 mls/hr IVPB Q1H [facility] Rx#: [id number] Meropenem 1 gm In Sodium 100 100 Chloride 0.9% 100 ml @ 100 mls/hr IVPB Q8HR [facility] Rx#:[id number] Potassium Chloride 20 meq 200 In Water For Injection 1 100ml.bag @ 50 mls/hr IVPB ONCE [facility] Rx#: [id number] Sodium Chloride 0.9% 1, 1100 325 000 ml @ 100 mls/hr IV . Q10H [facility] Rx#:[id number] Intake, IV Titration 442.208 93.15 Amount Heparin Sodium,Porcine/ 442.208 93.15 D5w Pmx 25,000 unit In Dextrose/Water 1 500ml. bag @ 18 UNITS/KG/HR 33. 87 mls/hr IV .[id number] [facility] Rx#:[id number] Oral 250 500 Output: Drainage 180 100 perineum 180 100 Urine 1085 445 Other: Voiding Method Indwelling Catheter Indwelling Catheter Indwelling Catheter # Bowel Movements 1 - Exam Patient had some worsening today. There is evidence of further purulence within his urine. Computed tomography scan was performed. Evidence of abscess deep in the pelvis and has been taking to the operating room for an incision and drainage and placement of a suprapubic catheter. HEENT: Anicteric conjunctiva are pink and moist nasal mucosa grossly intact without significant lesions, there is no thrush. Oral cavity is dry with generalized poor long-term hygiene Neck: The neck is supple without significant lymphadenopathy or thyromegaly. Lungs: Good bilateral air entry without significant crackles or wheezing. There is no significant bronchial sounds. There is no egophony or dullness. Heart: Regular rate and rhythm with an audible S1-S2, no S3 no S4. There is no significant murmur click or rub, PMI was nondisplaced. Abdomen: Positive bowel sounds soft and tender without palpable masses or organomegaly. Lower abdomen appears to be quite distended. Extremities: The upper extremities have excellent pulses they are symmetric, no significant petechiae or telangiectasia. No splinter hemorrhages were noted. The lower extremities are free from significant edema. The peripheral pulses were 2+ and symmetric. Neuro: Arousable he is sitting upright and is more communicative than his been in the last 48 hours Skin: Scrotum is evidence of 2 incisions with Shirin drains in place there is some serosanguineous drainage. The scrotum is somewhat edematous it is not necrotic. Abdominal wall is with less tenderness than prior. pressure ulcer of coccyx noted with nursing team and hydrocoloid put in [facility]. - Labs CBC & Chem 7: 04/15/17 04:48 04/15/17 20:06 Labs: Abnormal Lab Results - Last 24 Hours (Table) 04/15/17 04/15/17 04/15/17 Range/Units 04:48 04:48 04:48 WBC 14.3 H (3.8-10.6) k/uL RBC 3.54 L (4.30-5.90) m/uL Hgb 9.6 L (13.0-17.5) gm/dL Hct 33.2 L (39.0-53.0) % MCHC 29.1 L (31.0-37.0) g/dL RDW 15.9 H (11.5-15.5) % Neutrophils # 12.9 H (1.3-7.7) k/uL Lymphocytes # 0.6 L (1.0-4.8) k/uL PT 12.2 H (9.0-12.0) sec INR 1.2 H (<1.2) APTT (22.0-30.0) sec Sodium 136 L (137-145) mmol/L Potassium (3.5-5.1) mmol/L Chloride 109 H (98-107) mmol/L Carbon Dioxide 19 L (22-30) mmol/L Glucose 138 H (74-99) mg/dL Calcium 7.5 L (8.4-10.2) mg/dL AST 13 L (17-59) U/L Total Protein 5.0 L (6.3-8.2) g/dL Albumin 2.0 L (3.5-5.0) g/dL 04/15/17 04/15/17 04/15/17 Range/Units 13:25 13:25 20:06 WBC (3.8-10.6) k/uL RBC (4.30-5.90) m/uL Hgb (13.0-17.5) gm/dL Hct (39.0-53.0) % MCHC (31.0-37.0) g/dL RDW (11.5-15.5) % Neutrophils # (1.3-7.7) k/uL Lymphocytes # (1.0-4.8) k/uL PT (9.0-12.0) sec INR (<1.2) APTT 34.8 H 64.2 H (22.0-30.0) sec Sodium (137-145) mmol/L Potassium 3.4 L (3.5-5.1) mmol/L Chloride (98-107) mmol/L Carbon Dioxide (22-30) mmol/L Glucose (74-99) mg/dL Calcium (8.4-10.2) mg/dL AST (17-59) U/L Total Protein (6.3-8.2) g/dL Albumin (3.5-5.0) g/dL Microbiology - Last 24 Hours (Table) 04/14/17 13:20 Gram Stain - Preliminary Scrotum Wound Culture - Preliminary 04/14/17 13:20 Gram Stain - Preliminary Scrotum Wound Culture - Preliminary 04/14/17 13:20 Anaerobic Culture - Preliminary Scrotum 04/14/17 13:20 Anaerobic Culture - Preliminary Scrotum Laboratory Results WBC 14.3 k/uL (3.8-10.6) H 04/15/17 04:48 RBC 3.54 m/uL (4.30-5.90) L 04/15/17 04:48 Hgb 9.6 gm/dL (13.0-17.5) L 04/15/17 04:48 Hct 33.2 % (39.0-53.0) L 04/15/17 04:48 MCV 93.7 fL (80.0-100.0) D 04/15/17 04:48 MCH 27.2 pg (25.0-35.0) 04/15/17 04:48 MCHC 29.1 g/dL (31.0-37.0) L 04/15/17 04:48 RDW 15.9 % (11.5-15.5) H 04/15/17 04:48 Plt Count 365 k/uL (150-450) 04/15/17 04:48 Neutrophils % 90 % 04/15/17 04:48 Neutrophils % (Manual) 60 % 04/07/17 02:06 Band Neutrophils % 37 % 04/07/17 02:06 Lymphocytes % 4 % 04/15/17 04:48 Lymphocytes % (Manual) 2 % 04/07/17 02:06 Monocytes % 3 % 04/15/17 04:48 Monocytes % (Manual) 2 % 04/07/17 02:06 Eosinophils % 0 % 04/15/17 04:48 Basophils % 0 % 04/15/17 04:48 Neutrophils # 12.9 k/uL (1.3-7.7) H 04/15/17 04:48 Neutrophils # (Manual) 17.20 k/uL (1.3-7.7) H 04/07/17 02:06 Lymphocytes # 0.6 k/uL (1.0-4.8) L 04/15/17 04:48 Lymphocytes # (Manual) 0.36 k/uL (1.0-4.8) L 04/07/17 02:06 Monocytes # 0.5 k/uL (0-1.0) 04/15/17 04:48 Monocytes # (Manual) 0.36 k/uL (0-1.0) 04/07/17 02:06 Eosinophils # 0.0 k/uL (0-0.7) 04/15/17 04:48 Basophils # 0.0 k/uL (0-0.2) 04/15/17 04:48 Nucleated RBCs 0 /100 WBC (0-0) 04/07/17 02:06 Manual Slide Review Performed 04/06/17 02:45 Toxic Vacuolation Present 04/07/17 02:06 Polychromasia Present 04/07/17 02:06 Hypochromasia Marked 04/15/17 04:48 Anisocytosis Slight 04/13/17 07:41 Crenated Cell Present 04/07/17 02:06 PT 12.2 sec (9.0-12.0) H 04/15/17 04:48 INR 1.2 (<1.2) H 04/15/17 04:48 APTT 64.2 sec (22.0-30.0) H 04/15/17 20:06 Sodium 136 mmol/L (137-145) L 04/15/17 04:48 Potassium 3.5 mmol/L (3.5-5.1) 04/15/17 20:06 Chloride 109 mmol/L (98-107) H 04/15/17 04:48 Carbon Dioxide 19 mmol/L (22-30) L 04/15/17 04:48 Anion Gap 8 mmol/L 04/15/17 04:48 BUN 15 mg/dL (9-20) 04/15/17 04:48 Creatinine 0.80 mg/dL (0.66-1.25) 04/15/17 04:48 Est GFR (MDRD) Af Amer >60 (>60 ml/min/1.73 sqM) 04/15/17 04:48 Est GFR (MDRD) Non-Af >60 (>60 ml/min/1.73 sqM) 04/15/17 04:48 Glucose 138 mg/dL (74-99) H 04/15/17 04:48 POC Glucose (mg/dL) 128 mg/dL (75-99) H 04/14/17 15:21 POC Glu Engagement Manager ID Zhane Nelson 04/14/17 15:21 Lactic Ac Sepsis Rflx Y 04/07/17 16:05 Plasma Lactic Acid Georges 2.9 mmol/L (0.7-2.0) H* 04/07/17 19:17 Calcium 7.5 mg/dL (8.4-10.2) L 04/15/17 04:48 Phosphorus 4.4 mg/dL (2.5-4.5) 04/15/17 04:48 Magnesium 1.7 mg/dL (1.6-2.3) 04/15/17 04:48 Iron 20 ug/dL (49-181) L 04/10/17 06:09 TIBC 150 ug/dL (261-462) L 04/10/17 06:09 % Saturation 13.3 % (20-50) L 04/10/17 06:09 Total Bilirubin 0.2 mg/dL (0.2-1.3) 04/15/17 04:48 AST 13 U/L (17-59) L 04/15/17 04:48 ALT 28 U/L (21-72) 04/15/17 04:48 Alkaline Phosphatase 90 U/L (38-126) 04/15/17 04:48 Total Protein 5.0 g/dL (6.3-8.2) L 04/15/17 04:48 Albumin 2.0 g/dL (3.5-5.0) L 04/15/17 04:48 Vitamin B12 971 pg/mL 04/10/17 06:09 Folate 9.7 ng/mL 04/10/17 06:09 Urine Color Light Red 04/05/17 23:29 Urine Appearance Turbid (Clear) 04/05/17 23:29 Urine pH 8.5 (5.0-8.0) H 04/05/17 23:29 Ur Specific Simpson 1.012 (1.001-1.035) 04/05/17 23:29 Urine Protein 4+ (Negative) H 04/05/17 23:29 Urine Glucose (UA) Negative (Negative) 04/05/17 23:29 Urine Ketones Negative (Negative) 04/05/17 23:29 Urine Blood Negative (Negative) 04/05/17 23:29 Urine Nitrite Negative (Negative) 04/05/17 23:29 Urine Bilirubin Negative (Negative) 04/05/17 23:29 Urine Urobilinogen <2.0 mg/dL (<2.0) 04/05/17 23:29 Ur Leukocyte Esterase Large (Negative) H 04/05/17 23:29 Urine WBC 145 /hpf (0-5) H 04/05/17 23:29 Amorphous Sediment Occasional /hpf (None) H 04/05/17 23:29 Urine Bacteria Rare /hpf (None) H 04/05/17 23:29 Vancomycin Trough 11.7 ug/mL 04/08/17 20:33 Random Vancomycin 13.1 ug/mL 04/07/17 08:51 C. difficile (EIA) Intrp Positive (Negative) A 04/11/17 09:52 Microbiology 04/14/17 13:20 Scrotum Gram Stain - Preliminary 04/14/17 13:20 Scrotum Wound Culture - Preliminary 04/14/17 13:20 Scrotum Gram Stain - Preliminary 04/14/17 13:20 Scrotum Wound Culture - Preliminary 04/14/17 13:20 Scrotum Anaerobic Culture - Preliminary 04/14/17 13:20 Scrotum Anaerobic Culture - Preliminary 04/07/17 10:44 Blood Blood Culture - Final No Growth after 144 hours 04/05/17 23:29 Urine,Voided Urine Culture - Final Escherichia coli 04/05/17 23:09 Blood Blood Culture Gram Stain - Final 04/05/17 23:09 Blood Blood Culture - Final Escherichia coli 04/05/17 23:09 Blood Blood Culture - Final Assessment and Plan (1) Septic shock Narrative/Plan: 82-year-old male presents from the extended care facility with alteration of his status. Concerns to hypoxemia which corrected upon arrival of EMS. However the patient was hypotensive and tachycardic and febrile. Upon arrival the patient had evidence of sepsis and shock requiring fluid resuscitation and then vasopressor therapy. With adequate resuscitation he has now improved and is off vasopressor therapy. However continues to have a poor mental status. His fever is improved. On exam the patient had a poor urinary output had evidence of distention to his lower abdomen that was tender. Recent ultrasound showed evidence of bilateral hydronephrosis and sludge in his bladder. A bladder scan was requested and a liter of fluid was noted in his latter. The catheter was blocked and a new Chi was placed and the patient had resolution of his distention. He has been seen by urology in his phimosis was cared for at the bedside. His other the patient has gram-negative sepsis with the final cultures recent cultures have shown evidence of Escherichia coli that is susceptible to cefepime as well as ceftriaxone. Antibiotic therapy was descalated to ceftriaxone and will require completion of a 2 week course This will remain at this point in time pending further culture results. Follow up blood cultures are requested to ensure his bacteremia has cleared. He had a profound leukocytosis due to his sepsis and obstructive process which is now improved. Altered mentation on the basis of sepsis Acute renal failure on the basis of an obstructive process and is resolved as his sepsis and obstruction has been resolved by the urologist in the placement of the coud catheter. Hypokalemia has resolved. Patient is in the medical floor showing improvement. Patient developed diarrhea. Stool testing for C. diff has come back as positive. Oral vancomycin 250 mg per every 6 hours with evidence of improvement of his diarrhea. The patient was having some worsening to his urine. computed tomography scan was performed. There is evidence of multiple abscess. He was evaluated by the urologist and taken back to the operating room for drainage of the deep pelvic abscess. A suprapubic catheter is now been placed to avoid the track through the urethra resulting in further infection. Despite antibiotic therapy the patient is having steady improvement at this time it is somewhat malodorous. There is concerned as he has C. diff, about escalating antimicrobial therapy. However anaerobic coverage is required and with the prior isolated Escherichia coli meropenem will be utilized until we have further data. If buttocks worsens will need air bed Status: Acute (2) Gram-negative sepsis with organ dysfunction Status: Acute (3) UTI (urinary tract infection) Status: Acute (4) Leukocytosis Status: Acute
[2017-04-15] MEDS: LORazepam 1 MG TAB PO PRN (23:27)
[2017-04-16] MEDS ORDERED: Potassium Replacement Protocol 1 EACH MISC MISCELLANE PRN (05:34)
[2017-04-16] MEDS: HEPARIN SODIUM,PORCINE/D5W PMX 25,000 UNIT in DEXTROSE/WATER 1 500ML.BAG IV SCH (05:59)
[2017-04-16] MEDS: POTASSIUM CHLORIDE ER 20 MEQ TAB.ER PO SCH ×3 (06:01→09:05)
[2017-04-16] MEDS: VANCOMYCIN ORAL SOLUTION 250 MG/5 ML BOTTLE PO SCH ×4 (06:02→23:47)
[2017-04-16] MEDS: CHERRY FLAVOR 60 ML BOTTLE PO PRN ×3 (06:03→23:47)
[2017-04-16 06:46] LABS: Basophils % (A) 0 %; CH 27.3; CHCM 30.7; Eosinophils % (A) 0 %; HCT 29.3 % (39.0-53.0); HDW 2.41; HGB 9.2 gm/dL (13.0-17.5); Hypochromasia Slight; Luc # (Auto) 0.19; Luc % (Auto) 1; Lymphocytes # (A) 1.3 k/uL (1.0-4.8); Lymphocytes % (A) 10 %; MCH 28.1 pg (25.0-35.0); MCHC 31.5 g/dL (31.0-37.0); MCV 89.1 fL (80.0-100.0); Mean Platelet Volume 6.9; Monocytes # (A) 0.7 k/uL (0-1.0); Monocytes % (A) 5 %; Neutrophils # (A) 11.1 k/uL (1.3-7.7); Neutrophils % (A) 83 %; RBC 3.29 m/uL (4.30-5.90); RDW 15.3 % (11.5-15.5); WBC 13.4 k/uL (3.8-10.6); WBC (Perox) 13.74
[2017-04-16 07:27] LABS: ALT 26 U/L (21-72); AST 21 U/L (17-59); Alkaline Phosphatase 84 U/L (38-126); Anion Gap 7 mmol/L; Blood Urea Nitrogen 15 mg/dL (9-20); Calcium 7.3 mg/dL (8.4-10.2); Carbon Dioxide 22 mmol/L (22-30); Chloride 107 mmol/L (98-107); Glucose 98 mg/dL (74-99); Magnesium 1.8 mg/dL (1.6-2.3); Non-African American GFR(MDRD) >60 (>60 ml/min/1.73 sqM); Potassium 3.5 mmol/L (3.5-5.1); Sodium 136 mmol/L (137-145); Total Bilirubin <0.1 mg/dL (0.2-1.3); Total Protein 4.7 g/dL (6.3-8.2)
[2017-04-16] MEDS: PANTOPRAZOLE 40 MG TABLET PO SCH (09:06)
[2017-04-16] MEDS: FUROSEMIDE 20 MG TAB PO SCH ×2 (09:06→18:05)
[2017-04-16] MEDS: MEROPENEM 1 GM in SODIUM CHLORIDE 0.9% 100 ML IVPB SCH ×3 (09:06→23:46)
[2017-04-16] MEDS: SODIUM CHLORIDE 0.9% 1,000 ML IV SCH (09:06)
--- NOTE | 2017-04-16 11:08 | P.PN ---
Subjective The patient is status post drainage of deep peroneal and pelvic abscess as result of periurethral abscess. Patient is improving. He does have a fair amount of edema in the lower extremities which is probably due to immobility as well as hypoalbuminemia. A scrotal drainage is minimal and I will at these drains relatively soon. The Philippe-Rocha drainage in the pelvis will probably be in an extended period time as a cavity was deep multiloculated and necrotic. His vital signs are stable. His white count is down a little bit. He is much more oriented and now recognizes me. The abdominal wound is healing We will continue with supportive care. Objective - Vital Signs Vital signs: Vital Signs Temp 99.4 F 04/16/17 07:00 Pulse 104 H 04/16/17 07:00 Resp 18 04/16/17 07:00 BP 119/57 04/16/17 07:00 Pulse Ox 96 04/16/17 07:00 Intake & Output 04/15/17 04/16/17 04/16/17 18:59 06:59 18:59 Intake Total 1939.843 1429.13 71.76 Output Total 545 3770 38 Balance 1022.208 -2102.87 33.76 Weight 94.1 kg Intake: IV 625 Magnesium Sulfate-D5w Pmx 200 1 gm In Dextrose/Water 1 100ml.bag @ 100 mls/hr IVPB Q1H [facility] Rx#: [id number] Meropenem 1 gm In Sodium 100 Chloride 0.9% 100 ml @ 100 mls/hr IVPB Q8HR [facility] Rx#:[id number] Sodium Chloride 0.9% 1, 325 000 ml @ 100 mls/hr IV . Q10H [facility] Rx#:[id number] Intake, IV Titration 442.208 467.13 71.76 Amount Heparin Sodium,Porcine/ 442.208 467.13 71.76 D5w Pmx 25,000 unit In Dextrose/Water 1 500ml. bag @ 18 UNITS/KG/HR 33. 87 mls/hr IV .[id number] [facility] Rx#:[id number] Oral 500 1200 Output: Drainage 100 120 38 perineum 100 120 38 Urine 445 3650 Other: Voiding Method Indwelling Catheter Indwelling Catheter Indwelling Catheter # Voids 0 # Bowel Movements 1 0 - Labs CBC & Chem 7: 04/16/17 06:00 04/16/17 06:00 Labs: Abnormal Lab Results - Last 24 Hours (Table) 04/15/17 04/15/17 04/15/17 Range/Units 13:25 13:25 20:06 WBC (3.8-10.6) k/uL RBC (4.30-5.90) m/uL Hgb (13.0-17.5) gm/dL Hct (39.0-53.0) % Plt Count (150-450) k/uL Neutrophils # (1.3-7.7) k/uL APTT 34.8 H 64.2 H (22.0-30.0) sec Sodium (137-145) mmol/L Potassium 3.4 L (3.5-5.1) mmol/L Calcium (8.4-10.2) mg/dL Total Bilirubin (0.2-1.3) mg/dL Total Protein (6.3-8.2) g/dL Albumin (3.5-5.0) g/dL 04/16/17 04/16/17 04/16/17 Range/Units 06:00 06:00 06:00 WBC 13.4 H (3.8-10.6) k/uL RBC 3.29 L (4.30-5.90) m/uL Hgb 9.2 L (13.0-17.5) gm/dL Hct 29.3 L (39.0-53.0) % Plt Count 502 H (150-450) k/uL Neutrophils # 11.1 H (1.3-7.7) k/uL APTT 73.4 H (22.0-30.0) sec Sodium 136 L (137-145) mmol/L Potassium (3.5-5.1) mmol/L Calcium 7.3 L (8.4-10.2) mg/dL Total Bilirubin <0.1 L (0.2-1.3) mg/dL Total Protein 4.7 L (6.3-8.2) g/dL Albumin 1.9 L (3.5-5.0) g/dL Microbiology - Last 24 Hours (Table) 04/14/17 21:10 Blood Culture - Preliminary Blood No Growth after 24 hours 04/14/17 13:20 Gram Stain - Preliminary Scrotum Wound Culture - Preliminary 04/14/17 13:20 Gram Stain - Preliminary Scrotum Wound Culture - Preliminary
--- NOTE | 2017-04-16 11:27 | P.PN ---
Subjective Patient is awake and alert today. No events overnight. Objective - Vital Signs Vital signs: Vital Signs Temp 99.4 F 04/16/17 07:00 Pulse 104 H 04/16/17 07:00 Resp 18 04/16/17 07:00 BP 119/57 04/16/17 07:00 Pulse Ox 96 04/16/17 07:00 Intake & Output 04/15/17 04/16/17 04/16/17 18:59 06:59 18:59 Intake Total 1587.355 8696.13 71.76 Output Total 545 3770 38 Balance 1022.208 -2102.87 33.76 Weight 94.1 kg Intake: IV 625 Magnesium Sulfate-D5w Pmx 200 1 gm In Dextrose/Water 1 100ml.bag @ 100 mls/hr IVPB Q1H [facility] Rx#: [id number] Meropenem 1 gm In Sodium 100 Chloride 0.9% 100 ml @ 100 mls/hr IVPB Q8HR [facility] Rx#:[id number] Sodium Chloride 0.9% 1, 325 000 ml @ 100 mls/hr IV . Q10H [facility] Rx#:[id number] Intake, IV Titration 442.208 467.13 71.76 Amount Heparin Sodium,Porcine/ 442.208 467.13 71.76 D5w Pmx 25,000 unit In Dextrose/Water 1 500ml. bag @ 18 UNITS/KG/HR 33. 87 mls/hr IV .[id number] [facility] Rx#:[id number] Oral 500 1200 Output: Drainage 100 120 38 perineum 100 120 38 Urine 445 3650 Other: Voiding Method Indwelling Catheter Indwelling Catheter Indwelling Catheter # Voids 0 # Bowel Movements 1 0 - Exam General: The patient is awake and alert, in no distress Eye: there is normal conjunctiva bilaterally. Neck: The neck is supple, there is no JVD. Cardiovascular: Normal S1-S2, no S3-S4, no murmurs. Respiratory: Lungs clear to auscultation bilaterally Gastrointestinal: Abdomen is soft, nontender Musculoskeletal: There is +2 pedal edema. Neurological:. Speech is normal. Skin: Skin is warm and dry - Labs CBC & Chem 7: 04/16/17 06:00 04/16/17 06:00 Labs: Abnormal Lab Results - Last 24 Hours (Table) 04/15/17 04/15/1704/15/17 Range/Units 13:25 13:25 20:06 WBC (3.8-10.6) k/uL RBC (4.30-5.90) m/uL Hgb (13.0-17.5) gm/dL Hct (39.0-53.0) % Plt Count (150-450) k/uL Neutrophils # (1.3-7.7) k/uL APTT 34.8 H 64.2 H (22.0-30.0) sec Sodium (137-145) mmol/L Potassium 3.4 L (3.5-5.1) mmol/L Calcium (8.4-10.2) mg/dL Total Bilirubin (0.2-1.3) mg/dL Total Protein (6.3-8.2) g/dL Albumin (3.5-5.0) g/dL 04/16/17 04/16/17 04/16/17 Range/Units 06:00 06:00 06:00 WBC 13.4 H (3.8-10.6) k/uL RBC 3.29 L (4.30-5.90) m/uL Hgb 9.2 L (13.0-17.5) gm/dL Hct 29.3 L (39.0-53.0) % Plt Count 502 H (150-450) k/uL Neutrophils # 11.1 H (1.3-7.7) k/uL APTT 73.4 H (22.0-30.0) sec Sodium 136 L (137-145) mmol/L Potassium (3.5-5.1) mmol/L Calcium 7.3 L (8.4-10.2) mg/dL Total Bilirubin <0.1 L (0.2-1.3) mg/dL Total Protein 4.7 L (6.3-8.2) g/dL Albumin 1.9 L (3.5-5.0) g/dL Microbiology - Last 24 Hours (Table) 04/14/17 21:10 Blood Culture - Preliminary Blood No Growth after 24 hours 04/14/17 13:20 Gram Stain - Preliminary Scrotum Wound Culture - Preliminary 04/14/17 13:20 Gram Stain - Preliminary Scrotum Wound Culture - Preliminary Assessment and Plan Plan: 1. Catheter associated urinary tract infection, present on admission, recurrent 2. Status post pelvic exploration with drainage of multiple abscess cavities/ debridement of necrotic tissue and placement of suprapubic catheter on 04/14/17 3. Chronic obstructive uropathy, seen and evaluated by urology 4. History of prostate cancer with no evidence of metastasis on bone scan in November 5. Underlying cognitive impairment/dementia 6. Acute DVT of the left lower extremities discontinue IV heparin and start Rivaroxaban 8. Bacteremia, repeat blood culture negative on 04/07 9. Acute C. diff colitis on oral vancomycin 10. Severe protein/calorie malnutrition: I added Ensure 3 times a day. Dietitian consultation requested Today, I reviewed his medication list and lab work results. Continue current regimen. Antibiotic management infectious disease. May transfer outside to the intensive care unit to a general farmer unit. Appreciate reporting consultant's recommendations. Repeat lab work in the morning. No family members at bedside to be updated. printing table worker is involved to obtain legal guardianship given no family support. Plan to return to [facility] on Wednesday
[2017-04-16] MEDS: MORPHINE SULFATE 2 MG/ML SYRINGE IVP PRN (13:12)
[2017-04-16] MEDS: RIVAROXABAN 15 MG TAB PO SCH (18:05)
[2017-04-16] MEDS: traZODone HCL 100 MG TAB PO SCH (20:19)
--- NOTE | 2017-04-16 23:24 | P.PN ---
Subjective Principal diagnosis: septic shock 82-year-old male presents to the emergency center from the extended care facility. Is limited that at his residence the patient was doing poorly. He had a drop in his pulse oximetry. Seemed to be not well. EMS was called. Upon their arrival his saturations were adequate. However the patient was tachycardic and hypotensive. They also believe that he was febrile. He was then transported to the Emergency Ctr[facility] where he was found to have evidence of hypotension. He was given fluid resuscitation. Despite that he remained hypotensive and required vasopressor therapy with Levophed. The patient was transferred to the intensive care unit received further resuscitation. With further fluids is little elevated lactic acid improved. Patient was continued to have somewhat of a poor mentation just part of his difficulties at transfer also known dementia. Because of his gram-negative sepsis the infectious diseases consultation was requested. The patient is a poor historian and most information is coming from the chart and the current nursing staff. The patient does seem to be a bit more uncomfortable he was earlier in the day as per the nursing staff. It is noted that urine output has been poor despite his extensive fluid resuscitation. Urine is very cloudy and thick. Renal ultrasound has been performed several hours ago. Evidence of bilateral hydronephrosis and sludge in his bladder. Today the patient is showing some improvement. He is arousable. He seems to be comfortable. The patient has been seen by urology. He had a coud catheter placed with the ureteroscope, because of a difficulty with a false passage. Patient is draining adequate amounts of urine whhich had remained purulent, improved today form suprapubic However patient's fever, hypotension, leukocytosis are all improved. The patient has been slow to improve. Objective - Vital Signs Vital signs: Vital Signs Temp 99.2 F 04/16/17 14:37 Pulse 107 H 04/16/17 23:05 Resp 16 04/16/17 23:05 BP 113/56 04/16/17 14:37 Pulse Ox 98 04/16/17 14:37 Intake & Output 04/16/17 04/16/17 04/17/17 06:59 18:59 06:59 Intake Total 1667.13 71.76 Output Total 3770 108 1999 Balance -2102.87 -36.24 Intake: Intake, IV Titration 467.13 71.76 Amount Heparin Sodium,Porcine/ 467.13 71.76 D5w Pmx 25,000 unit In Dextrose/Water 1 500ml. bag @ 18 UNITS/KG/HR 33. 87 mls/hr IV .[id number] [facility] Rx#:[id number] Oral 1200 Output: Drainage 120 108 perineum 120 108 Urine 3650 2000 Other: Voiding Method Indwelling Catheter Indwelling Catheter Indwelling Catheter # Voids 0 1,350 # Bowel Movements 0 1 - Exam Patient had some worsening today. There is evidence of further purulence within his urine. Computed tomography scan was performed. Evidence of abscess deep in the pelvis and has been taking to the operating room for an incision and drainage and placement of a suprapubic catheter. HEENT: Anicteric conjunctiva are pink and moist nasal mucosa grossly intact without significant lesions, there is no thrush. Oral cavity is dry with generalized poor long-term hygiene Neck: The neck is supple without significant lymphadenopathy or thyromegaly. Lungs: Good bilateral air entry without significant crackles or wheezing. There is no significant bronchial sounds. There is no egophony or dullness. Heart: Regular rate and rhythm with an audible S1-S2, no S3 no S4. There is no significant murmur click or rub, PMI was nondisplaced. Abdomen: Positive bowel sounds soft and tender without palpable masses or organomegaly. Lower abdomen appears to be quite distended. Extremities: The upper extremities have excellent pulses they are symmetric, no significant petechiae or telangiectasia. No splinter hemorrhages were noted. The lower extremities are free from significant edema. The peripheral pulses were 2+ and symmetric. Neuro: Arousable he is sitting upright and is more communicative than his been in the last 48 hours Skin: Scrotum is evidence of 2 incisions with [place] drains in place there is some serosanguineous drainage. The scrotum is somewhat edematous it is not necrotic. Abdominal wall is with less tenderness than prior. pressure ulcer of coccyx noted, nursing team and hydrocoloid put in [facility]. - Labs CBC & Chem 7: 04/16/17 06:00 04/16/17 06:00 Labs: Abnormal Lab Results - Last 24 Hours (Table) 04/16/17 04/16/17 04/16/17 Range/Units 06:00 06:00 06:00 WBC 13.4 H (3.8-10.6) k/uL RBC 3.29 L (4.30-5.90) m/uL Hgb 9.2 L (13.0-17.5) gm/dL Hct 29.3 L (39.0-53.0) % Plt Count 502 H (150-450) k/uL Neutrophils # 11.1 H (1.3-7.7) k/uL APTT 73.4 H (22.0-30.0) sec Sodium 136 L (137-145) mmol/L Calcium 7.3 L (8.4-10.2) mg/dL Total Bilirubin <0.1 L (0.2-1.3) mg/dL Total Protein 4.7 L (6.3-8.2) g/dL Albumin 1.9 L (3.5-5.0) g/dL Microbiology - Last 24 Hours (Table) 04/14/17 13:20 Gram Stain - Final Scrotum Wound Culture - Final 04/14/17 13:20 Gram Stain - Final Scrotum Wound Culture - Final 04/14/17 13:20 Anaerobic Culture - Preliminary Scrotum 04/14/17 21:10 Blood Culture - Preliminary Blood No Growth after 24 hours Laboratory Results WBC 13.4 k/uL (3.8-10.6) H 04/16/17 06:00 RBC 3.29 m/uL (4.30-5.90) L 04/16/17 06:00 Hgb 9.2 gm/dL (13.0-17.5) L 04/16/17 06:00 Hct 29.3 % (39.0-53.0) L 04/16/17 06:00 MCV 89.1 fL (80.0-100.0) 04/16/17 06:00 MCH 28.1 pg (25.0-35.0) 04/16/17 06:00 MCHC 31.5 g/dL (31.0-37.0) 04/16/17 06:00 RDW 15.3 % (11.5-15.5) 04/16/17 06:00 Plt Count 502 k/uL (150-450) H 04/16/17 06:00 Neutrophils % 83 % 04/16/17 06:00 Neutrophils % (Manual) 60 % 04/07/17 02:06 Band Neutrophils % 37 % 04/07/17 02:06 Lymphocytes % 10 % 04/16/17 06:00 Lymphocytes % (Manual) 2 % 04/07/17 02:06 Monocytes % 5 % 04/16/17 06:00 Monocytes % (Manual) 2 % 04/07/17 02:06 Eosinophils % 0 % 04/16/17 06:00 Basophils % 0 % 04/16/17 06:00 Neutrophils # 11.1 k/uL (1.3-7.7) H 04/16/17 06:00 Neutrophils # (Manual) 17.20 k/uL (1.3-7.7) H 04/07/17 02:06 Lymphocytes # 1.3 k/uL (1.0-4.8) 04/16/17 06:00 Lymphocytes # (Manual) 0.36 k/uL (1.0-4.8) L 04/07/17 02:06 Monocytes # 0.7 k/uL (0-1.0) 04/16/17 06:00 Monocytes # (Manual) 0.36 k/uL (0-1.0) 04/07/17 02:06 Eosinophils # 0.0 k/uL (0-0.7) 04/16/17 06:00 Basophils # 0.0 k/uL (0-0.2) 04/16/17 06:00 Nucleated RBCs 0 /100 WBC (0-0) 04/07/17 02:06 Manual Slide Review Performed 04/06/17 02:45 Toxic Vacuolation Present 04/07/17 02:06 Polychromasia Present 04/07/17 02:06 Hypochromasia Slight 04/16/17 06:00 Anisocytosis Slight 04/13/17 07:41 Crenated Cell Present 04/07/17 02:06 PT 12.2 sec (9.0-12.0) H 04/15/17 04:48 INR 1.2 (<1.2) H 04/15/17 04:48 APTT 73.4 sec (22.0-30.0) H 04/16/17 06:00 Sodium 136 mmol/L (137-145) L 04/16/17 06:00 Potassium 3.5 mmol/L (3.5-5.1) 04/16/17 06:00 Chloride 107 mmol/L (98-107) 04/16/17 06:00 Carbon Dioxide 22 mmol/L (22-30) 04/16/17 06:00 Anion Gap 7 mmol/L 04/16/17 06:00 BUN 15 mg/dL (9-20) 04/16/17 06:00 Creatinine 0.92 mg/dL (0.66-1.25) 04/16/17 06:00 Est GFR (MDRD) Af Amer >60 (>60 ml/min/1.73 sqM) 04/16/17 06:00 Est GFR (MDRD) Non-Af >60 (>60 ml/min/1.73 sqM) 04/16/17 06:00 Glucose 98 mg/dL (74-99) 04/16/17 06:00 POC Glucose (mg/dL) 128 mg/dL (75-99) H 04/14/17 15:21 POC Glu Senior Regulatory Affairs Specialist ID Zhnae Nelson 04/14/17 15:21 Lactic Ac Sepsis Rflx Y 04/07/17 16:05 Plasma Lactic Acid Georges 2.9 mmol/L (0.7-2.0) H* 04/07/17 19:17 Calcium 7.3 mg/dL (8.4-10.2) L 04/16/17 06:00 Phosphorus 3.0 mg/dL (2.5-4.5) 04/16/17 06:00 Magnesium 1.8 mg/dL (1.6-2.3) 04/16/17 06:00 Iron 20 ug/dL (49-181) L 04/10/17 06:09 TIBC 150 ug/dL (261-462) L 04/10/17 06:09 % Saturation 13.3 % (20-50) L 04/10/17 06:09 Total Bilirubin <0.1 mg/dL (0.2-1.3) L 04/16/17 06:00 AST 21 U/L (17-59) 04/16/17 06:00 ALT 26 U/L (21-72) 04/16/17 06:00 Alkaline Phosphatase 84 U/L (38-126) 04/16/17 06:00 Total Protein 4.7 g/dL (6.3-8.2) L 04/16/17 06:00 Albumin 1.9 g/dL (3.5-5.0) L 04/16/17 06:00 Vitamin B12 971 pg/mL 04/10/17 06:09 Folate 9.7 ng/mL 04/10/17 06:09 Urine Color Light Red 04/05/17 23:29 Urine Appearance Turbid (Clear) 04/05/17 23:29 Urine pH 8.5 (5.0-8.0) H 04/05/17 23:29 Ur Specific [place] 1.012 (1.001-1.035) 04/05/17 23:29 Urine Protein 4+ (Negative) H 04/05/17 23:29 Urine Glucose (UA) Negative (Negative) 04/05/17 23:29 Urine Ketones Negative (Negative) 04/05/17 23:29 Urine Blood Negative (Negative) 04/05/17 23:29 Urine Nitrite Negative (Negative) 04/05/17 23:29 Urine Bilirubin Negative (Negative) 04/05/17 23:29 Urine Urobilinogen <2.0 mg/dL (<2.0) 04/05/17 23:29 Ur Leukocyte Esterase Large (Negative) H 04/05/17 23:29 Urine WBC 145 /hpf (0-5) H 04/05/17 23:29 Amorphous Sediment Occasional /hpf (None) H 04/05/17 23:29 Urine Bacteria Rare /hpf (None) H 04/05/17 23:29 Vancomycin Trough 11.7 ug/mL 04/08/17 20:33 Random Vancomycin 13.1 ug/mL 04/07/17 08:51 C. difficile (EIA) Intrp Positive (Negative) A 04/11/17 09:52 Microbiology 04/14/17 13:20 Scrotum Gram Stain - Final 04/14/17 13:20 Scrotum Wound Culture - Final 04/14/17 13:20 Scrotum Gram Stain - Final 04/14/17 13:20 Scrotum Wound Culture - Final 04/14/17 13:20 Scrotum Anaerobic Culture - Preliminary 04/14/17 21:10 Blood Blood Culture - Preliminary No Growth after 24 hours 04/14/17 13:20 Scrotum Anaerobic Culture - Preliminary 04/07/17 10:44 Blood Blood Culture - Final No Growth after 144 hours 04/05/17 23:29 Urine,Voided Urine Culture - Final Escherichia coli 04/05/17 23:09 Blood Blood Culture Gram Stain - Final 04/05/17 23:09 Blood Blood Culture - Final Escherichia coli 04/05/17 23:09 Blood Blood Culture - Final Assessment and Plan (1) Septic shock Narrative/Plan: 82-year-old male presents from the extended care facility with alteration of his status. Concerns to hypoxemia which corrected upon arrival of EMS. However the patient was hypotensive and tachycardic and febrile. Upon arrival the patient had evidence of sepsis and shock requiring fluid resuscitation and then vasopressor therapy. With adequate resuscitation he has now improved and is off vasopressor therapy. However continues to have a poor mental status. His fever is improved. On exam the patient had a poor urinary output had evidence of distention to his lower abdomen that was tender. Recent ultrasound showed evidence of bilateral hydronephrosis and sludge in his bladder. A bladder scan was requested and a liter of fluid was noted in his latter. The catheter was blocked and a new Chi was placed and the patient had resolution of his distention. He has been seen by urology in his phimosis was cared for at the bedside. His other the patient has gram-negative sepsis with the final cultures recent cultures have shown evidence of Escherichia coli that is susceptible to cefepime as well as ceftriaxone. Antibiotic therapy was descalated to ceftriaxone and will require completion of a 2 week course This will remain at this point in time pending further culture results. Follow up blood cultures are requested to ensure his bacteremia has cleared. He had a profound leukocytosis due to his sepsis and obstructive process which is now improved. Altered mentation on the basis of sepsis Acute renal failure on the basis of an obstructive process and is resolved as his sepsis and obstruction has been resolved by the urologist in the placement of the coud catheter. Hypokalemia has resolved. Patient is in the medical floor showing improvement. Patient developed diarrhea. Stool testing for C. diff has come back as positive. Oral vancomycin 250 mg per every 6 hours with evidence of improvement of his diarrhea. The patient was having some worsening to his urine. computed tomography scan was performed. There was evidence of multiple abscess. He was evaluated by the urologist and taken back to the operating room for drainage of the deep pelvic abscess. A suprapubic catheter is now been placed to avoid the track through the urethra resulting in further infection. Despite antibiotic therapy the patient is having steady improvement at this time it is somewhat malodorous. There is concerned as he has C. diff, about escalating antimicrobial therapy. However anaerobic coverage is required and with the prior isolated Escherichia coli meropenem will be utilized until we have further data. A bed is requested. Status: Acute (2) Gram-negative sepsis with organ dysfunction Status: Acute (3) UTI (urinary tract infection) Status: Acute (4) Leukocytosis Status: Acute
[2017-04-16] MEDS: LORazepam 1 MG TAB PO PRN (23:55)
[2017-04-17] MEDS: MORPHINE SULFATE 2 MG/ML SYRINGE IVP PRN ×3 (04:37→21:41)
[2017-04-17] MEDS: CHERRY FLAVOR 60 ML BOTTLE PO PRN ×3 (06:12→17:44)
[2017-04-17] MEDS: VANCOMYCIN ORAL SOLUTION 250 MG/5 ML BOTTLE PO SCH ×3 (06:12→17:45)
[2017-04-17 07:41] LABS: Basophils % (A) 0 %; CH 27.3; CHCM 30.8; Eosinophils # (A) 0.1 k/uL (0-0.7); Eosinophils % (A) 1 %; HCT 28.3 % (39.0-53.0); HDW 2.35; HGB 8.7 gm/dL (13.0-17.5); Hypochromasia Slight; Luc # (Auto) 0.22; Luc % (Auto) 2; Lymphocytes # (A) 1.5 k/uL (1.0-4.8); Lymphocytes % (A) 13 %; MCH 27.4 pg (25.0-35.0); MCHC 30.8 g/dL (31.0-37.0); MCV 89.1 fL (80.0-100.0); Mean Platelet Volume 6.8; Monocytes # (A) 0.7 k/uL (0-1.0); Monocytes % (A) 6 %; Neutrophils # (A) 8.6 k/uL (1.3-7.7); Neutrophils % (A) 78 %; RBC 3.18 m/uL (4.30-5.90); RDW 15.3 % (11.5-15.5); WBC 11.1 k/uL (3.8-10.6); WBC (Perox) 11.19
--- NOTE | 2017-04-17 07:45 | P.PN ---
Progress Note - Text Mr. Lizarraga is afebrile. His WBC count yesterday was 13,400. The suprapubic cystostomy tube is in place, draining clear yellow urine. The suprapubic wound is packed. No purulent drainage is noted. No necrotic tissue was noted. LUIS FELIPE drainage has been minimal, but has recently increased. The suprapubic cystostomy tube was irrigated and patency was verified, as the tube irrigated freely. Continue current treatment.
[2017-04-17 07:53] LABS: ALT 30 U/L (21-72); AST 22 U/L (17-59); Alkaline Phosphatase 92 U/L (38-126); Anion Gap 6 mmol/L; Blood Urea Nitrogen 15 mg/dL (9-20); Calcium 7.5 mg/dL (8.4-10.2); Carbon Dioxide 25 mmol/L (22-30); Chloride 103 mmol/L (98-107); Glucose 88 mg/dL (74-99); Magnesium 1.7 mg/dL (1.6-2.3); Non-African American GFR(MDRD) >60 (>60 ml/min/1.73 sqM); Phosphorus 2.9 mg/dL (2.5-4.5); Potassium 3.8 mmol/L (3.5-5.1); Sodium 134 mmol/L (137-145); Total Bilirubin 0.2 mg/dL (0.2-1.3); Total Protein 4.6 g/dL (6.3-8.2)
[2017-04-17] MEDS: RIVAROXABAN 15 MG TAB PO SCH ×2 (09:00→17:44)
[2017-04-17] MEDS: MEROPENEM 1 GM in SODIUM CHLORIDE 0.9% 100 ML IVPB SCH ×2 (09:00→16:32)
[2017-04-17] MEDS: PANTOPRAZOLE 40 MG TABLET PO SCH (09:01)
[2017-04-17] MEDS: POTASSIUM CHLORIDE ER 20 MEQ TAB.ER PO SCH (09:01)
[2017-04-17] MEDS: FUROSEMIDE 20 MG TAB PO SCH ×2 (09:01→16:32)
--- NOTE | 2017-04-17 11:57 | P.PN ---
Subjective Patient is awake and alert. No events overnight. Still having significant drainage through the LUIS FELIPE drain. Objective - Vital Signs Vital signs: Vital Signs Temp 97.4 F L 04/17/17 07:00 Pulse 108 H 04/17/17 07:00 Resp 20 04/17/17 07:00 BP 114/59 04/17/17 07:00 Pulse Ox 94 L 04/17/17 07:00 Intake & Output 04/16/17 04/17/17 04/17/17 18:59 06:59 18:59 Intake Total 71.76 Output Total 108 3910 50 Balance -36.24 -3910 -50 Intake: Intake, IV Titration 71.76 Amount Heparin Sodium,Porcine/ 71.76 D5w Pmx 25,000 unit In Dextrose/Water 1 500ml. bag @ 18 UNITS/KG/HR 33. 87 mls/hr IV .[id number] [facility] Rx#:[id number] Output: Drainage 108 510 50 perineum 108 510 50 Urine 3400 Other: Voiding Method Indwelling Catheter Indwelling Catheter # Voids 1,350 # Bowel Movements 1 1 - Exam General: The patient is awake and alert, in no distress Eye: there is normal conjunctiva bilaterally. Neck: The neck is supple, there is no JVD. Cardiovascular: Normal S1-S2, no S3-S4, no murmurs. Respiratory: Lungs clear to auscultation bilaterally Gastrointestinal: Abdomen is soft, nontender Musculoskeletal: There is +2 pedal edema. Neurological:. Speech is normal. Skin: Skin is warm and dry - Labs CBC & Chem 7: 04/17/17 06:52 04/17/17 06:52 Labs: Abnormal Lab Results - Last 24 Hours (Table) 04/17/17 04/17/17 Range/Units 06:52 06:52 WBC 11.1 H (3.8-10.6) k/uL RBC 3.18 L (4.30-5.90) m/uL Hgb 8.7 L (13.0-17.5) gm/dL Hct 28.3 L (39.0-53.0) % MCHC 30.8 L (31.0-37.0) g/dL Plt Count 492 H (150-450) k/uL Neutrophils # 8.6 H (1.3-7.7) k/uL Sodium 134 L (137-145) mmol/L Calcium 7.5 L (8.4-10.2) mg/dL Total Protein 4.6 L (6.3-8.2) g/dL Albumin 1.8 L (3.5-5.0) g/dL Microbiology - Last 24 Hours (Table) 04/14/17 21:10 Blood Culture - Preliminary Blood No Growth after 48 hours 04/14/17 13:20 Gram Stain - Final Scrotum Wound Culture - Final 04/14/17 13:20 Gram Stain - Final Scrotum Wound Culture - Final 04/14/17 13:20 Anaerobic Culture - Preliminary Scrotum Assessment and Plan Plan: 1. Catheter associated urinary tract infection, present on admission, recurrent 2. Status post pelvic exploration with drainage of multiple abscess cavities/ debridement of necrotic tissue and placement of suprapubic catheter on 04/14/17 3. Chronic obstructive uropathy, seen and evaluated by urology 4. History of prostate cancer with no evidence of metastasis on bone scan in November 5. Underlying cognitive impairment/dementia 6. Acute DVT of the left lower extremities discontinue IV heparin and start Rivaroxaban 8. Bacteremia, repeat blood culture negative on 04/07 9. Acute C. diff colitis on oral vancomycin 10. Severe protein/calorie malnutrition: I added Ensure 3 times a day. Dietitian consultation requested Today, I reviewed his medication list and lab work results. Continue current regimen. Antibiotic management infectious disease. May transfer outside to the intensive care unit to a general road production manager unit. Appreciate call center support consultant's recommendations. Repeat lab work in the morning. No family members at bedside to be updated. freezing room worker is involved to obtain legal guardianship given no family support. Plan to return to [facility] on Wednesday
[2017-04-17] MEDS: traZODone HCL 100 MG TAB PO SCH (21:34)
[2017-04-18] MEDS: MEROPENEM 1 GM in SODIUM CHLORIDE 0.9% 100 ML IVPB SCH ×4 (00:05→23:58)
[2017-04-18] MEDS: ACETAMINOPHEN TAB 325 MG TAB PO PRN (00:06)
[2017-04-18] MEDS: CHERRY FLAVOR 60 ML BOTTLE PO PRN ×4 (00:47→17:18)
[2017-04-18] MEDS: VANCOMYCIN ORAL SOLUTION 250 MG/5 ML BOTTLE PO SCH ×5 (00:47→23:58)
[2017-04-18] MEDS: PANTOPRAZOLE 40 MG TABLET PO SCH (07:35)
[2017-04-18] MEDS: FUROSEMIDE 20 MG TAB PO SCH ×2 (07:35→17:15)
[2017-04-18] MEDS: RIVAROXABAN 15 MG TAB PO SCH ×2 (07:35→17:15)
[2017-04-18] MEDS: MORPHINE SULFATE 2 MG/ML SYRINGE IVP PRN (07:35)
[2017-04-18] MEDS: POTASSIUM CHLORIDE ER 20 MEQ TAB.ER PO SCH (07:35)
[2017-04-18 07:55] LABS: Basophils % (A) 0 %; CH 27.1; CHCM 30.2; Eosinophils # (A) 0.2 k/uL (0-0.7); Eosinophils % (A) 2 %; HCT 29.9 % (39.0-53.0); HDW 2.37; HGB 9.1 gm/dL (13.0-17.5); Hypochromasia Moderate; Luc # (Auto) 0.17; Luc % (Auto) 2; Lymphocytes # (A) 1.3 k/uL (1.0-4.8); Lymphocytes % (A) 16 %; MCH 27.5 pg (25.0-35.0); MCHC 30.5 g/dL (31.0-37.0); MCV 90.1 fL (80.0-100.0); Mean Platelet Volume 6.6; Monocytes # (A) 0.6 k/uL (0-1.0); Monocytes % (A) 7 %; Neutrophils # (A) 6.4 k/uL (1.3-7.7); Neutrophils % (A) 74 %; RBC 3.32 m/uL (4.30-5.90); RDW 15.2 % (11.5-15.5); WBC 8.6 k/uL (3.8-10.6); WBC (Perox) 9.18
[2017-04-18 08:12] LABS: ALT 26 U/L (21-72); AST 20 U/L (17-59); Alkaline Phosphatase 83 U/L (38-126); Anion Gap 5 mmol/L; Blood Urea Nitrogen 17 mg/dL (9-20); Calcium 7.9 mg/dL (8.4-10.2); Carbon Dioxide 32 mmol/L (22-30); Chloride 102 mmol/L (98-107); Glucose 94 mg/dL (74-99); Magnesium 1.8 mg/dL (1.6-2.3); Non-African American GFR(MDRD) >60 (>60 ml/min/1.73 sqM); Phosphorus 3.2 mg/dL (2.5-4.5); Sodium 139 mmol/L (137-145); Total Bilirubin 0.2 mg/dL (0.2-1.3); Total Protein 4.9 g/dL (6.3-8.2)
--- NOTE | 2017-04-18 11:26 | P.PN ---
Subjective Patient is awake and alert. No events overnight. Still having significant drainage through the LUIS FELIPE drain. Objective - Vital Signs Vital signs: Vital Signs Temp 96.6 F L 04/18/17 07:00 Pulse 109 H 04/18/17 08:00 Resp 20 04/18/17 08:00 BP 129/63 04/18/17 07:00 Pulse Ox 97 04/18/17 07:00 Intake & Output 04/17/17 04/18/17 04/18/17 18:59 06:59 18:59 Intake Total 120 150 Output Total 5180 40 1040 Balance -5060 -40 -890 Weight 94.1 kg Intake: Oral 120 150 Output: Drainage 280 40 40 Abdomen 280 40 perineum 40 Urine 4900 1000 Other: Voiding Method Indwelling Catheter Indwelling Catheter - Exam General: The patient is awake and alert, in no distress Eye: there is normal conjunctiva bilaterally. Neck: The neck is supple, there is no JVD. Cardiovascular: Normal S1-S2, no S3-S4, no murmurs. Respiratory: Lungs clear to auscultation bilaterally Gastrointestinal: Abdomen is soft, nontender Musculoskeletal: There is +2 pedal edema. Neurological:. Speech is normal. Skin: Skin is warm and dry - Labs CBC & Chem 7: 04/18/17 07:01 04/18/17 07:01 Labs: Abnormal Lab Results - Last 24 Hours (Table) 04/18/17 04/18/17 Range/Units 07:01 07:01 RBC 3.32 L (4.30-5.90) m/uL Hgb 9.1 L (13.0-17.5) gm/dL Hct 29.9 L (39.0-53.0) % MCHC 30.5 L (31.0-37.0) g/dL Plt Count 513 H (150-450) k/uL Carbon Dioxide 32 H (22-30) mmol/L Calcium 7.9 L (8.4-10.2) mg/dL Total Protein 4.9 L (6.3-8.2) g/dL Albumin 2.0 L (3.5-5.0) g/dL Microbiology - Last 24 Hours (Table) 04/14/17 21:10 Blood Culture - Preliminary Blood No Growth after 72 hours 04/14/17 13:20 Anaerobic Culture - Preliminary Scrotum Assessment and Plan Plan: 1. Catheter associated urinary tract infection, present on admission, recurrent 2. Status post pelvic exploration with drainage of multiple abscess cavities/ debridement of necrotic tissue and placement of suprapubic catheter on 04/14/17 3. Chronic obstructive uropathy, seen and evaluated by urology 4. History of prostate cancer with no evidence of metastasis on bone scan in November 5. Underlying cognitive impairment/dementia 6. Acute DVT of the left lower extremities discontinue IV heparin and start Rivaroxaban 8. Bacteremia, repeat blood culture negative on 04/07 9. Acute C. diff colitis on oral vancomycin 10. Severe protein/calorie malnutrition: I added Ensure 3 times a day. Dietitian consultation requested Today, I reviewed his medication list and lab work results. Continue current regimen. Antibiotic management infectious disease. May transfer outside to the intensive care unit to a general manager farm unit. Appreciate business development consultant's recommendations. Repeat lab work in the morning. No family members at bedside to be updated. licensing worker is involved to obtain legal guardianship given no family support. Plan to return to [facility] on Wednesday
--- NOTE | 2017-04-18 12:13 | P.PN ---
Subjective Principal diagnosis: s/p drainage of periurethral/pelvic abscess Mr. Lizarraga expresses no complaints at this time. Objective - Vital Signs Vital signs: Vital Signs Temp 96.6 F L 04/18/17 07:00 Pulse 109 H 04/18/17 08:00 Resp 20 04/18/17 08:00 BP 129/63 04/18/17 07:00 Pulse Ox 97 04/18/17 07:00 Intake & Output 04/17/17 04/18/17 04/18/17 18:59 06:59 18:59 Intake Total 120 150 Output Total 5180 40 1040 Balance -5060 -40 -890 Weight 94.1 kg Intake: Oral 120 150 Output: Drainage 280 40 40 Abdomen 280 40 perineum 40 Urine 4900 1000 Other: Voiding Method Indwelling Catheter Indwelling Catheter - Gastrointestinal Gastrointestinal Comment(s): Incision is clean. Drains are intact. SP tube is draining well. General gastrointestinal: Present: soft. Absent: distended - Labs CBC & Chem 7: 04/18/17 07:01 04/18/17 07:01 Labs: Abnormal Lab Results - Last 24 Hours (Table) 04/18/17 04/18/17 Range/Units 07:01 07:01 RBC 3.32 L (4.30-5.90) m/uL Hgb 9.1 L (13.0-17.5) gm/dL Hct 29.9 L (39.0-53.0) % MCHC 30.5 L (31.0-37.0) g/dL Plt Count 513 H (150-450) k/uL Carbon Dioxide 32 H (22-30) mmol/L Calcium 7.9 L (8.4-10.2) mg/dL Total Protein 4.9 L (6.3-8.2) g/dL Albumin 2.0 L (3.5-5.0) g/dL Microbiology - Last 24 Hours (Table) 04/14/17 21:10 Blood Culture - Preliminary Blood No Growth after 72 hours 04/14/17 13:20 Anaerobic Culture - Preliminary Scrotum Assessment and Plan (1) UTI (urinary tract infection) Status: Acute Plan: Patient continues to recover well. Continue current management.
[2017-04-18] MEDS: traZODone HCL 100 MG TAB PO SCH (20:47)
[2017-04-19] MEDS: VANCOMYCIN ORAL SOLUTION 250 MG/5 ML BOTTLE PO SCH ×4 (05:27→23:26)
[2017-04-19] MEDS: MORPHINE SULFATE 2 MG/ML SYRINGE IVP PRN (05:27)
[2017-04-19 07:27] LABS: Basophils % (A) 0 %; CH 27.1; CHCM 30.9; Eosinophils # (A) 0.2 k/uL (0-0.7); Eosinophils % (A) 3 %; HCT 26.8 % (39.0-53.0); HDW 2.35; HGB 8.4 gm/dL (13.0-17.5); Hypochromasia Slight; Luc # (Auto) 0.17; Luc % (Auto) 2; Lymphocytes # (A) 1.3 k/uL (1.0-4.8); Lymphocytes % (A) 17 %; MCH 27.7 pg (25.0-35.0); MCHC 31.5 g/dL (31.0-37.0); MCV 87.9 fL (80.0-100.0); Mean Platelet Volume 6.8; Monocytes # (A) 0.5 k/uL (0-1.0); Monocytes % (A) 7 %; Neutrophils # (A) 5.4 k/uL (1.3-7.7); Neutrophils % (A) 71 %; RBC 3.05 m/uL (4.30-5.90); WBC 7.7 k/uL (3.8-10.6); WBC (Perox) 8.02
[2017-04-19 08:20] LABS: Glucose 99 mg/dL (74-99); Potassium 3.5 mmol/L (3.5-5.1); Sodium 134 mmol/L (137-145)
[2017-04-19 08:21] LABS: ALT 33 U/L (21-72); AST 27 U/L (17-59); Alkaline Phosphatase 78 U/L (38-126); Anion Gap 5 mmol/L; Blood Urea Nitrogen 15 mg/dL (9-20); Calcium 7.8 mg/dL (8.4-10.2); Carbon Dioxide 29 mmol/L (22-30); Chloride 100 mmol/L (98-107); Magnesium 1.7 mg/dL (1.6-2.3); Non-African American GFR(MDRD) >60 (>60 ml/min/1.73 sqM); Phosphorus 2.8 mg/dL (2.5-4.5); Total Bilirubin 0.2 mg/dL (0.2-1.3)
[2017-04-19] MEDS: POTASSIUM CHLORIDE ER 20 MEQ TAB.ER PO SCH (09:28)
[2017-04-19] MEDS: FUROSEMIDE 20 MG TAB PO SCH ×2 (09:28→16:26)
[2017-04-19] MEDS: RIVAROXABAN 15 MG TAB PO SCH ×2 (09:28→17:37)
[2017-04-19] MEDS: MEROPENEM 1 GM in SODIUM CHLORIDE 0.9% 100 ML IVPB SCH ×3 (09:28→23:26)
[2017-04-19] MEDS: PANTOPRAZOLE 40 MG TABLET PO SCH (09:29)
--- NOTE | 2017-04-19 11:58 | P.PN ---
Subjective Patient is awake and alert. No events overnight. Objective - Vital Signs Vital signs: Vital Signs Temp 97.6 F 04/19/17 07:00 Pulse 77 04/19/17 07:00 Resp 18 04/19/17 07:00 BP 132/66 04/19/17 07:00 Pulse Ox 95 04/19/17 07:00 Intake & Output 04/18/17 04/19/17 04/19/17 18:59 06:59 18:59 Intake Total 550 1800 1300 Output Total 4765 1545 500 Balance -4215 255 800 Weight 94.1 kg 94.1 kg Intake: IV 100 Meropenem 1 gm In Sodium 100 Chloride 0.9% 100 ml @ 100 mls/hr IVPB Q8HR [facility] Rx#:[id number] Oral 550 1800 1200 Output: Drainage 165 45 100 Abdomen 165 45 100 Urine 4600 1500 400 Other: Voiding Method Indwelling Catheter Indwelling Catheter # Voids 1,350 # Bowel Movements 1 2 - Exam General: The patient is awake and alert, in no distress Eye: there is normal conjunctiva bilaterally. Neck: The neck is supple, there is no JVD. Cardiovascular: Normal S1-S2, no S3-S4, no murmurs. Respiratory: Lungs clear to auscultation bilaterally Gastrointestinal: Abdomen is soft, nontender Musculoskeletal: There is +2 pedal edema. Neurological:. Speech is normal. Skin: Skin is warm and dry - Labs CBC & Chem 7: 04/19/17 07:12 04/19/17 07:12 Labs: Abnormal Lab Results - Last 24 Hours (Table) 04/19/17 04/19/17 Range/Units 07:12 07:12 RBC 3.05 L (4.30-5.90) m/uL Hgb 8.4 L (13.0-17.5) gm/dL Hct 26.8 L (39.0-53.0) % Plt Count 497 H (150-450) k/uL Sodium 134 L (137-145) mmol/L Calcium 7.8 L (8.4-10.2) mg/dL Total Protein 5.0 L (6.3-8.2) g/dL Albumin 2.0 L (3.5-5.0) g/dL Microbiology - Last 24 Hours (Table) 04/14/17 13:20 Anaerobic Culture - Final Scrotum Enterococcus gallinarum 04/14/17 21:10 Blood Culture - Preliminary Blood No Growth after 96 hours 04/14/17 13:20 Anaerobic Culture - Final Scrotum Assessment and Plan Plan: 1. Catheter associated urinary tract infection, present on admission, recurrent 2. Status post pelvic exploration with drainage of multiple abscess cavities/ debridement of necrotic tissue and placement of suprapubic catheter on 04/14/17 3. Chronic obstructive uropathy, seen and evaluated by urology 4. History of prostate cancer with no evidence of metastasis on bone scan in November 5. Underlying cognitive impairment/dementia 6. Acute DVT of the left lower extremities discontinue IV heparin and start Rivaroxaban 8. Bacteremia, repeat blood culture negative on 04/07 9. Acute C. diff colitis on oral vancomycin 10. Severe protein/calorie malnutrition: I added Ensure 3 times a day. Dietitian consultation requested Today, I reviewed his medication list and lab work results. Continue current regimen. Antibiotic management infectious disease. May transfer outside to the intensive care unit to a territory manager general sales unit. Appreciate outside sales consultant's recommendations. Repeat lab work in the morning. No family members at bedside to be updated. food service worker hospital is involved to obtain legal guardianship given no family support. Plan to return to [facility] when cleared by urology
[2017-04-19] MEDS: CHERRY FLAVOR 60 ML BOTTLE PO PRN ×3 (12:25→23:26)
[2017-04-19] MEDS: traZODone HCL 100 MG TAB PO SCH (20:13)
--- NOTE | 2017-04-19 21:36 | P.PN ---
Subjective Principal diagnosis: septic shock 82-year-old male presents to the emergency center from the extended care facility. Is limited that at his residence the patient was doing poorly. He had a drop in his pulse oximetry. Seemed to be not well. EMS was called. Upon their arrival his saturations were adequate. However the patient was tachycardic and hypotensive. They also believe that he was febrile. He was then transported to the Emergency Ctr[facility] where he was found to have evidence of hypotension. He was given fluid resuscitation. Despite that he remained hypotensive and required vasopressor therapy with Levophed. The patient was transferred to the intensive care unit received further resuscitation. With further fluids is little elevated lactic acid improved. Patient was continued to have somewhat of a poor mentation just part of his difficulties at transfer also known dementia. Because of his gram-negative sepsis the infectious diseases consultation was requested. The patient is a poor historian and most information is coming from the chart and the current nursing staff. The patient does seem to be a bit more uncomfortable he was earlier in the day as per the nursing staff. It is noted that urine output has been poor despite his extensive fluid resuscitation. Urine is very cloudy and thick. Renal ultrasound has been performed several hours ago. Evidence of bilateral hydronephrosis and sludge in his bladder. Today the patient is showing some improvement. He is arousable. He seems to be comfortable. The patient has been seen by urology. He had a coud catheter placed with the ureteroscope, because of a difficulty with a false passage. Patient is draining adequate amounts of urine which has remained cloudy, improved today form suprapubic However patient's fever, hypotension, leukocytosis are all improved. The patient has been slow to improve. Objective - Vital Signs Vital signs: Vital Signs Temp 98.7 F 04/19/17 15:00 Pulse 74 04/19/17 15:00 Resp 18 04/19/17 16:00 BP 136/52 04/19/17 15:00 Pulse Ox 94 L 04/19/17 15:00 Intake & Output 04/19/17 04/19/17 04/20/17 06:59 18:59 06:59 Intake Total 1800 3160 Output Total 1545 2255 Balance 255 905 Weight 94.1 kg 94.1 kg Intake: IV 200 Meropenem 1 gm In Sodium 200 Chloride 0.9% 100 ml @ 100 mls/hr IVPB Q8HR [facility] Rx#:[id number] Oral 1800 2960 Output: Drainage 45 255 Abdomen 45 255 Urine 1500 2000 Other: Voiding Method Indwelling Catheter Indwelling Catheter # Bowel Movements 2 1 - Exam Patient had some worsening today. There is evidence of further purulence within his urine. Computed tomography scan was performed. Evidence of abscess deep in the pelvis and has been taking to the operating room for an incision and drainage and placement of a suprapubic catheter. HEENT: Anicteric conjunctiva are pink and moist nasal mucosa grossly intact without significant lesions, there is no thrush. Oral cavity is dry with generalized poor long-term hygiene Neck: The neck is supple without significant lymphadenopathy or thyromegaly. Lungs: Good bilateral air entry without significant crackles or wheezing. There is no significant bronchial sounds. There is no egophony or dullness. Heart: Regular rate and rhythm with an audible S1-S2, no S3 no S4. There is no significant murmur click or rub, PMI was nondisplaced. Abdomen: Positive bowel sounds soft and tender without palpable masses or organomegaly. Lower abdomen appears to be quite distended. Extremities: The upper extremities have excellent pulses they are symmetric, no significant petechiae or telangiectasia. No splinter hemorrhages were noted. The lower extremities are free from significant edema. The peripheral pulses were 2+ and symmetric. Neuro: Arousable he is sitting upright and is more communicative than his been in the last 48 hours Skin: Scrotum is evidence of 2 incisions with Shirin drains in place there is some serosanguineous drainage. The scrotum is somewhat edematous it is not necrotic. Abdominal wall is with less tenderness than prior. pressure ulcer of coccyx noted, nursing team hydrocoloid put in [facility]. - Labs CBC & Chem 7: 04/19/17 07:12 04/19/17 07:12 Labs: Abnormal Lab Results - Last 24 Hours (Table) 04/19/17 04/19/17 Range/Units 07:12 07:12 RBC 3.05 L (4.30-5.90) m/uL Hgb 8.4 L (13.0-17.5) gm/dL Hct 26.8 L (39.0-53.0) % Plt Count 497 H (150-450) k/uL Sodium 134 L (137-145) mmol/L Calcium 7.8 L (8.4-10.2) mg/dL Total Protein 5.0 L (6.3-8.2) g/dL Albumin 2.0 L (3.5-5.0) g/dL Microbiology - Last 24 Hours (Table) 04/14/17 13:20 Anaerobic Culture - Final Scrotum Enterococcus gallinarum 04/14/17 21:10 Blood Culture - Preliminary Blood No Growth after 96 hours Laboratory Results WBC 7.7 k/uL (3.8-10.6) 04/19/17 07:12 RBC 3.05 m/uL (4.30-5.90) L 04/19/17 07:12 Hgb 8.4 gm/dL (13.0-17.5) L 04/19/17 07:12 Hct 26.8 % (39.0-53.0) L 04/19/17 07:12 MCV 87.9 fL (80.0-100.0) 04/19/17 07:12 MCH 27.7 pg (25.0-35.0) 04/19/17 07:12 MCHC 31.5 g/dL (31.0-37.0) 04/19/17 07:12 RDW 15.0 % (11.5-15.5) 04/19/17 07:12 Plt Count 497 k/uL (150-450) H 04/19/17 07:12 Neutrophils % 71 % 04/19/17 07:12 Neutrophils % (Manual) 60 % 04/07/17 02:06 Band Neutrophils % 37 % 04/07/17 02:06 Lymphocytes % 17 % 04/19/17 07:12 Lymphocytes % (Manual) 2 % 04/07/17 02:06 Monocytes % 7 % 04/19/17 07:12 Monocytes % (Manual) 2 % 04/07/17 02:06 Eosinophils % 3 % 04/19/17 07:12 Basophils % 0 % 04/19/17 07:12 Neutrophils # 5.4 k/uL (1.3-7.7) 04/19/17 07:12 Neutrophils # (Manual) 17.20 k/uL (1.3-7.7) H 04/07/17 02:06 Lymphocytes # 1.3 k/uL (1.0-4.8) 04/19/17 07:12 Lymphocytes # (Manual) 0.36 k/uL (1.0-4.8) L 04/07/17 02:06 Monocytes # 0.5 k/uL (0-1.0) 04/19/17 07:12 Monocytes # (Manual) 0.36 k/uL (0-1.0) 04/07/17 02:06 Eosinophils # 0.2 k/uL (0-0.7) 04/19/17 07:12 Basophils # 0.0 k/uL (0-0.2) 04/19/17 07:12 Nucleated RBCs 0 /100 WBC (0-0) 04/07/17 02:06 Manual Slide Review Performed 04/06/17 02:45 Toxic Vacuolation Present 04/07/17 02:06 Polychromasia Present 04/07/17 02:06 Hypochromasia Slight 04/19/17 07:12 Anisocytosis Slight 04/13/17 07:41 Crenated Cell Present 04/07/17 02:06 PT 12.2 sec (9.0-12.0) H 04/15/17 04:48 INR 1.2 (<1.2) H 04/15/17 04:48 APTT 28.2 sec (22.0-30.0) 04/17/17 06:52 Sodium 134 mmol/L (137-145) L 04/19/17 07:12 Potassium 3.5 mmol/L (3.5-5.1) 04/19/17 07:12 Chloride 100 mmol/L (98-107) 04/19/17 07:12 Carbon Dioxide 29 mmol/L (22-30) 04/19/17 07:12 Anion Gap 5 mmol/L 04/19/17 07:12 BUN 15 mg/dL (9-20) 04/19/17 07:12 Creatinine 0.88 mg/dL (0.66-1.25) 04/19/17 07:12 Est GFR (MDRD) Af Amer >60 (>60 ml/min/1.73 sqM) 04/19/17 07:12 Est GFR (MDRD) Non-Af >60 (>60 ml/min/1.73 sqM) 04/19/17 07:12 Glucose 99 mg/dL (74-99) 04/19/17 07:12 POC Glucose (mg/dL) 128 mg/dL (75-99) H 04/14/17 15:21 POC Glu Finishing Trimmer ID Zhane Nelson 04/14/17 15:21 Lactic Ac Sepsis Rflx Y 04/07/17 16:05 Plasma Lactic Acid Georges 2.9 mmol/L (0.7-2.0) H* 04/07/17 19:17 Calcium 7.8 mg/dL (8.4-10.2) L 04/19/17 07:12 Phosphorus 2.8 mg/dL (2.5-4.5) 04/19/17 07:12 Magnesium 1.7 mg/dL (1.6-2.3) 04/19/17 07:12 Iron 20 ug/dL (49-181) L 04/10/17 06:09 TIBC 150 ug/dL (261-462) L 04/10/17 06:09 % Saturation 13.3 % (20-50) L 04/10/17 06:09 Total Bilirubin 0.2 mg/dL (0.2-1.3) 04/19/17 07:12 AST 27 U/L (17-59) 04/19/17 07:12 ALT 33 U/L (21-72) 04/19/17 07:12 Alkaline Phosphatase 78 U/L (38-126) 04/19/17 07:12 Total Protein 5.0 g/dL (6.3-8.2) L 04/19/17 07:12 Albumin 2.0 g/dL (3.5-5.0) L 04/19/17 07:12 Vitamin B12 971 pg/mL 04/10/17 06:09 Folate 9.7 ng/mL 04/10/17 06:09 Urine Color Light Red 04/05/17 23:29 Urine Appearance Turbid (Clear) 04/05/17 23:29 Urine pH 8.5 (5.0-8.0) H 04/05/17 23:29 Ur Specific Bohannon 1.012 (1.001-1.035) 04/05/17 23:29 Urine Protein 4+ (Negative) H 04/05/17 23:29 Urine Glucose (UA) Negative (Negative) 04/05/17 23:29 Urine Ketones Negative (Negative) 04/05/17 23:29 Urine Blood Negative (Negative) 04/05/17 23:29 Urine Nitrite Negative (Negative) 04/05/17 23:29 Urine Bilirubin Negative (Negative) 04/05/17 23:29 Urine Urobilinogen <2.0 mg/dL (<2.0) 04/05/17 23:29 Ur Leukocyte Esterase Large (Negative) H 04/05/17 23:29 Urine WBC 145 /hpf (0-5) H 04/05/17 23:29 Amorphous Sediment Occasional /hpf (None) H 04/05/17 23:29 Urine Bacteria Rare /hpf (None) H 04/05/17 23:29 Vancomycin Trough 11.7 ug/mL 04/08/17 20:33 Random Vancomycin 13.1 ug/mL 04/07/17 08:51 C. difficile (EIA) Intrp Positive (Negative) A 04/11/17 09:52 Microbiology 04/14/17 13:20 Scrotum Anaerobic Culture - Final Enterococcus gallinarum 04/14/17 21:10 Blood Blood Culture - Preliminary No Growth after 96 hours 04/14/17 13:20 Scrotum Anaerobic Culture - Final 04/14/17 13:20 Scrotum Gram Stain - Final 04/14/17 13:20 Scrotum Wound Culture - Final 04/14/17 13:20 Scrotum Gram Stain - Final 04/14/17 13:20 Scrotum Wound Culture - Final 04/07/17 10:44 Blood Blood Culture - Final No Growth after 144 hours 04/05/17 23:29 Urine,Voided Urine Culture - Final Escherichia coli 04/05/17 23:09 Blood Blood Culture Gram Stain - Final 04/05/17 23:09 Blood Blood Culture - Final Escherichia coli 04/05/17 23:09 Blood Blood Culture - Final Assessment and Plan (1) Septic shock Narrative/Plan: 82-year-old male presents from the extended care facility with alteration of his status. Concerns to hypoxemia which corrected upon arrival of EMS. However the patient was hypotensive and tachycardic and febrile. Upon arrival the patient had evidence of sepsis and shock requiring fluid resuscitation and then vasopressor therapy. With adequate resuscitation he has now improved and is off vasopressor therapy. However continues to have a poor mental status. His fever is improved. On exam the patient had a poor urinary output had evidence of distention to his lower abdomen that was tender. Recent ultrasound showed evidence of bilateral hydronephrosis and sludge in his bladder. A bladder scan was requested and a liter of fluid was noted in his latter. The catheter was blocked and a new Chi was placed and the patient had resolution of his distention. He has been seen by urology in his phimosis was cared for at the bedside. His other the patient has gram-negative sepsis with the final cultures recent cultures have shown evidence of Escherichia coli that is susceptible to cefepime as well as ceftriaxone. Antibiotic therapy was descalated to ceftriaxone and will require completion of a 2 week course This will remain at this point in time pending further culture results. Follow up blood cultures are requested to ensure his bacteremia has cleared. He had a profound leukocytosis due to his sepsis and obstructive process which is now improved. Altered mentation on the basis of sepsis Acute renal failure on the basis of an obstructive process and is resolved as his sepsis and obstruction has been resolved by the urologist in the placement of the coud catheter. Hypokalemia has resolved. Patient is in the medical floor showing improvement. Patient developed diarrhea. Stool testing for C. diff has come back as positive. Oral vancomycin 250 mg per every 6 hours with evidence of improvement of his diarrhea. The patient was having some worsening to his urine. computed tomography scan was performed. There was evidence of multiple abscess. He was evaluated by the urologist and taken back to the operating room for drainage of the deep pelvic abscess. A suprapubic catheter is now been placed to avoid the track through the urethra resulting in further infection. Despite antibiotic therapy the patient is having steady improvement at this time it is somewhat malodorous. There is concerned as he has C. diff, about escalating antimicrobial therapy. However anaerobic coverage is required and with the prior isolated Escherichia coli, merremis utilized with improvement. the isolated e. gallilarium is noted. An airbed is now in use. PICC has been requested for IV access at [facility] for treatment of sepsis will need po Vanco till after IV is done in 14 days Status: Acute (2) Gram-negative sepsis with organ dysfunction Status: Acute (3) UTI (urinary tract infection) Status: Acute (4) Leukocytosis Status: Acute
[2017-04-20] MEDS: VANCOMYCIN ORAL SOLUTION 250 MG/5 ML BOTTLE PO SCH ×4 (05:17→23:23)
[2017-04-20] MEDS: CHERRY FLAVOR 60 ML BOTTLE PO PRN ×3 (05:17→18:54)
[2017-04-20] MEDS: RIVAROXABAN 15 MG TAB PO SCH ×2 (08:10→18:49)
[2017-04-20] MEDS: MEROPENEM 1 GM in SODIUM CHLORIDE 0.9% 100 ML IVPB SCH ×3 (08:13→23:24)
[2017-04-20] MEDS: POTASSIUM CHLORIDE ER 20 MEQ TAB.ER PO SCH (08:14)
[2017-04-20] MEDS: PANTOPRAZOLE 40 MG TABLET PO SCH (08:14)
[2017-04-20] MEDS: FUROSEMIDE 20 MG TAB PO SCH ×2 (08:15→15:56)
[2017-04-20 09:15] LABS: INR 1.3 (<1.2); Prothrombin Time 13.1 sec (9.0-12.0)
--- NOTE | 2017-04-20 10:08 | P.PN ---
Subjective Patient is scheduled for PICC line today Objective - Vital Signs Vital signs: Vital Signs Temp 98.6 F 04/19/17 22:57 Pulse 109 H 04/19/17 22:57 Resp 18 04/19/17 22:57 BP 117/65 04/19/17 22:57 Pulse Ox 95 04/19/17 22:57 Intake & Output 04/19/17 04/20/17 04/20/17 18:59 06:59 18:59 Intake Total 3160 Output Total 2255 1740 Balance 905 -1740 Weight 94.1 kg Intake: IV 200 Meropenem 1 gm In Sodium 200 Chloride 0.9% 100 ml @ 100 mls/hr IVPB Q8HR [facility] Rx#:[id number] Oral 2960 Output: Drainage 255 40 Abdomen 255 40 Urine 2000 1700 Other: Voiding Method Indwelling Catheter Indwelling Catheter # Bowel Movements 1 1 - Exam General: The patient is awake and alert, in no distress Eye: there is normal conjunctiva bilaterally. Neck: The neck is supple, there is no JVD. Cardiovascular: Normal S1-S2, no S3-S4, no murmurs. Respiratory: Lungs clear to auscultation bilaterally Gastrointestinal: Abdomen is soft, nontender Musculoskeletal: There is +2 pedal edema. Neurological:. Speech is normal. Skin: Skin is warm and dry - Labs CBC & Chem 7: 04/19/17 07:12 04/19/17 07:12 Labs: Abnormal Lab Results - Last 24 Hours (Table) 04/20/17 Range/Units 08:36 PT 13.1 H (9.0-12.0) sec INR 1.3 H (<1.2) Microbiology - Last 24 Hours (Table) 04/14/17 21:10 Blood Culture - Preliminary Blood No Growth after 120 hours 04/14/17 13:20 Anaerobic Culture - Final Scrotum Enterococcus gallinarum Assessment and Plan Plan: 1. Catheter associated urinary tract infection, present on admission, recurrent 2. Status post pelvic exploration with drainage of multiple abscess cavities/ debridement of necrotic tissue and placement of suprapubic catheter on 04/14/17 3. Chronic obstructive uropathy, seen and evaluated by urology 4. History of prostate cancer with no evidence of metastasis on bone scan in November 5. Underlying cognitive impairment/dementia 6. Acute DVT of the left lower extremities discontinue IV heparin and start Rivaroxaban 8. Bacteremia, repeat blood culture negative on 04/07 9. Acute C. diff colitis on oral vancomycin 10. Severe protein/calorie malnutrition: I added Ensure 3 times a day. Dietitian consultation requested Today, I reviewed his medication list and lab work results. Continue current regimen. Antibiotic management infectious disease. May transfer outside to the intensive care unit to a aircraft general repair mechanic unit. Appreciate income tax consultant's recommendations. Repeat lab work in the morning. No family members at bedside to be updated. rigging worker is involved to obtain legal guardianship given no family support. Plan to return to [facility] when cleared by urology Plan for PICC line insertion today.
--- NOTE | 2017-04-20 12:24 | P.PN ---
Subjective The patient continues to recuperate from his abscess drainage and suprapubic tube placement. The suprapubic wound is healing nicely. I removed the scrotal drain as it was minimally draining. He is still getting a moderate amount of LUIS FELIPE drainage from the perineal, periurethral abscess. It is still quite purulent. He will continue with that. He will probably need a cystogram at some point in time to see if there is any periurethral leakage. His suprapubic tube is draining nicely. Objective - Vital Signs Vital signs: Vital Signs Temp 98.2 F 04/20/17 10:37 Pulse 100 04/20/17 10:40 Resp 18 04/20/17 10:40 BP 116/72 04/20/17 10:37 Pulse Ox 95 04/19/17 22:57 Intake & Output 04/19/17 04/20/17 04/20/17 18:59 06:59 18:59 Intake Total 3160 500 Output Total 2255 1740 900 Balance 905 -1740 -400 Weight 94.1 kg Intake: IV 200 100 Meropenem 1 gm In Sodium 200 100 Chloride 0.9% 100 ml @ 100 mls/hr IVPB Q8HR [facility] Rx#:[id number] Oral 2960 400 Output: Drainage 255 40 100 Abdomen 255 40 100 Urine 2000 1700 800 Other: Voiding Method Indwelling Catheter Indwelling Catheter Indwelling Catheter # Bowel Movements 1 1 - Labs CBC & Chem 7: 04/19/17 07:12 04/19/17 07:12 Labs: Abnormal Lab Results - Last 24 Hours (Table) 04/20/17 Range/Units 08:36 PT 13.1 H (9.0-12.0) sec INR 1.3 H (<1.2) Microbiology - Last 24 Hours (Table) 04/14/17 21:10 Blood Culture - Preliminary Blood No Growth after 120 hours 04/14/17 13:20 Anaerobic Culture - Final Scrotum Enterococcus gallinarum
[2017-04-20] MEDS: traZODone HCL 100 MG TAB PO SCH (20:36)
--- NOTE | 2017-04-20 22:02 | P.PN ---
Subjective Principal diagnosis: septic shock 82-year-old male presents to the emergency center from the extended care facility. Is limited that at his residence the patient was doing poorly. He had a drop in his pulse oximetry. Seemed to be not well. EMS was called. Upon their arrival his saturations were adequate. However the patient was tachycardic and hypotensive. They also believe that he was febrile. He was then transported to the Emergency Ctr[facility] where he was found to have evidence of hypotension. He was given fluid resuscitation. Despite that he remained hypotensive and required vasopressor therapy with Levophed. The patient was transferred to the intensive care unit received further resuscitation. With further fluids is little elevated lactic acid improved. Patient was continued to have somewhat of a poor mentation just part of his difficulties at transfer also known dementia. Because of his gram-negative sepsis the infectious diseases consultation was requested. The patient is a poor historian and most information is coming from the chart and the current nursing staff. The patient does seem to be a bit more uncomfortable he was earlier in the day as per the nursing staff. It is noted that urine output has been poor despite his extensive fluid resuscitation. Urine is very cloudy and thick. Renal ultrasound has been performed several hours ago. Evidence of bilateral hydronephrosis and sludge in his bladder. Today the patient is showing some improvement. He is arousable. He seems to be comfortable. The patient has been seen by urology. He had a coud catheter placed with the ureteroscope, because of a difficulty with a false passage. Patient is draining adequate amounts of urine which has remained cloudy, improved today form suprapubic However patient's fever, hypotension, leukocytosis are all improved. The patient has been slow to improve. Objective - Vital Signs Vital signs: Vital Signs Temp 98.8 F 04/20/17 16:23 Pulse 90 04/20/17 16:23 Resp 20 04/20/17 16:23 BP 115/61 04/20/17 16:23 Pulse Ox 94 L 04/20/17 16:23 Intake & Output 04/20/17 04/20/17 04/21/17 06:59 18:59 06:59 Intake Total 1224 Output Total 1740 2940 Balance -3211 -1103 Intake: IV 100 Meropenem 1 gm In Sodium 100 Chloride 0.9% 100 ml @ 100 mls/hr IVPB Q8HR [facility] Rx#:[id number] Oral 1124 Output: Drainage 40 340 Abdomen 40 340 Urine 1700 2600 Other: Voiding Method Indwelling Catheter Indwelling Catheter # Bowel Movements 1 - Exam Patient had some worsening today. There is evidence of further purulence within his urine. Computed tomography scan was performed. Evidence of abscess deep in the pelvis and has been taking to the operating room for an incision and drainage and placement of a suprapubic catheter. HEENT: Anicteric conjunctiva are pink and moist nasal mucosa grossly intact without significant lesions, there is no thrush. Oral cavity is dry with generalized poor long-term hygiene Neck: The neck is supple without significant lymphadenopathy or thyromegaly. Lungs: Good bilateral air entry without significant crackles or wheezing. There is no significant bronchial sounds. There is no egophony or dullness. Heart: Regular rate and rhythm with an audible S1-S2, no S3 no S4. There is no significant murmur click or rub, PMI was nondisplaced. Abdomen: Positive bowel sounds soft and tender without palpable masses or organomegaly. Lower abdomen appears to be quite distended. Extremities: The upper extremities have excellent pulses they are symmetric, no significant petechiae or telangiectasia. No splinter hemorrhages were noted. The lower extremities are free from significant edema. The peripheral pulses were 2+ and symmetric. Neuro: Arousable he is sitting upright and is more communicative than his been in the last 48 hours Skin: Scrotum is evidence of 2 incisions with [place] drains in place there is some serosanguineous drainage. The scrotum is somewhat edematous it is not necrotic. Abdominal wall is with less tenderness than prior. pressure ulcer of coccyx noted, nursing team hydrocoloid put in [facility]. - Labs CBC & Chem 7: 04/19/17 07:12 04/19/17 07:12 Labs: Abnormal Lab Results - Last 24 Hours (Table) 04/20/17 Range/Units 08:36 PT 13.1 H (9.0-12.0) sec INR 1.3 H (<1.2) Microbiology - Last 24 Hours (Table) 04/14/17 21:10 Blood Culture - Preliminary Blood No Growth after 120 hours Laboratory Results WBC 7.7 k/uL (3.8-10.6) 04/19/17 07:12 RBC 3.05 m/uL (4.30-5.90) L 04/19/17 07:12 Hgb 8.4 gm/dL (13.0-17.5) L 04/19/17 07:12 Hct 26.8 % (39.0-53.0) L 04/19/17 07:12 MCV 87.9 fL (80.0-100.0) 04/19/17 07:12 MCH 27.7 pg (25.0-35.0) 04/19/17 07:12 MCHC 31.5 g/dL (31.0-37.0) 04/19/17 07:12 RDW 15.0 % (11.5-15.5) 04/19/17 07:12 Plt Count 497 k/uL (150-450) H 04/19/17 07:12 Neutrophils % 71 % 04/19/17 07:12 Neutrophils % (Manual) 60 % 04/07/17 02:06 Band Neutrophils % 37 % 04/07/17 02:06 Lymphocytes % 17 % 04/19/17 07:12 Lymphocytes % (Manual) 2 % 04/07/17 02:06 Monocytes % 7 % 04/19/17 07:12 Monocytes % (Manual) 2 % 04/07/17 02:06 Eosinophils % 3 % 04/19/17 07:12 Basophils % 0 % 04/19/17 07:12 Neutrophils # 5.4 k/uL (1.3-7.7) 04/19/17 07:12 Neutrophils # (Manual) 17.20 k/uL (1.3-7.7) H 04/07/17 02:06 Lymphocytes # 1.3 k/uL (1.0-4.8) 04/19/17 07:12 Lymphocytes # (Manual) 0.36 k/uL (1.0-4.8) L 04/07/17 02:06 Monocytes # 0.5 k/uL (0-1.0) 04/19/17 07:12 Monocytes # (Manual) 0.36 k/uL (0-1.0) 04/07/17 02:06 Eosinophils # 0.2 k/uL (0-0.7) 04/19/17 07:12 Basophils # 0.0 k/uL (0-0.2) 04/19/17 07:12 Nucleated RBCs 0 /100 WBC (0-0) 04/07/17 02:06 Manual Slide Review Performed 04/06/17 02:45 Toxic Vacuolation Present 04/07/17 02:06 Polychromasia Present 04/07/17 02:06 Hypochromasia Slight 04/19/17 07:12 Anisocytosis Slight 04/13/17 07:41 Crenated Cell Present 04/07/17 02:06 PT 13.1 sec (9.0-12.0) H 04/20/17 08:36 INR 1.3 (<1.2) H 04/20/17 08:36 APTT 28.2 sec (22.0-30.0) 04/17/17 06:52 Sodium 134 mmol/L (137-145) L 04/19/17 07:12 Potassium 3.5 mmol/L (3.5-5.1) 04/19/17 07:12 Chloride 100 mmol/L (98-107) 04/19/17 07:12 Carbon Dioxide 29 mmol/L (22-30) 04/19/17 07:12 Anion Gap 5 mmol/L 04/19/17 07:12 BUN 15 mg/dL (9-20) 04/19/17 07:12 Creatinine 0.88 mg/dL (0.66-1.25) 04/19/17 07:12 Est GFR (MDRD) Af Amer >60 (>60 ml/min/1.73 sqM) 04/19/17 07:12 Est GFR (MDRD) Non-Af >60 (>60 ml/min/1.73 sqM) 04/19/17 07:12 Glucose 99 mg/dL (74-99) 04/19/17 07:12 POC Glucose (mg/dL) 128 mg/dL (75-99) H 04/14/17 15:21 POC Glu Transformer Builder ID Zhane Nelson 04/14/17 15:21 Lactic Ac Sepsis Rflx Y 04/07/17 16:05 Plasma Lactic Acid Georges 2.9 mmol/L (0.7-2.0) H* 04/07/17 19:17 Calcium 7.8 mg/dL (8.4-10.2) L 04/19/17 07:12 Phosphorus 2.8 mg/dL (2.5-4.5) 04/19/17 07:12 Magnesium 1.7 mg/dL (1.6-2.3) 04/19/17 07:12 Iron 20 ug/dL (49-181) L 04/10/17 06:09 TIBC 150 ug/dL (261-462) L 04/10/17 06:09 % Saturation 13.3 % (20-50) L 04/10/17 06:09 Total Bilirubin 0.2 mg/dL (0.2-1.3) 04/19/17 07:12 AST 27 U/L (17-59) 04/19/17 07:12 ALT 33 U/L (21-72) 04/19/17 07:12 Alkaline Phosphatase 78 U/L (38-126) 04/19/17 07:12 Total Protein 5.0 g/dL (6.3-8.2) L 04/19/17 07:12 Albumin 2.0 g/dL (3.5-5.0) L 04/19/17 07:12 Vitamin B12 971 pg/mL 04/10/17 06:09 Folate 9.7 ng/mL 04/10/17 06:09 Urine Color Light Red 04/05/17 23:29 Urine Appearance Turbid (Clear) 04/05/17 23:29 Urine pH 8.5 (5.0-8.0) H 04/05/17 23:29 Ur Specific [place] 1.012 (1.001-1.035) 04/05/17 23:29 Urine Protein 4+ (Negative) H 04/05/17 23:29 Urine Glucose (UA) Negative (Negative) 04/05/17 23:29 Urine Ketones Negative (Negative) 04/05/17 23:29 Urine Blood Negative (Negative) 04/05/17 23:29 Urine Nitrite Negative (Negative) 04/05/17 23:29 Urine Bilirubin Negative (Negative) 04/05/17 23:29 Urine Urobilinogen <2.0 mg/dL (<2.0) 04/05/17 23:29 Ur Leukocyte Esterase Large (Negative) H 04/05/17 23:29 Urine WBC 145 /hpf (0-5) H 04/05/17 23:29 Amorphous Sediment Occasional /hpf (None) H 04/05/17 23:29 Urine Bacteria Rare /hpf (None) H 04/05/17 23:29 Vancomycin Trough 11.7 ug/mL 04/08/17 20:33 Random Vancomycin 13.1 ug/mL 04/07/17 08:51 C. difficile (EIA) Intrp Positive (Negative) A 04/11/17 09:52 Microbiology 04/14/17 21:10 Blood Blood Culture - Preliminary No Growth after 120 hours 04/14/17 13:20 Scrotum Anaerobic Culture - Final Enterococcus gallinarum 04/14/17 13:20 Scrotum Anaerobic Culture - Final 04/14/17 13:20 Scrotum Gram Stain - Final 04/14/17 13:20 Scrotum Wound Culture - Final 04/14/17 13:20 Scrotum Gram Stain - Final 04/14/17 13:20 Scrotum Wound Culture - Final 04/07/17 10:44 Blood Blood Culture - Final No Growth after 144 hours 04/05/17 23:29 Urine,Voided Urine Culture - Final Escherichia coli 04/05/17 23:09 Blood Blood Culture Gram Stain - Final 04/05/17 23:09 Blood Blood Culture - Final Escherichia coli 04/05/17 23:09 Blood Blood Culture - Final Assessment and Plan (1) Septic shock Narrative/Plan: 82-year-old male presents from the extended care facility with alteration of his status. Concerns to hypoxemia which corrected upon arrival of EMS. However the patient was hypotensive and tachycardic and febrile. Upon arrival the patient had evidence of sepsis and shock requiring fluid resuscitation and then vasopressor therapy. With adequate resuscitation he has now improved and is off vasopressor therapy. However continues to have a poor mental status. His fever is improved. On exam the patient had a poor urinary output had evidence of distention to his lower abdomen that was tender. Recent ultrasound showed evidence of bilateral hydronephrosis and sludge in his bladder. A bladder scan was requested and a liter of fluid was noted in his latter. The catheter was blocked and a new Chi was placed and the patient had resolution of his distention. He has been seen by urology in his phimosis was cared for at the bedside. His other the patient has gram-negative sepsis with the final cultures recent cultures have shown evidence of Escherichia coli that is susceptible to cefepime as well as ceftriaxone. Antibiotic therapy was descalated to ceftriaxone and will require completion of a 2 week course This will remain at this point in time pending further culture results. Follow up blood cultures are requested to ensure his bacteremia has cleared. He had a profound leukocytosis due to his sepsis and obstructive process which is now improved. Altered mentation on the basis of sepsis Acute renal failure on the basis of an obstructive process and is resolved as his sepsis and obstruction has been resolved by the urologist in the placement of the coud catheter. Hypokalemia has resolved. Patient is in the medical floor showing improvement. Patient developed diarrhea. Stool testing for C. diff has come back as positive. Oral vancomycin 250 mg per every 6 hours with evidence of improvement of his diarrhea. The patient was having some worsening to his urine. computed tomography scan was performed. There was evidence of multiple abscess. He was evaluated by the urologist and taken back to the operating room for drainage of the deep pelvic abscess. A suprapubic catheter is now been placed to avoid the track through the urethra resulting in further infection. Despite antibiotic therapy the patient is having steady improvement at this time it is somewhat malodorous. There is concerned as he has C. diff, about escalating antimicrobial therapy. However anaerobic coverage is required and with the prior isolated Escherichia coli, merrem utilized with improvement. the isolated e. gallilarium is noted. An airbed is now in use. [facility] has been [facility] for treatment of sepsis will need po Vanco till after IV is done in 14 days The case is discussed with the certified financial planner. As noted plan 2 weeks of the Merrem for the isolated pathogens. Continue oral vancomycin through this timeframe. In continue for 1 week after. Status: Acute (2) Gram-negative sepsis with organ dysfunction Status: Acute (3) UTI (urinary tract infection) Status: Acute (4) Leukocytosis Status: Acute
[2017-04-21] MEDS: CHERRY FLAVOR 60 ML BOTTLE PO PRN ×2 (06:04→12:33)
[2017-04-21] MEDS: VANCOMYCIN ORAL SOLUTION 250 MG/5 ML BOTTLE PO SCH ×2 (06:04→12:32)
[2017-04-21] MEDS: RIVAROXABAN 15 MG TAB PO SCH ×2 (08:06→15:22)
[2017-04-21] MEDS: MEROPENEM 1 GM in SODIUM CHLORIDE 0.9% 100 ML IVPB SCH ×2 (08:10→15:23)
[2017-04-21] MEDS: PANTOPRAZOLE 40 MG TABLET PO SCH (08:16)
[2017-04-21] MEDS: FUROSEMIDE 20 MG TAB PO SCH ×2 (08:16→15:22)
[2017-04-21] MEDS: POTASSIUM CHLORIDE ER 20 MEQ TAB.ER PO SCH (08:17)
[2017-04-21 08:21] LABS: Basophils % (A) 0 %; CH 27.9; CHCM 32.1; Eosinophils # (A) 0.2 k/uL (0-0.7); Eosinophils % (A) 2 %; HCT 29.3 % (39.0-53.0); HDW 2.38; HGB 9.1 gm/dL (13.0-17.5); Luc # (Auto) 0.14; Luc % (Auto) 2; Lymphocytes # (A) 1.3 k/uL (1.0-4.8); Lymphocytes % (A) 18 %; MCV 87.2 fL (80.0-100.0); Mean Platelet Volume 6.7; Monocytes # (A) 0.5 k/uL (0-1.0); Monocytes % (A) 7 %; Neutrophils # (A) 5.2 k/uL (1.3-7.7); Neutrophils % (A) 71 %; RBC 3.36 m/uL (4.30-5.90); RDW 15.5 % (11.5-15.5); WBC 7.3 k/uL (3.8-10.6); WBC (Perox) 7.43
[2017-04-21] MEDS: LORazepam 1 MG TAB PO PRN (08:22)
[2017-04-21 08:40] LABS: ALT 40 U/L (21-72); AST 33 U/L (17-59); Alkaline Phosphatase 82 U/L (38-126); Anion Gap 6 mmol/L; Blood Urea Nitrogen 16 mg/dL (9-20); Calcium 8.2 mg/dL (8.4-10.2); Carbon Dioxide 33 mmol/L (22-30); Chloride 98 mmol/L (98-107); Glucose 89 mg/dL (74-99); Non-African American GFR(MDRD) >60 (>60 ml/min/1.73 sqM); Potassium 3.9 mmol/L (3.5-5.1); Sodium 137 mmol/L (137-145); Total Bilirubin 0.2 mg/dL (0.2-1.3); Total Protein 5.6 g/dL (6.3-8.2)
[2017-04-21] MEDS ORDERED: LIDOCAINE 2% INJ 20 MG/ML (20 ML MDV) ONE (09:55)
[2017-04-21] MEDS ORDERED: LIDOCAINE 2% INJ 20 MG/ML SQ ONE (10:01)
--- NOTE | 2017-04-21 10:57 | IR ---
PICC LINE PLACEMENT: HISTORY: Infection requiring long-term antibiotic therapy PROCEDURE: Ultrasound and fluoroscopic guidance of PICC line placement. COMPLICATIONS: None ANESTHESIA: 1. 1% Lidocaine locally. FINDINGS/TECHNIQUE: The procedure was explained to the patient. The risks, complications, benefits and alternatives were discussed and any questions were answered. Informed consent was obtained. The patient was placed supine on the fluoroscopic table and prepped and draped in the usual sterile fash ion. Utilizing a 21 gauge needle and sonographic and fluoroscopic guidance, access in the vein was achieved and there is placement of a 0.018 guidewire. The vein is patent. A 5-Fr sheath was placed over the guidewire. The guidewire and dilator were removed and a 5-F. Double lumen PICC line was pl aced through the sheath with the tip at the level of the SVC. The sheath was removed, the catheter w as flushed and sutured into position. The patient was stable throughout the procedure and remained s table upon discharge from the Department of Radiology. The vein puncture was patent under ultrasound. A acuna scale image was obtained to document patency of the vein punctured. All elements of the maximal barrier technique were utilized. FLUOROSCOPY TIME: 0.2 minutes, one image provided IMPRESSION: Successful PICC double lumen line placement under ultrasound and fluoroscopic guidance.
--- NOTE | 2017-04-21 12:58 | P.DS ---
Providers Date of admission: 04/06/17 00:38 Expected date of discharge: 04/21/17 Attending physician: Balbina Bautista Consults: 04/06/17 00:38 Consult Physician Stat Consulting Provider: Lucio Barriga Consult Reason/Comments: Severe sepsis Do you want consulting provider notified?: Already Contacted 04/06/17 12:11 Consult Physician Routine Consulting Provider: Colt Sanders Consult Reason/Comments: Recurrent CAUTI Do you want consulting provider notified?: Yes Consult Physician Routine Consulting Provider: Peewee Negro Consult Reason/Comments: Prostate cancer, recurrent UTI Do you want consulting provider notified?: Yes [facility] care [facility] Course: 1. Catheter associated urinary tract infection, present on admission, recurrent 2. Status post pelvic exploration with drainage of multiple abscess cavities/ debridement of necrotic tissue and placement of suprapubic catheter on 04/14/17 3. Chronic obstructive uropathy 4. History of prostate cancer with no evidence of metastasis on bone scan in November 5. Underlying cognitive impairment/dementia 6. Acute DVT of the left lower extremities discontinue IV heparin and start Rivaroxaban 8. Bacteremia, repeat blood culture negative on 04/07 9. Acute C. diff colitis on oral vancomycin 10. Severe protein/calorie malnutrition: I added Ensure 3 times a day. Dietitian consultation requested Patient will be discharged to [facility] today. PICC line placed. Plan to finish antibiotic with IV meropenem as directed by infectious disease for 2 weeks. Continue oral vancomycin as ordered for total of 3 weeks. I will continue to follow up on the patient closely. Please refer to the electronic chart for further details about this hospitalization. Patient Condition at Discharge: Fair Plan - Discharge Summary New Discharge Prescriptions: New Meropenem [Merrem] 1 gm IVPB Q8HR #42 dose Metoprolol Tartrate 25 mg PO BID #60 tab QUEtiapine [SEROquel] 25 mg PO BID PRN tab PRN Reason: Agitation Rivaroxaban [Xarelto] 15 mg PO BID-W/MEALS #14 tab Rivaroxaban [Xarelto] 20 mg PO DAILY #30 tab Vancomycin Oral Solution 250 mg PO Q6HR #84 dose Continue traZODone HCL [Desyrel] 100 mg PO HS Lactose-Reduced Food [Ensure Plus] 1 can PO TID@0800,1200,1700 Magnesium Hydroxide [Milk of Magnesia] 2,400 mg PO DAILY PRN PRN Reason: Constipation Acetaminophen Tab [Tylenol] 650 mg PO Q6HR PRN PRN Reason: Pain Discontinued Metoprolol Tartrate [Lopressor] 50 mg PO DAILY tab Na Phos,M-B/Na Phos,Di-Ba [Fleet Adult] 133 ml RECTAL ONCE PRN PRN Reason: Constipation Bisacodyl [Dulcolax] 10 mg RECTAL DAILY PRN PRN Reason: Constipation LORazepam [Ativan] 0.5 mg PO Q8H PRN PRN Reason: Agitation Discharge Medication List Acetaminophen Tab [Tylenol] 650 mg PO Q6HR PRN 04/05/17 [History] Lactose-Reduced Food [Ensure Plus] 1 can PO TID@0800,1200,1700 04/05/17 [History ] Magnesium Hydroxide [Milk of Magnesia] 2,400 mg PO DAILY PRN 04/05/17 [History] traZODone HCL [Desyrel] 100 mg PO HS 04/05/17 [History] Meropenem [Merrem] 1 gm IVPB Q8HR #42 dose 04/21/17 [Rx] Metoprolol Tartrate 25 mg PO BID #60 tab 04/21/17 [Rx] QUEtiapine [SEROquel] 25 mg PO BID PRN tab 04/21/17 [Rx] Rivaroxaban [Xarelto] 15 mg PO BID-W/MEALS #14 tab 04/21/17 [Rx] Rivaroxaban [Xarelto] 20 mg PO DAILY #30 tab 04/21/17 [Rx] Vancomycin Oral Solution 250 mg PO Q6HR #84 dose 04/21/17 [Rx] Follow up Appointment(s)/Referral(s): Balbina Bautista MD [Primary Care Provider] - 1-2 days Discharge Disposition: TRANSFER TO SNF/ECF
[2017-04-21 15:30] VITALS: BP 108/61; PULSE 105; RESP 20; TEMP 97.8
--- NOTE | 2017-04-21 21:12 | P.PN ---
Subjective Principal diagnosis: septic shock 82-year-old male presents to the emergency center from the extended care facility. Is limited that at his residence the patient was doing poorly. He had a drop in his pulse oximetry. Seemed to be not well. EMS was called. Upon their arrival his saturations were adequate. However the patient was tachycardic and hypotensive. They also believe that he was febrile. He was then transported to the Emergency Ctr[facility] where he was found to have evidence of hypotension. He was given fluid resuscitation. Despite that he remained hypotensive and required vasopressor therapy with Levophed. The patient was transferred to the intensive care unit received further resuscitation. With further fluids is little elevated lactic acid improved. Patient was continued to have somewhat of a poor mentation just part of his difficulties at transfer also known dementia. Because of his gram-negative sepsis the infectious diseases consultation was requested. The patient is a poor historian and most information is coming from the chart and the current nursing staff. The patient does seem to be a bit more uncomfortable he was earlier in the day as per the nursing staff. It is noted that urine output has been poor despite his extensive fluid resuscitation. Urine is very cloudy and thick. Renal ultrasound has been performed several hours ago. Evidence of bilateral hydronephrosis and sludge in his bladder. Today the patient is showing some improvement. He is arousable. He seems to be comfortable. The patient has been seen by urology. He had a coud catheter placed with the ureteroscope, because of a difficulty with a false passage. Patient is draining adequate amounts of urine which has remained cloudy, improved today form suprapubic However patient's fever, hypotension, leukocytosis are all improved. The patient has now shown improvement and will move to [facility] today. Objective - Vital Signs Vital signs: Vital Signs Temp 97.8 F 04/21/17 15:00 Pulse 105 H 04/21/17 15:00 Resp 20 04/21/17 15:00 BP 108/61 04/21/17 15:00 Pulse Ox 93 L 04/21/17 15:00 Intake & Output 04/21/17 04/21/17 04/22/17 06:59 18:59 06:59 Intake Total 500 Output Total 2200 40 Balance -1700 -40 Intake: Oral 500 Output: Drainage 40 Abdomen 40 Urine 2200 Suprapubic 800 Other: Voiding Method Indwelling Catheter Indwelling Catheter # Bowel Movements 1 0 - Exam Patient had some worsening today. There is evidence of further purulence within his urine. Computed tomography scan was performed. Evidence of abscess deep in the pelvis and has been taking to the operating room for an incision and drainage and placement of a suprapubic catheter. HEENT: Anicteric conjunctiva are pink and moist nasal mucosa grossly intact without significant lesions, there is no thrush. Oral cavity is dry with generalized poor long-term hygiene Neck: The neck is supple without significant lymphadenopathy or thyromegaly. Lungs: Good bilateral air entry without significant crackles or wheezing. There is no significant bronchial sounds. There is no egophony or dullness. Heart: Regular rate and rhythm with an audible S1-S2, no S3 no S4. There is no significant murmur click or rub, PMI was nondisplaced. Abdomen: Positive bowel sounds soft and tender without palpable masses or organomegaly. Lower abdomen appears to be quite distended. Extremities: The upper extremities have excellent pulses they are symmetric, no significant petechiae or telangiectasia. No splinter hemorrhages were noted. The lower extremities are free from significant edema. The peripheral pulses were 2+ and symmetric. Neuro: Arousable he is sitting upright and is more communicative Skin: The LUIS FELIPE drain is present in the left lower quadrant and is to have some seropurulent material, but has improved. The scrotum is with less edema, 2 incisions to the scrotum are without significant drainage. The scrotum is with less tenderness. Abdominal wall is with less tenderness than prior. pressure ulcer of coccyx noted, hydrcolloid being used. - Labs CBC & Chem 7: 04/21/17 07:44 04/21/17 07:44 Labs: Abnormal Lab Results - Last 24 Hours (Table) 04/21/17 04/21/17 Range/Units 07:44 07:44 RBC 3.36 L (4.30-5.90) m/uL Hgb 9.1 L (13.0-17.5) gm/dL Hct 29.3 L (39.0-53.0) % Plt Count 546 H (150-450) k/uL Carbon Dioxide 33 H (22-30) mmol/L Calcium 8.2 L (8.4-10.2) mg/dL Total Protein 5.6 L (6.3-8.2) g/dL Albumin 2.2 L (3.5-5.0) g/dL Microbiology - Last 24 Hours (Table) 04/14/17 21:10 Blood Culture - Final Blood No Growth after 144 hours Assessment and Plan (1) Septic shock Narrative/Plan: 82-year-old male presents from the extended care facility with alteration of his status. Concerns to hypoxemia which corrected upon arrival of EMS. However the patient was hypotensive and tachycardic and febrile. Upon arrival the patient had evidence of sepsis and shock requiring fluid resuscitation and then vasopressor therapy. With adequate resuscitation he has now improved and is off vasopressor therapy. However continues to have a poor mental status. His fever is improved. On exam the patient had a poor urinary output had evidence of distention to his lower abdomen that was tender. Recent ultrasound showed evidence of bilateral hydronephrosis and sludge in his bladder. A bladder scan was requested and a liter of fluid was noted in his latter. The catheter was blocked and a new Chi was placed and the patient had resolution of his distention. He has been seen by urology in his phimosis was cared for at the bedside. His other the patient has gram-negative sepsis with the final cultures recent cultures have shown evidence of Escherichia coli that is susceptible to cefepime as well as ceftriaxone. Antibiotic therapy was descalated to ceftriaxone and will require completion of a 2 week course This will remain at this point in time pending further culture results. Follow up blood cultures are requested to ensure his bacteremia has cleared. He had a profound leukocytosis due to his sepsis and obstructive process which is now improved. Altered mentation on the basis of sepsis Acute renal failure on the basis of an obstructive process and is resolved as his sepsis and obstruction has been resolved by the urologist in the placement of the coud catheter. Hypokalemia has resolved. Patient is in the medical floor showing improvement. Patient developed diarrhea. Stool testing for C. diff has come back as positive. Oral vancomycin 250 mg per every 6 hours with evidence of improvement of his diarrhea. The patient was having some worsening to his urine. computed tomography scan was performed. There was evidence of multiple abscess. He was evaluated by the urologist and taken back to the operating room for drainage of the deep pelvic abscess. A suprapubic catheter is now been placed to avoid the track through the urethra resulting in further infection. Despite antibiotic therapy the patient is having steady improvement at this time it is somewhat malodorous. There is concerned as he has C. diff, about escalating antimicrobial therapy. However anaerobic coverage is required and with the prior isolated Escherichia coli, merrem utilized with improvement. the isolated e. gallilarium is noted. An airbed is now in use. PICC has been requested for IV access at [facility] for treatment of sepsis will need po Vanco till after IV is done in 14 days Discussed with the space planner. Plan 2 weeks of the Merrem for the isolated pathogens. Continue oral vancomycin through this timeframe. Then continue po Vanco for 1 week after. Status: Acute (2) Gram-negative sepsis with organ dysfunction Status: Acute (3) UTI (urinary tract infection) Status: Acute (4) Leukocytosis Status: Acute
--- NOTE | 2017-04-22 16:34 | CDI ---
In responding to this query, please exercise your independent professional judgment. The [facility] Coding Staff and Clinical Documentation Specialists appreciate your assistance in clarifying documentation, maintaining compliance with coding guidelines, accurately documenting patients condition and capturing severity of illness. The fact that a question is asked does not imply that any particular answer is desired or expected. Communication forms are a method of clarifying documentation and are not made part of the Legal Health Record. Thank you in advance for your clarification. Last Revision, June 2015 [facility] [address] [place] [address] Documentation Clarification Form Date: 04/22/2017 4:17:00 PM From: Jennifer Gill Admit Date: 04/06/2017 12:38:00 AM Patient Name: Eleazar Lizarraga Visit Number: [id number] Discharge Date: 04/21/17 Dr. Junior Gustafson Per your operative note, a debridement was performed on scrotum, perineum, thigh and rectus muscle. History: Misplaced urethral Chi, appears as if the balloon had been blown up in the urethra and torn the urethra with subsequent extravastion or infected urine into the periurthral space. Treatment: Pelvic exploration with drainage of multiple abscess cavities, debridement of necrotic tissue, placement of suprapubic tube with open cystotomy. Five elements required for accurate and compliant documentation of a debridement : a. Technique used (e.g., excisional, excised, cutting, etc.) b. Instrument(s) used (e.g., scalpel, curette, etc.) c. Nature of the tissue removed (e.g., necrotic, devitalized tissues, non- viable tissue, etc.) d. Appearance and size of the wound (e.g., down to fresh bleeding tissue, 7cm x 10cm, etc.) e. Depth of the debridement* (e.g., skin, subcutaneous tissue, fascia, muscle , bone, etc.) 1. In order to capture the severity of condition and code the appropriate procedure could you please document the following: Excisional debridement (the removal of necrotic, devitalized tissue or slough by means of cutting away of tissue) Non-excisional debridement (the removal of necrotic, devitalized tissue or slough by means of flushing, brushing, or washing. (Irrigation) Other; with explanation for clinical findings Unable to determine (no explanation for clinical findings) 2. Which thigh? Right or left 3. Rectus muscle? Left or right Please document addendum in your 04/14 operative report in order to capture severity of illness and risk of mortality. Include clinical findings that support your diagnosis. FYI: Press F11 to launch patient chart. If you have a question about this query, please contact Iman Augustin, Technical Customer Support Specialist, [facility] at [phone] between 8am and 5pm. ALVARO
--- NOTE | 2017-05-04 07:49 | CDI ---
In responding to this query, please exercise your independent professional judgment. The [facility] Coding Staff and Clinical Documentation Specialists appreciate your assistance in clarifying documentation, maintaining compliance with coding guidelines, accurately documenting patients condition and capturing severity of illness. The fact that a question is asked does not imply that any particular answer is desired or expected. Communication forms are a method of clarifying documentation and are not made part of the Legal Health Record. Thank you in advance for your clarification. Last Revision, June 2015 [facility] [address] [facility] [place] [address] Documentation Clarification Form Date: 04/22/2017 4:17:00 PM From: Jennifer Gill Admit Date: 04/06/2017 12:38:00 AM Patient Name: Eleazar Lizarraga Visit Number: [id number] Discharge Date: 04/21/17 Dr. Junior Gustafson Per your operative note, debridement was performed on scrotum, perineum, thigh and rectus muscle. History: Misplaced urethral Chi, appears as if the balloon had been blown up in the urethra and torn the urethra with subsequent extravastion or infected urine into the periurethral space. Treatment: Pelvic exploration with drainage of multiple abscess cavities, debridement of necrotic tissue, placement of suprapubic tube with open cystotomy. 1. In order to capture the severity of condition and code the appropriate procedure could you please document the following: Excisional debridement (the removal of necrotic, devitalized tissue or slough by means of cutting away of tissue) Non-excisional debridement (the removal of necrotic, devitalized tissue or slough by means of flushing, brushing, or washing. (Irrigation) Other; with explanation for clinical findings Unable to determine (no explanation for clinical findings) 2. Which thigh? Right or left 3. Rectus muscle? Left or right Please document addendum in your 04/14 operative report in order to capture severity of illness and risk of mortality. Include clinical findings that support your diagnosis. FYI: Press F11 to launch patient chart. If you have a question about this query, please contact Iman Augustin, Business Info Consultant, [facility] at [phone] between 8am and 5pm. ALVARO
--- NOTE | 2017-05-05 09:12 | P.PN ---
Progress Note - Text Addendum to surgical procedure: The surgical exploration include excisional debridement of necrotic tissue in the perineal region extending into the right thigh. Cyst due to the extravasated urine was infected. The tissues scrotal periurethral perineal extending into the right side.
== END 2017-04-21 17:51 | DRG 662 ==
LOC: EC 22:56 → 6ICU 04-06 00:38 → 6SEL 04-08 19:48 → 5MS5E 04-12 21:10 → 6ICU 04-14 15:12 → 4MS4W 04-15 12:45
PROVIDERS: ADMIT Internal Medicine; ATTEND Internal Medicine
PROC: 0T9B80Z Drainage of Bladder with Drainage Device, Via Natural or Artificial Opening Endoscopic (ICD-10-PCS; 2017-04-07)
PROC: 0WBM0ZZ Excision of Male Perineum, Open Approach (ICD-10-PCS; 2017-04-14)
PROC: 0KBS0ZZ Excision of Right Lower Leg Muscle, Open Approach (ICD-10-PCS; 2017-04-14)
PROC: 0KBK0ZZ Excision of Right Abdomen Muscle, Open Approach (ICD-10-PCS; 2017-04-14)
PROC: 0T9B00Z Drainage of Bladder with Drainage Device, Open Approach (ICD-10-PCS; 2017-04-14 14:50)
PROC: B518ZZA Fluoroscopy of Superior Vena Cava, Guidance (ICD-10-PCS; 2017-04-21)
PROC: 02HV33Z Insertion of Infusion Device into Superior Vena Cava, Percutaneous Approach (ICD-10-PCS; principal; 2017-04-21 09:48)
PROC: B548ZZA Ultrasonography of Superior Vena Cava, Guidance (ICD-10-PCS; 2017-04-21 09:48)
DX: T83.511A Infection and inflammatory reaction due to indwelling urethral catheter, initial encounter (principal); R65.21 Severe sepsis with septic shock; A41.51 Sepsis due to Escherichia coli [E. coli]; K65.1 Peritoneal abscess; E43 Unspecified severe protein-calorie malnutrition; E87.2 Acidosis; N17.9 Acute kidney failure, unspecified; N13.6 Pyonephrosis; A04.7 Enterocolitis due to Clostridium difficile; I82.432 Acute embolism and thrombosis of left popliteal vein; I82.412 Acute embolism and thrombosis of left femoral vein; J98.11 Atelectasis; M60.08 Infective myositis, other site; N34.0 Urethral abscess; R39.0 Extravasation of urine; E87.5 Hyperkalemia; J44.9 Chronic obstructive pulmonary disease, unspecified; N36.5 Urethral false passage; N31.9 Neuromuscular dysfunction of bladder, unspecified; E87.8 Other disorders of electrolyte and fluid balance, not elsewhere classified; M19.91 Primary osteoarthritis, unspecified site; N49.2 Inflammatory disorders of scrotum; F03.90 Unspecified dementia, unspecified severity, without behavioral disturbance, psychotic disturbance, mood disturbance, and anxiety; E78.5 Hyperlipidemia, unspecified; N35.9 Urethral stricture, unspecified; N47.1 Phimosis; E87.6 Hypokalemia; Z79.899 Other long term (current) drug therapy; Z85.46 Personal history of malignant neoplasm of prostate; Z85.828 Personal history of other malignant neoplasm of skin; Z86.010 Personal history of colon polyps; Z87.440 Personal history of urinary (tract) infections; Z92.3 Personal history of irradiation; Y84.2 Radiological procedure and radiotherapy as the cause of abnormal reaction of the patient, or of later complication, without mention of misadventure at the time of the procedure; Y84.6 Urinary catheterization as the cause of abnormal reaction of the patient, or of later complication, without mention of misadventure at the time of the procedure; Y92.122 Bedroom in nursing home as the place of occurrence of the external cause
CPT/HCPCS: 36415; 36569; 71010; 71020; 74176; 74177; 76770; 76937; 77001; 80048; 80053; 80202; 81001; 82607; 82746; 83540; 83550; 83605; 83735; 84100; 84132; 85025; 85610; 85730; 87040; 87070; 87075; 87077; 87086; 87186; 87205; 87324; 93005; 93970; 94760; 96360; 96365; 96366; 96368; 96375; 99291